=== PATIENT | male | born 1965 | race American Indian/Alaskan Native ===

== ENCOUNTER 2018-06-03 15:21 | Inpatient (IN) | payer BC ==
[2018-06-03] MEDS ORDERED: D50W (25GM) Syringe IV PRN (17:09)
[2018-06-03] MEDS ORDERED: SIMPLE SYRUP FEEDTUBE PRN ×2 (17:25)
[2018-06-03] MEDS ORDERED: PANCREAZE DR 10,500 UNIT FEEDTUBE PRN (17:25)
[2018-06-03] MEDS ORDERED: SODIUM BICARBONATE FEEDTUBE PRN (17:25)
[2018-06-03] MEDS ORDERED: MIRALAX 3350 FEEDTUBE PRN (17:30)
[2018-06-03] MEDS: HumaLOG SUB-Q SCH (18:45)
--- NOTE | 2018-06-03 19:01 | History and Physical Report ---
History of Present Illness Date: 06/03/18 Referring Facility: [facility] Date of admission: 06/03/18 17:09 Chief Complaint: CVA History of present illness: 53-year-old LHD male who experienced increased right-sided weakness three days p rior to presentation at an outside hospital. He also had decreased balance and gait. He was admitted and worked up for stroke. MRI of brain confirmed the presence of a stroke. A repeat MRI showed a second stroke in a different area. Patient was continued on secondary stroke prevention medications. He had a PEG tube placed and was started on a low volume of TF. He developed acute kidney injury and a nephrology consult was called. He required transfer to the [facility] for management of uncontrolled blood pressure. He was later weaned off of Cardene drip and restarted on oral blood pressure medications. 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 He agreed to have his group continue to see the patient in consultation. After he was medically stabilized he was transferred to participate in an acute rehabilitation program. All available records were reviewed. Past History Past Medical History: diabetes, hypertension, hyperlipidemia Past Surgical History: Other (R BKA) Social history: single, Lives alone, full code, other (Former Tobacco, Current EtOH, Denies illicit. Lives in 1 story home, Independent, driving and working.) Family history: diabetes, hypertension, stroke Medications and Allergies Allergies Allergy/AdvReac Type Severity Reaction Status Date / Time No Known Allergies Allergy Unverified 08/03/15 12:32 Home Medications Medication Instructions Recorded Confirmed Last Taken Type Aspirin [Aspirin BABY CHEW TAB] 81 mg PO QDAY 08/04/15 08/04/15 Unknown History Insulin Detemir [Levemir Flextouch] 35 unit SQ BID 08/04/15 08/04/15 Unknown History NIFEdipine XL [Procardia Xl] 60 mg PO QDAY 08/04/15 08/04/15 Unknown History Simvastatin [Zocor TAB] 40 mg PO QHS 08/04/15 08/04/15 Unknown History Sitagliptin/Metformin (Nf) 1 each PO BID 08/04/15 08/04/15 Unknown History [Janumet 50-1,000 mg (Nf)] Sulfamethoxazole/Trimethoprim 1 each PO BID #14 tablet 08/04/15 Unknown Rx [Bactrim DS TAB] Active Meds: Active Medications Amlodipine Besylate (Norvasc) 5 mg FEEDTUBE QDAY JONO Lipase/Protease/Amylase (Pancreaze Dr 10,500 Unit) 1 each FEEDTUBE PRN PRN PRN Reason: For Clogged Feeding Tube Aspirin (Aspirin) 325 mg FEEDTUBE QDAY JONO Atorvastatin Calcium (Lipitor) 40 mg FEEDTUBE QHS JONO Clopidogrel Bisulfate (Plavix) 75 mg FEEDTUBE QDAY JONO Dextrose (D50w (25gm) Syringe) 50 ml IV PRN PRN PRN Reason: Hypoglycemia Docusate Sodium (Colace) 100 mg FEEDTUBE BID JONO Famotidine (Pepcid) 20 mg FEEDTUBE BID JONO Heparin Sodium (Porcine) (Heparin) 5,000 unit SUB-Q Q8HR JONO Hydralazine HCl (Apresoline) 75 mg FEEDTUBE Q8HR JONO Insulin Glargine (Lantus) 40 units SUB-Q BID JONO Insulin Human Lispro (Humalog) 0 unit SUB-Q Q6HR JONO; Protocol Last Admin: 06/03/18 18:45 Dose: Not Given Documented by: Metoprolol Tartrate (Lopressor) 100 mg FEEDTUBE BID JONO Polyethylene Glycol (Miralax 3350) 17 gm FEEDTUBE QDAY PRN PRN Reason: Constipation Simple Syrup (Simple Syrup) 15 ml FEEDTUBE PRN PRN PRN Reason: Hypoglycemia Simple Syrup (Simple Syrup) 30 ml FEEDTUBE PRN PRN PRN Reason: Hypoglycemia Sodium Bicarbonate (Sodium Bicarbonate) 325 mg FEEDTUBE PRN PRN PRN Reason: For Clogged Feeding Tube Review of Systems All systems: negative (10 systems reviewed NEG except as noted) Constitutional: weakness Ears, nose, mouth and throat: dysphagia, voice changes Cardiovascular: high blood pressure Genitourinary Male: urinary retention Musculoskeletal: gait dysfunction Integumentary: sores Neurological: weakness, lack of coordination, aphasia, change in speech, balance difficulties, gait dysfunction, sensory deficit Exam - Exam Narrative exam: MUSCULOSKELETAL SPECIALTY EXAM Constitutional: Well developed, well nourished, appropriately groomed, LHD Lymphatic: No appreciable abnormalities palpable in neck EENT: Visual de la garza full to confrontation. EOMI. Oropharynx clear. Hearing intact to finger rustle. Poor dentition Respiratory: Clear to ascultation bilaterally, no increased work of breathing. Cardiovascular Regular Rate/ Rhythm, no swelling edema or tenderness in all 4 extremities. P ulses palpable in all 4 extremities. All 4 extremities warm. GI : + bowel sounds, soft, NTTP, nondistended, PEG : Mcmullen INTEGUMENTARY Normal in all 4 extremities except for what appears to be old/healed sores on LLE Musuloskeletal BUE and BLE normal without defect, crepitus, sublux, effusion, or TTP except for Right BKA. RUE and RLE 4-/5. Decreased aROM, good pROM, normal tone. LUE and LLE 4+/5, good ROM with normal tone. NEURO: Significant Left facial droop involving upper and lower face (LMN), Tongue protrudes left otherwise, sensation on face is assymetric, otherwise CN 2-12 g rossly intact. Sensation intact on LEFT extremities and impaired on RIGHT. Reflexes 3+ on right and 2+ on left at biceps, brachioradialis and patella. No Clonus. Coordination intact on left, decreased on right. No tremor noted. Aphasia and dysarthria present. Naming and repetition intact. POSTURE and GAIT: Deferred until seen with therapy for safety. Patient examined in bed. PSYCH: Alert, orientated x3, affect appears normal. Insight appears intact. - Constitutional Vitals: Vital Signs - 12hr 06/03/18 17:58 Temperature 36.6 C Pulse Rate 89 Respiratory 18 Rate Blood Pressure 135/81 [Left] O2 Sat by Pulse 94 Oximetry - Labs CBC & Chem 7: 06/03/18 19:51 06/03/18 19:51 Labs: Laboratory Results - last 72 hr 06/03/18 18:18 POC Glucose 147 H Assessment and Plan Assessment and plan: Patient was assessed and evaluated for Acute Inpatient Rehab Unit. Due to the patients above-mentioned medical complexity, along with decreased functional mobility and self care, this patient continues to require and be appropriate for a comprehensive, multidisciplinary [id number] rehabilitation program. These needs cannot be met in an outpatient or other less intensive setting. The patient would continue to benefit from skilled therapy intervention for at least 3 hours per day, five days a week, with techniques specific to the needs of the patient to improve function, activities of daily living, and reintegration into the community. The patient continues to require: -- OT to improve ROM, self-care, and learn use of adaptive equipment -- PT to improve strength and balance, functional transfers, and ambulation -- CORROSION CONTROL SPECIALIST to evaluate and treat cognitive decline and dysphagia -- 24 hour RN to ensure and prevent skin breakdown, promote progressive independence while ensuring safety, ensure education regarding medications, and incorporation of the rehabilitation at the bedside -- 24 hour Reverberatory Furnace Operator to coordinate this interdisciplinary program, and to manage/prevent complications as a result of the patients medical comorbidities. -Plan of care by day 4 -Weekly team conferences With such a program, there is a reasonable certainty that the goals individualized for this patient can be achieved within the specified length of stay. I69.353 Right non-dom hemiparesis: Monitor for neuro decline. Continue secondary stroke prevention. Discussed recovery and secondary stroke prevention. Monitor for post-stroke depression and s/s of shoulder-hand syndrome. Monitor for safety awareness I69.322 Dysarthria: CORROSION CONTROL SPECIALIST for improvement in communication and speech I69.391 Dysphagia: CORROSION CONTROL SPECIALIST to improve swallow function. Continue TF with NPO. Monitor and advance diet as safely as able. FEES, MBSS or EStim as needed. Z73.6 ADL dysfunction: OT will work on improving ability to perform ADLs (inclu ding assistive devices) to increase independence and decrease caregiver burden and improve functional transfers and mobility training. R26.2 Difficulty walking: PT will work on gait training and proper use of assistive devices and advance as appropriate to use of stairs and outside ambulation on uneven surfaces. R26.81 Unsteadiness on feet: PT will work on improving static and dynamic sitting and standing balance as well as proper use of assistive devices to decrease risk of falls. R26.89 Abnormality of gait: PT will work to improve safety and efficiency of gait through neuromotor training and gait training along with instruction on proper use of assistive devices. Has prosthesis with him M62.81 Muscle weakness: PT & OT will work on strengthening exercises to improve functional strength including mixture of closed and open kinetic chain exercises. R53.81 Debility: PT & OT will work on improving overall functional status to improve participation with ADLs, mobility and social involvement. R53.83 Fatigue: PT & OT will work on improving endurance through aerobic exercises and therapeutic activity while monitoring patients tolerance for activity and vital signs as needed. I10 Hypertension:Monitor BP and adjust medications as needed for normotension E78.5 Hyperlipidemia: continue statin E11.8 Diabetes: continue medication and adjust as needed N17.0 ELVIRA due to ATN: monitor for recovery, IVF if needed. Avoid nephrotoxic agents DVT ppx: Heparin TID due to renal function GI ppx: Pepcid Pain: Continue physical modalities in therapy and pain medications as needed to achieve functional pain control. Sleep: Monitor and address as needed. Bowel: Monitor and address as needed. Appetite: Monitor and address as needed when able to take PO. Discharge planning: Pending therapy progress and care plan meeting. Will continue discussion with therapy team, SW, patient and family. Restrictions/ Precautions: Falls, aspiration WB status: FWB Functional Hx: ADLs: Independent and working Cognition: Independent Mobility: independent Consult: Hospitalists for medical management Nephrology for renal function Barriers to Discharge: Decreased mobility and ability to perform self care, right sided weakness, balance deficits, dysphagia Estimated Length of Stay: 21 days Discharge Destination: Home with family if possible POST ADMISSION PHYSICIAN EVALUATION I have examined the patient and find that his functional status, medical condition and appropriateness for IRF admission are essentially unchanged from those described in the preadmission screening. Will monitor for worsening neurological condition, complications due to hypertension and electrolyte abnormalities, aspiration, problems with blood pressure or diabetes. Will attempt to avoid occurrence of these issues or treat them if they present themselves.
[2018-06-03 20:05] LABS: Hematocrit 30.8 % (35.5-45.6); Hemoglobin 10.2 gm/dl (11.8-15.2); Mean Corpuscular HGB Conc 33 % (32-34); Mean Corpuscular Volume 88 fl (84-94); Platelet Count 555 K/mm3 (140-440)
[2018-06-03 20:22] LABS: Calcium 9.4 mg/dL (8.4-10.2); Prealbumin 0.23 g/L (0.200-0.400)
[2018-06-03] MEDS: HEPARIN SUB-Q SCH (23:12)
[2018-06-03] MEDS: APRESOLINE FEEDTUBE SCH (23:14)
[2018-06-03] MEDS: PEPCID FEEDTUBE SCH (23:16)
[2018-06-03] MEDS: COLACE FEEDTUBE SCH (23:18)
[2018-06-03] MEDS: LANTUS SUB-Q SCH (23:18)
[2018-06-03] MEDS: LOPRESSOR FEEDTUBE SCH (23:19)
[2018-06-04] MEDS: HumaLOG SUB-Q SCH ×4 (00:09→18:15)
[2018-06-04] MEDS: HEPARIN SUB-Q SCH ×3 (07:02→23:40)
[2018-06-04] MEDS: APRESOLINE FEEDTUBE SCH ×3 (07:03→23:41)
[2018-06-04] MEDS: ASPIRIN FEEDTUBE SCH (09:27)
[2018-06-04] MEDS: COLACE FEEDTUBE SCH (09:27)
[2018-06-04] MEDS: PEPCID FEEDTUBE SCH ×2 (09:27→23:41)
[2018-06-04] MEDS: PLAVIX FEEDTUBE SCH (09:27)
[2018-06-04] MEDS: LOPRESSOR FEEDTUBE SCH ×2 (09:28→23:42)
[2018-06-04] MEDS: NORVASC FEEDTUBE SCH (09:28)
[2018-06-04] MEDS: LANTUS SUB-Q SCH (09:29)
--- NOTE | 2018-06-04 11:03 | Consultation ---
History of Present Illness - Reason for Consult Consult date: 06/04/18 acute renal failure, chronic renal failure - History of Present Illness This is a 53 year old male who transferred from [facility] yesterday to this rehab facility to undergo rehab for right-sided weakness secondary to having a stroke. Patient was followed by our group at [facility] for Acute Renal failure on CKD, his serum creatinine on admission at [facility] was 5.17. Serum creatinine yesterday was 3.28 and prior was 3.80. Patient's serum creatinine has been steadily improving. Patient has history of DM, HTN, possibly CKD and CVA. We are being consulted for continued management of this patient's Acute renal Failure on CKD. Past History Past Medical History: diabetes, hypertension, hyperlipidemia Past Surgical History: Other (R BKA) Social history: single, Lives alone, full code, other (Former Tobacco, Current EtOH, Denies illicit. Lives in 1 story home, Independent, driving and working.) Family history: diabetes, hypertension, stroke Medications and Allergies Allergies Allergy/AdvReac Type Severity Reaction Status Date / Time No Known Allergies Allergy Unverified 08/03/15 12:32 Home Medications Medication Instructions Recorded Confirmed Last Taken Type Aspirin [Aspirin BABY CHEW TAB] 81 mg PO QDAY 08/04/15 08/04/15 Unknown History Insulin Detemir [Levemir Flextouch] 35 unit SQ BID 08/04/15 08/04/15 Unknown History NIFEdipine XL [Procardia Xl] 60 mg PO QDAY 08/04/15 08/04/15 Unknown History Simvastatin [Zocor TAB] 40 mg PO QHS 08/04/15 08/04/15 Unknown History Sitagliptin/Metformin (Nf) 1 each PO BID 08/04/15 08/04/15 Unknown History [Janumet 50-1,000 mg (Nf)] Sulfamethoxazole/Trimethoprim 1 each PO BID #14 tablet 08/04/15 Unknown Rx [Bactrim DS TAB] Active Meds: Active Medications Amlodipine Besylate (Norvasc) 5 mg FEEDTUBE QDAY JONO Last Admin: 06/04/18 09:28 Dose: 5 mg Documented by: Lipase/Protease/Amylase (Amy Laguerre 10,500 Unit) 1 each FEEDTUBE PRN PRN PRN Reason: For Clogged Feeding Tube Aspirin (Aspirin) 325 mg FEEDTUBE QDAY [facility] Last Admin: 06/04/18 09:27 Dose: 325 mg Documented by: Atorvastatin Calcium (Lipitor) 40 mg FEEDTUBE QHS [facility] Last Admin: 06/03/18 23:17 Dose: 40 mg Documented by: Clopidogrel Bisulfate (Plavix) 75 mg FEEDTUBE QDAY [facility] Last Admin: 06/04/18 09:27 Dose: 75 mg Documented by: Dextrose (D50w (25gm) Syringe) 50 ml IV PRN PRN PRN Reason: Hypoglycemia Docusate Sodium (Colace) 100 mg FEEDTUBE BID [facility] Last Admin: 06/04/18 09:27 Dose: 100 mg Documented by: Famotidine (Pepcid) 20 mg FEEDTUBE BID [facility] Last Admin: 06/04/18 09:27 Dose: 20 mg Documented by: Heparin Sodium (Porcine) (Heparin) 5,000 unit SUB-Q Q8HR [facility] Last Admin: 06/04/18 07:02 Dose: 5,000 unit Documented by: Hydralazine HCl (Apresoline) 75 mg FEEDTUBE Q8HR [facility] Last Admin: 06/04/18 07:03 Dose: 75 mg Documented by: Insulin Glargine (Lantus) 40 units SUB-Q BID [facility] Last Admin: 06/04/18 09:29 Dose: 40 units Documented by: Insulin Human Lispro (Humalog) 0 unit SUB-Q Q6HR [facility]; Protocol Last Admin: 06/04/18 00:09 Dose: Not Given Documented by: Metoprolol Tartrate (Lopressor) 100 mg FEEDTUBE BID [facility] Last Admin: 06/04/18 09:28 Dose: 100 mg Documented by: Polyethylene Glycol (Miralax 3350) 17 gm FEEDTUBE QDAY PRN PRN Reason: Constipation Simple Syrup (Simple Syrup) 15 ml FEEDTUBE PRN PRN PRN Reason: Hypoglycemia Simple Syrup (Simple Syrup) 30 ml FEEDTUBE PRN PRN PRN Reason: Hypoglycemia Sodium Bicarbonate (Sodium Bicarbonate) 325 mg FEEDTUBE PRN PRN PRN Reason: For Clogged Feeding Tube Review of Systems Constitutional: fatigue, weakness, no weight loss, no weight gain, no fever, no chills Ears, nose, mouth and throat: no ear discharge, no tinnitis, no decreased hearing, no nose pain, no nasal congestion Cardiovascular: no chest pain, no palpitations, no rapid/irregular heart beat Respiratory: no cough, no cough with sputum, no excessive sputum, no hemoptysis, no shortness of breath Gastrointestinal: no abdominal pain, no nausea, no vomiting, no diarrhea, no constipation, no change in bowel habits Musculoskeletal: no neck stiffness, no neck pain, no shooting arm pain, no arm numbness/tingling, no low back pain Integumentary: no rash, no pruritis, no redness, no sores Neurological: weakness, lack of coordination, balance difficulties, gait dysfunction, no head injury, no transient paralysis, no paralysis Psychiatric: no anxiety, no memory loss, no change in sleep habits, no sleep disturbances, no insomnia, no hypersomnia Endocrine: no cold intolerance, no heat intolerance, no polyphagia, no excessive thirst, no polydipsia Hematologic/Lymphatic: no easy bruising, no easy bleeding, no lymphadenopathy Exam - Vital Signs Vital signs: Vital Signs Temp Pulse Resp BP Pulse Ox 97.8 F 89 18 135/81 94 06/03/18 17:58 06/03/18 17:58 06/03/18 17:58 06/03/18 17:58 06/03/18 17:58 - General Appearance General appearance: well-developed, fatigue, other (slurred speech) EENT: ATNC, PERRL Neck: Present: neck supple Respiratory: Decreased Breath Sounds Heart: S1S2 Gastrointestinal: Present: normoactive bowel sounds Integumentary: warm and dry Neurologic: alert and oriented x3 Musculoskeletal: Present: decreased ROM, other (Right BKA) Results - Lab Results 06/03/18 19:51 06/03/18 19:51 Most recent lab results Calcium 9.4 mg/dL (8.4-10.2) 06/03/18 19:51 Phosphorus 3.50 mg/dL (2.5-4.5) 06/03/18 19:51 Magnesium 1.90 mg/dL (1.7-2.3) 06/03/18 19:51 Assessment and Plan Acute Renal Failure secondary to Ischemic ATN on likely CKD from HTN: -Renal function reviewed. Serum creatinine today is 3.1. Yesterdays serum creatinine was 3.28, renal function slowly improvinmg -Was on 1/2NS, will monitor renal function off IV fluids -GN work-up ordered at previous hospital was negative -Renal ultrasound at previous hospital showed signs of CKD -Avoid nephrotoxic agents -Obtain daily weights -Monitor I/O's -Monitor renal function closely Acute CVA: -On ASA, plavix and Statin -Rehab therapy Hypertension: -Continue BP meds and adjust as needed Diabetes Mellitus: -On Insulin Oropharyngeal Dysphagia: Peg Tube feedings
[2018-06-04] MEDS ORDERED: SODIUM BICARBONATE FEEDTUBE PRN (12:07)
[2018-06-04] MEDS ORDERED: SIMPLE SYRUP FEEDTUBE PRN ×2 (12:07)
[2018-06-04] MEDS ORDERED: PANCREAZE DR 10,500 UNIT FEEDTUBE PRN (12:07)
--- NOTE | 2018-06-04 16:37 | Consultation ---
History of Present Illness - Reason for Consult Consult date: 06/04/18 Requesting physician: LUIS A ISLAS III - History of Present Illness 53 year old whose past medical history significant for CVA, hypertension, DM, CKD was admitted to acute rehabilitation from [facility]. Patient has a recent acute CVA with right-sided weakness on secondary prevention of stroke. Hospitalist group is consulted for the management of high blood pressure and diabetes. Patient was seen and evaluated did have any complaints. REVIEW OF SYSTEMS: GENERAL: no weight change, no fatigue, no fever HEAD: no head ache EYES: no blurry vision, no acute visual loss EARS: no hearing loss, no discharge, no earache NOSE: no stuffiness, no sneezing, no discharge MOUTH, THROAT AND NECK: no bleeding gums, no sore throat, no swollen neck CARDIAC: no palpitations, no dyspnea on exertion, no orthopnea, no PND, no edema, no chest pain RESPIRATORY: no shortness of breath, no wheeze, no cough, no sputum, no hemoptysis, no asthma GI: no decreased appetite, no nausea, no vomiting, no dysphagia, no diarrhea, no constipation, no abdominal pain URINARY: no change in frequency, no urgency, no polyuria, no hematuria, no incontinence MUSCULOSKELETAL: right BKA NEUROLOGIC: right arm weakness HEMATOLOGIC: no anemia, no easy bruising SKIN: no rashes ENDOCRINE: no heat/cold intolerance, no polyuria, no polydipsia, no thyroid problems, no diabetes PSYCHIATRIC: no anxiety, no depression, no suicidal ideations Past History Past Medical History: diabetes, hypertension, hyperlipidemia Past Surgical History: Other (R BKA) Social history: single, Lives alone, full code, other (Former Tobacco, Current EtOH, Denies illicit. Lives in 1 story home, Independent, driving and working.) Family history: diabetes, hypertension, stroke Medications and Allergies Allergies Allergy/AdvReac Type Severity Reaction Status Date / Time No Known Allergies Allergy Unverified 08/03/15 12:32 Home Medications Medication Instructions Recorded Confirmed Last Taken Type Aspirin [Aspirin BABY CHEW TAB] 81 mg PO QDAY 08/04/15 08/04/15 Unknown History Insulin Detemir [Levemir Flextouch] 35 unit SQ BID 08/04/15 08/04/15 Unknown History NIFEdipine XL [Procardia Xl] 60 mg PO QDAY 08/04/15 08/04/15 Unknown History Simvastatin [Zocor TAB] 40 mg PO QHS 08/04/15 08/04/15 Unknown History Sitagliptin/Metformin (Nf) 1 each PO BID 08/04/15 08/04/15 Unknown History [Janumet 50-1,000 mg (Nf)] Sulfamethoxazole/Trimethoprim 1 each PO BID #14 tablet 08/04/15 Unknown Rx [Bactrim DS TAB] Active Meds: Active Medications Amlodipine Besylate (Norvasc) 5 mg FEEDTUBE QDAY [facility] Last Admin: 06/04/18 09:28 Dose: 5 mg Documented by: Lipase/Protease/Amylase (Pancreaze Dr 10,500 Unit) 1 each FEEDTUBE PRN PRN PRN Reason: For Clogged Feeding Tube Lipase/Protease/Amylase (Pancreaze Dr 10,500 Unit) 1 each FEEDTUBE PRN PRN PRN Reason: For Clogged Feeding Tube Aspirin (Aspirin) 325 mg FEEDTUBE QDAY [facility] Last Admin: 06/04/18 09:27 Dose: 325 mg Documented by: Atorvastatin Calcium (Lipitor) 40 mg FEEDTUBE QHS [facility] Last Admin: 06/03/18 23:17 Dose: 40 mg Documented by: Clopidogrel Bisulfate (Plavix) 75 mg FEEDTUBE QDAY [facility] Last Admin: 06/04/18 09:27 Dose: 75 mg Documented by: Dextrose (D50w (25gm) Syringe) 50 ml IV PRN PRN PRN Reason: Hypoglycemia Docusate Sodium (Colace) 100 mg FEEDTUBE BID [facility] Last Admin: 06/04/18 09:27 Dose: 100 mg Documented by: Famotidine (Pepcid) 10 mg FEEDTUBE BID [facility] Heparin Sodium (Porcine) (Heparin) 5,000 unit SUB-Q Q8HR [facility] Last Admin: 06/04/18 13:18 Dose: 5,000 unit Documented by: Hydralazine HCl (Apresoline) 75 mg FEEDTUBE Q8HR [facility] Last Admin: 06/04/18 13:18 Dose: 75 mg Documented by: Insulin Glargine (Lantus) 40 units SUB-Q BID [facility] Last Admin: 06/04/18 09:29 Dose: 40 units Documented by: Insulin Human Lispro (Humalog) 0 unit SUB-Q Q6HR [facility]; Protocol Last Admin: 06/04/18 13:11 Dose: Not Given Documented by: Metoprolol Tartrate (Lopressor) 100 mg FEEDTUBE BID [facility] Last Admin: 06/04/18 09:28 Dose: 100 mg Documented by: Polyethylene Glycol (Miralax 3350) 17 gm FEEDTUBE QDAY PRN PRN Reason: Constipation Simple Syrup (Simple Syrup) 15 ml FEEDTUBE PRN PRN PRN Reason: Hypoglycemia Simple Syrup (Simple Syrup) 30 ml FEEDTUBE PRN PRN PRN Reason: Hypoglycemia Simple Syrup (Simple Syrup) 15 ml FEEDTUBE PRN PRN PRN Reason: Hypoglycemia Simple Syrup (Simple Syrup) 30 ml FEEDTUBE PRN PRN PRN Reason: Hypoglycemia Sodium Bicarbonate (Sodium Bicarbonate) 325 mg FEEDTUBE PRN PRN PRN Reason: For Clogged Feeding Tube Sodium Bicarbonate (Sodium Bicarbonate) 325 mg FEEDTUBE PRN PRN PRN Reason: For Clogged Feeding Tube Exam - Physical Exam Narrative exam: Not in cardiopulmonary distress. The patient appeared well nourished and normally developed. Vital signs as documented. Head exam is unremarkable. No scleral icterus . Neck is without jugular venous distension, thyromegaly, or carotid bruits. Lungs are clear to auscultation. Cardiac exam reveals regular rate and Rhythm. First and second heart sounds normal. No murmurs, rubs or gallops. Abdominal exam reveals normal bowel sounds, no masses, no organomegaly and no aortic enlargement. Extremities right BKA. 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 - Constitutional Vitals: Temp Pulse Resp BP Pulse Ox 97.3 F L 60 18 121/81 96 06/04/18 12:11 06/04/18 12:11 06/04/18 12:11 06/04/18 13:18 06/04/18 12:11 Results - Labs CBC & Chem 7: 06/03/18 19:51 06/03/18 19:51 Labs: Abnormal lab results 06/03/18 06/03/18 06/03/18 Range/Units 18:18 19:51 19:51 RBC 3.50 L (3.65-5.03) M/mm3 Hgb 10.2 L (11.8-15.2) gm/dl Hct 30.8 L (35.5-45.6) % Plt Count 555 H (140-440) K/mm3 Carbon Dioxide 34 H (22-30) mmol/L BUN 49 H (9-20) mg/dL Creatinine 3.1 H (0.8-1.5) mg/dL Glucose 133 H (75-100) mg/dL POC Glucose 147 H (70-105) 06/04/18 06/04/18 Range/Units 07:41 12:21 RBC (3.65-5.03) M/mm3 Hgb (11.8-15.2) gm/dl Hct (35.5-45.6) % Plt Count (140-440) K/mm3 Carbon Dioxide (22-30) mmol/L BUN (9-20) mg/dL Creatinine (0.8-1.5) mg/dL Glucose (75-100) mg/dL POC Glucose 139 H 148 H (70-105) Assessment and Plan CVA with residual right-sided hemiparesis, dysphagia -On aspirin and atorvastatin -PT/OT, speech therapy evaluation Right BKA - Supportive care Hypertension - Controlled continue amlodipine, hydralazine and metoprolol. Diabetes mellitus - The blood sugar is with in acceptable range - SSI CKD - Nephrology following DVT prophylaxis - On heparin Patient's primary is Dr Islas.
[2018-06-05] MEDS: LANTUS SUB-Q SCH ×2 (00:03→10:16)
[2018-06-05] MEDS: HumaLOG SUB-Q SCH ×4 (00:05→17:13)
[2018-06-05] MEDS: COLACE FEEDTUBE SCH ×3 (00:05→23:20)
[2018-06-05 04:59] LABS: Basophils # (Auto) 0.1 K/mm3 (0.0-0.1); Basophils % (Auto) 0.6 % (0.0-1.8); Eosinophils # (Auto) 0.3 K/mm3 (0.0-0.4); Hemoglobin 9.6 gm/dl (11.8-15.2); Lymphocytes # (Auto) 1.8 K/mm3 (1.2-5.4); Lymphocytes % (Auto) 13.7 % (13.4-35.0); Mean Corpuscular HGB Conc 33 % (32-34); Mean Corpuscular Volume 88 fl (84-94); Monocytes # (Auto) 0.8 K/mm3 (0.0-0.8); Monocytes % (Auto) 6.3 % (0.0-7.3); Platelet Count 553 K/mm3 (140-440); Red Cell Distribution Width 14.2 % (13.2-15.2)
[2018-06-05 05:26] LABS: Calcium 9.4 mg/dL (8.4-10.2)
[2018-06-05] MEDS: APRESOLINE FEEDTUBE SCH ×3 (05:31→23:13)
[2018-06-05] MEDS: HEPARIN SUB-Q SCH ×3 (05:33→23:07)
[2018-06-05] MEDS: LOPRESSOR FEEDTUBE SCH ×2 (09:54→23:14)
[2018-06-05] MEDS: PEPCID FEEDTUBE SCH ×2 (09:54→23:08)
[2018-06-05] MEDS: PLAVIX FEEDTUBE SCH (09:54)
[2018-06-05] MEDS: ASPIRIN FEEDTUBE SCH (09:54)
[2018-06-05] MEDS: NORVASC FEEDTUBE SCH (09:55)
--- NOTE | 2018-06-05 10:18 | Progress Note ---
Assessment and Plan Acute Renal Failure secondary to Ischemic ATN on likely CKD from HTN: -Cr cont to improve slowly -GN work-up ordered at previous hospital was negative -Renal ultrasound at previous hospital showed signs of CKD -Avoid nephrotoxic agents -Obtain daily weights -Monitor I/O's -Monitor renal function closely Acute CVA: -On ASA, plavix and Statin -Rehab therapy Hypertension: -Continue BP meds and adjust as needed Diabetes Mellitus: -On Insulin Oropharyngeal Dysphagia: Peg Tube feedings Subjective Date of service: 06/05/18 Principal diagnosis: acute kidney failure on chronic kidney disease Interval history: working wit PT, tolerating Objective - Vital Signs Vital signs: Vital Signs - 12hr 06/04/18 06/04/18 06/05/18 23:41 23:42 04:38 Temperature Pulse Rate 93 H 93 H Respiratory Rate Blood Pressure 130/65 130/65 Blood Pressure [Left] O2 Sat by Pulse 100 Oximetry 06/05/18 06/05/18 06/05/18 05:31 07:35 09:54 Temperature 98.7 F Pulse Rate 96 H 94 H 95 H Respiratory 16 Rate Blood Pressure 136/92 142/92 Blood Pressure 142/92 [Left] O2 Sat by Pulse 95 Oximetry - General Appearance General appearance: well-developed, well-nourished EENT: ATNC, PERRL Neck: no JVD, no carotid bruit Respiratory: Present: Clear to Ascultation. Absent: Rales, Ronchi Cardiology: regular, S1S2 Gastrointestinal: normoactive bowel sounds, no tenderness, no distended Integumentary: no rash, warm and dry Neurologic: no focal deficit, no asterixis Musculoskeletal: other (trace pitting edema in BLE) Psychiatric: cooperative - Lab 06/05/18 04:37 06/05/18 04:37 Most recent lab results Calcium 9.4 mg/dL (8.4-10.2) 06/05/18 04:37 Phosphorus 3.70 mg/dL (2.5-4.5) 06/05/18 04:37 Magnesium 1.90 mg/dL (1.7-2.3) 06/03/18 19:51 Medications & Allergies - Medications Allergies/Adverse Reactions: Allergies No Known Allergies Allergy (Unverified 08/03/15 12:32) Home Medications: Home Medications Medication Instructions Recorded Confirmed Last Taken Type Aspirin [Aspirin BABY CHEW TAB] 81 mg PO QDAY 08/04/15 08/04/15 Unknown History Insulin Detemir [Levemir Flextouch] 35 unit SQ BID 08/04/15 08/04/15 Unknown History NIFEdipine XL [Procardia Xl] 60 mg PO QDAY 08/04/15 08/04/15 Unknown History Simvastatin [Zocor TAB] 40 mg PO QHS 08/04/15 08/04/15 Unknown History Sitagliptin/Metformin (Nf) 1 each PO BID 08/04/15 08/04/15 Unknown History [Janumet 50-1,000 mg (Nf)] Sulfamethoxazole/Trimethoprim 1 each PO BID #14 tablet 08/04/15 Unknown Rx [Bactrim DS TAB] Active Medications: Generic Name Dose Route Start Last Admin Trade Name Freq PRN Reason Stop Dose Admin Amlodipine Besylate 5 mg 06/04/18 08:00 06/05/18 09:55 Norvasc FEEDTUBE 5 mg QDAY JONO Administration Lipase/Protease/Amylase 1 each 06/03/18 17:25 Amy Laguerre 10,500 Unit FEEDTUBE PRN PRN For Clogged Feeding Tube Lipase/Protease/Amylase 1 each 06/04/18 12:07 Amy Laguerre 10,500 Unit FEEDTUBE PRN PRN For Clogged Feeding Tube Aspirin 325 mg 06/04/18 08:00 06/05/18 09:54 Aspirin FEEDTUBE 325 mg QDAY JONO Administration Atorvastatin Calcium 40 mg 06/03/18 21:00 06/05/18 00:10 Lipitor FEEDTUBE 40 mg QHS JONO Administration Clopidogrel Bisulfate 75 mg 06/04/18 08:00 06/05/18 09:54 Plavix FEEDTUBE 75 mg QDAY JONO Administration Dextrose 50 ml 06/03/18 17:09 D50w (25gm) Syringe IV PRN PRN Hypoglycemia Docusate Sodium 100 mg 06/03/18 22:00 06/05/18 09:54 Colace FEEDTUBE 100 mg BID JONO Administration Famotidine 10 mg 06/04/18 22:00 06/05/18 09:54 Pepcid FEEDTUBE 10 mg BID JONO Administration Heparin Sodium (Porcine) 5,000 unit 06/03/18 22:00 06/05/18 05:33 Heparin SUB-Q 5,000 unit Q8HR JONO Administration Hydralazine HCl 75 mg 06/03/18 22:00 06/05/18 05:31 Apresoline FEEDTUBE 75 mg Q8HR JONO Administration Insulin Glargine 40 units 06/03/18 22:00 06/05/18 10:16 Lantus SUB-Q Not Given BID JONO Insulin Human Lispro 0 unit 06/03/18 18:00 06/05/18 05:34 Humalog SUB-Q Not Given Q6HR [facility] Protocol Metoprolol Tartrate 100 mg 06/03/18 22:00 06/05/18 09:54 Lopressor FEEDTUBE 100 mg BID JONO Administration Polyethylene Glycol 17 gm 06/03/18 17:30 Miralax 3350 FEEDTUBE QDAY PRN Constipation Simple Syrup 15 ml 06/03/18 17:25 Simple Syrup FEEDTUBE PRN PRN Hypoglycemia Simple Syrup 30 ml 06/03/18 17:25 Simple Syrup FEEDTUBE PRN PRN Hypoglycemia Simple Syrup 15 ml 06/04/18 12:07 Simple Syrup FEEDTUBE PRN PRN Hypoglycemia Simple Syrup 30 ml 06/04/18 12:07 Simple Syrup FEEDTUBE PRN PRN Hypoglycemia Sodium Bicarbonate 325 mg 06/03/18 17:25 Sodium Bicarbonate FEEDTUBE PRN PRN For Clogged Feeding Tube Sodium Bicarbonate 325 mg 06/04/18 12:07 Sodium Bicarbonate FEEDTUBE PRN PRN For Clogged Feeding Tube
--- NOTE | 2018-06-05 12:36 | Progress Note ---
Subjective Date of service: 06/05/18 Principal diagnosis: CVA, Acute on CKD Interval history: 53-year-old LHD male who experienced increased right-sided weakness three days prior to presentation at an outside hospital. He also had decreased balance and gait. He was admitted and worked up for stroke. MRI of brain confirmed the presence of a stroke. A repeat MRI showed a second stroke in a different area. Patient was continued on secondary stroke prevention medications. He had a PEG tube placed and was started on a low volume of TF. He developed acute kidney injury and a nephrology consult was called. He required transfer to the [facility] for management of uncontrolled blood pressure. He was later weaned off of Cardene drip and restarted on oral blood pressure medications. Patient is participating in therapy and making fair progress. +BM. No pain currently. PEG ok. TF increased by nutrition gradually to goal of 80mL/hr. D/C'd lantus - was dosed at 40u BID and only on 20mL/hr of TF with several lower values. Continue to cover with SSI and add back Lantus as needed per hospitalist. Vitals ok, afternoon dose of hydralazine held - monitor and may need to decrease dose. Pt stated that he lost his glasses. Nurse recalls seeing them earlier. They are not in room. Asked that they be located if possible. Seems to have visual deficit but not definitive. Denies diplopia, blurred vision, or blind spots. FMLA ppwk filled out. No other issues per patient, nursing or therapy. All available medical records, therapy notes, vitals and labs were reviewed. Objective - Exam Narrative Exam: MUSCULOSKELETAL SPECIALTY EXAM Constitutional: Well developed, well nourished, appropriately groomed, LHD EENT: Hearing intact to finger rustle. Poor dentition Respiratory: Clear to ascultation bilaterally, no increased work of breathing. Occ cough Cardiovascular Regular Rate/ Rhythm, no swelling edema or tenderness in all 4 extremities. All 4 extremities warm. GI : + bowel sounds, soft, NTTP, nondistended, PEG : Mcmullen INTEGUMENTARY Normal in all 4 extremities except for what appears to be old/healed sores on LLE Musuloskeletal BUE and BLE normal without defect, crepitus, sublux, effusion, or TTP except for Right BKA. RUE and RLE 4-/5. Decreased aROM, good pROM, normal tone. LUE and LLE 4+/5, good ROM with normal tone. NEURO: Significant Left facial droop involving upper and lower face (LMN), Tongue protrudes left , sensation on face is assymetric, otherwise CN 2-12 grossly intact. Sensation intact on LEFT extremities and impaired on RIGHT. Coordination intact on left, decreased on right. No tremor noted. Aphasia and dysarthria present. Naming and repetition intact. At times he seems to have trouble focusing visually, but the basic vision is ok. POSTURE and GAIT: Deferred until seen with therapy for safety. Patient examined in . PSYCH: Alert, orientated x3, affect appears normal. Insight appears intact. - Constitutional Vitals: Vital Signs - 12hr 06/05/18 06/05/18 06/05/18 04:38 05:31 07:35 Temperature 37.1 C Pulse Rate 96 H 94 H Respiratory 16 Rate Blood Pressure 136/92 Blood Pressure 142/92 [Left] O2 Sat by Pulse 100 95 Oximetry 06/05/18 06/05/18 09:54 11:26 Temperature 37.1 C Pulse Rate 95 H 84 Respiratory 19 Rate Blood Pressure 142/92 Blood Pressure 111/79 [Left] O2 Sat by Pulse 95 Oximetry - Allied health notes Allied health notes reviewed: nursing, PT, ST, OT FIMS assessment as documented by PT/OT/ST: Grooming Patient cleans teeth/dentures: Yes Patient matamoros/brushes hair: Yes Patient washes, rinses and Yes dries face: Patient washes, rinses and Yes dries hands: Patient shaves: No Patient performs (no make-up/ / (100%) shaving): Grooming FIM Score 4. Minimal Assistance (Patient = 75% or more. Needs touching.) Toileting Toileting Device Commode over Toilet Toileting FIM Score 2. Maximal Assistance (Patient = 25% or more) Social interaction/Memory/Problem solving Social Interaction FIM Score 3. Moderate Assistance (Interacts appropriately 50-74%.) Memory FIM Score 3. Moderate Assistance (Recognizes and remembers 50-74%.) Problem Solving FIM Score 3. Moderate Assistance (Solves routine problems 50-74%.) Transfers Mode of Locomotion: Wheelchair Bed/Chair/Wheelchair Transfers 2. Maximal Assistance (Patient = 25% or more) FIM Score Toilet Transfers FIM Score 2. Maximal Assistance (Patient = 25% or more) Patient transferred to: Shower Shower Transfers FIM Score 2. Maximal Assistance (Patient = 25% or more) Eating Eating FIM Score 0. Activity does not occur (Does not eat and no tube feeding.) Dressing-Upper body Patient retrieves clothing No items: Patient applies/removes UE n/a prosthesis or orthosis: Upper Body Dressing FIM Score 4. Minimal Assistance (Patient = 75% or more. Needs touching.) Dressing-lower body Patient retrieves clothing No items: Patient applies/removes LE No: RLE prosthesis prosthesis or orthosis: Lower Body Dressing FIM Score 3. Moderate Assistance (Patient = 50% or more) - Labs CBC & Chem 7: 06/05/18 04:37 06/05/18 04:37 Labs: Laboratory Results - last 72 hr 06/03/18 06/03/18 06/03/18 18:18 19:51 19:51 WBC 10.0 RBC 3.50 L Hgb 10.2 L Hct 30.8 L MCV 88 MCH 29 MCHC 33 RDW 14.0 Plt Count 555 H Lymph % (Auto) Dade % (Auto) Eos % (Auto) Baso % (Auto) Lymph # Dade # Eos # Baso # Seg Neutrophils % Seg Neutrophils # Sodium 144 Potassium 3.7 Chloride 98.3 Carbon Dioxide 34 H Anion Gap 15 BUN 49 H Creatinine 3.1 H Estimated GFR 25 BUN/Creatinine Ratio 16 Glucose 133 H POC Glucose 147 H Calcium 9.4 Phosphorus 3.50 Magnesium 1.90 Prealbumin 0.230 06/03/18 06/04/18 06/04/18 22:42 07:41 12:21 WBC RBC Hgb Hct MCV MCH MCHC RDW Plt Count Lymph % (Auto) Dade % (Auto) Eos % (Auto) Baso % (Auto) Lymph # Dade # Eos # Baso # Seg Neutrophils % Seg Neutrophils # Sodium Potassium Chloride Carbon Dioxide Anion Gap BUN Creatinine Estimated GFR BUN/Creatinine Ratio Glucose POC Glucose 92 139 H 148 H Calcium Phosphorus Magnesium Prealbumin 06/04/18 06/05/18 06/05/18 17:15 00:05 04:37 WBC 13.0 H RBC 3.30 L Hgb 9.6 L Hct 29.0 L MCV 88 MCH 29 MCHC 33 RDW 14.2 Plt Count 553 H Lymph % (Auto) 13.7 Dade % (Auto) 6.3 Eos % (Auto) 2.0 Baso % (Auto) 0.6 Lymph # 1.8 Dade # 0.8 Eos # 0.3 Baso # 0.1 Seg Neutrophils % 77.4 H Seg Neutrophils # 10.0 H Sodium Potassium Chloride Carbon Dioxide Anion Gap BUN Creatinine Estimated GFR BUN/Creatinine Ratio Glucose POC Glucose 65 L 67 L Calcium Phosphorus Magnesium Prealbumin 06/05/18 06/05/18 04:37 05:33 WBC RBC Hgb Hct MCV MCH MCHC RDW Plt Count Lymph % (Auto) Dade % (Auto) Eos % (Auto) Baso % (Auto) Lymph # Dade # Eos # Baso # Seg Neutrophils % Seg Neutrophils # Sodium 142 Potassium 3.5 L Chloride 97.3 L Carbon Dioxide 31 H Anion Gap 17 BUN 49 H Creatinine 2.8 H Estimated GFR 29 BUN/Creatinine Ratio 18 Glucose 91 POC Glucose 99 Calcium 9.4 Phosphorus 3.70 Magnesium Prealbumin Assessment and Plan I69.353 Right non-dom hemiparesis: Monitor for neuro decline. Continue secondary stroke prevention. Discussed recovery and secondary stroke prevention. Monitor for post-stroke depression and s/s of shoulder-hand syndrome. Monitor for safety awareness I69.322 Dysarthria: PROCESS MACHINE OPERATOR for improvement in communication and speech I69.391 Dysphagia: PROCESS MACHINE OPERATOR to improve swallow function. Continue TF with NPO. Monitor and advance diet as safely as able. FEES, MBSS or EStim as needed. Z73.6 ADL dysfunction: OT will work on improving ability to perform ADLs (including assistive devices) to increase independence and decrease caregiver b urden and improve functional transfers and mobility training. R26.2 Difficulty walking: PT will work on gait training and proper use of assistive devices and advance as appropriate to use of stairs and outside ambulation on uneven surfaces. R26.81 Unsteadiness on feet: PT will work on improving static and dynamic sitting and standing balance as well as proper use of assistive devices to decrease risk of falls. R26.89 Abnormality of gait: PT will work to improve safety and efficiency of gait through neuromotor training and gait training along with instruction on proper use of assistive devices. Has prosthesis with him M62.81 Muscle weakness: PT & OT will work on strengthening exercises to improve functional strength including mixture of closed and open kinetic chain exercises. R53.81 Debility: PT & OT will work on improving overall functional status to improve participation with ADLs, mobility and social involvement. R53.83 Fatigue: PT & OT will work on improving endurance through aerobic exercises and therapeutic activity while monitoring patients tolerance for activity and vital signs as needed. Hypertension, Hyperlipidemia, Diabetes, ELVIRA due to ATN at OSH but likely Acute on CKD per consult here DVT ppx: Heparin TID due to renal function GI ppx: Pepcid Pain: Continue physical modalities in therapy and pain medications as needed to achieve functional pain control. Sleep: Monitor and address as needed. Bowel: Monitor and address as needed. Appetite: Monitor and address as needed when able to take PO. Discharge planning: Pending therapy progress and care plan meeting. Will continue discussion with therapy team, SW, patient and family. Restrictions/ Precautions: Falls, aspiration WB status: FWB Functional Hx: ADLs: Independent and working Cognition: Independent Mobility: independent Consult: Hospitalists for medical management Nephrology for renal function Appreciate assistance. Barriers to Discharge: Decreased mobility and ability to perform self care, right sided weakness, balance deficits, dysphagia Estimated Length of Stay: 21 days Discharge Destination: Home with family if possible
--- NOTE | 2018-06-05 14:38 | Progress Note ---
Assessment and Plan Assessment and plan: CVA with residual right-sided hemiparesis, dysphagia -On aspirin and atorvastatin -PT/OT, speech therapy evaluation Right BKA - Supportive care Hypertension - Controlled continue amlodipine, hydralazine and metoprolol. Diabetes mellitus - The blood sugar is with in acceptable range - SSI CKD - Nephrology following DVT prophylaxis - On heparin Patient's primary is Dr Erickson. History Interval history: Patient was seen and evaluated this morning, patient didn't have any complaints. Hospitalist Physical - Physical exam Narrative exam: Not in cardiopulmonary distress. The patient appeared well nourished and normally developed. Vital signs as documented. Head exam is unremarkable. No scleral icterus . Neck is without jugular venous distension, thyromegaly, or carotid bruits. Lungs are clear to auscultation. Cardiac exam reveals regular rate and Rhythm. First and second heart sounds normal. No murmurs, rubs or gallops. Abdominal exam reveals normal bowel sounds, no masses, no organomegaly and no aortic enlargement. Extremities right BKA. 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 - Constitutional Vitals: Temp Pulse Resp BP Pulse Ox 98.8 F 93 H 19 102/67 97 06/05/18 11:26 06/05/18 14:34 06/05/18 11:26 06/05/18 14:34 06/05/18 14:34 Results - Labs CBC & Chem 7: 06/05/18 04:37 06/05/18 04:37 Labs: Laboratory Last Values WBC 13.0 K/mm3 (4.5-11.0) H 06/05/18 04:37 RBC 3.30 M/mm3 (3.65-5.03) L 06/05/18 04:37 Hgb 9.6 gm/dl (11.8-15.2) L 06/05/18 04:37 Hct 29.0 % (35.5-45.6) L 06/05/18 04:37 MCV 88 fl (84-94) 06/05/18 04:37 MCH 29 pg (28-32) 06/05/18 04:37 MCHC 33 % (32-34) 06/05/18 04:37 RDW 14.2 % (13.2-15.2) 06/05/18 04:37 Plt Count 553 K/mm3 (140-440) H 06/05/18 04:37 Lymph % (Auto) 13.7 % (13.4-35.0) 06/05/18 04:37 [place] % (Auto) 6.3 % (0.0-7.3) 06/05/18 04:37 Eos % (Auto) 2.0 % (0.0-4.3) 06/05/18 04:37 Baso % (Auto) 0.6 % (0.0-1.8) 06/05/18 04:37 Lymph # 1.8 K/mm3 (1.2-5.4) 06/05/18 04:37 [place] # 0.8 K/mm3 (0.0-0.8) 06/05/18 04:37 Eos # 0.3 K/mm3 (0.0-0.4) 06/05/18 04:37 Baso # 0.1 K/mm3 (0.0-0.1) 06/05/18 04:37 Seg Neutrophils % 77.4 % (40.0-70.0) H 06/05/18 04:37 Seg Neutrophils # 10.0 K/mm3 (1.8-7.7) H 06/05/18 04:37 Sodium 142 mmol/L (137-145) 06/05/18 04:37 Potassium 3.5 mmol/L (3.6-5.0) L 06/05/18 04:37 Chloride 97.3 mmol/L (98-107) L 06/05/18 04:37 Carbon Dioxide 31 mmol/L (22-30) H 06/05/18 04:37 Anion Gap 17 mmol/L 06/05/18 04:37 BUN 49 mg/dL (9-20) H 06/05/18 04:37 Creatinine 2.8 mg/dL (0.8-1.5) H 06/05/18 04:37 Estimated GFR 29 ml/min 06/05/18 04:37 BUN/Creatinine Ratio 18 % 06/05/18 04:37 Glucose 91 mg/dL (75-100) 06/05/18 04:37 POC Glucose 177 (70-105) H 06/05/18 13:14 Calcium 9.4 mg/dL (8.4-10.2) 01/17/19 04:37 Phosphorus 3.70 mg/dL (2.5-4.5) 06/05/18 04:37 Magnesium 1.90 mg/dL (1.7-2.3) 06/03/18 19:51 Prealbumin 0.230 g/L (0.200-0.400) 06/03/18 19:51 Nutrition/Malnutrition Assess - Dietary Evaluation Nutrition/Malnutrition Findings: Nutrition Notes Start: 06/04/18 11:20 Freq: Status: Active Protocol: Document 06/04/18 11:21 LM (Rec: 06/04/18 12:02 LM [id number]) Co-Sign 06/04/18 11:21 LP Nutrition Notes Need for Assessment generated from: MD Order Current Diagnosis Acute Kidney Injury Diabetes Hypertension Stroke Hyperlipidemia Current Diet NPO Labs/Tests Reviewed Pertinent Medications Reviewed Height 6 ft 2.4 in Weight 100.8 kg [place] Body Weight (lbs) 192.4 BMI 28.2 Subjective/Other Information Pt in rehab at time of visit. Noticed Jevity was hanging in room. #1 Nutrition Diagnosis Inadequate oral intake Etiology Dysphagia As Evidenced by Signs and Symptoms PEG, CVA Is patient on ventilator? No Is Patient Ambulatory and/or Out of Bed No REE-([facility]-confined to bed) 2307.024 Calculation Used for Recommendations [facility] Additional Notes Protein needs: 100- 130 g (1-1 .3 g/kg) Fluids: 1 mL/kg inderjit or per MD Nutrition Intervention Change Diet Order: TF Nutrition Support: Jevity 1.2 at 80 mL/hr Flush 100 mL q4hr Kcal 2,304 Protein (gm) 107 Fluid (mL) 1,549 Goal #1 Meet at least 75% of energy and protein needs Anticipated Discharge Needs: TF Follow-Up By: 06/06/18 Additional Comments F/U for TF tolerance and rate
[2018-06-06] MEDS: HumaLOG SUB-Q SCH ×4 (00:59→19:01)
[2018-06-06] MEDS: APRESOLINE FEEDTUBE SCH ×3 (06:07→21:56)
[2018-06-06] MEDS: HEPARIN SUB-Q SCH ×3 (06:08→21:56)
[2018-06-06] MEDS: LOPRESSOR FEEDTUBE SCH ×2 (09:23→21:58)
[2018-06-06] MEDS: NORVASC FEEDTUBE SCH (09:24)
[2018-06-06] MEDS: PLAVIX FEEDTUBE SCH (09:24)
[2018-06-06] MEDS: ASPIRIN FEEDTUBE SCH (09:24)
[2018-06-06] MEDS: PEPCID FEEDTUBE SCH ×2 (09:28→21:56)
[2018-06-06] MEDS: COLACE FEEDTUBE SCH ×2 (09:28→21:57)
--- NOTE | 2018-06-06 10:50 | Progress Note ---
Assessment and Plan Acute Renal Failure secondary to Ischemic ATN on likely CKD from HTN: -labs are pending this AM -GN work-up ordered at previous hospital was negative -Renal ultrasound at previous hospital showed signs of CKD -Avoid nephrotoxic agents -Obtain daily weights -Monitor I/O's -Monitor renal function closely Acute CVA: -On ASA, plavix and Statin -Rehab therapy Hypertension: -Continue BP meds and adjust as needed Diabetes Mellitus: -On Insulin Oropharyngeal Dysphagia: Peg Tube feedings Subjective Date of service: 06/06/18 Principal diagnosis: CVA, Acute on CKD Interval history: tolerating physical therapy, comfortable Objective - Vital Signs Vital signs: Vital Signs - 12hr 06/05/18 06/06/18 06/06/18 23:13 04:47 06:07 Temperature 98.3 F Pulse Rate 96 H Respiratory 20 Rate Blood Pressure 113/79 125/80 125/70 Blood Pressure [Left] O2 Sat by Pulse 92 Oximetry 06/06/18 08:00 Temperature 98.4 F Pulse Rate 84 Respiratory 18 Rate Blood Pressure Blood Pressure 124/72 [Left] O2 Sat by Pulse 96 Oximetry - General Appearance General appearance: well-developed, well-nourished EENT: ATNC, PERRL Neck: no JVD, no carotid bruit Respiratory: Present: Clear to Ascultation. Absent: Rales, Ronchi Cardiology: regular, S1S2 Gastrointestinal: normoactive bowel sounds, no tenderness, no distended Integumentary: no rash, warm and dry Neurologic: no focal deficit, no asterixis Musculoskeletal: other (no edema ) Psychiatric: cooperative - Lab 06/05/18 04:37 06/05/18 04:37 Most recent lab results Calcium 9.4 mg/dL (8.4-10.2) 06/05/18 04:37 Phosphorus 3.70 mg/dL (2.5-4.5) 06/05/18 04:37 Magnesium 1.90 mg/dL (1.7-2.3) 06/03/18 19:51 Medications & Allergies - Medications Allergies/Adverse Reactions: Allergies No Known Allergies Allergy (Unverified 08/03/15 12:32) Home Medications: Home Medications Medication Instructions Recorded Confirmed Last Taken Type Aspirin [Aspirin BABY CHEW TAB] 81 mg PO QDAY 08/04/15 06/05/18 Unknown History Insulin Detemir [Levemir Flextouch] 35 unit SQ BID 08/04/15 06/05/18 Unknown History NIFEdipine XL [Procardia Xl] 60 mg PO QDAY 08/04/15 06/05/18 Unknown History Simvastatin [Zocor TAB] 40 mg PO QHS 08/04/15 06/05/18 Unknown History Sitagliptin/Metformin (Nf) 1 each PO BID 08/04/15 06/05/18 Unknown History [Janumet 50-1,000 mg (Nf)] Sulfamethoxazole/Trimethoprim 1 each PO BID #14 tablet 08/04/15 06/05/18 Unknown Rx [Bactrim DS TAB] Active Medications: Generic Name Dose Route Start Last Admin Trade Name Freq PRN Reason Stop Dose Admin Amlodipine Besylate 5 mg 06/04/18 08:00 06/06/18 09:24 Norvasc FEEDTUBE Not Given QDAY JONO Lipase/Protease/Amylase 1 each 06/03/18 17:25 Amy Laguerre 10,500 Unit FEEDTUBE PRN PRN For Clogged Feeding Tube Lipase/Protease/Amylase 1 each 06/04/18 12:07 Amy Laguerre 10,500 Unit FEEDTUBE PRN PRN For Clogged Feeding Tube Aspirin 325 mg 06/04/18 08:00 06/06/18 09:24 Aspirin FEEDTUBE 325 mg QDAY JONO Administration Atorvastatin Calcium 40 mg 06/03/18 21:00 06/05/18 23:06 Lipitor FEEDTUBE 40 mg QHS JONO Administration Clopidogrel Bisulfate 75 mg 06/04/18 08:00 06/06/18 09:24 Plavix FEEDTUBE 75 mg QDAY JONO Administration Dextrose 50 ml 06/03/18 17:09 D50w (25gm) Syringe IV PRN PRN Hypoglycemia Docusate Sodium 100 mg 06/03/18 22:00 06/06/18 09:28 Colace FEEDTUBE 100 mg BID JONO Administration Famotidine 10 mg 06/04/18 22:00 06/06/18 09:28 Pepcid FEEDTUBE 10 mg BID JONO Administration Heparin Sodium (Porcine) 5,000 unit 06/03/18 22:00 06/06/18 06:08 Heparin SUB-Q 5,000 unit Q8HR JONO Administration Hydralazine HCl 75 mg 06/03/18 22:00 06/06/18 06:07 Apresoline FEEDTUBE 75 mg Q8HR JONO Administration Insulin Human Lispro 0 unit 06/03/18 18:00 06/06/18 06:56 Humalog SUB-Q 1 unit Q6HR JONO Administration Protocol Metoprolol Tartrate 100 mg 06/03/18 22:00 06/06/18 09:23 Lopressor FEEDTUBE Not Given BID JONO Polyethylene Glycol 17 gm 06/03/18 17:30 Miralax 3350 FEEDTUBE QDAY PRN Constipation Simple Syrup 15 ml 06/03/18 17:25 Simple Syrup FEEDTUBE PRN PRN Hypoglycemia Simple Syrup 30 ml 06/03/18 17:25 Simple Syrup FEEDTUBE PRN PRN Hypoglycemia Simple Syrup 15 ml 06/04/18 12:07 Simple Syrup FEEDTUBE PRN PRN Hypoglycemia Simple Syrup 30 ml 06/04/18 12:07 Simple Syrup FEEDTUBE PRN PRN Hypoglycemia Sodium Bicarbonate 325 mg 06/03/18 17:25 Sodium Bicarbonate FEEDTUBE PRN PRN For Clogged Feeding Tube Sodium Bicarbonate 325 mg 06/04/18 12:07 Sodium Bicarbonate FEEDTUBE PRN PRN For Clogged Feeding Tube
--- NOTE | 2018-06-06 15:58 | Progress Note ---
Assessment and Plan Assessment and plan: CVA with residual right-sided hemiparesis, dysphagia -On aspirin and atorvastatin -PT/OT, speech therapy evaluation Right BKA - Supportive care Hypertension - Controlled continue amlodipine, hydralazine and metoprolol. Diabetes mellitus - The blood sugar is with in acceptable range - SSI CKD - Nephrology following DVT prophylaxis - On heparin Patient's primary is Dr Erickson. History Interval history: Patient was seen and evaluated this morning, patient didn't have any complaints. Hospitalist Physical - Physical exam Narrative exam: Not in cardiopulmonary distress. The patient appeared well nourished and normally developed. Vital signs as documented. Head exam is unremarkable. No scleral icterus . Neck is without jugular venous distension, thyromegaly, or carotid bruits. Lungs are clear to auscultation. Cardiac exam reveals regular rate and Rhythm. First and second heart sounds normal. No murmurs, rubs or gallops. Abdominal exam reveals normal bowel sounds, no masses, no organomegaly and no aortic enlargement. Extremities right BKA. TEMPORARY RECEPTIONIST: right sided weakness, with right facial palsy. - Constitutional Vitals: Temp Pulse Resp BP Pulse Ox 98.0 F 99 H 18 85/60 91 06/06/18 15:00 06/06/18 15:00 06/06/18 15:00 06/06/18 15:00 06/06/18 15:00 Results - Labs CBC & Chem 7: 06/05/18 04:37 06/05/18 04:37 Labs: Laboratory Last Values WBC 13.0 K/mm3 (4.5-11.0) H 06/05/18 04:37 RBC 3.30 M/mm3 (3.65-5.03) L 06/05/18 04:37 Hgb 9.6 gm/dl (11.8-15.2) L 06/05/18 04:37 Hct 29.0 % (35.5-45.6) L 06/05/18 04:37 MCV 88 fl (84-94) 06/05/18 04:37 MCH 29 pg (28-32) 06/05/18 04:37 MCHC 33 % (32-34) 06/05/18 04:37 RDW 14.2 % (13.2-15.2) 06/05/18 04:37 Plt Count 553 K/mm3 (140-440) H 06/05/18 04:37 Lymph % (Auto) 13.7 % (13.4-35.0) 06/05/18 04:37 [place] % (Auto) 6.3 % (0.0-7.3) 06/05/18 04:37 Eos % (Auto) 2.0 % (0.0-4.3) 06/05/18 04:37 Baso % (Auto) 0.6 % (0.0-1.8) 06/05/18 04:37 Lymph # 1.8 K/mm3 (1.2-5.4) 06/05/18 04:37 [place] # 0.8 K/mm3 (0.0-0.8) 06/05/18 04:37 Eos # 0.3 K/mm3 (0.0-0.4) 06/05/18 04:37 Baso # 0.1 K/mm3 (0.0-0.1) 06/05/18 04:37 Seg Neutrophils % 77.4 % (40.0-70.0) H 06/05/18 04:37 Seg Neutrophils # 10.0 K/mm3 (1.8-7.7) H 06/05/18 04:37 Sodium 142 mmol/L (137-145) 06/05/18 04:37 Potassium 3.5 mmol/L (3.6-5.0) L 06/05/18 04:37 Chloride 97.3 mmol/L (98-107) L 06/05/18 04:37 Carbon Dioxide 31 mmol/L (22-30) H 06/05/18 04:37 Anion Gap 17 mmol/L 06/05/18 04:37 BUN 49 mg/dL (9-20) H 06/05/18 04:37 Creatinine 2.8 mg/dL (0.8-1.5) H 06/05/18 04:37 Estimated GFR 29 ml/min 06/05/18 04:37 BUN/Creatinine Ratio 18 % 06/05/18 04:37 Glucose 91 mg/dL (75-100) 06/05/18 04:37 POC Glucose 256 (70-105) H 06/06/18 11:39 Calcium 9.4 mg/dL (8.4-10.2) 06/05/18 04:37 Phosphorus 3.70 mg/dL (2.5-4.5) 06/05/18 04:37 Magnesium 1.90 mg/dL (1.7-2.3) 06/03/18 19:51 Prealbumin 0.230 g/L (0.200-0.400) 06/03/18 19:51 Nutrition/Malnutrition Assess - Dietary Evaluation Nutrition/Malnutrition Findings: Nutrition Notes Start: 06/04/18 11:20 Freq: Status: Active Protocol: Document 06/06/18 12:29 KH (Rec: 06/06/18 13:16 [id number]) Co-Sign 06/06/18 12:29 LP Nutrition Notes Initial or Follow up Reassessment Current Diagnosis Acute Kidney Injury Diabetes Hypertension Stroke Hyperlipidemia Current Diet Jevity 1.2 at 80ml/hr Labs/Tests Reviewed Pertinent Medications Reviewed Height 6 ft 2.4 in Weight 100.8 kg [place] Body Weight (lbs) 192.4 BMI 28.2 Subjective/Other Information Observed Jevity 1.2 infusing at 65 ml/hr. RN stated the TF remained at 20 ml/hr for the past two days, but that she was going to increase it to 80 ml/hr after we spoke. Burn Absent Trauma Absent #1 Nutrition Diagnosis Inadequate oral intake Diagnosis Progress(for reassessment Continues documentation) Is patient on ventilator? No Is Patient Ambulatory and/or Out of Bed Yes REE-([facility]-ambulatory/OOB) [ 2494.869 [id number]] Calculation Used for Recommendations [facility] Additional Notes Protein needs: 100- 130 g (1-1 .3 g/kg) Fluids: 1 mL/kg inderjit or per MD Nutrition Intervention Change Diet Order: Continue TF Nutrition Support: Jevity 1.2 at 80 mL/hr Flush 100 mL q4hr Kcal 2,304 Protein (gm) 107 Fluid (mL) 1,549 Goal #1 Meet at least 75% of energy and protein needs Anticipated Discharge Needs: TF Follow-Up By: 06/10/18 Additional Comments F/u for TF tolerance and rate
--- NOTE | 2018-06-06 19:26 | IRU Plan of Care ---
Interdisciplinary Plan of Care - IP IRU INTERDISCIPLINARY PLAN: [facility] Inpatient Rehab Unit Plan of Care IRU Interdisciplinary Care Plan Start: 06/03/18 17:58 Freq: Admission then PRN Status: Active Protocol: Document 06/06/18 12:10 TH (Rec: 06/06/18 12:16 TH [id number]) Interdisciplinary Problem List Interdisciplinary Problem List Interdisciplinary Problem List Impaired Eating/Swallowing Query Text:Answers will Trigger Problems Impaired Bathing/Grooming and Outcomes on Worklist. Impaired Dressing Impaired Mobility Impaired Transfers Impaired Bladder/Bowel Management Impaired Toileting Impaired Comprehension Impaired Problem Solving Discharge Concerns Impaired Home Management Impaired Safety Medications Education Diabetes Education Impaired Cardiovascular System IRU Interdisciplinary Care Plan Therapy Services Therapy Services Will Include: Physical Therapy Query Text:Patient will be seen for a Occupational Therapy minimum of 3 hours of daily therapy 5 Speech Therapy out of 7 days a week. Therapy intensity may be adjusted within a 7 consecutive day period to effectively serve the individual needs of the patient. Treatment Frequency/Intensity/Duration Treatment Frequency 5 dys/week Treatment Intensity 3 hours/day Treatment Duration 21 days Problem Area: Eating/Swallowing Eating/Swallowing Outcomes Consume Least Restrictive Diet Eating/Swallowing Interventions Dysphagia Training Compensatory Strategies Neuromuscular Re-Education Patient/Caregiver Education Problem Area: Bathing/Grooming Bathing/Grooming Outcomes Improve [place] w/ Grooming Improve [place] w/ Bathing Bathing/Grooming Interventions ADL Training Use of Assistive Devices Therapeutic Exercise Therapeutic Activity Neuromuscular Re-Education Balance Work Activity Tolerance Work Patient/Caregiver Education Problem Area: Dressing Dressing Outcomes Improve [place] w/ UB Dressing Improve [place] w/ LB Dressing Dressing Interventions ADL Training Use of Assistive Devices Neuromuscular Re-Education Therapeutic Exercise Balance Work Modalities Patient/Caregiver Education Problem Area: Mobility Mobility Outcomes Improve [place] w/ Bed Mobility Improve [place] w/ Ambulation Improve [place] w/ Wheelchair Mobility Interventions Therapeutic Exercise Neuromuscular Re-Ed. Use of Assistive Devices Patient/Caregiver Education Bed Mobility Work Gait Training W/C Mobility Work Problem Area: Transfers Transfers Outcomes Improve [place] w/ Bed Transfers Improve [place] w/ Toilet Transfers Improve [place] w/ Tub/ Shower Transfers Improve [place] w/ Car Transfers Transfers Interventions Transfer Training Therapeutic Exercise Neuromuscular Re-Education Activity Tolerance Work Modalities Use of Assistive Devices Patient/Caregiver Education Problem Area: Bowel/Bladder Managment Bowel/Bladder Outcomes Continent of Bladder Continent of Bowel Remain free of UTI Bowel/Bladder Interventions Patient/Caregiver Education Problem Area: Toileting Toileting Outcomes Improve [place] w/ Toileting Toileting Interventions ADL Training Balance Work Use of Assistive Devices Patient/Caregiver Education Problem Area: Nutrition Nutrition Outcomes Nutrition Interventions Problem Area: Comprehension Comprehension Outcomes Improve Comprehension Follow Commands Improve Communication Comprehension Interventions Patient/Caregiver Education Problem Area: Expression Expression Outcomes Expression Interventions Problem Area: Problem Solving Problem Solving Outcomes Improve Problem Solving Problem Solving Interventions Cognitive Training Safety Education Patient/Caregiver Education Problem Area: Memory Memory Outcomes Memory Interventions Problem Area: Pain Management Pain Management Outcomes Pain Management Interventions Problem Area: Knowledge Deficits Knowledge Deficits Outcomes Demonstrate Ability to Manage Blood Glucose Verbalize Precautions Knowledge Deficits Interventions Problem Area: Skin/Tissue Integrity Skin/Tissue Integrity Outcomes Demonstrate Understanding of Pressure Relief Skin/Tissue Integrity Interventions Positioning/Turning Problem Area: Social Interaction Social Interaction Outcomes Social Interaction Interventions Problem Area: Adjustment to Disability Adjustment to Disability Outcomes Adjustment to Disability Interventions Problem Area: Discharge Concerns Discharge Concerns Outcomes Discharge w/ Necessary Equipment Have Home Health/Outpatient Services Discharge Concerns Interventions Discharge Planning Family/Caregiver Conference Family/Caregiver Training Problem Area: Community Reintegration Community Reintegration Outcomes Community Reintegration Interventions Problem Area: Home Management Home Management Outcomes Improve [place] w/ Home Management Home Management Interventions Meal Preparation Clothing Care Activity Tolerance Work Problem Area: Safety Safety Outcomes Provide Safe Environment Perform Selfcare Safely Demonstrate Good Safety w/ Transfers/Mobility Safety Interventions Identify Fall Risk [place] Pt. to Environment Reduce Environmental Hazards Problem Area: Medication Education Medication Education Outcomes Patient/Caregiver will Verbalize Understanding of Medications Medication Education Interventions Explain Administration/Side Effects/Interactions Problem Area: Diabetes Education Diabetes Education Outcomes Demonstrate Knowledge of Resources Availlable in Diabetic Ed. Folder Diabetes Education Interventions Discuss Pathophysiology of Diabetes Problem Area: Oxygenation Oxygenation Outcomes Oxygenation Interventions Problem Area: Cardiovascular Cardiovascular Outcomes Maintain or Improve Cardiovascular Status Cardiovascular Interventions Assess Vital Signs at least Every 4 hours Physician Only Medical Prognosis and Rehabilitation Potential (Completed by Physician) Fair prognosis. Monitor CVA recovery for improvement in strength, ADL dysfunction,dysphagia and fine motor control.Monitor medical issue and treat as needed. This plan of care has been developed based on the findings from the pre- admission assessment, post admission physician evaluation, information gathered from the assessments from all therapy disciplines and other pertinent clinicians. The plan of care has been reviewed and discussed in collaboration with the interdisciplinary team. The plan of care will be reviewed and updated at least weekly.
[2018-06-07] MEDS: HumaLOG SUB-Q SCH ×4 (00:21→18:13)
[2018-06-07 05:33] LABS: Basophils # (Auto) 0.1 K/mm3 (0.0-0.1); Basophils % (Auto) 0.6 % (0.0-1.8); Eosinophils # (Auto) 0.3 K/mm3 (0.0-0.4); Eosinophils % (Auto) 3.1 % (0.0-4.3); Hematocrit 24.7 % (35.5-45.6); Hemoglobin 8.2 gm/dl (11.8-15.2); Lymphocytes % (Auto) 19.7 % (13.4-35.0); Mean Corpuscular HGB Conc 33 % (32-34); Mean Corpuscular Volume 89 fl (84-94); Monocytes # (Auto) 0.7 K/mm3 (0.0-0.8); Platelet Count 502 K/mm3 (140-440); Red Blood Count 2.78 M/mm3 (3.65-5.03); Red Cell Distribution Width 14.3 % (13.2-15.2)
[2018-06-07 05:57] LABS: Calcium 8.9 mg/dL (8.4-10.2)
[2018-06-07] MEDS: APRESOLINE FEEDTUBE SCH ×3 (06:26→22:06)
[2018-06-07] MEDS: HEPARIN SUB-Q SCH ×3 (06:27→22:06)
--- NOTE | 2018-06-07 08:08 | Progress Note ---
Subjective Date of service: 06/07/18 Principal diagnosis: CVA, Acute on CKD Interval history: 53-year-old LHD male who experienced increased right-sided weakness three days prior to presentation at an outside hospital. He also had decreased balance and gait. He was admitted and worked up for stroke. MRI of brain confirmed the presence of a stroke. A repeat MRI showed a second stroke in a different area. Patient was continued on secondary stroke prevention medications. He had a PEG tube placed and was started on a low volume of TF. He developed acute kidney injury and a nephrology consult was called. He required transfer to the [facility] for management of uncontrolled blood pressure. He was later weaned off of Cardene drip and restarted on oral blood pressure medications. Patient is participating in therapy and making fair progress. +BM. No pain currently. PEG ok. TF increased by nutrition gradually to goal of 80mL/hr - appreciate assistance. Poor oral control of secretions - reminded to use suction. Will order CXR for possible aspiration. I added back Low dose lantus with continued coverage SSI. K low past 2 days - and not replace, will replace. Mg ordered and is normal ra nge. BP ok, but hydralazine and lopressor being held consistently - will reduce. Tachycardia likely related to lopressor being held. Anemia worsening - occult stool ordered. States he is feeling weak, denies black or bloody stools, no other outward signs of bleeding, no dyspnea or chestpain, no significant swelling in LE. Glasses recovered. Prosthesis needs repair, Merchandise Flow Manager has been contacted. Seems to have visual deficit but not definitive. Denies diplopia, blurred vision, or blind spots. No other issues per patient, nursing or therapy. All available medical records, therapy notes, vitals and labs were reviewed. Objective - Exam Narrative Exam: MUSCULOSKELETAL SPECIALTY EXAM Constitutional: Well developed, well nourished, appropriately groomed, LHD EENT: Hearing intact to finger rustle. Poor dentition. Poor control of secretions. Respiratory: Coarse breath sounds bilaterally, no increased work of breathing. Cough Cardiovascular Regular Rate/ Rhythm, no swelling edema or tenderness in all 4 extremities. All 4 extremities warm. GI : + bowel sounds, soft, NTTP, nondistended, PEG : [place] Normal in all 4 extremities except for what appears to be old/healed sores on LLE Musuloskeletal BUE and BLE normal without defect, crepitus, sublux, effusion, or TTP except for Right BKA. RUE and RLE 4-/5. Decreased aROM, good pROM, normal tone. LUE and LLE 4+/5, good ROM with normal tone. NEURO: Significant Left facial droop involving upper and lower face (LMN), Tongue protrudes left , sensation on face is assymetric, otherwise CN 2-12 grossly intact. Sensation intact on LEFT extremities and impaired on RIGHT. Coordination intact on left, decreased on right. No tremor noted. Aphasia and dysarthria present. Naming and repetition intact. At times he seems to have trouble focusing visually, but the basic vision is ok. POSTURE and GAIT: Deferred until seen with therapy for safety. Patient examined in bed. PSYCH: Alert, orientated x3, affect appears normal. Insight appears intact. - Constitutional Vitals: Vital Signs - 12hr 06/06/18 06/06/18 06/06/18 20:44 21:56 21:58 Temperature 36.7 C Pulse Rate 104 H 100 H 100 H Respiratory 18 Rate Respiratory Rate [Denies] Blood Pressure 106/72 106/72 106/72 O2 Sat by Pulse 93 Oximetry 06/06/18 06/06/18 06/07/18 22:00 23:58 04:12 Temperature 36.9 C 37.1 C Pulse Rate 101 H 103 H Respiratory 17 18 18 Rate Respiratory 17 Rate [Denies] Blood Pressure 109/67 113/71 O2 Sat by Pulse 94 96 Oximetry 06/07/18 06/07/18 06:26 06:57 Temperature 36.7 C Pulse Rate 103 H 74 Respiratory 18 Rate Respiratory Rate [Denies] Blood Pressure 110/74 134/74 O2 Sat by Pulse 96 Oximetry - Allied health notes Allied health notes reviewed: nursing, PT, ST, OT FIMS assessment as documented by PT/OT/ST: Grooming Patient cleans teeth/dentures: Yes Patient matamoros/brushes hair: Yes Patient washes, rinses and Yes dries face: Patient washes, rinses and Yes dries hands: Patient shaves: No Patient performs (no make-up/ 08/21 (100%) shaving): Grooming FIM Score 4. Minimal Assistance (Patient = 75% or more. Needs touching.) Toileting Toileting Device Commode over Toilet Toileting FIM Score 2. Maximal Assistance (Patient = 25% or more) Social interaction/Memory/Problem solving Social Interaction FIM Score 6. Mod. [place] (Mostly appropriate. May need meds. No supv.) Memory FIM Score 5. Supervision (Needs cueing <10%, stressful/ unfamiliar situations.) Problem Solving FIM Score 4. Minimal Assistance (Solves routine problems 75-90%.) Transfers Mode of Locomotion: Wheelchair Bed/Chair/Wheelchair Transfers 3. Moderate Assistance (Patient = 50% or more. FIM Score Some lifting.) Toilet Transfers FIM Score 2. Maximal Assistance (Patient = 25% or more) Patient transferred to: Shower Shower Transfers FIM Score 2. Maximal Assistance (Patient = 25% or more) Locomotion- Stairs Stairs FIM Score 0. Activity does not occur Locomotion- walk/wheelchair Most Frequent Mode of Wheelchair Locomotion: Ambulation Distance 8 Walking FIM Score 1. Total Assistance (Pt. < 25%, 2 or more person assist, or <50 ft.) Wheelchair Propulsion Distance 150 Wheelchair FIM Score 4. Minimal Assistance (Patient = 75% or more. Minimum of 150 ft.) Eating Eating FIM Score 0. Activity does not occur (Does not eat and no tube feeding.) Dressing-Upper body Patient retrieves clothing No items: Patient applies/removes UE n/a prosthesis or orthosis: Upper Body Dressing FIM Score 4. Minimal Assistance (Patient = 75% or more. Needs touching.) Dressing-lower body Patient retrieves clothing No items: Patient applies/removes LE No: RLE prosthesis prosthesis or orthosis: Lower Body Dressing FIM Score 3. Moderate Assistance (Patient = 50% or more) - Labs CBC & Chem 7: 06/07/18 05:15 06/07/18 05:15 Labs: Laboratory Results - last 72 hr 06/04/18 06/04/18 06/05/18 12:21 17:15 00:05 WBC RBC Hgb Hct MCV MCH MCHC RDW Plt Count Lymph % (Auto) [place] % (Auto) Eos % (Auto) Baso % (Auto) Lymph # [place] # Eos # Baso # Seg Neutrophils % Seg Neutrophils # Sodium Potassium Chloride Carbon Dioxide Anion Gap BUN Creatinine Estimated GFR BUN/Creatinine Ratio Glucose POC Glucose 148 H 65 L 67 L Calcium Phosphorus 06/05/18 06/05/18 06/05/18 04:37 04:37 05:33 WBC 13.0 H RBC 3.30 L Hgb 9.6 L Hct 29.0 L MCV 88 MCH 29 MCHC 33 RDW 14.2 Plt Count 553 H Lymph % (Auto) 13.7 [place] % (Auto) 6.3 Eos % (Auto) 2.0 Baso % (Auto) 0.6 Lymph # 1.8 [place] # 0.8 Eos # 0.3 Baso # 0.1 Seg Neutrophils % 77.4 H Seg Neutrophils # 10.0 H Sodium 142 Potassium 3.5 L Chloride 97.3 L Carbon Dioxide 31 H Anion Gap 17 BUN 49 H Creatinine 2.8 H Estimated GFR 29 BUN/Creatinine Ratio 18 Glucose 91 POC Glucose 99 Calcium 9.4 Phosphorus 3.70 06/05/18 06/05/18 06/06/18 13:14 16:34 00:12 WBC RBC Hgb Hct MCV MCH MCHC RDW Plt Count Lymph % (Auto) [place] % (Auto) Eos % (Auto) Baso % (Auto) Lymph # [place] # Eos # Baso # Seg Neutrophils % Seg Neutrophils # Sodium Potassium Chloride Carbon Dioxide Anion Gap BUN Creatinine Estimated GFR BUN/Creatinine Ratio Glucose POC Glucose 177 H 224 H 171 H Calcium Phosphorus 06/06/18 06/06/18 06/06/18 06:45 11:39 17:25 WBC RBC Hgb Hct MCV MCH MCHC RDW Plt Count Lymph % (Auto) [place] % (Auto) Eos % (Auto) Baso % (Auto) Lymph # [place] # Eos # Baso # Seg Neutrophils % Seg Neutrophils # Sodium Potassium Chloride Carbon Dioxide Anion Gap BUN Creatinine Estimated GFR BUN/Creatinine Ratio Glucose POC Glucose 168 H 256 H 223 H Calcium Phosphorus 06/07/18 06/07/18 06/07/18 00:05 05:15 05:15 WBC 10.0 RBC 2.78 L Hgb 8.2 L Hct 24.7 L MCV 89 MCH 30 MCHC 33 RDW 14.3 Plt Count 502 H Lymph % (Auto) 19.7 [place] % (Auto) 7.0 Eos % (Auto) 3.1 Baso % (Auto) 0.6 Lymph # 2.0 [place] # 0.7 Eos # 0.3 Baso # 0.1 Seg Neutrophils % 69.6 Seg Neutrophils # 6.9 Sodium 143 Potassium 3.3 L Chloride 97.3 L Carbon Dioxide 31 H Anion Gap 18 BUN 65 H Creatinine 3.4 H Estimated GFR 23 BUN/Creatinine Ratio 19 Glucose 225 H POC Glucose 219 H Calcium 8.9 Phosphorus 4.10 06/07/18 06:01 WBC RBC Hgb Hct MCV MCH MCHC RDW Plt Count Lymph % (Auto) [place] % (Auto) Eos % (Auto) Baso % (Auto) Lymph # [place] # Eos # Baso # Seg Neutrophils % Seg Neutrophils # Sodium Potassium Chloride Carbon Dioxide Anion Gap BUN Creatinine Estimated GFR BUN/Creatinine Ratio Glucose POC Glucose 275 H Calcium Phosphorus Assessment and Plan I69.353 Right non-dom hemiparesis: Monitor for neuro decline. Continue secondary stroke prevention. Discussed recovery and secondary stroke prevention. Monitor for post-stroke depression and s/s of shoulder-hand syndrome. Monitor for safety awareness I69.322 Dysarthria: SHIELD INSTALLER for improvement in communication and speech I69.391 Dysphagia: SHIELD INSTALLER to improve swallow function. Continue TF (at goal) with NPO. Monitor and advance diet as safely as able. FEES, MBSS or EStim as needed. Z73.6 ADL dysfunction: OT will work on improving ability to perform ADLs (including assistive devices) to increase independence and decrease caregiver burden and improve functional transfers and mobility training. R26.2 Difficulty walking: PT will work on gait training and proper use of assistive devices and advance as appropriate to use of stairs and outside ambulation on uneven surfaces. R26.81 Unsteadiness on feet: PT will work on improving static and dynamic sitting and standing balance as well as proper use of assistive devices to decrease risk of falls. R26.89 Abnormality of gait: PT will work to improve safety and efficiency of gait through neuromotor training and gait training along with instruction on proper use of assistive devices. Has prosthesis with him M62.81 Muscle weakness: PT & OT will work on strengthening exercises to improve functional strength including mixture of closed and open kinetic chain exercises. R53.81 Debility: PT & OT will work on improving overall functional status to improve participation with ADLs, mobility and social involvement. R53.83 Fatigue: PT & OT will work on improving endurance through aerobic exercises and therapeutic activity while monitoring patients tolerance for activity and vital signs as needed. I10 Hypertension: Multiple medications being held and Tachycardic -Adjusted medications, hold orders place and discussed with nursing E78.5 Hyperlipidemia: Continue Statin E11.8 Diabetes: Adjusted lantus and SSI due to increased TF and elevated POC GLU D64.9 Anemia: Worsening, FOBT ordered E87.6 Hypokalemia: Replaced, monitor labs for improvement Cough: CXR ordered ELVIRA due to ATN at OSH but likely Acute on CKD per consult here DVT ppx: Heparin TID due to renal function GI ppx: Pepcid Pain: Continue physical modalities in therapy and pain medications as needed to achieve functional pain control. Sleep: Monitor and address as needed. Bowel: Monitor and address as needed. Appetite: Monitor and address as needed when able to take PO. Discharge planning: Pending therapy progress and care plan meeting. Will continue discussion with therapy team, SW, patient and family. Restrictions/ Precautions: Falls, aspiration WB status: FWB Functional Hx: ADLs: Independent and working Cognition: Independent Mobility: independent Consult: Hospitalists for medical management Nephrology for renal function Appreciate assistance. Barriers to Discharge: Decreased mobility and ability to perform self care, right sided weakness, balance deficits, dysphagia Estimated Length of Stay: 21 days Discharge Destination: Home with family if possible
[2018-06-07] MEDS: ASPIRIN FEEDTUBE SCH (08:40)
[2018-06-07] MEDS: PLAVIX FEEDTUBE SCH (08:40)
[2018-06-07] MEDS: COLACE FEEDTUBE SCH ×2 (08:40→22:06)
[2018-06-07] MEDS: PEPCID FEEDTUBE SCH ×2 (08:40→22:06)
[2018-06-07] MEDS: NORVASC FEEDTUBE SCH (08:47)
--- NOTE | 2018-06-07 09:48 | Progress Note ---
Assessment and Plan Acute Renal Failure secondary to Ischemic ATN on likely CKD from HTN: - rising Cr since 06/05 - will start NS 100 cc/h and check urine lytes and eos - will check bladder scan -Avoid nephrotoxic agents -Obtain daily weights -Monitor I/O's -Monitor renal function closely Anemia in CKD - Hgb is trending down - will check FOT - will check iron panel - may benefit from JORDAN Acute CVA: -On ASA, plavix and Statin -Rehab therapy Hypertension: -Continue BP meds and adjust as needed Diabetes Mellitus: -On Insulin Oropharyngeal Dysphagia: Peg Tube feedings Subjective Date of service: 06/07/18 Principal diagnosis: CVA, Acute on CKD Interval history: tolerating physical therapy, denies acute issues Objective - Vital Signs Vital signs: Vital Signs - 12hr 06/06/18 06/06/18 06/06/18 21:56 21:58 22:00 Temperature Pulse Rate 100 H 100 H Respiratory 17 Rate Respiratory 17 Rate [Denies] Blood Pressure 106/72 106/72 O2 Sat by Pulse Oximetry 06/06/18 06/07/18 06/07/18 23:58 04:12 06:26 Temperature 98.4 F 98.7 F Pulse Rate 101 H 103 H 103 H Respiratory 18 18 Rate Respiratory Rate [Denies] Blood Pressure 109/67 113/71 110/74 O2 Sat by Pulse 94 96 Oximetry 06/07/18 06:57 Temperature 98.0 F Pulse Rate 74 Respiratory 18 Rate Respiratory Rate [Denies] Blood Pressure 134/74 O2 Sat by Pulse 96 Oximetry - General Appearance General appearance: well-developed, well-nourished EENT: ATNC, PERRL, mucous membranes moist Neck: no JVD, no carotid bruit Respiratory: Present: Clear to Ascultation. Absent: Rales, Ronchi Cardiology: regular, S1S2 Gastrointestinal: normoactive bowel sounds, no tenderness, no distended Integumentary: no rash, warm and dry Neurologic: no focal deficit, no asterixis Musculoskeletal: other (no edema in LLE) Psychiatric: mood/affect appropriate, cooperative - Lab 06/07/18 05:15 06/07/18 05:15 Most recent lab results Calcium 8.9 mg/dL (8.4-10.2) 06/07/18 05:15 Phosphorus 4.10 mg/dL (2.5-4.5) 06/07/18 05:15 Magnesium 2.10 mg/dL (1.7-2.3) 06/07/18 05:15 Medications & Allergies - Medications Allergies/Adverse Reactions: Allergies No Known Allergies Allergy (Unverified 08/03/15 12:32) Home Medications: Home Medications Medication Instructions Recorded Confirmed Last Taken Type Aspirin [Aspirin BABY CHEW TAB] 81 mg PO QDAY 08/04/15 06/05/18 Unknown History Insulin Detemir [Levemir Flextouch] 35 unit SQ BID 08/04/15 06/05/18 Unknown History NIFEdipine XL [Procardia Xl] 60 mg PO QDAY 08/04/15 06/05/18 Unknown History Simvastatin [Zocor TAB] 40 mg PO QHS 08/04/15 06/05/18 Unknown History Sitagliptin/Metformin (Nf) 1 each PO BID 08/04/15 06/05/18 Unknown History [Janumet 50-1,000 mg (Nf)] Sulfamethoxazole/Trimethoprim 1 each PO BID #14 tablet 08/04/15 06/05/18 Unknown Rx [Bactrim DS TAB] Active Medications: Generic Name Dose Route Start Last Admin Trade Name Freq PRN Reason Stop Dose Admin Amlodipine Besylate 5 mg 06/04/18 08:00 06/07/18 08:47 Norvasc FEEDTUBE 5 mg QDAY JONO Administration Lipase/Protease/Amylase 1 each 06/04/18 12:07 Pancrealthea Laguerre 10,500 Unit FEEDTUBE PRN PRN For Clogged Feeding Tube Aspirin 325 mg 06/04/18 08:00 06/07/18 08:40 Aspirin FEEDTUBE 325 mg QDAY JONO Administration Atorvastatin Calcium 40 mg 06/03/18 21:00 06/06/18 21:56 Lipitor FEEDTUBE 40 mg QHS JONO Administration Clopidogrel Bisulfate 75 mg 06/04/18 08:00 06/07/18 08:40 Plavix FEEDTUBE 75 mg QDAY JONO Administration Dextrose 50 ml 06/03/18 17:09 D50w (25gm) Syringe IV PRN PRN Hypoglycemia Docusate Sodium 100 mg 06/03/18 22:00 06/07/18 08:40 Colace FEEDTUBE 100 mg BID JONO Administration Famotidine 10 mg 06/04/18 22:00 06/07/18 08:40 Pepcid FEEDTUBE 10 mg BID JONO Administration Heparin Sodium (Porcine) 5,000 unit 06/03/18 22:00 06/07/18 06:27 Heparin SUB-Q 5,000 unit Q8HR JONO Administration Hydralazine HCl 10 mg 06/07/18 09:29 Apresoline FEEDTUBE Q8HR JONO Sodium Chloride 1,000 mls @ 100 mls/hr 06/07/18 10:00 Nacl 0.9% 1000 Ml IV DIRECT JONO Insulin Glargine 10 units 06/07/18 21:00 Lantus SUB-Q QHS JONO Insulin Human Lispro 0 unit 06/03/18 18:00 06/07/18 06:24 Humalog SUB-Q 3 unit Q6HR JONO Administration Protocol Metoprolol Tartrate 50 mg 06/07/18 09:34 Lopressor FEEDTUBE BID JONO Polyethylene Glycol 17 gm 06/03/18 17:30 Miralax 3350 FEEDTUBE QDAY PRN Constipation Potassium Chloride 20 meq 06/07/18 10:00 Potassium Chloride FEEDTUBE 06/10/18 09:59 QDAY JONO Simple Syrup 15 ml 06/04/18 12:07 Simple Syrup FEEDTUBE PRN PRN Hypoglycemia Simple Syrup 30 ml 06/04/18 12:07 Simple Syrup FEEDTUBE PRN PRN Hypoglycemia Sodium Bicarbonate 325 mg 06/04/18 12:07 Sodium Bicarbonate FEEDTUBE PRN PRN For Clogged Feeding Tube
--- NOTE | 2018-06-07 11:37 | XRay Report ---
FINAL REPORT EXAM: XR CHEST ROUTINE 2V HISTORY: Cough, Possible Aspiration COMPARISON: None. TECHNIQUE: Frontal and lateral views of the chest. FINDINGS: The cardiomediastinal silhouette is normal in appearance. The lungs are clear without focal consolidation. There is no pleural effusion or pneumothorax. There is no acute soft tissue or osseous abnormality. IMPRESSION: No acute cardiopulmonary disease.
[2018-06-07] MEDS: LOPRESSOR FEEDTUBE SCH ×2 (12:07→17:00)
[2018-06-07] MEDS: POTASSIUM CHLORIDE FEEDTUBE SCH (13:10)
--- NOTE | 2018-06-07 13:51 | Progress Note ---
Assessment and Plan Assessment and plan: CVA with residual right-sided hemiparesis, dysphagia -On aspirin and atorvastatin -PT/OT, speech therapy evaluation Right BKA - Supportive care Hypertension - Controlled continue amlodipine, hydralazine and metoprolol. Diabetes mellitus - SSI - Uncontrolled and Lantus 10 units added at bedtime CKD - Nephrology following Hypokalemia - Patient is on potassium Anemia - Patient doesn't need transfusion at this time, no overt GI bleeding - Continue to monitor DVT prophylaxis - On heparin Patient's primary is Dr Erickson. History Interval history: Patient was seen and evaluated this morning, patient didn't have any complaints. Hospitalist Physical - Physical exam Narrative exam: Not in cardiopulmonary distress. The patient appeared well nourished and normally developed. Vital signs as documented. Head exam is unremarkable. No scleral icterus . Neck is without jugular venous distension, thyromegaly, or carotid bruits. Lungs are clear to auscultation. Cardiac exam reveals regular rate and Rhythm. First and second heart sounds normal. No murmurs, rubs or gallops. Abdominal exam reveals normal bowel sounds, no masses, no organomegaly and no aortic enlargement. Extremities right BKA. 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 - Constitutional Vitals: Temp Pulse Resp BP Pulse Ox 98.1 F 92 H 20 105/64 96 06/07/18 11:25 06/07/18 11:25 06/07/18 11:25 06/07/18 11:25 06/07/18 11:25 Results - Labs CBC & Chem 7: 06/07/18 05:15 06/07/18 05:15 Labs: Laboratory Last Values WBC 10.0 K/mm3 (4.5-11.0) 06/07/18 05:15 RBC 2.78 M/mm3 (3.65-5.03) L 06/07/18 05:15 Hgb 8.2 gm/dl (11.8-15.2) L 06/07/18 05:15 Hct 24.7 % (35.5-45.6) L 06/07/18 05:15 MCV 89 fl (84-94) 06/07/18 05:15 MCH 30 pg (28-32) 06/07/18 05:15 MCHC 33 % (32-34) 06/07/18 05:15 RDW 14.3 % (13.2-15.2) 06/07/18 05:15 Plt Count 502 K/mm3 (140-440) H 06/07/18 05:15 Lymph % (Auto) 19.7 % (13.4-35.0) 06/07/18 05:15 [place] % (Auto) 7.0 % (0.0-7.3) 06/07/18 05:15 Eos % (Auto) 3.1 % (0.0-4.3) 06/07/18 05:15 Baso % (Auto) 0.6 % (0.0-1.8) 06/07/18 05:15 Lymph # 2.0 K/mm3 (1.2-5.4) 06/07/18 05:15 [place] # 0.7 K/mm3 (0.0-0.8) 06/07/18 05:15 Eos # 0.3 K/mm3 (0.0-0.4) 06/07/18 05:15 Baso # 0.1 K/mm3 (0.0-0.1) 06/07/18 05:15 Seg Neutrophils % 69.6 % (40.0-70.0) 06/07/18 05:15 Seg Neutrophils # 6.9 K/mm3 (1.8-7.7) 06/07/18 05:15 Sodium 143 mmol/L (137-145) 06/07/18 05:15 Potassium 3.3 mmol/L (3.6-5.0) L 06/07/18 05:15 Chloride 97.3 mmol/L (98-107) L 06/07/18 05:15 Carbon Dioxide 31 mmol/L (22-30) H 06/07/18 05:15 Anion Gap 18 mmol/L 06/07/18 05:15 BUN 65 mg/dL (9-20) H 06/07/18 05:15 Creatinine 3.4 mg/dL (0.8-1.5) H 06/07/18 05:15 Estimated GFR 23 ml/min 06/07/18 05:15 BUN/Creatinine Ratio 19 % 06/07/18 05:15 Glucose 225 mg/dL (75-100) H 06/07/18 05:15 POC Glucose 354 (70-105) H 06/07/18 11:29 Calcium 8.9 mg/dL (8.4-10.2) 06/07/18 05:15 Phosphorus 4.10 mg/dL (2.5-4.5) 06/07/18 05:15 Magnesium 2.10 mg/dL (1.7-2.3) 06/07/18 05:15 Prealbumin 0.230 g/L (0.200-0.400) 06/03/18 19:51 Nutrition/Malnutrition Assess - Dietary Evaluation Nutrition/Malnutrition Findings: Nutrition Notes Start: 06/04/18 11:20 Freq: Status: Active Protocol: Document 06/06/18 12:29 KH (Rec: 06/06/18 13:16 [email or web address]) Co-Sign 06/06/18 12:29 LP Nutrition Notes Initial or Follow up Reassessment Current Diagnosis Acute Kidney Injury Diabetes Hypertension Stroke Hyperlipidemia Current Diet Jevity 1.2 at 80ml/hr Labs/Tests Reviewed Pertinent Medications Reviewed Height 6 ft 2.4 in Weight 100.8 kg [place] Body Weight (lbs) 192.4 BMI 28.2 Subjective/Other Information Observed Jevity 1.2 infusing at 65 ml/hr. RN stated the TF remained at 20 ml/hr for the past two days, but that she was going to increase it to 80 ml/hr after we spoke. Burn Absent Trauma Absent #1 Nutrition Diagnosis Inadequate oral intake Diagnosis Progress(for reassessment Continues documentation) Is patient on ventilator? No Is Patient Ambulatory and/or Out of Bed Yes REE-([facility]-ambulatory/OOB) [ 2494.869 [id number]] Calculation Used for Recommendations [facility] Additional Notes Protein needs: 100- 130 g (1-1 .3 g/kg) Fluids: 1 mL/kg inderjit or per MD Nutrition Intervention Change Diet Order: Continue TF Nutrition Support: Jevity 1.2 at 80 mL/hr Flush 100 mL q4hr Kcal 2,304 Protein (gm) 107 Fluid (mL) 1,549 Goal #1 Meet at least 75% of energy and protein needs Anticipated Discharge Needs: TF Follow-Up By: 06/10/18 Additional Comments F/u for TF tolerance and rate
[2018-06-07] MEDS: LANTUS SUB-Q SCH (22:26)
[2018-06-08] MEDS: HumaLOG SUB-Q SCH ×4 (01:42→18:16)
[2018-06-08] MEDS: LOPRESSOR FEEDTUBE SCH ×4 (01:50→17:22)
[2018-06-08] MEDS: HEPARIN SUB-Q SCH ×3 (06:03→21:32)
[2018-06-08] MEDS: APRESOLINE FEEDTUBE SCH ×3 (06:07→21:33)
[2018-06-08 06:34] LABS: Basophils # (Auto) 0.1 K/mm3 (0.0-0.1); Basophils % (Auto) 0.5 % (0.0-1.8); Eosinophils # (Auto) 0.3 K/mm3 (0.0-0.4); Eosinophils % (Auto) 2.6 % (0.0-4.3); Hematocrit 24.2 % (35.5-45.6); Hemoglobin 8.2 gm/dl (11.8-15.2); Lymphocytes # (Auto) 1.3 K/mm3 (1.2-5.4); Lymphocytes % (Auto) 12.3 % (13.4-35.0); Mean Corpuscular HGB Conc 34 % (32-34); Mean Corpuscular Volume 89 fl (84-94); Monocytes # (Auto) 0.6 K/mm3 (0.0-0.8); Monocytes % (Auto) 5.9 % (0.0-7.3); Platelet Count 547 K/mm3 (140-440); Red Blood Count 2.74 M/mm3 (3.65-5.03); Red Cell Distribution Width 14.3 % (13.2-15.2)
[2018-06-08 07:00] LABS: Calcium 9.2 mg/dL (8.4-10.2)
[2018-06-08] MEDS: NORVASC FEEDTUBE SCH (08:23)
[2018-06-08] MEDS: ASPIRIN FEEDTUBE SCH (09:06)
[2018-06-08] MEDS: PLAVIX FEEDTUBE SCH (09:06)
[2018-06-08] MEDS: PEPCID FEEDTUBE SCH ×2 (09:06→21:31)
[2018-06-08] MEDS: POTASSIUM CHLORIDE FEEDTUBE SCH (09:06)
[2018-06-08] MEDS: COLACE FEEDTUBE SCH ×2 (09:06→21:31)
--- NOTE | 2018-06-08 09:06 | Progress Note ---
Assessment and Plan Acute Renal Failure secondary to Ischemic ATN on likely CKD from HTN: - discussed with RN, was not started on NS and urine studoes were not sent -Avoid nephrotoxic agents -Obtain daily weights -Monitor I/O's -Monitor renal function closely Anemia in CKD - Hgb is trending down - will check FOT - Epogen w10,000 unit SW qweek Acute CVA: -On ASA, plavix and Statin -Rehab therapy Hypertension: -Continue BP meds and adjust as needed Diabetes Mellitus: -On Insulin Oropharyngeal Dysphagia: Peg Tube feedings Subjective Date of service: 06/08/18 Principal diagnosis: CVA, Acute on CKD Interval history: comfortable Objective - Vital Signs Vital signs: Vital Signs - 12hr 06/07/18 06/07/18 06/07/18 21:11 22:00 22:06 Temperature 98.4 F Pulse Rate 101 H 101 H Respiratory 17 18 Rate Respiratory Rate [Denies] Blood Pressure 134/89 134/89 Blood Pressure [Left] O2 Sat by Pulse 92 Oximetry 06/08/18 06/08/18 06/08/18 00:00 00:41 01:45 Temperature 97.6 F Pulse Rate 78 69 Respiratory 18 18 Rate Respiratory 18 Rate [Denies] Blood Pressure Blood Pressure 107/47 97/48 [Left] O2 Sat by Pulse 96 Oximetry 06/08/18 06/08/18 01:50 06:07 Temperature Pulse Rate 69 95 H Respiratory Rate Respiratory Rate [Denies] Blood Pressure 97/48 138/66 Blood Pressure [Left] O2 Sat by Pulse Oximetry - General Appearance General appearance: well-developed, well-nourished EENT: ATNC, PERRL, mucous membranes moist Neck: no JVD, no carotid bruit Respiratory: Present: Clear to Ascultation. Absent: Rales, Ronchi Cardiology: regular, S1S2 Gastrointestinal: normoactive bowel sounds, no tenderness, no distended Integumentary: no rash, warm and dry Neurologic: no focal deficit, no asterixis, alert and oriented x3 Musculoskeletal: other (no edema in BLE) Psychiatric: mood/affect appropriate, cooperative - Lab 06/08/18 06:00 06/08/18 06:00 Most recent lab results Calcium 9.2 mg/dL (8.4-10.2) 06/08/18 06:00 Phosphorus 3.30 mg/dL (2.5-4.5) 06/08/18 06:00 Magnesium 2.10 mg/dL (1.7-2.3) 06/07/18 05:15 Medications & Allergies - Medications Allergies/Adverse Reactions: Allergies No Known Allergies Allergy (Unverified 08/03/15 12:32) Home Medications: Home Medications Medication Instructions Recorded Confirmed Last Taken Type Aspirin [Aspirin BABY CHEW TAB] 81 mg PO QDAY 08/04/15 06/05/18 Unknown History Insulin Detemir [Levemir Flextouch] 35 unit SQ BID 08/04/15 06/05/18 Unknown History NIFEdipine XL [Procardia Xl] 60 mg PO QDAY 08/04/15 06/05/18 Unknown History Simvastatin [Zocor TAB] 40 mg PO QHS 08/04/15 06/05/18 Unknown History Sitagliptin/Metformin (Nf) 1 each PO BID 08/04/15 06/05/18 Unknown History [Janumet 50-1,000 mg (Nf)] Sulfamethoxazole/Trimethoprim 1 each PO BID #14 tablet 08/04/15 06/05/18 Unknown Rx [Bactrim DS TAB] Active Medications: Generic Name Dose Route Start Last Admin Trade Name Freq PRN Reason Stop Dose Admin Amlodipine Besylate 5 mg 06/04/18 08:00 06/07/18 08:47 Norvasc FEEDTUBE 5 mg QDAY JONO Administration Lipase/Protease/Amylase 1 each 06/04/18 12:07 Pancrealthea Laguerre 10,500 Unit FEEDTUBE PRN PRN For Clogged Feeding Tube Aspirin 325 mg 06/04/18 08:00 06/07/18 08:40 Aspirin FEEDTUBE 325 mg QDAY JONO Administration Atorvastatin Calcium 40 mg 06/03/18 21:00 06/07/18 22:06 Lipitor FEEDTUBE 40 mg QHS JONO Administration Clopidogrel Bisulfate 75 mg 06/04/18 08:00 06/07/18 08:40 Plavix FEEDTUBE 75 mg QDAY JONO Administration Dextrose 50 ml 06/03/18 17:09 D50w (25gm) Syringe IV PRN PRN Hypoglycemia Docusate Sodium 100 mg 06/03/18 22:00 06/07/18 22:06 Colace FEEDTUBE 100 mg BID JONO Administration Famotidine 10 mg 06/04/18 22:00 06/07/18 22:06 Pepcid FEEDTUBE 10 mg BID JONO Administration Heparin Sodium (Porcine) 5,000 unit 06/03/18 22:00 06/08/18 06:03 Heparin SUB-Q 5,000 unit Q8HR JONO Administration Hydralazine HCl 10 mg 06/07/18 14:00 06/08/18 06:07 Apresoline FEEDTUBE 10 mg Q8HR JONO Administration Sodium Chloride 1,000 mls @ 100 mls/hr 06/07/18 10:00 Nacl 0.9% 1000 Ml IV DIRECT JONO Insulin Glargine 10 units 06/07/18 21:00 06/07/18 22:26 Lantus SUB-Q 10 units QHS JONO Administration Insulin Human Lispro 0 unit 06/03/18 18:00 06/08/18 06:16 Humalog SUB-Q 6 unit Q6HR JONO Administration Protocol Metoprolol Tartrate 50 mg 06/07/18 10:00 06/08/18 01:50 Lopressor FEEDTUBE Not Given Q8H JONO Polyethylene Glycol 17 gm 06/03/18 17:30 Miralax 3350 FEEDTUBE QDAY PRN Constipation Potassium Chloride 20 meq 06/07/18 10:00 06/07/18 13:10 Potassium Chloride FEEDTUBE 06/10/18 09:59 20 meq QDAY JONO Administration Simple Syrup 15 ml 06/04/18 12:07 Simple Syrup FEEDTUBE PRN PRN Hypoglycemia Simple Syrup 30 ml 06/04/18 12:07 Simple Syrup FEEDTUBE PRN PRN Hypoglycemia Sodium Bicarbonate 325 mg 06/04/18 12:07 Sodium Bicarbonate FEEDTUBE PRN PRN For Clogged Feeding Tube
[2018-06-08 10:48] LABS: Creatinine,Urine 141.6 mg/dL (0.1-20.0)
[2018-06-08 12:03] LABS: Creatinine,Urine 140.4 mg/dL (0.1-20.0)
[2018-06-08 12:07] LABS: Protein/Creatinine Ratio,Urine 0.26
[2018-06-08] MEDS: NACL 0.9% 1000 ML 1,000 ML IV SCH ×2 (12:13→21:31)
[2018-06-08] MEDS: PROCRIT SUB-Q SCH (12:21)
--- NOTE | 2018-06-08 12:38 | Progress Note ---
Assessment and Plan Assessment and plan: CVA with residual right-sided hemiparesis, dysphagia -On aspirin and atorvastatin -PT/OT, speech therapy evaluation Right BKA - Supportive care Hypertension - Controlled continue amlodipine, hydralazine and metoprolol. Diabetes mellitus - SSI - Uncontrolled and Lantus 10 units added at bedtime CKD - Nephrology following Hypokalemia - Patient is on potassium Anemia of chronic illness - Patient doesn't need transfusion at this time, no overt GI bleeding - Continue to monitor DVT prophylaxis - On heparin Patient's primary is Dr Erickson. History Interval history: Patient was seen and evaluated this morning, patient was complaining constipation but nurse said he had big bowel movement.. Hospitalist Physical - Physical exam Narrative exam: Not in cardiopulmonary distress. The patient appeared well nourished and normally developed. Vital signs as documented. Head exam is unremarkable. No scleral icterus . Neck is without jugular venous distension, thyromegaly, or carotid bruits. Lungs are clear to auscultation. Cardiac exam reveals regular rate and Rhythm. First and second heart sounds normal. No murmurs, rubs or gallops. Abdominal exam reveals normal bowel sounds, no masses, no organomegaly and no aortic enlargement. Extremities right BKA. 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 - Constitutional Vitals: Temp Pulse Resp BP Pulse Ox 98.1 F 104 H 20 125/86 94 06/08/18 07:32 06/08/18 07:32 06/08/18 07:32 06/08/18 07:32 06/08/18 07:32 Results - Labs CBC & Chem 7: 06/08/18 06:00 06/08/18 06:00 Labs: Laboratory Last Values WBC 10.9 K/mm3 (4.5-11.0) 06/08/18 06:00 RBC 2.74 M/mm3 (3.65-5.03) L 06/08/18 06:00 Hgb 8.2 gm/dl (11.8-15.2) L 06/08/18 06:00 Hct 24.2 % (35.5-45.6) L 06/08/18 06:00 MCV 89 fl (84-94) 06/08/18 06:00 MCH 30 pg (28-32) 06/08/18 06:00 MCHC 34 % (32-34) 06/08/18 06:00 RDW 14.3 % (13.2-15.2) 06/08/18 06:00 Plt Count 547 K/mm3 (140-440) H 06/08/18 06:00 Lymph % (Auto) 12.3 % (13.4-35.0) L 06/08/18 06:00 [place] % (Auto) 5.9 % (0.0-7.3) 06/08/18 06:00 Eos % (Auto) 2.6 % (0.0-4.3) 06/08/18 06:00 Baso % (Auto) 0.5 % (0.0-1.8) 06/08/18 06:00 Lymph # 1.3 K/mm3 (1.2-5.4) 06/08/18 06:00 [place] # 0.6 K/mm3 (0.0-0.8) 06/08/18 06:00 Eos # 0.3 K/mm3 (0.0-0.4) 06/08/18 06:00 Baso # 0.1 K/mm3 (0.0-0.1) 06/08/18 06:00 Seg Neutrophils % 78.7 % (40.0-70.0) H 06/08/18 06:00 Seg Neutrophils # 8.6 K/mm3 (1.8-7.7) H 06/08/18 06:00 Sodium 144 mmol/L (137-145) 06/08/18 06:00 Potassium 3.6 mmol/L (3.6-5.0) 06/08/18 06:00 Chloride 97.5 mmol/L (98-107) L 06/08/18 06:00 Carbon Dioxide 30 mmol/L (22-30) 06/08/18 06:00 Anion Gap 20 mmol/L 06/08/18 06:00 BUN 62 mg/dL (9-20) H 06/08/18 06:00 Creatinine 3.1 mg/dL (0.8-1.5) H 06/08/18 06:00 Estimated GFR 25 ml/min 06/08/18 06:00 BUN/Creatinine Ratio 20 % 06/08/18 06:00 Glucose 351 mg/dL (75-100) H 06/08/18 06:00 POC Glucose 327 (70-105) H 06/08/18 06:06 Calcium 9.2 mg/dL (8.4-10.2) 06/08/18 06:00 Phosphorus 3.30 mg/dL (2.5-4.5) 06/08/18 06:00 Magnesium 2.10 mg/dL (1.7-2.3) 06/07/18 05:15 Iron 33 ug/dL (49-181) L 06/08/18 06:00 TIBC 189 mcg/dL (250-450) L 06/08/18 06:00 Ferritin 1111.0 ng/mL (13.0-400.0) H 06/08/18 06:00 Prealbumin 0.230 g/L (0.200-0.400) 06/03/18 19:51 Urine Creatinine 140.4 mg/dL (0.1-20.0) H 06/08/18 09:55 Protein/Creatinin Ratio 0.26 06/08/18 09:55 Urine Sodium 45 mmol/L 06/08/18 09:55 Urine Total Protein 36 mg/dL (5-11.8) H 06/08/18 09:55 Nutrition/Malnutrition Assess - Dietary Evaluation Nutrition/Malnutrition Findings: Nutrition Notes Start: 06/04/18 11:20 Freq: Status: Active Protocol: Document 06/06/18 12:29 (Rec: 06/06/18 13:16 [email or web address]) Co-Sign 06/06/18 12:29 LP Nutrition Notes Initial or Follow up Reassessment Current Diagnosis Acute Kidney Injury Diabetes Hypertension Stroke Hyperlipidemia Current Diet Jevity 1.2 at 80ml/hr Labs/Tests Reviewed Pertinent Medications Reviewed Height 6 ft 2.4 in Weight 100.8 kg [place] Body Weight (lbs) 192.4 BMI 28.2 Subjective/Other Information Observed Jevity 1.2 infusing at 65 ml/hr. RN stated the TF remained at 20 ml/hr for the past two days, but that she was going to increase it to 80 ml/hr after we spoke. Burn Absent Trauma Absent #1 Nutrition Diagnosis Inadequate oral intake Diagnosis Progress(for reassessment Continues documentation) Is patient on ventilator? No Is Patient Ambulatory and/or Out of Bed Yes REE-([facility]-ambulatory/OOB) [ 0064.869 [id number]] Calculation Used for Recommendations Tricia Blue Additional Notes Protein needs: 100- 130 g (1-1 .3 g/kg) Fluids: 1 mL/kg inderjit or per MD Nutrition Intervention Change Diet Order: Continue TF Nutrition Support: Jevity 1.2 at 80 mL/hr Flush 100 mL q4hr Kcal 2,304 Protein (gm) 107 Fluid (mL) 1,549 Goal #1 Meet at least 75% of energy and protein needs Anticipated Discharge Needs: TF Follow-Up By: 06/10/18 Additional Comments F/u for TF tolerance and rate
[2018-06-08] MEDS: LANTUS SUB-Q SCH (22:07)
[2018-06-09] MEDS: HumaLOG SUB-Q SCH ×4 (00:38→18:23)
[2018-06-09] MEDS: LOPRESSOR FEEDTUBE SCH ×3 (02:41→18:23)
[2018-06-09] MEDS: HEPARIN SUB-Q SCH ×3 (05:14→22:33)
[2018-06-09 05:22] LABS: Basophils # (Auto) 0.1 K/mm3 (0.0-0.1); Basophils % (Auto) 1.1 % (0.0-1.8); Eosinophils # (Auto) 0.4 K/mm3 (0.0-0.4); Eosinophils % (Auto) 4.8 % (0.0-4.3); Hematocrit 24.6 % (35.5-45.6); Hemoglobin 8.4 gm/dl (11.8-15.2); Lymphocytes % (Auto) 23.5 % (13.4-35.0); Mean Corpuscular HGB Conc 34 % (32-34); Mean Corpuscular Volume 89 fl (84-94); Monocytes # (Auto) 0.7 K/mm3 (0.0-0.8); Monocytes % (Auto) 8.6 % (0.0-7.3); Platelet Count 507 K/mm3 (140-440); Red Blood Count 2.78 M/mm3 (3.65-5.03); Red Cell Distribution Width 14.1 % (13.2-15.2)
[2018-06-09] MEDS: APRESOLINE FEEDTUBE SCH ×3 (05:24→22:31)
[2018-06-09 05:30] LABS: Calcium 9.2 mg/dL (8.4-10.2)
[2018-06-09] MEDS: NACL 0.9% 1000 ML 1,000 ML IV SCH ×2 (05:55→18:33)
[2018-06-09] MEDS: NORVASC FEEDTUBE SCH (09:10)
[2018-06-09] MEDS: PLAVIX FEEDTUBE SCH (09:10)
[2018-06-09] MEDS: PEPCID FEEDTUBE SCH ×2 (09:10→22:31)
[2018-06-09] MEDS: ASPIRIN FEEDTUBE SCH (09:10)
[2018-06-09] MEDS: POTASSIUM CHLORIDE FEEDTUBE SCH (09:11)
--- NOTE | 2018-06-09 09:13 | Progress Note ---
Assessment and Plan Acute Renal Failure secondary to Ischemic ATN on likely CKD from HTN: - improved kidney function with IVF -Avoid nephrotoxic agents -Obtain daily weights -Monitor I/O's -Monitor renal function closely Anemia in CKD - Epogen 10,000 unit SW qweek Acute CVA: -On ASA, plavix and Statin -Rehab therapy Hypertension: -Continue BP meds and adjust as needed Diabetes Mellitus: -On Insulin Oropharyngeal Dysphagia: Peg Tube feedings Subjective Date of service: 06/09/18 Principal diagnosis: CVA, Acute on CKD Interval history: tolerating physical therapy Objective - Vital Signs Vital signs: Vital Signs - 12hr 06/08/18 06/08/18 06/08/18 21:22 21:23 21:33 Temperature 97.8 F Pulse Rate 91 H 88 91 H Respiratory 17 Rate Blood Pressure 144/99 144/99 Blood Pressure [Left] O2 Sat by Pulse 94 95 Oximetry 06/09/18 06/09/18 06/09/18 02:41 05:24 07:45 Temperature 97.9 F Pulse Rate 104 H 82 79 Respiratory 19 Rate Blood Pressure 153/101 133/89 Blood Pressure 123/81 [Left] O2 Sat by Pulse 98 Oximetry 06/09/18 09:10 Temperature Pulse Rate 79 Respiratory Rate Blood Pressure 123/81 Blood Pressure [Left] O2 Sat by Pulse Oximetry - General Appearance General appearance: well-developed, well-nourished EENT: ATNC, PERRL, mucous membranes moist Neck: no JVD, no carotid bruit Respiratory: Present: Clear to Ascultation. Absent: Rales, Ronchi Cardiology: regular, S1S2 Gastrointestinal: normoactive bowel sounds Integumentary: no rash, warm and dry Neurologic: no focal deficit, no asterixis, alert and oriented x3 Musculoskeletal: other (no edema ) Psychiatric: mood/affect appropriate, cooperative - Lab 06/09/18 05:00 06/09/18 05:00 Most recent lab results Calcium 9.2 mg/dL (8.4-10.2) 06/09/18 05:00 Phosphorus 3.00 mg/dL (2.5-4.5) 06/09/18 05:00 Magnesium 2.10 mg/dL (1.7-2.3) 06/07/18 05:15 Urine Creatinine 140.4 mg/dL (0.1-20.0) H 06/08/18 09:55 Urine Sodium 45 mmol/L 06/08/18 09:55 Urine Total Protein 36 mg/dL (5-11.8) H 06/08/18 09:55 Medications & Allergies - Medications Allergies/Adverse Reactions: Allergies No Known Allergies Allergy (Unverified 08/03/15 12:32) Home Medications: Home Medications Medication Instructions Recorded Confirmed Last Taken Type Aspirin [Aspirin BABY CHEW TAB] 81 mg PO QDAY 08/04/15 06/05/18 Unknown History Insulin Detemir [Levemir Flextouch] 35 unit SQ BID 08/04/15 06/05/18 Unknown History NIFEdipine XL [Procardia Xl] 60 mg PO QDAY 08/04/15 06/05/18 Unknown History Simvastatin [Zocor TAB] 40 mg PO QHS 08/04/15 06/05/18 Unknown History Sitagliptin/Metformin (Nf) 1 each PO BID 08/04/15 06/05/18 Unknown History [Janumet 50-1,000 mg (Nf)] Sulfamethoxazole/Trimethoprim 1 each PO BID #14 tablet 08/04/15 06/05/18 Unknown Rx [Bactrim DS TAB] Active Medications: Generic Name Dose Route Start Last Admin Trade Name Freq PRN Reason Stop Dose Admin Amlodipine Besylate 5 mg 06/04/18 08:00 06/09/18 09:10 Norvasc FEEDTUBE 5 mg QDAY JONO Administration Lipase/Protease/Amylase 1 each 06/04/18 12:07 Amy Laguerre 10,500 Unit FEEDTUBE PRN PRN For Clogged Feeding Tube Aspirin 325 mg 06/04/18 08:00 06/09/18 09:10 Aspirin FEEDTUBE 325 mg QDAY JONO Administration Atorvastatin Calcium 40 mg 06/03/18 21:00 06/08/18 21:32 Lipitor FEEDTUBE 40 mg QHS JONO Administration Clopidogrel Bisulfate 75 mg 06/04/18 08:00 06/09/18 09:10 Plavix FEEDTUBE 75 mg QDAY JONO Administration Dextrose 50 ml 06/03/18 17:09 D50w (25gm) Syringe IV PRN PRN Hypoglycemia Docusate Sodium 100 mg 06/03/18 22:00 06/08/18 21:31 Colace FEEDTUBE 100 mg BID JONO Administration Epoetin Abhijeet 10,000 unit 06/08/18 10:00 06/08/18 12:21 Procrit SUB-Q 10,000 unit Webb JONO Administration Famotidine 10 mg 06/04/18 22:00 06/09/18 09:10 Pepcid FEEDTUBE 10 mg BID JONO Administration Heparin Sodium (Porcine) 5,000 unit 06/03/18 22:00 06/09/18 05:14 Heparin SUB-Q 5,000 unit Q8HR JONO Administration Hydralazine HCl 10 mg 06/07/18 14:00 06/09/18 05:24 Apresoline FEEDTUBE 10 mg Q8HR JONO Administration Sodium Chloride 1,000 mls @ 100 mls/hr 06/07/18 10:00 06/09/18 05:55 Nacl 0.9% 1000 Ml IV 100 mls/hr DIRECT JONO Administration Insulin Glargine 10 units 06/07/18 21:00 06/08/18 22:07 Lantus SUB-Q 10 units QHS JONO Administration Insulin Human Lispro 0 unit 06/03/18 18:00 06/09/18 05:15 Humalog SUB-Q 2 unit Q6HR JONO Administration Protocol Metoprolol Tartrate 50 mg 06/07/18 10:00 06/09/18 09:10 Lopressor FEEDTUBE 50 mg Q8H JONO Administration Polyethylene Glycol 17 gm 06/03/18 17:30 Miralax 3350 FEEDTUBE QDAY PRN Constipation Potassium Chloride 20 meq 06/07/18 10:00 06/09/18 09:11 Potassium Chloride FEEDTUBE 06/10/18 09:59 20 meq QDAY JONO Administration Simple Syrup 15 ml 06/04/18 12:07 Simple Syrup FEEDTUBE PRN PRN Hypoglycemia Simple Syrup 30 ml 06/04/18 12:07 Simple Syrup FEEDTUBE PRN PRN Hypoglycemia Sodium Bicarbonate 325 mg 06/04/18 12:07 Sodium Bicarbonate FEEDTUBE PRN PRN For Clogged Feeding Tube
[2018-06-09] MEDS: COLACE FEEDTUBE SCH ×2 (12:25→22:32)
--- NOTE | 2018-06-09 15:26 | Progress Note ---
Assessment and Plan Assessment and plan: CVA with residual right-sided hemiparesis, dysphagia -On aspirin and atorvastatin -PT/OT, speech therapy evaluation Right BKA - Supportive care Hypertension - Controlled continue amlodipine, hydralazine and metoprolol. Diabetes mellitus - SSI - Uncontrolled and Lantus 10 units added at bedtime CKD - Nephrology following Hypokalemia - Patient is on potassium Anemia of chronic illness - Patient doesn't need transfusion at this time, no overt GI bleeding - Continue to monitor DVT prophylaxis - On heparin Patient's primary is Dr Erickson. History Interval history: Patient was seen and evaluated this morning, patient said he is feeling better. Hospitalist Physical - Physical exam Narrative exam: Not in cardiopulmonary distress. The patient appeared well nourished and normally developed. Vital signs as documented. Head exam is unremarkable. No scleral icterus . Neck is without jugular venous distension, thyromegaly, or carotid bruits. Lungs are clear to auscultation. Cardiac exam reveals regular rate and Rhythm. First and second heart sounds normal. No murmurs, rubs or gallops. Abdominal exam reveals normal bowel sounds, no masses, no organomegaly and no aortic enlargement. Extremities right BKA. 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 - Constitutional Vitals: Temp Pulse Resp BP Pulse Ox 97.4 F L 57 L 19 117/81 98 06/09/18 12:19 06/09/18 12:19 06/09/18 12:19 06/09/18 12:19 06/09/18 12:19 Results - Labs CBC & Chem 7: 06/09/18 05:00 06/09/18 05:00 Labs: Laboratory Last Values WBC 8.5 K/mm3 (4.5-11.0) 06/09/18 05:00 RBC 2.78 M/mm3 (3.65-5.03) L 06/09/18 05:00 Hgb 8.4 gm/dl (11.8-15.2) L 06/09/18 05:00 Hct 24.6 % (35.5-45.6) L 06/09/18 05:00 MCV 89 fl (84-94) 06/09/18 05:00 MCH 30 pg (28-32) 06/09/18 05:00 MCHC 34 % (32-34) 06/09/18 05:00 RDW 14.1 % (13.2-15.2) 06/09/18 05:00 Plt Count 507 K/mm3 (140-440) H 06/09/18 05:00 Lymph % (Auto) 23.5 % (13.4-35.0) 06/09/18 05:00 [place] % (Auto) 8.6 % (0.0-7.3) H 06/09/18 05:00 Eos % (Auto) 4.8 % (0.0-4.3) H 06/09/18 05:00 Baso % (Auto) 1.1 % (0.0-1.8) 06/09/18 05:00 Lymph # 2.0 K/mm3 (1.2-5.4) 06/09/18 05:00 [place] # 0.7 K/mm3 (0.0-0.8) 06/09/18 05:00 Eos # 0.4 K/mm3 (0.0-0.4) 06/09/18 05:00 Baso # 0.1 K/mm3 (0.0-0.1) 06/09/18 05:00 Seg Neutrophils % 62.0 % (40.0-70.0) 06/09/18 05:00 Seg Neutrophils # 5.3 K/mm3 (1.8-7.7) 06/09/18 05:00 Sodium 147 mmol/L (137-145) H 06/09/18 05:00 Potassium 3.8 mmol/L (3.6-5.0) 06/09/18 05:00 Chloride 102.3 mmol/L (98-107) 06/09/18 05:00 Carbon Dioxide 32 mmol/L (22-30) H 06/09/18 05:00 Anion Gap 17 mmol/L 06/09/18 05:00 BUN 44 mg/dL (9-20) H 06/09/18 05:00 Creatinine 2.3 mg/dL (0.8-1.5) H 06/09/18 05:00 Estimated GFR 36 ml/min 06/09/18 05:00 BUN/Creatinine Ratio 19 % 06/09/18 05:00 Glucose 185 mg/dL (75-100) H 06/09/18 05:00 POC Glucose 261 (70-105) H 06/09/18 11:25 Calcium 9.2 mg/dL (8.4-10.2) 06/09/18 05:00 Phosphorus 3.00 mg/dL (2.5-4.5) 06/09/18 05:00 Magnesium 2.10 mg/dL (1.7-2.3) 06/07/18 05:15 Iron 33 ug/dL (49-181) L 06/08/18 06:00 TIBC 189 mcg/dL (250-450) L 06/08/18 06:00 Ferritin 1111.0 ng/mL (13.0-400.0) H 06/08/18 06:00 Prealbumin 0.230 g/L (0.200-0.400) 06/03/18 19:51 Urine Eosinophils None seen (None Seen) 06/08/18 09:55 Urine Creatinine 140.4 mg/dL (0.1-20.0) H 06/08/18 09:55 Protein/Creatinin Ratio 0.26 06/08/18 09:55 Urine Sodium 45 mmol/L 06/08/18 09:55 Urine Total Protein 36 mg/dL (5-11.8) H 06/08/18 09:55 Nutrition/Malnutrition Assess - Dietary Evaluation Nutrition/Malnutrition Findings: Nutrition Notes Start: 06/04/18 11:20 Freq: Status: Active Protocol: Document 06/06/18 12:29 (Rec: 06/06/18 13:16 [email or web address]) Co-Sign 06/06/18 12:29 LP Nutrition Notes Initial or Follow up Reassessment Current Diagnosis Acute Kidney Injury Diabetes Hypertension Stroke Hyperlipidemia Current Diet Jevity 1.2 at 80ml/hr Labs/Tests Reviewed Pertinent Medications Reviewed Height 6 ft 2.4 in Weight 100.8 kg [place] Body Weight (lbs) 192.4 BMI 28.2 Subjective/Other Information Observed Jevity 1.2 infusing at 65 ml/hr. RN stated the TF remained at 20 ml/hr for the past two days, but that she was going to increase it to 80 ml/hr after we spoke. Burn Absent Trauma Absent #1 Nutrition Diagnosis Inadequate oral intake Diagnosis Progress(for reassessment Continues documentation) Is patient on ventilator? No Is Patient Ambulatory and/or Out of Bed Yes REE-([place]-ambulatory/OOB) [ 2494.869 [id number]] Calculation Used for Recommendations Tricia Blue Additional Notes Protein needs: 100- 130 g (1-1 .3 g/kg) Fluids: 1 mL/kg inderjit or per MD Nutrition Intervention Change Diet Order: Continue TF Nutrition Support: Jevity 1.2 at 80 mL/hr Flush 100 mL q4hr Kcal 2,304 Protein (gm) 107 Fluid (mL) 1,549 Goal #1 Meet at least 75% of energy and protein needs Anticipated Discharge Needs: TF Follow-Up By: 06/10/18 Additional Comments F/u for TF tolerance and rate
[2018-06-09] MEDS: NORCO 5/325 PO PRN (22:31)
[2018-06-09] MEDS: LANTUS SUB-Q SCH (22:32)
[2018-06-10] MEDS: HumaLOG SUB-Q SCH ×4 (01:48→18:43)
[2018-06-10] MEDS: LOPRESSOR FEEDTUBE SCH ×4 (05:52→18:42)
[2018-06-10] MEDS: NORCO 5/325 PO PRN ×2 (06:42→21:51)
[2018-06-10] MEDS: APRESOLINE FEEDTUBE SCH ×3 (06:53→21:52)
[2018-06-10] MEDS: HEPARIN SUB-Q SCH ×3 (06:53→21:52)
[2018-06-10] MEDS: NACL 0.9% 1000 ML 1,000 ML IV SCH (06:55)
[2018-06-10 07:35] LABS: Basophils # (Auto) 0.1 K/mm3 (0.0-0.1); Basophils % (Auto) 1.2 % (0.0-1.8); Eosinophils # (Auto) 0.4 K/mm3 (0.0-0.4); Eosinophils % (Auto) 5.2 % (0.0-4.3); Hemoglobin 8.3 gm/dl (11.8-15.2); Lymphocytes # (Auto) 2.3 K/mm3 (1.2-5.4); Lymphocytes % (Auto) 28.8 % (13.4-35.0); Mean Corpuscular HGB Conc 33 % (32-34); Mean Corpuscular Volume 90 fl (84-94); Monocytes # (Auto) 0.6 K/mm3 (0.0-0.8); Monocytes % (Auto) 7.8 % (0.0-7.3); Platelet Count 517 K/mm3 (140-440); Red Blood Count 2.78 M/mm3 (3.65-5.03); Red Cell Distribution Width 14.5 % (13.2-15.2)
--- NOTE | 2018-06-10 07:54 | Progress Note ---
Subjective Date of service: 06/10/18 Principal diagnosis: CVA, Acute on CKD Interval history: 53-year-old LHD male who experienced increased right-sided weakness three days prior to presentation at an outside hospital. He also had decreased balance and gait. He was admitted and worked up for stroke. MRI of brain confirmed the presence of a stroke. A repeat MRI showed a second stroke in a different area. Patient was continued on secondary stroke prevention medications. He had a PEG tube placed and was started on a low volume of TF. He developed acute kidney injury and a nephrology consult was called. He required transfer to the [facility] for management of uncontrolled blood pressure. He was later weaned off of Cardene drip and restarted on oral blood pressure medications. Patient is participating in therapy and making fair progress. +BM. No pain currently. PEG ok. TF at goal - appreciate assistance. Oral control of secretions improving - reminded to use suction. CXR NEG for acute process. BP - Hydralazine restarted. Lisinopril ordered but d/c'd before given - please avoid nephrotoxic meds. Anemia stable - occult stool positive. Hx of hemorrhoids. Prosthesis needs repair, [employer] has been contacted. Seems to have visual deficit but not definitive. Denies diplopia, blurred vision, or blind spots. Discussed in Team Conference. No other issues per patient, nursing or therapy. All available medical records, therapy notes, vitals and labs were reviewed. Objective - Exam Narrative Exam: MUSCULOSKELETAL SPECIALTY EXAM Constitutional: Well developed, well nourished, appropriately groomed, LHD EENT: Hearing intact to finger rustle. Poor dentition. Better control of secretions. Respiratory: Coarse breath sounds bilaterally, no increased work of breathing. Cough Cardiovascular Regular Rate/ Rhythm, no swelling edema or tenderness in all 4 extremities. All 4 extremities warm. GI : + bowel sounds, soft, NTTP, nondistended, PEG : [place] [employer] Normal in all 4 extremities except for what appears to be old/healed sores on LLE Musuloskeletal BUE and BLE normal without defect, crepitus, sublux, effusion, or TTP except for Right BKA. RUE and RLE 4-/5. Decreased aROM, good pROM, normal tone. LUE and LLE 4+/5, good ROM with normal tone. NEURO: Significant Left facial droop involving upper and lower face (LMN), Tongue protrudes left , sensation on face is assymetric, otherwise CN 2-12 grossly intact. Sensation intact on LEFT extremities and impaired on RIGHT. Coordinatio n intact on left, decreased on right. No tremor noted. Aphasia and dysarthria present. Naming and repetition intact. At times he seems to have trouble focusing visually, but the basic vision is ok. POSTURE and GAIT: Deferred until seen with therapy for safety. Patient examined in bed. PSYCH: Alert, orientated x3, affect appears normal. Insight appears intact. - Constitutional Vitals: Vital Signs - 12hr 06/10/18 06/10/18 00:42 03:34 Temperature 36.8 C 36.8 C Pulse Rate 93 H 98 H Respiratory 18 18 Rate Blood Pressure 155/89 147/92 O2 Sat by Pulse 96 98 Oximetry - Allied health notes FIMS assessment as documented by PT/OT/ST: Grooming Patient cleans teeth/dentures: Yes Patient matamoros/brushes hair: Yes Patient washes, rinses and Yes dries face: Patient washes, rinses and Yes dries hands: Patient shaves: No Patient performs (no make-up/ /4 (100%) shaving): Grooming FIM Score 4. Minimal Assistance (Patient = 75% or more. Needs touching.) Toileting Toileting Device Commode over Toilet Toileting FIM Score 2. Maximal Assistance (Patient = 25% or more) Social interaction/Memory/Problem solving Social Interaction FIM Score 6. Mod. [place] (Mostly appropriate. May need meds. No supv.) Memory FIM Score 5. Supervision (Needs cueing <10%, stressful/ unfamiliar situations.) Problem Solving FIM Score 4. Minimal Assistance (Solves routine problems 75-90%.) Transfers Mode of Locomotion: Wheelchair Bed/Chair/Wheelchair Transfers 3. Moderate Assistance (Patient = 50% or more. FIM Score Some lifting.) Toilet Transfers FIM Score 2. Maximal Assistance (Patient = 25% or more) Patient transferred to: Shower Shower Transfers FIM Score 2. Maximal Assistance (Patient = 25% or more) Locomotion- Stairs Stairs FIM Score 0. Activity does not occur Locomotion- walk/wheelchair Most Frequent Mode of Wheelchair Locomotion: Ambulation Distance 89 Walking FIM Score 2. Maximal Assistance (Patient = 25% or more. Minimum of 50 ft.) Wheelchair Propulsion Distance 180 Wheelchair FIM Score 5. Supervision (Minimum 150 ft. supv./cues or 50 ft. independently.) Eating Eating FIM Score 1. Total Assistance (Patient <25% or tube feeding) Dressing-Upper body Patient retrieves clothing No items: Patient applies/removes UE n/a prosthesis or orthosis: Upper Body Dressing FIM Score 4. Minimal Assistance (Patient = 75% or more. Needs touching.) Dressing-lower body Patient retrieves clothing No items: Patient applies/removes LE No: RLE prosthesis prosthesis or orthosis: Lower Body Dressing FIM Score 3. Moderate Assistance (Patient = 50% or more) - Labs CBC & Chem 7: 06/10/18 07:12 06/10/18 07:12 Labs: Laboratory Results - last 72 hr 06/07/18 06/07/18 06/07/18 05:15 11:29 17:45 WBC RBC Hgb Hct MCV MCH MCHC RDW Plt Count Lymph % (Auto) Gregg % (Auto) Eos % (Auto) Baso % (Auto) Lymph # Gregg # Eos # Baso # Seg Neutrophils % Seg Neutrophils # Sodium Potassium Chloride Carbon Dioxide Anion Gap BUN Creatinine Estimated GFR BUN/Creatinine Ratio Glucose POC Glucose 354 H 233 H Calcium Phosphorus Magnesium 2.10 Iron TIBC Ferritin Urine Eosinophils Urine Creatinine Protein/Creatinin Ratio Urine Sodium Urine Total Protein 06/07/18 06/08/18 06/08/18 22:04 06:00 06:00 WBC 10.9 RBC 2.74 L Hgb 8.2 L Hct 24.2 L MCV 89 MCH 30 MCHC 34 RDW 14.3 Plt Count 547 H Lymph % (Auto) 12.3 L Gregg % (Auto) 5.9 Eos % (Auto) 2.6 Baso % (Auto) 0.5 Lymph # 1.3 Gregg # 0.6 Eos # 0.3 Baso # 0.1 Seg Neutrophils % 78.7 H Seg Neutrophils # 8.6 H Sodium 144 Potassium 3.6 Chloride 97.5 L Carbon Dioxide 30 Anion Gap 20 BUN 62 H Creatinine 3.1 H Estimated GFR 25 BUN/Creatinine Ratio 20 Glucose 351 H POC Glucose 215 H Calcium 9.2 Phosphorus 3.30 Magnesium Iron 33 L TIBC 189 L Ferritin Urine Eosinophils Urine Creatinine Protein/Creatinin Ratio Urine Sodium Urine Total Protein 06/08/18 06/08/18 06/08/18 06:00 06:06 09:55 WBC RBC Hgb Hct MCV MCH MCHC RDW Plt Count Lymph % (Auto) Gregg % (Auto) Eos % (Auto) Baso % (Auto) Lymph # Gregg # Eos # Baso # Seg Neutrophils % Seg Neutrophils # Sodium Potassium Chloride Carbon Dioxide Anion Gap BUN Creatinine Estimated GFR BUN/Creatinine Ratio Glucose POC Glucose 327 H Calcium Phosphorus Magnesium Iron TIBC Ferritin 1111.0 H Urine Eosinophils Urine Creatinine 141.6 H Protein/Creatinin Ratio Urine Sodium 45 Urine Total Protein 06/08/18 06/08/18 06/08/18 09:55 09:55 11:49 WBC RBC Hgb Hct MCV MCH MCHC RDW Plt Count Lymph % (Auto) Gregg % (Auto) Eos % (Auto) Baso % (Auto) Lymph # Gregg # Eos # Baso # Seg Neutrophils % Seg Neutrophils # Sodium Potassium Chloride Carbon Dioxide Anion Gap BUN Creatinine Estimated GFR BUN/Creatinine Ratio Glucose POC Glucose 289 H Calcium Phosphorus Magnesium Iron TIBC Ferritin Urine Eosinophils None seen Urine Creatinine 140.4 H Protein/Creatinin Ratio 0.26 Urine Sodium Urine Total Protein 36 H 06/08/18 06/08/18 06/09/18 17:39 22:10 00:38 WBC RBC Hgb Hct MCV MCH MCHC RDW Plt Count Lymph % (Auto) Gregg % (Auto) Eos % (Auto) Baso % (Auto) Lymph # Gregg # Eos # Baso # Seg Neutrophils % Seg Neutrophils # Sodium Potassium Chloride Carbon Dioxide Anion Gap BUN Creatinine Estimated GFR BUN/Creatinine Ratio Glucose POC Glucose 234 H 259 H 236 H Calcium Phosphorus Magnesium Iron TIBC Ferritin Urine Eosinophils Urine Creatinine Protein/Creatinin Ratio Urine Sodium Urine Total Protein 06/09/18 06/09/18 06/09/18 05:00 05:00 05:01 WBC 8.5 RBC 2.78 L Hgb 8.4 L Hct 24.6 L MCV 89 MCH 30 MCHC 34 RDW 14.1 Plt Count 507 H Lymph % (Auto) 23.5 Gregg % (Auto) 8.6 H Eos % (Auto) 4.8 H Baso % (Auto) 1.1 Lymph # 2.0 Gregg # 0.7 Eos # 0.4 Baso # 0.1 Seg Neutrophils % 62.0 Seg Neutrophils # 5.3 Sodium 147 H Potassium 3.8 Chloride 102.3 Carbon Dioxide 32 H Anion Gap 17 BUN 44 H Creatinine 2.3 H Estimated GFR 36 BUN/Creatinine Ratio 19 Glucose 185 H POC Glucose 187 H Calcium 9.2 Phosphorus 3.00 Magnesium Iron TIBC Ferritin Urine Eosinophils Urine Creatinine Protein/Creatinin Ratio Urine Sodium Urine Total Protein 06/09/18 06/09/18 06/10/18 11:25 17:25 01:02 WBC RBC Hgb Hct MCV MCH MCHC RDW Plt Count Lymph % (Auto) Gregg % (Auto) Eos % (Auto) Baso % (Auto) Lymph # Gregg # Eos # Baso # Seg Neutrophils % Seg Neutrophils # Sodium Potassium Chloride Carbon Dioxide Anion Gap BUN Creatinine Estimated GFR BUN/Creatinine Ratio Glucose POC Glucose 261 H 264 H 285 H Calcium Phosphorus Magnesium Iron TIBC Ferritin Urine Eosinophils Urine Creatinine Protein/Creatinin Ratio Urine Sodium Urine Total Protein 06/10/18 06/10/18 06:59 07:12 WBC 8.0 RBC 2.78 L Hgb 8.3 L Hct 25.0 L MCV 90 MCH 30 MCHC 33 RDW 14.5 Plt Count 517 H Lymph % (Auto) 28.8 Gregg % (Auto) 7.8 H Eos % (Auto) 5.2 H Baso % (Auto) 1.2 Lymph # 2.3 Gregg # 0.6 Eos # 0.4 Baso # 0.1 Seg Neutrophils % 57.0 Seg Neutrophils # 4.5 Sodium Potassium Chloride Carbon Dioxide Anion Gap BUN Creatinine Estimated GFR BUN/Creatinine Ratio Glucose POC Glucose 281 H Calcium Phosphorus Magnesium Iron TIBC Ferritin Urine Eosinophils Urine Creatinine Protein/Creatinin Ratio Urine Sodium Urine Total Protein Assessment and Plan I69.353 Right non-dom hemiparesis: Monitor for neuro decline. Continue secondary stroke prevention. Discussed recovery and secondary stroke prevention. Monitor for post-stroke depression and s/s of shoulder-hand syndrome. Monitor for safety awareness I69.322 Dysarthria: EXTENSION ASSOCIATE for improvement in communication and speech I69.391 Dysphagia: EXTENSION ASSOCIATE to improve swallow function. Continue TF (at goal) with NPO. Monitor and advance diet as safely as able. FEES, MBSS or EStim as needed. Z73.6 ADL dysfunction: OT will work on improving ability to perform ADLs (including assistive devices) to increase independence and decrease caregiver burden and improve functional transfers and mobility training. R26.2 Difficulty walking: PT will work on gait training and proper use of assistive devices and advance as appropriate to use of stairs and outside ambulation on uneven surfaces. R26.81 Unsteadiness on feet: PT will work on improving static and dynamic sitting and standing balance as well as proper use of assistive devices to decrease risk of falls. R26.89 Abnormality of gait: PT will work to improve safety and efficiency of gait through neuromotor training and gait training along with instruction on proper use of assistive devices. Has prosthesis with him M62.81 Muscle weakness: PT & OT will work on strengthening exercises to improve functional strength including mixture of closed and open kinetic chain exer cises. R53.81 Debility: PT & OT will work on improving overall functional status to improve participation with ADLs, mobility and social involvement. R53.83 Fatigue: PT & OT will work on improving endurance through aerobic exercises and therapeutic activity while monitoring patients tolerance for a ctivity and vital signs as needed. I10 Hypertension: Adjust as needed. Avoid nephrotoxic meds E78.5 Hyperlipidemia: Continue Statin E11.8 Diabetes: Monitor D64.9 Anemia of chronic disease: Stable E87.6 Hypokalemia: Resolved, monitor labs Cough: CXR no acute cardiopulmonary process ELVIRA due to ATN at OSH but likely Acute on CKD per consult here DVT ppx: Heparin TID due to renal function GI ppx: Pepcid Pain: Continue physical modalities in therapy and pain medications as needed to achieve functional pain control. Sleep: Monitor and address as needed. Bowel: Monitor and address as needed. Appetite: Monitor and address as needed when able to take PO. Discharge planning: Pending therapy progress and care plan meeting. Will continue discussion with therapy team, SW, patient and family. Restrictions/ Precautions: Falls, aspiration WB status: FWB Functional Hx: ADLs: Independent and working Cognition: Independent Mobility: independent Consult: Hospitalists for medical management Nephrology for renal function Appreciate assistance. Barriers to Discharge: Decreased mobility and ability to perform self care, right sided weakness, balance deficits, dysphagia Estimated Length of Stay: 21 days Discharge Destination: Home with family if possible
[2018-06-10] MEDS: POTASSIUM CHLORIDE FEEDTUBE SCH (08:36)
[2018-06-10] MEDS: COLACE FEEDTUBE SCH (08:36)
[2018-06-10] MEDS: NORVASC FEEDTUBE SCH (08:37)
[2018-06-10] MEDS: ASPIRIN FEEDTUBE SCH (08:37)
[2018-06-10] MEDS: PEPCID FEEDTUBE SCH ×2 (08:37→21:51)
[2018-06-10] MEDS: PLAVIX FEEDTUBE SCH (08:37)
--- NOTE | 2018-06-10 10:04 | Progress Note ---
Assessment and Plan Acute Renal Failure secondary to Ischemic ATN on likely CKD from HTN: - Cr is stable - will d.c IVF -Avoid nephrotoxic agents -Obtain daily weights -Monitor I/O's -Monitor renal function closely Anemia in CKD - Epogen 10,000 unit SW qweek Acute CVA: -On ASA, plavix and Statin -Rehab therapy Hypertension: -Continue BP meds and adjust as needed Diabetes Mellitus: -On Insulin Oropharyngeal Dysphagia: Peg Tube feedings Subjective Date of service: 06/10/18 Principal diagnosis: CVA, Acute on CKD Interval history: was in therapy this AM Objective - Vital Signs Vital signs: Vital Signs - 12hr 06/10/18 06/10/18 06/10/18 00:42 03:34 08:00 Temperature 98.3 F 98.3 F 97.6 F Pulse Rate 93 H 98 H 114 H Respiratory 18 18 14 Rate Blood Pressure 155/89 147/92 Blood Pressure 145/96 [Left] O2 Sat by Pulse 96 98 96 Oximetry - Lab 06/10/18 07:12 06/10/18 07:12 Most recent lab results Calcium 9.0 mg/dL (8.4-10.2) 06/10/18 07:12 Phosphorus 2.80 mg/dL (2.5-4.5) 06/10/18 07:12 Magnesium 2.10 mg/dL (1.7-2.3) 06/07/18 05:15 Urine Creatinine 140.4 mg/dL (0.1-20.0) H 06/08/18 09:55 Urine Sodium 45 mmol/L 06/08/18 09:55 Urine Total Protein 36 mg/dL (5-11.8) H 06/08/18 09:55 Medications & Allergies - Medications Allergies/Adverse Reactions: Allergies No Known Allergies Allergy (Unverified 08/03/15 12:32) Home Medications: Home Medications Medication Instructions Recorded Confirmed Last Taken Type Aspirin [Aspirin BABY CHEW TAB] 81 mg PO QDAY 08/04/15 06/05/18 Unknown History Insulin Detemir [Levemir Flextouch] 35 unit SQ BID 08/04/15 06/05/18 Unknown History NIFEdipine XL [Procardia Xl] 60 mg PO QDAY 08/04/15 06/05/18 Unknown History Simvastatin [Zocor TAB] 40 mg PO QHS 08/04/15 06/05/18 Unknown History Sitagliptin/Metformin (Nf) 1 each PO BID 08/04/15 06/05/18 Unknown History [Janumet 50-1,000 mg (Nf)] Sulfamethoxazole/Trimethoprim 1 each PO BID #14 tablet 08/04/15 06/05/18 Unknown Rx [Bactrim DS TAB] Active Medications: Generic Name Dose Route Start Last Admin Trade Name Freq PRN Reason Stop Dose Admin Acetaminophen/Hydrocodone Bitart 1 each 06/09/18 20:50 06/10/18 06:42 [place] 5/325 PO 1 each Q6H PRN Administration Pain, Moderate (4-6) Amlodipine Besylate 5 mg 06/04/18 08:00 06/09/18 09:10 Norvasc FEEDTUBE 5 mg QDAY JONO Administration Lipase/Protease/Amylase 1 each 06/04/18 12:07 Pancrealthea Laguerre 10,500 Unit FEEDTUBE PRN PRN For Clogged Feeding Tube Aspirin 325 mg 06/04/18 08:00 06/09/18 09:10 Aspirin FEEDTUBE 325 mg QDAY JONO Administration Atorvastatin Calcium 40 mg 06/03/18 21:00 06/09/18 22:31 Lipitor FEEDTUBE 40 mg QHS JONO Administration Clopidogrel Bisulfate 75 mg 06/04/18 08:00 06/09/18 09:10 Plavix FEEDTUBE 75 mg QDAY JONO Administration Dextrose 50 ml 06/03/18 17:09 D50w (25gm) Syringe IV PRN PRN Hypoglycemia Docusate Sodium 100 mg 06/03/18 22:00 06/09/18 22:32 Colace FEEDTUBE 100 mg BID JONO Administration Epoetin Abhijeet 10,000 unit 06/08/18 10:00 06/08/18 12:21 Procrit SUB-Q 10,000 unit Webb JONO Administration Famotidine 10 mg 06/04/18 22:00 06/09/18 22:31 Pepcid FEEDTUBE 10 mg BID JONO Administration Heparin Sodium (Porcine) 5,000 unit 06/03/18 22:00 06/10/18 06:53 Heparin SUB-Q 5,000 unit Q8HR JONO Administration Hydralazine HCl 10 mg 06/07/18 14:00 06/10/18 06:53 Apresoline FEEDTUBE 10 mg Q8HR JONO Administration Sodium Chloride 1,000 mls @ 100 mls/hr 06/07/18 10:00 06/10/18 06:55 Nacl 0.9% 1000 Ml IV 100 mls/hr DIRECT JONO Administration Insulin Glargine 10 units 06/07/18 21:00 06/09/18 22:32 Lantus SUB-Q 10 units QHS JONO Administration Insulin Human Lispro 0 unit 06/03/18 18:00 06/10/18 07:17 Humalog SUB-Q 4 unit Q6HR JONO Administration Protocol Metoprolol Tartrate 50 mg 06/07/18 10:00 06/10/18 05:52 Lopressor FEEDTUBE 50 mg Q8H JONO Administration Polyethylene Glycol 17 gm 06/03/18 17:30 06/09/18 18:33 Miralax 3350 FEEDTUBE 17 gm QDAY PRN Administration Constipation Simple Syrup 15 ml 06/04/18 12:07 Simple Syrup FEEDTUBE PRN PRN Hypoglycemia Simple Syrup 30 ml 06/04/18 12:07 Simple Syrup FEEDTUBE PRN PRN Hypoglycemia Sodium Bicarbonate 325 mg 06/04/18 12:07 Sodium Bicarbonate FEEDTUBE PRN PRN For Clogged Feeding Tube
--- NOTE | 2018-06-10 11:22 | Progress Note ---
Assessment and Plan Assessment and plan: CVA with residual right-sided hemiparesis, dysphagia on meds for secondary prevention Right BKA - Supportive care Hypertension -cont bp meds Diabetes mellitus - SSI - Uncontrolled, increase lantus dose ELVIRA/hypernatremia - improving on hypotonic IVF Hypokalemia -repleted, on K supplement Anemia of chronic illness stable, cont to monitor DVT prophylaxis - On heparin Patient's primary is Dr Erickson. History Interval history: Review of systems Constitutional: No fevers, no malaise, no joint pains CVS: No chest pain, no orthopnea, no dyspnea on exertion, no pedal edema GI: No abdominal pain, no diarrhea, no vomiting, no constipation Respiratory: No shortness of breath, no wheezing, no coughing Hospitalist Physical - Physical exam Narrative exam: General.: Appears well, no distress, nontoxic HEENT: Moist mucous membranes, extraocular muscles intact, no lymphadenopathy Neck: supple Cardiac: S1-S2 heard Lungs: clear to auscultation bilaterally Abdomen: soft , nontender, nondistended, bowel sounds positive Extremities: no edema clubbing or cyanosis Skin: no rash or lesions Neurologic: r hemiparesis Psych: calm, and cooperative - Constitutional Vitals: Temp Pulse Resp BP Pulse Ox 97.6 F 83 14 105/73 96 06/10/18 08:00 06/10/18 10:38 06/10/18 08:00 06/10/18 10:38 06/10/18 08:00 Results - Labs CBC & Chem 7: 06/11/18 04:27 06/11/18 04:27 Labs: Laboratory Last Values WBC 8.0 K/mm3 (4.5-11.0) 06/10/18 07:12 RBC 2.78 M/mm3 (3.65-5.03) L 06/10/18 07:12 Hgb 8.3 gm/dl (11.8-15.2) L 06/10/18 07:12 Hct 25.0 % (35.5-45.6) L 06/10/18 07:12 MCV 90 fl (84-94) 06/10/18 07:12 MCH 30 pg (28-32) 06/10/18 07:12 MCHC 33 % (32-34) 06/10/18 07:12 RDW 14.5 % (13.2-15.2) 06/10/18 07:12 Plt Count 517 K/mm3 (140-440) H 06/10/18 07:12 Lymph % (Auto) 28.8 % (13.4-35.0) 06/10/18 07:12 [place]yman % (Auto) 7.8 % (0.0-7.3) H 06/10/18 07:12 Eos % (Auto) 5.2 % (0.0-4.3) H 06/10/18 07:12 Baso % (Auto) 1.2 % (0.0-1.8) 06/10/18 07:12 Lymph # 2.3 K/mm3 (1.2-5.4) 06/10/18 07:12 Lyman # 0.6 K/mm3 (0.0-0.8) 06/10/18 07:12 Eos # 0.4 K/mm3 (0.0-0.4) 06/10/18 07:12 Baso # 0.1 K/mm3 (0.0-0.1) 06/10/18 07:12 Seg Neutrophils % 57.0 % (40.0-70.0) 06/10/18 07:12 Seg Neutrophils # 4.5 K/mm3 (1.8-7.7) 06/10/18 07:12 Sodium 146 mmol/L (137-145) H 06/10/18 07:12 Potassium 4.5 mmol/L (3.6-5.0) 06/10/18 07:12 Chloride 102.8 mmol/L (98-107) 06/10/18 07:12 Carbon Dioxide 30 mmol/L (22-30) 06/10/18 07:12 Anion Gap 18 mmol/L 06/10/18 07:12 BUN 30 mg/dL (9-20) H 06/10/18 07:12 Creatinine 2.0 mg/dL (0.8-1.5) H 06/10/18 07:12 Estimated GFR 42 ml/min 06/10/18 07:12 BUN/Creatinine Ratio 15 % 06/10/18 07:12 Glucose 253 mg/dL (75-100) H 06/10/18 07:12 POC Glucose 281 (70-105) H 06/10/18 06:59 Calcium 9.0 mg/dL (8.4-10.2) 06/10/18 07:12 Phosphorus 2.80 mg/dL (2.5-4.5) 06/10/18 07:12 Magnesium 2.10 mg/dL (1.7-2.3) 06/07/18 05:15 Iron 33 ug/dL (49-181) L 06/08/18 06:00 TIBC 189 mcg/dL (250-450) L 06/08/18 06:00 Ferritin 1111.0 ng/mL (13.0-400.0) H 06/08/18 06:00 Prealbumin 0.230 g/L (0.200-0.400) 06/03/18 19:51 Urine Eosinophils None seen (None Seen) 06/08/18 09:55 Urine Creatinine 140.4 mg/dL (0.1-20.0) H 06/08/18 09:55 Protein/Creatinin Ratio 0.26 06/08/18 09:55 Urine Sodium 45 mmol/L 06/08/18 09:55 Urine Total Protein 36 mg/dL (5-11.8) H 06/08/18 09:55 Nutrition/Malnutrition Assess - Dietary Evaluation Nutrition/Malnutrition Findings: Nutrition Notes Start: 06/04/18 11:20 Freq: Status: Active Protocol: Document 06/10/18 10:15 EB (Rec: 06/10/18 10:36 EB [id number]) Co-Sign 06/10/18 10:15 LP Nutrition Notes Initial or Follow up Reassessment Current Diagnosis Acute Kidney Injury Diabetes Hypertension Stroke Hyperlipidemia Current Diet Jevity 1.2 at 80ml/hr Labs/Tests Na 146 BG 253 Pertinent Medications Reviewed Height 6 ft 2.4 in Weight 100.8 kg Dawson Body Weight (lbs) 192.4 BMI 28.2 Subjective/Other Information Observed Jevity 1.2 infusing at 80 mL/hr. RN states pt has been tolerating well, with no residuals or interruptions in TF in last 2 days. Pt resting comfortably at time of visit. Percent of energy/protein needs met: 100%/100% Burn Absent Trauma Absent #1 Nutrition Diagnosis Inadequate oral intake Diagnosis Progress(for reassessment Continues documentation) Is patient on ventilator? No Is Patient Ambulatory and/or Out of Bed Yes REE-([place]. or-ambulatory/OOB) [ 2494.869 [id number]] Kcal/Kg value to use for calculation 23 Approximate Energy Requirements Using 2318 kcal/Kg Calculation Used for Recommendations Kcal/kg Additional Notes Protein needs: 100- 130 g (1-1 .3 g/kg) Fluids: 1 mL/kg inderjit or per MD Nutrition Intervention Change Diet Order: Continue TF Nutrition Support: Jevity 1.2 at 80 mL/hr Flush 100 mL q4hr Kcal 2,304 Protein (gm) 107 Fluid (mL) 1,549 Goal #1 Continue to meet at least 75% inderjit and pro needs Anticipated Discharge Needs: TF Follow-Up By: 06/12/18 Additional Comments F/u TF tolerance
[2018-06-10] MEDS ORDERED: NORVASC FEEDTUBE SCH (11:24)
[2018-06-10] MEDS ORDERED: NACL 0.45% 1000 ML 1,000 ML IV SCH (12:00)
[2018-06-10] MEDS ORDERED: SODIUM BICARBONATE FEEDTUBE PRN (14:01)
[2018-06-10] MEDS ORDERED: SIMPLE SYRUP FEEDTUBE PRN ×2 (14:01)
[2018-06-10] MEDS ORDERED: PANCREAZE DR 10,500 UNIT FEEDTUBE PRN (14:01)
[2018-06-10] MEDS ORDERED: PREPARATION H PR PRN (14:19)
[2018-06-10] MEDS: LANTUS SUB-Q SCH (23:06)
[2018-06-11] MEDS: COLACE FEEDTUBE SCH ×3 (00:06→22:17)
[2018-06-11] MEDS: HumaLOG SUB-Q SCH ×5 (00:07→22:16)
[2018-06-11] MEDS: LOPRESSOR FEEDTUBE SCH ×4 (02:28→18:04)
[2018-06-11 04:41] LABS: Basophils # (Auto) 0.1 K/mm3 (0.0-0.1); Basophils % (Auto) 0.9 % (0.0-1.8); Eosinophils # (Auto) 0.5 K/mm3 (0.0-0.4); Eosinophils % (Auto) 5.2 % (0.0-4.3); Hematocrit 25.3 % (35.5-45.6); Hemoglobin 8.5 gm/dl (11.8-15.2); Lymphocytes # (Auto) 2.7 K/mm3 (1.2-5.4); Lymphocytes % (Auto) 28.3 % (13.4-35.0); Mean Corpuscular HGB Conc 34 % (32-34); Mean Corpuscular Volume 89 fl (84-94); Monocytes # (Auto) 0.6 K/mm3 (0.0-0.8); Monocytes % (Auto) 6.6 % (0.0-7.3); Platelet Count 545 K/mm3 (140-440); Red Blood Count 2.85 M/mm3 (3.65-5.03); Red Cell Distribution Width 14.5 % (13.2-15.2)
[2018-06-11] MEDS: APRESOLINE FEEDTUBE SCH ×3 (06:14→22:17)
[2018-06-11] MEDS: HEPARIN SUB-Q SCH ×3 (06:15→22:16)
[2018-06-11] MEDS ORDERED: ZESTRIL PO SCH (08:00)
[2018-06-11] MEDS: PEPCID FEEDTUBE SCH ×2 (08:53→22:17)
[2018-06-11] MEDS: PLAVIX FEEDTUBE SCH (08:53)
[2018-06-11] MEDS: ASPIRIN FEEDTUBE SCH (08:53)
--- NOTE | 2018-06-11 09:36 | Progress Note ---
Assessment and Plan Assessment and plan: CVA with residual right-sided hemiparesis, dysphagia on meds for secondary prevention Right BKA - Supportive care Hypertension -cont bp meds Diabetes mellitus - SSI - Uncontrolled, increase lantus dose ELVIRA/hypernatremia - improving on hypotonic IVF Hypokalemia -repleted, on K supplement Anemia of chronic illness stable, cont to monitor DVT prophylaxis - On heparin Patient's primary is Dr Erickson. History Interval history: Review of systems Constitutional: No fevers, no malaise, no joint pains CVS: No chest pain, no orthopnea, no dyspnea on exertion, no pedal edema GI: No abdominal pain, no diarrhea, no vomiting, no constipation Respiratory: No shortness of breath, no wheezing, no coughing Hospitalist Physical - Physical exam Narrative exam: General.: Appears well, no distress, nontoxic HEENT: Moist mucous membranes, extraocular muscles intact, no lymphadenopathy Neck: supple Cardiac: S1-S2 heard Lungs: clear to auscultation bilaterally Abdomen: soft , nontender, nondistended, bowel sounds positive Extremities: no edema clubbing or cyanosis Skin: no rash or lesions Neurologic: r hemiparesis Psych: calm, and cooperative - Constitutional Vitals: Temp Pulse Resp BP Pulse Ox 98.2 F 88 16 136/91 94 06/11/18 08:00 06/11/18 08:00 06/11/18 08:00 06/11/18 08:00 06/11/18 08:00 Results - Labs CBC & Chem 7: 06/11/18 04:27 06/11/18 04:27 Labs: Laboratory Last Values WBC 9.6 K/mm3 (4.5-11.0) 06/11/18 04:27 RBC 2.85 M/mm3 (3.65-5.03) L 06/11/18 04:27 Hgb 8.5 gm/dl (11.8-15.2) L 06/11/18 04:27 Hct 25.3 % (35.5-45.6) L 06/11/18 04:27 MCV 89 fl (84-94) 06/11/18 04:27 MCH 30 pg (28-32) 06/11/18 04:27 MCHC 34 % (32-34) 06/11/18 04:27 RDW 14.5 % (13.2-15.2) 06/11/18 04:27 Plt Count 545 K/mm3 (140-440) H 06/11/18 04:27 Lymph % (Auto) 28.3 % (13.4-35.0) 06/11/18 04:27 [place] % (Auto) 6.6 % (0.0-7.3) 06/11/18 04:27 Eos % (Auto) 5.2 % (0.0-4.3) H 06/11/18 04:27 Baso % (Auto) 0.9 % (0.0-1.8) 06/11/18 04:27 Lymph # 2.7 K/mm3 (1.2-5.4) 06/11/18 04:27 [place] # 0.6 K/mm3 (0.0-0.8) 06/11/18 04:27 Eos # 0.5 K/mm3 (0.0-0.4) H 06/11/18 04:27 Baso # 0.1 K/mm3 (0.0-0.1) 06/11/18 04:27 Seg Neutrophils % 59.0 % (40.0-70.0) 06/11/18 04:27 Seg Neutrophils # 5.6 K/mm3 (1.8-7.7) 06/11/18 04:27 Sodium 141 mmol/L (137-145) 06/11/18 04:27 Potassium 4.1 mmol/L (3.6-5.0) 06/11/18 04:27 Chloride 99.3 mmol/L (98-107) 06/11/18 04:27 Carbon Dioxide 31 mmol/L (22-30) H 06/11/18 04:27 Anion Gap 15 mmol/L 06/11/18 04:27 BUN 28 mg/dL (9-20) H 06/11/18 04:27 Creatinine 1.6 mg/dL (0.8-1.5) H 06/11/18 04:27 Estimated GFR 55 ml/min 06/11/18 04:27 BUN/Creatinine Ratio 18 % 06/11/18 04:27 Glucose 184 mg/dL (75-100) H 06/11/18 04:27 POC Glucose 180 (70-105) H 06/11/18 06:15 Calcium 9.0 mg/dL (8.4-10.2) 06/11/18 04:27 Phosphorus 3.20 mg/dL (2.5-4.5) 06/11/18 04:27 Magnesium 2.10 mg/dL (1.7-2.3) 06/07/18 05:15 Iron 33 ug/dL (49-181) L 06/08/18 06:00 TIBC 189 mcg/dL (250-450) L 06/08/18 06:00 Ferritin 1111.0 ng/mL (13.0-400.0) H 06/08/18 06:00 Prealbumin 0.230 g/L (0.200-0.400) 06/03/18 19:51 Urine Eosinophils None seen (None Seen) 06/08/18 09:55 Urine Creatinine 140.4 mg/dL (0.1-20.0) H 06/08/18 09:55 Protein/Creatinin Ratio 0.26 06/08/18 09:55 Urine Sodium 45 mmol/L 06/08/18 09:55 Urine Total Protein 36 mg/dL (5-11.8) H 06/08/18 09:55 Nutrition/Malnutrition Assess - Dietary Evaluation Nutrition/Malnutrition Findings: Nutrition Notes Start: 06/04/18 11:20 Freq: Status: Active Protocol: Document 06/10/18 10:15 EB (Rec: 06/10/18 10:36 EB [id number]) Co-Sign 06/10/18 10:15 LP Nutrition Notes Initial or Follow up Reassessment Current Diagnosis Acute Kidney Injury Diabetes Hypertension Stroke Hyperlipidemia Current Diet Jevity 1.2 at 80ml/hr Labs/Tests Na 146 BG 253 Pertinent Medications Reviewed Height 6 ft 2.4 in Weight 100.8 kg [place] Body Weight (lbs) 192.4 BMI 28.2 Subjective/Other Information Observed Jevity 1.2 infusing at 80 mL/hr. RN states pt has been tolerating well, with no residuals or interruptions in TF in last 2 days. Pt resting comfortably at time of visit. Due to elevated BG, TF was changed to Glucerna 1.2. Percent of energy/protein needs met: 100%/100% Burn Absent Trauma Absent #1 Nutrition Diagnosis Inadequate oral intake Diagnosis Progress(for reassessment Continues documentation) Is patient on ventilator? No Is Patient Ambulatory and/or Out of Bed Yes REE-([place]-St. Jeor-ambulatory/OOB) [ 2494.869 NUTR.[id number]] Kcal/Kg value to use for calculation 23 Approximate Energy Requirements Using 2318 kcal/Kg Calculation Used for Recommendations Kcal/kg Additional Notes Protein needs: 80-90 g (0.8-0. 9 g/kg) Fluids: 1 mL/kg inderjit or per MD Nutrition Intervention Change Diet Order: Continue TF Nutrition Support: Glucerna 1.2 at 70 mL/hr Flush 100 mL q4hr Kcal 2,016 Protein (gm) 100 Fluid (mL) 1,352 Goal #1 Continue to meet at least 75% inderjit and pro needs Goal #2 TF tolerance Anticipated Discharge Needs: TF Follow-Up By: 06/11/18 Additional Comments F/u TF formula change and sodium lab
--- NOTE | 2018-06-11 14:17 | Progress Note ---
Assessment and Plan Acute Renal Failure secondary to Ischemic ATN on likely CKD from Hypertension: -Renal function reviewed, SCr level was 1.6 today, yesterday's SCr level was 2.0 -IV fluids stopped -Avoid nephrotoxic agents -Renal plan d/w Dr Park Anemia in CKD - Epogen dosing for anemia management Acute CVA: -On ASA, plavix and statin -Rehab therapy Essential Hypertension: -Adjust meds as needed Diabetes Mellitus Type 2 on insulin: -On Insulin Oropharyngeal Dysphagia: -PEG Tube feedings Subjective Date of service: 06/11/18 Principal diagnosis: CVA, Acute on CKD Interval history: Pt seen in bed, denies shortness of breath, no acute distress. Objective - Vital Signs Vital signs: Vital Signs - 12hr 06/11/18 06/11/18 06/11/18 04:48 08:00 11:39 Temperature 98.5 F 98.2 F 98.3 F Pulse Rate 89 88 89 Respiratory 20 16 17 Rate Blood Pressure 127/89 139/94 Blood Pressure 136/91 [Left] O2 Sat by Pulse 96 94 97 Oximetry - General Appearance General appearance: well-developed EENT: ATNC Neck: no JVD Respiratory: Present: Decreased Breath Sounds Cardiology: regular, S1S2 Gastrointestinal: normoactive bowel sounds (PEG tube in place) Integumentary: warm and dry Neurologic: alert and oriented x3 Musculoskeletal: other (Right BKA; no edema to left lower extremity) Psychiatric: cooperative - Lab 06/11/18 04:27 06/11/18 04:27 Most recent lab results Calcium 9.0 mg/dL (8.4-10.2) 06/11/18 04:27 Phosphorus 3.20 mg/dL (2.5-4.5) 06/11/18 04:27 Magnesium 2.10 mg/dL (1.7-2.3) 06/07/18 05:15 Urine Creatinine 140.4 mg/dL (0.1-20.0) H 06/08/18 09:55 Urine Sodium 45 mmol/L 06/08/18 09:55 Urine Total Protein 36 mg/dL (5-11.8) H 06/08/18 09:55 Medications & Allergies - Medications Allergies/Adverse Reactions: Allergies No Known Allergies Allergy (Unverified 08/03/15 12:32) Home Medications: Home Medications Medication Instructions Recorded Confirmed Last Taken Type Aspirin [Aspirin BABY CHEW TAB] 81 mg PO QDAY 08/04/15 06/05/18 Unknown History Insulin Detemir [Levemir Flextouch] 35 unit SQ BID 08/04/15 06/05/18 Unknown His tory NIFEdipine XL [Procardia Xl] 60 mg PO QDAY 08/04/15 06/05/18 Unknown History Simvastatin [Zocor TAB] 40 mg PO QHS 08/04/15 06/05/18 Unknown History Sitagliptin/Metformin (Nf) 1 each PO BID 08/04/15 06/05/18 Unknown History [Janumet 50-1,000 mg (Nf)] Sulfamethoxazole/Trimethoprim 1 each PO BID #14 tablet 08/04/15 06/05/18 Unknown Rx [Bactrim DS TAB] Active Medications: Generic Name Dose Route Start Last Admin Trade Name Freq PRN Reason Stop Dose Admin Acetaminophen/Hydrocodone Bitart 1 each 06/09/18 20:50 06/10/18 21:51 [place] 5/325 PO 1 each Q6H PRN Administration Pain, Moderate (4-6) Lipase/Protease/Amylase 1 each 06/10/18 14:01 Pancrealthea Laguerre 10,500 Unit FEEDTUBE PRN PRN For Clogged Feeding Tube Aspirin 325 mg 06/04/18 08:00 06/11/18 08:53 Aspirin FEEDTUBE 325 mg QDAY JONO Administration Atorvastatin Calcium 40 mg 06/03/18 21:00 06/10/18 21:51 Lipitor FEEDTUBE 40 mg QHS JONO Administration Clopidogrel Bisulfate 75 mg 06/04/18 08:00 06/11/18 08:53 Plavix FEEDTUBE 75 mg QDAY JONO Administration Dextrose 50 ml 06/03/18 17:09 D50w (25gm) Syringe IV PRN PRN Hypoglycemia Docusate Sodium 100 mg 06/03/18 22:00 06/11/18 08:53 Colace FEEDTUBE 100 mg BID JONO Administration Epoetin Abhijeet 10,000 unit 06/08/18 10:00 06/08/18 12:21 Procrit SUB-Q 10,000 unit Webb JONO Administration Famotidine 10 mg 06/04/18 22:00 06/11/18 08:53 Pepcid FEEDTUBE 10 mg BID JONO Administration Heparin Sodium (Porcine) 5,000 unit 06/03/18 22:00 06/11/18 14:05 Heparin SUB-Q 5,000 unit Q8HR JONO Administration Hydralazine HCl 25 mg 06/10/18 14:00 06/11/18 14:04 Apresoline FEEDTUBE 25 mg Q8HR JONO Administration Sodium Chloride 1,000 mls @ 125 mls/hr 06/11/18 10:00 Nacl 0.45% 1000 Ml IV 06/12/18 17:59 DIRECT JONO Insulin Glargine 20 units 06/10/18 21:00 06/10/18 23:06 Lantus SUB-Q 20 units QHS JONO Administration Insulin Human Lispro 0 unit 06/10/18 13:30 06/11/18 12:46 Humalog SUB-Q 2 unit ACHS JONO Administration Protocol Metoprolol Tartrate 50 mg 06/07/18 10:00 06/11/18 10:57 Lopressor FEEDTUBE Not Given Q8H [facility] Phenyleph/Shark Oil/Min Oil/Petrol 1 applic 06/10/18 14:19 Preparation H [place] Q6HR PRN Hemorrhoids Polyethylene Glycol 17 gm 06/03/18 17:30 06/09/18 18:33 Miralax 3350 FEEDTUBE 17 gm QDAY PRN Administration Constipation Simple Syrup 15 ml 06/10/18 14:01 Simple Syrup FEEDTUBE PRN PRN Hypoglycemia Simple Syrup 30 ml 06/10/18 14:01 Simple Syrup FEEDTUBE PRN PRN Hypoglycemia Sodium Bicarbonate 325 mg 06/10/18 14:01 Sodium Bicarbonate FEEDTUBE PRN PRN For Clogged Feeding Tube
[2018-06-11] MEDS: LANTUS SUB-Q SCH (22:17)
[2018-06-12] MEDS: LOPRESSOR FEEDTUBE SCH ×3 (02:18→17:59)
[2018-06-12] MEDS: NACL 0.45% 1000 ML 1,000 ML IV SCH ×2 (04:19→22:28)
[2018-06-12 05:55] LABS: Basophils # (Auto) 0.1 K/mm3 (0.0-0.1); Eosinophils # (Auto) 0.4 K/mm3 (0.0-0.4); Eosinophils % (Auto) 3.7 % (0.0-4.3); Hematocrit 27.3 % (35.5-45.6); Hemoglobin 9.2 gm/dl (11.8-15.2); Lymphocytes # (Auto) 2.8 K/mm3 (1.2-5.4); Lymphocytes % (Auto) 26.6 % (13.4-35.0); Mean Corpuscular HGB Conc 34 % (32-34); Mean Corpuscular Volume 90 fl (84-94); Monocytes # (Auto) 0.7 K/mm3 (0.0-0.8); Monocytes % (Auto) 6.6 % (0.0-7.3); Platelet Count 557 K/mm3 (140-440); Red Blood Count 3.04 M/mm3 (3.65-5.03); Red Cell Distribution Width 14.6 % (13.2-15.2)
[2018-06-12 06:09] LABS: Calcium 8.9 mg/dL (8.4-10.2)
[2018-06-12] MEDS: HEPARIN SUB-Q SCH ×3 (06:43→23:02)
[2018-06-12] MEDS: HumaLOG SUB-Q SCH ×4 (06:43→23:07)
[2018-06-12] MEDS: APRESOLINE FEEDTUBE SCH ×3 (06:43→23:05)
--- NOTE | 2018-06-12 08:52 | Progress Note ---
Subjective Date of service: 06/12/18 Principal diagnosis: CVA, Acute on CKD Interval history: 53-year-old LHD male who experienced increased right-sided weakness three days prior to presentation at an outside hospital. He also had decreased balance and gait. He was admitted and worked up for stroke. MRI of brain confirmed the presence of a stroke. A repeat MRI showed a second stroke in a different area. Patient was continued on secondary stroke prevention medications. He had a PEG tube placed and was started on a low volume of TF. He developed acute kidney injury and a nephrology consult was called. He required transfer to the [facility] for management of uncontrolled blood pressure. He was later weaned off of Cardene drip and restarted on oral blood pressure medications. Patient is participating in therapy and making fair progress. +BM. No pain currently. PEG ok. TF at goal - appreciate assistance. Oral control of secretions improved MBSS today BP - Continue medications and adjust as needed. please avoid nephrotoxic meds. Anemia stable - occult stool positive. Hx of hemorrhoids. Will consider GI consult if condition worsens Prosthesis needs repair, Vicki has been contacted - awaiting insurance approval No other issues per patient, nursing or therapy. All available medical records, therapy notes, vitals and labs were reviewed. Objective - Exam Narrative Exam: MUSCULOSKELETAL SPECIALTY EXAM Constitutional: Well developed, well nourished, appropriately groomed, LHD EENT: Hearing intact to finger rustle. Poor dentition. Better control of secretions. Respiratory: Clear to auscultation bilaterally, no increased work of breathing. Cardiovascular Regular Rate/ Rhythm, no swelling edema or tenderness in all 4 extremities. All 4 extremities warm. GI : + bowel sounds, soft, NTTP, nondistended, PEG : [place] INTEGUMENT[employer] Normal in all 4 extremities except for what appears to be old/healed sores on LLE Musuloskeletal BUE and BLE normal without defect, crepitus, sublux, effusion, or TTP except for Right BKA. RUE and RLE 4-/5. Decreased aROM, good pROM, normal tone. LUE and LLE 4+/5, good ROM with normal tone. NEURO: Significant Left facial droop involving upper and lower face (LMN), Tongue protrudes left , sensation on face is assymetric, otherwise CN 2-12 grossly intact. Sensation intact on LEFT extremities and impaired on RIGHT. Coordination intact on left, decreased on right. No tremor noted. Aphasia and dysarthria present. Naming and repetition intact. At times he seems to have trouble focusing visually, but the basic vision is ok. POSTURE and GAIT: Deferred until seen with therapy for safety. Patient examined in w/c. PSYCH: Alert, orientated x3, affect appears normal. Insight appears intact. - Constitutional Vitals: Vital Signs - 12hr 06/12/18 06/12/18 06/12/18 00:01 05:32 06:43 Temperature 37.0 C 36.7 C Pulse Rate 107 H 93 H Respiratory 20 Rate Blood Pressure 126/87 127/74 127/74 O2 Sat by Pulse 98 92 Oximetry 06/12/18 06/12/18 07:40 07:41 Temperature 36.6 C Pulse Rate 92 H 91 H Respiratory 18 Rate Blood Pressure 133/93 O2 Sat by Pulse 98 97 Oximetry - Allied health notes FIMS assessment as documented by PT/OT/ST: Grooming Patient cleans teeth/dentures: Yes Patient matamoros/brushes hair: Yes Patient washes, rinses and Yes dries face: Patient washes, rinses and Yes dries hands: Patient shaves: No Patient performs (no make-up/ /4 (100%) shaving): Grooming FIM Score 4. Minimal Assistance (Patient = 75% or more. Needs touching.) Toileting Toileting Device Commode over Toilet Toileting FIM Score 2. Maximal Assistance (Patient = 25% or more) Social interaction/Memory/Problem solving Social Interaction FIM Score 6. Mod. [place] (Mostly appropriate. May need meds. No supv.) Memory FIM Score 6. Modified [place](Mild difficulty remembering people/routines.) Problem Solving FIM Score 6. Mod. [place] (Mild difficulty or needs more time w/ complex.) Transfers Mode of Locomotion: Wheelchair Bed/Chair/Wheelchair Transfers 3. Moderate Assistance (Patient = 50% or more. FIM Score Some lifting.) Toilet Transfers FIM Score 2. Maximal Assistance (Patient = 25% or more) Patient transferred to: Shower Shower Transfers FIM Score 2. Maximal Assistance (Patient = 25% or more) Locomotion- Stairs Stairs FIM Score 0. Activity does not occur Locomotion- walk/wheelchair Most Frequent Mode of Wheelchair Locomotion: Ambulation Distance 16 Walking FIM Score 1. Total Assistance (Pt. < 25%, 2 or more person assist, or <50 ft.) Wheelchair Propulsion Distance 180 Wheelchair FIM Score 5. Supervision (Minimum 150 ft. supv./cues or 50 ft. independently.) Eating Eating FIM Score 1. Total Assistance (Patient <25% or tube feeding) Dressing-Upper body Patient retrieves clothing No items: Patient applies/removes UE n/a prosthesis or orthosis: Upper Body Dressing FIM Score 4. Minimal Assistance (Patient = 75% or more. Needs touching.) Dressing-lower body Patient retrieves clothing No items: Patient applies/removes LE No: RLE prosthesis prosthesis or orthosis: Lower Body Dressing FIM Score 3. Moderate Assistance (Patient = 50% or more) - Labs CBC & Chem 7: 06/12/18 05:21 06/12/18 05:21 Labs: Laboratory Results - last 72 hr 06/09/18 06/09/18 06/10/18 11:25 17:25 01:02 WBC RBC Hgb Hct MCV MCH MCHC RDW Plt Count Lymph % (Auto) [place] % (Auto) Eos % (Auto) Baso % (Auto) Lymph # [place] # Eos # Baso # Seg Neutrophils % Seg Neutrophils # Sodium Potassium Chloride Carbon Dioxide Anion Gap BUN Creatinine Estimated GFR BUN/Creatinine Ratio Glucose POC Glucose 261 H 264 H 285 H Calcium Phosphorus 06/10/18 06/10/18 06/10/18 06:59 07:12 07:12 WBC 8.0 RBC 2.78 L Hgb 8.3 L Hct 25.0 L MCV 90 MCH 30 MCHC 33 RDW 14.5 Plt Count 517 H Lymph % (Auto) 28.8 [place] % (Auto) 7.8 H Eos % (Auto) 5.2 H Baso % (Auto) 1.2 Lymph # 2.3 [place] # 0.6 Eos # 0.4 Baso # 0.1 Seg Neutrophils % 57.0 Seg Neutrophils # 4.5 Sodium 146 H Potassium 4.5 Chloride 102.8 Carbon Dioxide 30 Anion Gap 18 BUN 30 H Creatinine 2.0 H Estimated GFR 42 BUN/Creatinine Ratio 15 Glucose 253 H POC Glucose 281 H Calcium 9.0 Phosphorus 2.80 06/10/18 06/10/18 06/11/18 12:40 22:31 04:27 WBC 9.6 RBC 2.85 L Hgb 8.5 L Hct 25.3 L MCV 89 MCH 30 MCHC 34 RDW 14.5 Plt Count 545 H Lymph % (Auto) 28.3 [place] % (Auto) 6.6 Eos % (Auto) 5.2 H Baso % (Auto) 0.9 Lymph # 2.7 [place] # 0.6 Eos # 0.5 H Baso # 0.1 Seg Neutrophils % 59.0 Seg Neutrophils # 5.6 Sodium Potassium Chloride Carbon Dioxide Anion Gap BUN Creatinine Estimated GFR BUN/Creatinine Ratio Glucose POC Glucose 278 H 202 H Calcium Phosphorus 06/11/18 06/11/18 06/11/18 04:27 06:15 12:35 WBC RBC Hgb Hct MCV MCH MCHC RDW Plt Count Lymph % (Auto) [place] % (Auto) Eos % (Auto) Baso % (Auto) Lymph # [place] # Eos # Baso # Seg Neutrophils % Seg Neutrophils # Sodium 141 Potassium 4.1 Chloride 99.3 Carbon Dioxide 31 H Anion Gap 15 BUN 28 H Creatinine 1.6 H Estimated GFR 55 BUN/Creatinine Ratio 18 Glucose 184 H POC Glucose 180 H 174 H Calcium 9.0 Phosphorus 3.20 06/11/18 06/11/18 06/12/18 16:53 22:11 05:21 WBC 10.7 RBC 3.04 L Hgb 9.2 L Hct 27.3 L MCV 90 MCH 30 MCHC 34 RDW 14.6 Plt Count 557 H Lymph % (Auto) 26.6 [place] % (Auto) 6.6 Eos % (Auto) 3.7 Baso % (Auto) 1.0 Lymph # 2.8 [place] # 0.7 Eos # 0.4 Baso # 0.1 Seg Neutrophils % 62.1 Seg Neutrophils # 6.6 Sodium Potassium Chloride Carbon Dioxide Anion Gap BUN Creatinine Estimated GFR BUN/Creatinine Ratio Glucose POC Glucose 198 H 204 H Calcium Phosphorus 06/12/18 06/12/18 05:21 06:40 WBC RBC Hgb Hct MCV MCH MCHC RDW Plt Count Lymph % (Auto) [place] % (Auto) Eos % (Auto) Baso % (Auto) Lymph # [place] # Eos # Baso # Seg Neutrophils % Seg Neutrophils # Sodium 142 Potassium 4.5 Chloride 99.0 Carbon Dioxide 28 Anion Gap 20 BUN 30 H Creatinine 1.8 H Estimated GFR 48 BUN/Creatinine Ratio 17 Glucose 167 H POC Glucose 166 H Calcium 8.9 Phosphorus 3.30 Assessment and Plan I69.353 Right non-dom hemiparesis: Monitor for neuro decline. Continue secondary stroke prevention. Discussed recovery and secondary stroke prevention. Monitor for post-stroke depression and s/s of shoulder-hand syndrome. Monitor for safety awareness I69.322 Dysarthria: LEASING ASSISTANT for improvement in communication and speech I69.391 Dysphagia: LEASING ASSISTANT to improve swallow function. Continue TF (at goal) with NPO. Monitor and advance diet as safely as able. FEES, MBSS or EStim as needed. Z73.6 ADL dysfunction: OT will work on improving ability to perform ADLs (including assistive devices) to increase independence and decrease caregiver burden and improve functional transfers and mobility training. R26.2 Difficulty walking: PT will work on gait training and proper use of assistive devices and advance as appropriate to use of stairs and outside ambulation on uneven surfaces. R26.81 Unsteadiness on feet: PT will work on improving static and dynamic sitting and standing balance as well as proper use of assistive devices to decrease risk of falls. R26.89 Abnormality of gait: PT will work to improve safety and efficiency of gait through neuromotor training and gait training along with instruction on proper use of assistive devices. Has prosthesis with him M62.81 Muscle weakness: PT & OT will work on strengthening exercises to improve functional strength including mixture of closed and open kinetic chain exe rcises. R53.81 Debility: PT & OT will work on improving overall functional status to improve participation with ADLs, mobility and social involvement. R53.83 Fatigue: PT & OT will work on improving endurance through aerobic exercises and therapeutic activity while monitoring patients tolerance for activity and vital signs as needed. I10 Hypertension: Adjust as needed. Avoid nephrotoxic meds E78.5 Hyperlipidemia: Continue [place] E11.8 Diabetes: Monitor D64.9 Anemia of chronic disease: Stable E87.6 Hypokalemia: Resolved, monitor labs ELVIRA due to ATN at OSH but likely Acute on CKD per consult here DVT ppx: Heparin TID due to renal function GI ppx: Pepcid Pain: Continue physical modalities in therapy and pain medications as needed to achieve functional pain control. Sleep: Monitor and address as needed. Bowel: Monitor and address as needed. Appetite: Monitor and address as needed when able to take PO. Discharge planning: Pending therapy progress and care plan meeting. Will continu e discussion with therapy team, SW, patient and family. Restrictions/ Precautions: Falls, aspiration WB status: FWB Functional Hx: ADLs: Independent and working Cognition: Independent Mobility: independent Consult: Hospitalists for medical management Nephrology for renal function Appreciate assistance. Barriers to Discharge: Decreased mobility and ability to perform self care, right sided weakness, balance deficits, dysphagia Estimated Length of Stay: 21 days Discharge Destination: Home with family if possible
--- NOTE | 2018-06-12 09:13 | Progress Note ---
Assessment and Plan Acute Renal Failure secondary to Ischemic ATN on likely CKD from Hypertension: -stable kidney function with slow improvement daily -Avoid nephrotoxic agents Anemia in CKD - Epogen dosing for anemia management Acute CVA: -On ASA, plavix and statin -Rehab therapy Essential Hypertension: -Adjust meds as needed Diabetes Mellitus Type 2 on insulin: -On Insulin Oropharyngeal Dysphagia: -PEG Tube feedings Subjective Date of service: 06/12/18 Principal diagnosis: CVA, Acute on CKD Interval history: denies overnight events, tolerating PT Objective - Vital Signs Vital signs: Vital Signs - 12hr 06/12/18 06/12/18 06/12/18 00:01 05:32 06:43 Temperature 98.6 F 98.0 F Pulse Rate 107 H 93 H Respiratory 20 Rate Blood Pressure 126/87 127/74 127/74 O2 Sat by Pulse 98 92 Oximetry 06/12/18 06/12/18 07:40 07:41 Temperature 97.9 F Pulse Rate 92 H 91 H Respiratory 18 Rate Blood Pressure 133/93 O2 Sat by Pulse 98 97 Oximetry - General Appearance General appearance: well-developed, well-nourished EENT: ATNC, PERRL, mucous membranes moist Neck: no JVD, no carotid bruit Respiratory: Present: Clear to Ascultation. Absent: Rales, Ronchi Cardiology: regular, S1S2 Gastrointestinal: normoactive bowel sounds, no distended, no masses Integumentary: no rash, warm and dry Neurologic: no asterixis, alert and oriented x3 Musculoskeletal: other (no edema) Psychiatric: mood/affect appropriate, cooperative - Lab 06/12/18 05:21 06/12/18 05:21 Most recent lab results Calcium 8.9 mg/dL (8.4-10.2) 06/12/18 05:21 Phosphorus 3.30 mg/dL (2.5-4.5) 06/12/18 05:21 Magnesium 2.10 mg/dL (1.7-2.3) 06/07/18 05:15 Urine Creatinine 140.4 mg/dL (0.1-20.0) H 06/08/18 09:55 Urine Sodium 45 mmol/L 06/08/18 09:55 Urine Total Protein 36 mg/dL (5-11.8) H 06/08/18 09:55 Medications & Allergies - Medications Allergies/Adverse Reactions: Allergies No Known Allergies Allergy (Unverified 08/03/15 12:32) Home Medications: Home Medications Medication Instructions Recorded Confirmed Last Taken Type Aspirin [Aspirin BABY CHEW TAB] 81 mg PO QDAY 08/04/15 06/05/18 Unknown History Insulin Detemir [Levemir Flextouch] 35 unit SQ BID 08/04/15 06/05/18 Unknown History NIFEdipine XL [Procardia Xl] 60 mg PO QDAY 08/04/15 06/05/18 Unknown History Simvastatin [Zocor TAB] 40 mg PO QHS 08/04/15 06/05/18 Unknown History Sitagliptin/Metformin (Nf) 1 each PO BID 08/04/15 06/05/18 Unknown History [Janumet 50-1,000 mg (Nf)] Sulfamethoxazole/Trimethoprim 1 each PO BID #14 tablet 08/04/15 06/05/18 Unknown Rx [Bactrim DS TAB] Active Medications: Generic Name Dose Route Start Last Admin Trade Name Freq PRN Reason Stop Dose Admin Acetaminophen/Hydrocodone Bitart 1 each 06/09/18 20:50 06/10/18 21:51 [place] 5/325 PO 1 each Q6H PRN Administration Pain, Moderate (4-6) Lipase/Protease/Amylase 1 each 06/10/18 14:01 Pancrealthea Laguerre 10,500 Unit FEEDTUBE PRN PRN For Clogged Feeding Tube Aspirin 325 mg 06/04/18 08:00 06/11/18 08:53 Aspirin FEEDTUBE 325 mg QDAY JONO Administration Atorvastatin Calcium 40 mg 06/03/18 21:00 06/11/18 22:17 Lipitor FEEDTUBE 40 mg QHS JONO Administration Clopidogrel Bisulfate 75 mg 06/04/18 08:00 06/11/18 08:53 Plavix FEEDTUBE 75 mg QDAY JONO Administration Dextrose 50 ml 06/03/18 17:09 D50w (25gm) Syringe IV PRN PRN Hypoglycemia Docusate Sodium 100 mg 06/03/18 22:00 06/11/18 22:17 Colace FEEDTUBE 100 mg BID JONO Administration Epoetin Abhijeet 10,000 unit 06/08/18 10:00 06/08/18 12:21 Procrit SUB-Q 10,000 unit Webb JONO Administration Famotidine 10 mg 06/04/18 22:00 06/11/18 22:17 Pepcid FEEDTUBE 10 mg BID JONO Administration Heparin Sodium (Porcine) 5,000 unit 06/03/18 22:00 06/12/18 06:43 Heparin SUB-Q 5,000 unit Q8HR JONO Administration Hydralazine HCl 25 mg 06/10/18 14:00 06/12/18 06:43 Apresoline FEEDTUBE 25 mg Q8HR JONO Administration Sodium Chloride 1,000 mls @ 125 mls/hr 06/11/18 15:00 06/12/18 04:19 Nacl 0.45% 1000 Ml IV 06/12/18 22:59 125 mls/hr DIRECT JONO Administration Insulin Glargine 20 units 06/10/18 21:00 06/11/18 22:17 Lantus SUB-Q 20 units QHS JONO Administration Insulin Human Lispro 0 unit 06/10/18 13:30 06/12/18 06:43 Humalog SUB-Q 2 unit ACHS JONO Administration Protocol Metoprolol Tartrate 50 mg 06/07/18 10:00 06/12/18 02:18 Lopressor FEEDTUBE 50 mg Q8H JONO Administration Phenyleph/Shark Oil/Min Oil/Petrol 1 applic 06/10/18 14:19 Preparation H ND Q6HR PRN Hemorrhoids Polyethylene Glycol 17 gm 06/03/18 17:30 06/09/18 18:33 Miralax 3350 FEEDTUBE 17 gm QDAY PRN Administration Constipation Simple Syrup 15 ml 06/10/18 14:01 Simple Syrup FEEDTUBE PRN PRN Hypoglycemia Simple Syrup 30 ml 06/10/18 14:01 Simple Syrup FEEDTUBE PRN PRN Hypoglycemia Sodium Bicarbonate 325 mg 06/10/18 14:01 Sodium Bicarbonate FEEDTUBE PRN PRN For Clogged Feeding Tube
[2018-06-12] MEDS: PEPCID FEEDTUBE SCH ×2 (09:59→23:02)
[2018-06-12] MEDS: PLAVIX FEEDTUBE SCH (09:59)
[2018-06-12] MEDS: COLACE FEEDTUBE SCH ×2 (09:59→23:08)
[2018-06-12] MEDS: ASPIRIN FEEDTUBE SCH (09:59)
--- NOTE | 2018-06-12 11:27 | Progress Note ---
Assessment and Plan Assessment and plan: CVA with residual right-sided hemiparesis, dysphagia on meds for secondary prevention Right BKA - Supportive care Hypertension -cont bp meds Diabetes mellitus - SSI - Uncontrolled, increase lantus dose ELVIRA/hypernatremia - improving on hypotonic IVF Hypokalemia -repleted, on K supplement Anemia of chronic illness stable, cont to monitor DVT prophylaxis - On heparin Patient's primary is Dr Erickson. History Interval history: Review of systems Constitutional: No fevers, no malaise, no joint pains CVS: No chest pain, no orthopnea, no dyspnea on exertion, no pedal edema GI: No abdominal pain, no diarrhea, no vomiting, no constipation Respiratory: No shortness of breath, no wheezing, no coughing Hospitalist Physical - Physical exam Narrative exam: General.: Appears well, no distress, nontoxic HEENT: Moist mucous membranes, extraocular muscles intact, no lymphadenopathy Neck: supple Cardiac: S1-S2 heard Lungs: clear to auscultation bilaterally Abdomen: soft , nontender, nondistended, bowel sounds positive Extremities: no edema clubbing or cyanosis Skin: no rash or lesions Neurologic: r hemiparesis Psych: calm, and cooperative - Constitutional Vitals: Temp Pulse Resp BP Pulse Ox 97.9 F 91 H 18 133/93 97 06/12/18 07:40 06/12/18 07:41 06/12/18 07:40 06/12/18 07:40 06/12/18 07:41 Results - Labs CBC & Chem 7: 06/12/18 05:21 06/12/18 05:21 Labs: Laboratory Last Values WBC 10.7 K/mm3 (4.5-11.0) 06/12/18 05:21 RBC 3.04 M/mm3 (3.65-5.03) L 06/12/18 05:21 Hgb 9.2 gm/dl (11.8-15.2) L 06/12/18 05:21 Hct 27.3 % (35.5-45.6) L 06/12/18 05:21 MCV 90 fl (84-94) 06/12/18 05:21 MCH 30 pg (28-32) 06/12/18 05:21 MCHC 34 % (32-34) 06/12/18 05:21 RDW 14.6 % (13.2-15.2) 06/12/18 05:21 Plt Count 557 K/mm3 (140-440) H 06/12/18 05:21 Lymph % (Auto) 26.6 % (13.4-35.0) 06/12/18 05:21 [place] % (Auto) 6.6 % (0.0-7.3) 06/12/18 05:21 Eos % (Auto) 3.7 % (0.0-4.3) 06/12/18 05:21 Baso % (Auto) 1.0 % (0.0-1.8) 06/12/18 05:21 Lymph # 2.8 K/mm3 (1.2-5.4) 06/12/18 05:21 [place] # 0.7 K/mm3 (0.0-0.8) 06/12/18 05:21 Eos # 0.4 K/mm3 (0.0-0.4) 06/12/18 05:21 Baso # 0.1 K/mm3 (0.0-0.1) 06/12/18 05:21 Seg Neutrophils % 62.1 % (40.0-70.0) 06/12/18 05:21 Seg Neutrophils # 6.6 K/mm3 (1.8-7.7) 06/12/18 05:21 Sodium 142 mmol/L (137-145) 06/12/18 05:21 Potassium 4.5 mmol/L (3.6-5.0) 06/12/18 05:21 Chloride 99.0 mmol/L (98-107) 06/12/18 05:21 Carbon Dioxide 28 mmol/L (22-30) 06/12/18 05:21 Anion Gap 20 mmol/L 06/12/18 05:21 BUN 30 mg/dL (9-20) H 06/12/18 05:21 Creatinine 1.8 mg/dL (0.8-1.5) H 06/12/18 05:21 Estimated GFR 48 ml/min 06/12/18 05:21 BUN/Creatinine Ratio 17 % 06/12/18 05:21 Glucose 167 mg/dL (75-100) H 06/12/18 05:21 POC Glucose 166 (70-105) H 06/12/18 06:40 Calcium 8.9 mg/dL (8.4-10.2) 06/12/18 05:21 Phosphorus 3.30 mg/dL (2.5-4.5) 06/12/18 05:21 Magnesium 2.10 mg/dL (1.7-2.3) 06/07/18 05:15 Iron 33 ug/dL (49-181) L 06/08/18 06:00 TIBC 189 mcg/dL (250-450) L 06/08/18 06:00 Ferritin 1111.0 ng/mL (13.0-400.0) H 06/08/18 06:00 Prealbumin 0.230 g/L (0.200-0.400) 06/03/18 19:51 Urine Eosinophils None seen (None Seen) 06/08/18 09:55 Urine Creatinine 140.4 mg/dL (0.1-20.0) H 06/08/18 09:55 Protein/Creatinin Ratio 0.26 06/08/18 09:55 Urine Sodium 45 mmol/L 06/08/18 09:55 Urine Total Protein 36 mg/dL (5-11.8) H 06/08/18 09:55 Nutrition/Malnutrition Assess - Dietary Evaluation Nutrition/Malnutrition Findings: Nutrition Notes Start: 06/04/18 11:20 Freq: Status: Active Protocol: Document 06/11/18 14:34 RM (Rec: 06/11/18 14:47 RM [id number]) Nutrition Notes Initial or Follow up Reassessment Current Diagnosis Acute Kidney Injury CKD(stage I-IV) Diabetes Hypertension Stroke Hyperlipidemia Other Pertinent Diagnosis Dysphagia, R BKA Current Diet Glucerna 1.2 at 50 ml/hr Labs/Tests Na 141 BG 184 Pertinent Medications Reviewed Height 6 ft 2.4 in Weight 100.8 kg [place] Body Weight (lbs) 192.4 BMI 28.2 Subjective/Other Information Observed Glucerna 1.2 infusing at 70 ml/hr. Per nurse pt is tolerating TF. Percent of energy/protein needs met: 87%/100% Burn Absent Trauma Absent #1 Nutrition Diagnosis Inadequate oral intake Diagnosis Progress(for reassessment Continues documentation) Is patient on ventilator? No Is Patient Ambulatory and/or Out of Bed Yes REE-(Burton-St. Jeor-ambulatory/OOB) [ 8344.869 [id number]] Kcal/Kg value to use for calculation 23 Approximate Energy Requirements Using 2318 kcal/Kg Calculation Used for Recommendations Kcal/kg Additional Notes Protein needs: 60-100 g (0.6-0 .8 g/kg) Fluids: 1 mL/kg inderjit or per MD Nutrition Intervention Change Diet Order: Continue TF Nutrition Support: Glucerna 1.2 at 70 mL/hr Flush 100 mL q4hr Kcal 2,016 Protein (gm) 100 Fluid (mL) 1,352 Goal #1 Continue to meet at least 75% inderjit and pro needs Goal #2 TF tolerance Anticipated Discharge Needs: TF Follow-Up By: 06/18/18 Additional Comments Follow for TF tolerance
--- NOTE | 2018-06-12 14:32 | Fluoroscopy Report ---
MODIFIED BARIUM SWALLOW History: dysphagia. Findings: Video radiography was provided by the radiologist for speech therapy to assess the swallowing mechanism. 1 fluoroscopic image was captured. Impression: Successful modified barium swallow.
[2018-06-12] MEDS: LANTUS SUB-Q SCH (23:06)
[2018-06-13] MEDS: LOPRESSOR FEEDTUBE SCH ×3 (01:30→18:54)
[2018-06-13 05:12] LABS: Basophils # (Auto) 0.1 K/mm3 (0.0-0.1); Basophils % (Auto) 0.9 % (0.0-1.8); Eosinophils # (Auto) 0.4 K/mm3 (0.0-0.4); Eosinophils % (Auto) 3.6 % (0.0-4.3); Hematocrit 25.8 % (35.5-45.6); Hemoglobin 8.8 gm/dl (11.8-15.2); Lymphocytes # (Auto) 2.6 K/mm3 (1.2-5.4); Lymphocytes % (Auto) 24.5 % (13.4-35.0); Mean Corpuscular HGB Conc 34 % (32-34); Mean Corpuscular Volume 90 fl (84-94); Monocytes # (Auto) 0.7 K/mm3 (0.0-0.8); Monocytes % (Auto) 6.2 % (0.0-7.3); Platelet Count 515 K/mm3 (140-440); Red Blood Count 2.88 M/mm3 (3.65-5.03); Red Cell Distribution Width 14.8 % (13.2-15.2)
[2018-06-13 05:33] LABS: Calcium 8.9 mg/dL (8.4-10.2)
[2018-06-13] MEDS: APRESOLINE FEEDTUBE SCH ×3 (05:57→21:46)
[2018-06-13] MEDS: HEPARIN SUB-Q SCH ×3 (06:00→21:46)
[2018-06-13] MEDS: HumaLOG SUB-Q SCH ×3 (07:50→17:00)
--- NOTE | 2018-06-13 09:31 | Progress Note ---
Assessment and Plan Acute Renal Failure secondary to Ischemic ATN on likely CKD from Hypertension: -stable Cr off IVF -Avoid nephrotoxic agents Anemia in CKD - Epogen dosing for anemia management Acute CVA: -On ASA, plavix and statin -Rehab therapy Essential Hypertension: -Adjust meds as needed Diabetes Mellitus Type 2 on insulin: -On Insulin Oropharyngeal Dysphagia: -PEG Tube feedings Subjective Date of service: 06/13/18 Principal diagnosis: CVA, Acute on CKD Interval history: comfortable, no acute complaints Objective - Vital Signs Vital signs: Vital Signs - 12hr 06/12/18 06/13/18 06/13/18 23:05 01:30 05:55 Temperature 98.3 F Pulse Rate 90 95 H Respiratory 20 Rate Blood Pressure 134/91 121/81 121/81 O2 Sat by Pulse 100 Oximetry 06/13/18 06/13/18 05:57 07:15 Temperature 98.0 F Pulse Rate 96 H 99 H Respiratory 18 Rate Blood Pressure 126/81 125/88 O2 Sat by Pulse 97 Oximetry - General Appearance General appearance: well-developed, well-nourished, appears stated age EENT: ATNC, PERRL, mucous membranes moist Neck: no JVD Respiratory: Present: Clear to Ascultation Cardiology: regular, S1S2 Gastrointestinal: normoactive bowel sounds Integumentary: no rash, warm and dry Neurologic: no focal deficit, no asterixis, alert and oriented x3 Musculoskeletal: other (no edema in BLE) Psychiatric: mood/affect appropriate, cooperative - Lab 06/13/18 04:53 06/13/18 04:53 Most recent lab results Calcium 8.9 mg/dL (8.4-10.2) 06/13/18 04:53 Phosphorus 3.20 mg/dL (2.5-4.5) 06/13/18 04:53 Magnesium 2.10 mg/dL (1.7-2.3) 06/07/18 05:15 Urine Creatinine 140.4 mg/dL (0.1-20.0) H 06/08/18 09:55 Urine Sodium 45 mmol/L 06/08/18 09:55 Urine Total Protein 36 mg/dL (5-11.8) H 06/08/18 09:55 Medications & Allergies - Medications Allergies/Adverse Reactions: Allergies No Known Allergies Allergy (Unverified 08/03/15 12:32) Home Medications: Home Medications Medication Instructions Recorded Confirmed Last Taken Type Aspirin [Aspirin BABY CHEW TAB] 81 mg PO QDAY 08/04/15 06/05/18 Unknown History Insulin Detemir [Levemir Flextouch] 35 unit SQ BID 08/04/15 06/05/18 Unknown History NIFEdipine XL [Procardia Xl] 60 mg PO QDAY 08/04/15 06/05/18 Unknown History Simvastatin [Zocor TAB] 40 mg PO QHS 08/04/15 06/05/18 Unknown History Sitagliptin/Metformin (Nf) 1 each PO BID 08/04/15 06/05/18 Unknown History [Janumet 50-1,000 mg (Nf)] Sulfamethoxazole/Trimethoprim 1 each PO BID #14 tablet 08/04/15 06/05/18 Unknown Rx [Bactrim DS TAB] Active Medications: Generic Name Dose Route Start Last Admin Trade Name Freq PRN Reason Stop Dose Admin Acetaminophen/Hydrocodone Bitart 1 each 06/09/18 20:50 06/10/18 21:51 [place] 5/325 PO 1 each Q6H PRN Administration Pain, Moderate (4-6) Lipase/Protease/Amylase 1 each 06/10/18 14:01 Pancrealthea Laguerre 10,500 Unit FEEDTUBE PRN PRN For Clogged Feeding Tube Aspirin 325 mg 06/04/18 08:00 06/12/18 09:59 Aspirin FEEDTUBE 325 mg QDAY JONO Administration Atorvastatin Calcium 40 mg 06/03/18 21:00 06/12/18 23:03 Lipitor FEEDTUBE 40 mg QHS JONO Administration Clopidogrel Bisulfate 75 mg 06/04/18 08:00 06/12/18 09:59 Plavix FEEDTUBE 75 mg QDAY JONO Administration Dextrose 50 ml 06/03/18 17:09 D50w (25gm) Syringe IV PRN PRN Hypoglycemia Docusate Sodium 100 mg 06/03/18 22:00 06/12/18 23:08 Colace FEEDTUBE Not Given BID JONO Epoetin Abhijeet 10,000 unit 06/08/18 10:00 06/08/18 12:21 Procrit SUB-Q 10,000 unit Webb JONO Administration Famotidine 10 mg 06/04/18 22:00 06/12/18 23:02 Pepcid FEEDTUBE 10 mg BID JONO Administration Heparin Sodium (Porcine) 5,000 unit 06/03/18 22:00 06/13/18 06:00 Heparin SUB-Q 5,000 unit Q8HR JONO Administration Hydralazine HCl 25 mg 06/10/18 14:00 06/13/18 05:57 Apresoline FEEDTUBE 25 mg Q8HR JONO Administration Insulin Glargine 20 units 06/10/18 21:00 06/12/18 23:06 Lantus SUB-Q 20 units QHS JONO Administration Insulin Human Lispro 0 unit 06/10/18 13:30 06/12/18 23:07 Humalog SUB-Q Not Given ACHS [facility] Protocol Metoprolol Tartrate 50 mg 06/07/18 10:00 06/13/18 01:30 Lopressor FEEDTUBE 50 mg Q8H JONO Administration Phenyleph/Shark Oil/Min Oil/Petrol 1 applic 06/10/18 14:19 Preparation H [place] Q6HR PRN Hemorrhoids Polyethylene Glycol 17 gm 06/03/18 17:30 06/09/18 18:33 Miralax 3350 FEEDTUBE 17 gm QDAY PRN Administration Constipation Simple Syrup 15 ml 06/10/18 14:01 Simple Syrup FEEDTUBE PRN PRN Hypoglycemia Simple Syrup 30 ml 06/10/18 14:01 Simple Syrup FEEDTUBE PRN PRN Hypoglycemia Sodium Bicarbonate 325 mg 06/10/18 14:01 Sodium Bicarbonate FEEDTUBE PRN PRN For Clogged Feeding Tube
[2018-06-13] MEDS: ASPIRIN FEEDTUBE SCH (11:45)
[2018-06-13] MEDS: PEPCID FEEDTUBE SCH ×2 (11:45→21:50)
[2018-06-13] MEDS: PLAVIX FEEDTUBE SCH (11:45)
[2018-06-13] MEDS: COLACE FEEDTUBE SCH ×2 (13:11→21:50)
[2018-06-13] MEDS: LANTUS SUB-Q SCH (21:58)
[2018-06-14] MEDS: LOPRESSOR FEEDTUBE SCH ×3 (03:55→17:44)
[2018-06-14] MEDS: HumaLOG SUB-Q SCH ×5 (03:57→22:00)
[2018-06-14 04:54] LABS: Basophils # (Auto) 0.1 K/mm3 (0.0-0.1); Basophils % (Auto) 0.4 % (0.0-1.8); Eosinophils # (Auto) 0.2 K/mm3 (0.0-0.4); Eosinophils % (Auto) 0.9 % (0.0-4.3); Hematocrit 26.6 % (35.5-45.6); Hemoglobin 8.7 gm/dl (11.8-15.2); Lymphocytes # (Auto) 1.4 K/mm3 (1.2-5.4); Lymphocytes % (Auto) 7.1 % (13.4-35.0); Mean Corpuscular HGB Conc 33 % (32-34); Mean Corpuscular Volume 89 fl (84-94); Monocytes # (Auto) 1.4 K/mm3 (0.0-0.8); Platelet Count 475 K/mm3 (140-440); Red Blood Count 2.98 M/mm3 (3.65-5.03); Red Cell Distribution Width 14.7 % (13.2-15.2)
[2018-06-14] MEDS: APRESOLINE FEEDTUBE SCH ×3 (07:39→22:00)
[2018-06-14] MEDS: HEPARIN SUB-Q SCH ×3 (07:40→22:30)
[2018-06-14] MEDS: COLACE FEEDTUBE SCH ×2 (09:46→22:00)
[2018-06-14] MEDS: ASPIRIN FEEDTUBE SCH (09:46)
[2018-06-14] MEDS: PEPCID FEEDTUBE SCH ×2 (09:46→22:26)
[2018-06-14] MEDS: PLAVIX FEEDTUBE SCH (09:46)
--- NOTE | 2018-06-14 10:23 | Progress Note ---
Assessment and Plan Acute Renal Failure secondary to Ischemic ATN on likely CKD from Hypertension: -Renal function reviewed, SCr level was 1.8 today, yesterday's SCr level was 1.7 -IV fluids stopped -Avoid nephrotoxic agents -Renal plan d/w Dr Park Anemia in CKD - Epogen dosing for anemia management Acute CVA: -On ASA, plavix and statin -Rehab therapy Essential Hypertension: -Adjust meds as needed Diabetes Mellitus Type 2 on insulin: -On Insulin Oropharyngeal Dysphagia: -PEG Tube feedings Subjective Date of service: 06/14/18 Principal diagnosis: CVA, Acute on CKD Interval history: Pt seen in bed, denies shortness of breath, no acute distress. No family at bedside Objective - Vital Signs Vital signs: Vital Signs - 12hr 06/14/18 06/14/18 06/14/18 03:55 06:47 07:39 Temperature Pulse Rate 90 129 H 82 Respiratory Rate Blood Pressure 134/85 106/74 106/74 O2 Sat by Pulse 98 Oximetry 06/14/18 06/14/18 07:51 09:45 Temperature 99.8 F H Pulse Rate 124 H 124 H Respiratory 18 Rate Blood Pressure 117/73 117/73 O2 Sat by Pulse 92 Oximetry - General Appearance General appearance: well-developed EENT: ATNC Neck: no JVD Respiratory: Present: Decreased Breath Sounds Cardiology: regular, S1S2 Gastrointestinal: normoactive bowel sounds (PEG tube intact) Integumentary: warm and dry Neurologic: alert and oriented x3 Musculoskeletal: other (Right BKA; no edema to left lower extremity) Psychiatric: cooperative - Lab 06/14/18 04:33 06/14/18 04:33 Most recent lab results Calcium 9.0 mg/dL (8.4-10.2) 06/14/18 04:33 Phosphorus 3.20 mg/dL (2.5-4.5) 06/13/18 04:53 Magnesium 2.10 mg/dL (1.7-2.3) 06/07/18 05:15 Urine Creatinine 140.4 mg/dL (0.1-20.0) H 06/08/18 09:55 Urine Sodium 45 mmol/L 06/08/18 09:55 Urine Total Protein 36 mg/dL (5-11.8) H 06/08/18 09:55 Medications & Allergies - Medications Allergies/Adverse Reactions: Allergies No Known Allergies Allergy (Unverified 08/03/15 12:32) Home Medications: Home Medications Medication Instructions Recorded Confirmed Last Taken Type Aspirin [Aspirin BABY CHEW TAB] 81 mg PO QDAY 08/04/15 06/05/18 Unknown History Insulin Detemir [Levemir Flextouch] 35 unit SQ BID 08/04/15 06/05/18 Unknown History NIFEdipine XL [Procardia Xl] 60 mg PO QDAY 08/04/15 06/05/18 Unknown History Simvastatin [Zocor TAB] 40 mg PO QHS 08/04/15 06/05/18 Unknown History Sitagliptin/Metformin (Nf) 1 each PO BID 08/04/15 06/05/18 Unknown History [Janumet 50-1,000 mg (Nf)] Sulfamethoxazole/Trimethoprim 1 each PO BID #14 tablet 08/04/15 06/05/18 Unknown Rx [Bactrim DS TAB] Active Medications: Generic Name Dose Route Start Last Admin Trade Name Freq PRN Reason Stop Dose Admin Acetaminophen/Hydrocodone Bitart 1 each 06/09/18 20:50 06/10/18 21:51 [place] 5/325 PO 1 each Q6H PRN Administration Pain, Moderate (4-6) Lipase/Protease/Amylase 1 each 06/10/18 14:01 Pancrealthea Laguerre 10,500 Unit FEEDTUBE PRN PRN For Clogged Feeding Tube Aspirin 325 mg 06/04/18 08:00 06/14/18 09:46 Aspirin FEEDTUBE 325 mg QDAY JONO Administration Atorvastatin Calcium 40 mg 06/03/18 21:00 06/13/18 21:46 Lipitor FEEDTUBE 40 mg QHS JONO Administration Clopidogrel Bisulfate 75 mg 06/04/18 08:00 06/14/18 09:46 Plavix FEEDTUBE 75 mg QDAY JONO Administration Dextrose 50 ml 06/03/18 17:09 D50w (25gm) Syringe IV PRN PRN Hypoglycemia Docusate Sodium 100 mg 06/03/18 22:00 06/14/18 09:46 Colace FEEDTUBE Not Given BID JONO Epoetin Abhijeet 10,000 unit 06/08/18 10:00 06/08/18 12:21 Procrit SUB-Q 10,000 unit Webb JONO Administration Famotidine 10 mg 06/13/18 22:00 06/14/18 09:46 Pepcid FEEDTUBE Not Given BID JONO Heparin Sodium (Porcine) 5,000 unit 06/03/18 22:00 06/14/18 07:40 Heparin SUB-Q 5,000 unit Q8HR JONO Administration Hydralazine HCl 25 mg 06/10/18 14:00 06/14/18 07:39 Apresoline FEEDTUBE Not Given Q8HR JONO Insulin Glargine 20 units 06/10/18 21:00 06/13/18 21:58 Lantus SUB-Q 20 units QHS JONO Administration Insulin Human Lispro 0 unit 06/10/18 13:30 06/14/18 08:09 Humalog SUB-Q Not Given ACHS [facility] Protocol Metoprolol Tartrate 50 mg 06/07/18 10:00 06/14/18 09:45 Lopressor FEEDTUBE 50 mg Q8H JONO Administration Phenyleph/Shark Oil/Min Oil/Petrol 1 applic 06/10/18 14:19 Preparation H [place] Q6HR PRN Hemorrhoids Polyethylene Glycol 17 gm 06/03/18 17:30 06/09/18 18:33 Miralax 3350 FEEDTUBE 17 gm QDAY PRN Administration Constipation Simple Syrup 15 ml 06/10/18 14:01 Simple Syrup FEEDTUBE PRN PRN Hypoglycemia Simple Syrup 30 ml 06/10/18 14:01 Simple Syrup FEEDTUBE PRN PRN Hypoglycemia Sodium Bicarbonate 325 mg 06/10/18 14:01 Sodium Bicarbonate FEEDTUBE PRN PRN For Clogged Feeding Tube
[2018-06-14 10:36] LABS: Bilirubin,Urine NEG (Negative); Blood,Urine NEG (Negative); Color,Urine Amber (Yellow); Mucus,Urine 1+ /HPF; Triple Phosphate Crystal,Urine 1+
[2018-06-14 10:40] LABS: Protein,Urine >500 mg/dL (Negative)
[2018-06-14] MEDS ORDERED: LEVAQUIN 250MG/50ML 250 MG/50 ML BAG IV SCH (12:00)
[2018-06-14] MEDS: NORCO 5/325 PO PRN ×2 (13:51→22:27)
--- NOTE | 2018-06-14 13:57 | XRay Report ---
FINAL REPORT PROCEDURE: XR CHEST ROUTINE 2V TECHNIQUE: PA and lateral chest radiographs were obtained. CPT 03267 HISTORY: Fever/Leukocytosis/N/V COMPARISON: 06/07/2017 FINDINGS: Heart: Normal. Mediastinum/Vessels: Normal. Lungs/Pleural space: There is new airspace opacity in the inferior aspect of the right upper lobe, co mpatible with pneumonia. No effusion or pneumothorax is seen. Bony thorax: No acute osseous abnormality. Other: IMPRESSION: Right upper lobe pneumonia.
--- NOTE | 2018-06-14 13:58 | XRay Report ---
FINAL REPORT PROCEDURE: XR ABDOMEN 1V AP TECHNIQUE: AP views of the abdomen HISTORY: N/V COMPARISON: No prior studies are available for comparison. FINDINGS: Gastrostomy tube tip projects over the left upper abdomen. Bowel gas pattern is nonobstructive. No ab normal calcifications are seen. Clips overlie the right lower quadrant. No acute osseous abnormality is seen. IMPRESSION: Unremarkable bowel gas pattern
[2018-06-14] MEDS ORDERED: ROCEPHIN/NS 1 GM/50 ML 1 GM/50 ML BAG IV SCH (14:00)
--- NOTE | 2018-06-14 14:38 | Progress Note ---
Subjective Date of service: 06/14/18 Principal diagnosis: CVA, Acute on CKD Interval history: 53-year-old LHD male who experienced increased right-sided weakness three days prior to presentation at an outside hospital. He also had decreased balance and gait. He was admitted and worked up for stroke. MRI of brain confirmed the presence of a stroke. A repeat MRI showed a second stroke in a different area. Patient was continued on secondary stroke prevention medications. He had a PEG tube placed and was started on a low volume of TF. He developed acute kidney injury and a nephrology consult was called. He required transfer to the [facility] for management of uncontrolled blood pressure. He was later weaned off of Cardene drip and restarted on oral blood pressure medications. Called on the way in this morning and advised the patient had vomiting overnight and this morning. Tube feeds were stopped. On arrival I examined the patient who stated he felt okay and was no longer vomiting. Review of vital signs showed a temperature of 37.7 prior to my arrival with an elevated heart rate of 124. WBC also increased from 10.6-19.6 overnight. Urine looked cloudy and the patient did express burning with urination. He denied any recent coughing or signs of aspiration but notably did have a poor result on his modified barium swallow. Ordered stat labs, chest x-ray, KUB, EKG. As soon as the urine results came back which looks positive for UTI, I ordered Levaquin which came about an hour and a half later. Chest x-ray also showed a right upper lobe pneumonia. Choice of antibiotic was changed to Rocephin prior to receipt of Levaquin. IV fluids were ordered. We will notify hospitalist for further assistance. Lactic acid resulted at 1.10. We'll restart tube feeds after IVs get started and have asked nursing to ensure patient is sitting up when receiving tube feeds. Daily labs ordered for the next 5 days to monitor progress on antibiotics Patient is participating in therapy and making fair progress. +BM. No pain currently. PEG ok. TF at goal - appreciate assistance. Oral control of secretions improved. MBSS still aspirating BP - Continue medications and adjust as needed. please avoid nephrotoxic meds. Anemia stable - occult stool positive. Hx of hemorrhoids. Will consider GI consult if condition worsens Prosthesis needs repair, Vicki has been contacted - awaiting insurance approval No other issues per patient, nursing or therapy. All available medical records, therapy notes, vitals and labs were reviewed. Objective - Exam Narrative Exam: MUSCULOSKELETAL SPECIALTY EXAM Constitutional: Well developed, well nourished, appropriately groomed, LHD EENT: Hearing intact to finger rustle. Poor dentition. Better control of secretions. Respiratory: Clear to auscultation bilaterally, no increased work of breathing. Cardiovascular Regular Rate/ Rhythm, no swelling edema or tenderness in all 4 extremities. All 4 extremities warm. GI : + bowel sounds, soft, NTTP, nondistended, PEG INTEGUMENTARY Normal in all 4 extremities except for what appears to be old/healed sores on LLE Musuloskeletal BUE and BLE normal without defect, crepitus, sublux, effusion, or TTP except for Right BKA. RUE and RLE 4-/5. Decreased aROM, good pROM, normal tone. LUE and LLE 4+/5, good ROM with normal tone. NEURO: Significant Left facial droop involving upper and lower face (LMN), Tongue pr otrudes left , sensation on face is assymetric, otherwise CN 2-12 grossly intact. Sensation intact on LEFT extremities and impaired on RIGHT. Coordination intact on left, decreased on right. No tremor noted. Aphasia and dysarthria present. Naming and repetition intact. At times he seems to have trouble focusing visually, but the basic vision is ok. POSTURE and GAIT: Deferred until seen with therapy for safety. Patient examined in w/c. PSYCH: Alert, orientated x3, affect appears normal. Insight appears intact. - Constitutional Vitals: Vital Signs - 12hr 06/14/18 06/14/18 06/14/18 03:55 06:47 07:39 Temperature Pulse Rate 90 129 H 82 Respiratory Rate Blood Pressure 134/85 106/74 106/74 Blood Pressure [Left] O2 Sat by Pulse 98 Oximetry 06/14/18 06/14/18 06/14/18 07:51 09:45 13:30 Temperature 37.7 C H 39.3 C H Pulse Rate 124 H 124 H 116 H Respiratory 18 20 Rate Blood Pressure 117/73 117/73 Blood Pressure 135/72 [Left] O2 Sat by Pulse 92 90 Oximetry 06/14/18 06/14/18 13:51 13:52 Temperature Pulse Rate 116 H Respiratory 20 Rate Blood Pressure 135/72 Blood Pressure [Left] O2 Sat by Pulse Oximetry - Allied health notes Allied health notes reviewed: nursing, PT, ST, OT FIMS assessment as documented by PT/OT/ST: Grooming Patient cleans teeth/dentures: Yes Patient matamoros/brushes hair: Yes Patient washes, rinses and Yes dries face: Patient washes, rinses and Yes dries hands: Patient shaves: No Patient performs (no make-up/ 08/21 (100%) shaving): Grooming FIM Score 4. Minimal Assistance (Patient = 75% or more. Needs touching.) Toileting Toileting Device Commode over Toilet Toileting FIM Score 3. Moderate Assistance (Patient = 50% or more. Some lifting.) Social interaction/Memory/Problem solving Social Interaction FIM Score 7. Complete [place] (Interacts appropriately. Controls temper.) Memory FIM Score 7. Complete [place] (Remembers people and routines.) Problem Solving FIM Score 6. Mod. [place] (Mild difficulty or needs more time w/ complex.) Transfers Mode of Locomotion: Wheelchair Bed/Chair/Wheelchair Transfers 4. Minimal Assistance (Patient = 75% or more. FIM Score Needs touching.) Toilet Transfers FIM Score 3. Moderate Assistance (Patient = 50% or more. Some lifting.) Patient transferred to: Shower Shower Transfers FIM Score 2. Maximal Assistance (Patient = 25% or more) Locomotion- Stairs Stairs FIM Score 0. Activity does not occur Locomotion- walk/wheelchair Most Frequent Mode of Wheelchair Locomotion: Ambulation Distance 175 Walking FIM Score 4. Minimal Assistance (Patient = 75% or more. Minimum of 150 ft.) Wheelchair Propulsion Distance 180 Wheelchair FIM Score 5. Supervision (Minimum 150 ft. supv./cues or 50 ft. independently.) Eating Eating FIM Score 1. Total Assistance (Patient <25% or tube feeding) Dressing-Upper body Patient retrieves clothing No items: Patient applies/removes UE n/a prosthesis or orthosis: Upper Body Dressing FIM Score 4. Minimal Assistance (Patient = 75% or more. Needs touching.) Dressing-lower body Patient retrieves clothing No items: Patient applies/removes LE No: RLE prosthesis prosthesis or orthosis: Lower Body Dressing FIM Score 3. Moderate Assistance (Patient = 50% or more) - Labs CBC & Chem 7: 06/14/18 04:33 06/14/18 04:33 Labs: Laboratory Results - last 72 hr 06/11/18 06/11/18 06/12/18 16:53 22:11 05:21 WBC 10.7 RBC 3.04 L Hgb 9.2 L Hct 27.3 L MCV 90 MCH 30 MCHC 34 RDW 14.6 Plt Count 557 H Lymph % (Auto) 26.6 [place] % (Auto) 6.6 Eos % (Auto) 3.7 Baso % (Auto) 1.0 Lymph # 2.8 [place] # 0.7 Eos # 0.4 Baso # 0.1 Seg Neutrophils % 62.1 Seg Neutrophils # 6.6 Sodium Potassium Chloride Carbon Dioxide Anion Gap BUN Creatinine Estimated GFR BUN/Creatinine Ratio Glucose POC Glucose 198 H 204 H Lactic Acid Calcium Phosphorus Urine Color Urine Turbidity Urine pH Ur Specific [place] Urine Protein Urine Glucose (UA) Urine Ketones Urine Blood Urine Nitrite Urine Bilirubin Urine Urobilinogen Ur Leukocyte Esterase Urine WBC (Auto) Urine RBC (Auto) U Epithel Cells (Auto) Triple Phos Crystals Urine Mucus 06/12/18 06/12/18 06/12/18 05:21 06:40 12:04 WBC RBC Hgb Hct MCV MCH MCHC RDW Plt Count Lymph % (Auto) [place] % (Auto) Eos % (Auto) Baso % (Auto) Lymph # [place] # Eos # Baso # Seg Neutrophils % Seg Neutrophils # Sodium 142 Potassium 4.5 Chloride 99.0 Carbon Dioxide 28 Anion Gap 20 BUN 30 H Creatinine 1.8 H Estimated GFR 48 BUN/Creatinine Ratio 17 Glucose 167 H POC Glucose 166 H 153 H Lactic Acid Calcium 8.9 Phosphorus 3.30 Urine Color Urine Turbidity Urine pH Ur Specific [place] Urine Protein Urine Glucose (UA) Urine Ketones Urine Blood Urine Nitrite Urine Bilirubin Urine Urobilinogen Ur Leukocyte Esterase Urine WBC (Auto) Urine RBC (Auto) U Epithel Cells (Auto) Triple Phos Crystals Urine Mucus 06/12/18 06/12/18 06/13/18 17:25 22:15 04:53 WBC 10.6 RBC 2.88 L Hgb 8.8 L Hct 25.8 L MCV 90 MCH 30 MCHC 34 RDW 14.8 Plt Count 515 H Lymph % (Auto) 24.5 [place] % (Auto) 6.2 Eos % (Auto) 3.6 Baso % (Auto) 0.9 Lymph # 2.6 [place] # 0.7 Eos # 0.4 Baso # 0.1 Seg Neutrophils % 64.8 Seg Neutrophils # 6.9 Sodium Potassium Chloride Carbon Dioxide Anion Gap BUN Creatinine Estimated GFR BUN/Creatinine Ratio Glucose POC Glucose 157 H 127 H Lactic Acid Calcium Phosphorus Urine Color Urine Turbidity Urine pH Ur Specific [place] Urine Protein Urine Glucose (UA) Urine Ketones Urine Blood Urine Nitrite Urine Bilirubin Urine Urobilinogen Ur Leukocyte Esterase Urine WBC (Auto) Urine RBC (Auto) U Epithel Cells (Auto) Triple Phos Crystals Urine Mucus 06/13/18 06/13/18 06/13/18 04:53 05:55 11:34 WBC RBC Hgb Hct MCV MCH MCHC RDW Plt Count Lymph % (Auto) [place] % (Auto) Eos % (Auto) Baso % (Auto) Lymph # [place] # Eos # Baso # Seg Neutrophils % Seg Neutrophils # Sodium 139 Potassium 4.3 Chloride 98.6 Carbon Dioxide 27 Anion Gap 18 BUN 30 H Creatinine 1.7 H Estimated GFR 51 BUN/Creatinine Ratio 18 Glucose 128 H POC Glucose 115 H 157 H Lactic Acid Calcium 8.9 Phosphorus 3.20 Urine Color Urine Turbidity Urine pH Ur Specific [place] Urine Protein Urine Glucose (UA) Urine Ketones Urine Blood Urine Nitrite Urine Bilirubin Urine Urobilinogen Ur Leukocyte Esterase Urine WBC (Auto) Urine RBC (Auto) U Epithel Cells (Auto) Triple Phos Crystals Urine Mucus 06/13/18 06/13/18 06/14/18 17:19 22:03 04:33 WBC 19.6 H RBC 2.98 L Hgb 8.7 L Hct 26.6 L MCV 89 MCH 29 MCHC 33 RDW 14.7 Plt Count 475 H Lymph % (Auto) 7.1 L [place] % (Auto) 7.0 Eos % (Auto) 0.9 Baso % (Auto) 0.4 Lymph # 1.4 [place] # 1.4 H Eos # 0.2 Baso # 0.1 Seg Neutrophils % 84.6 H Seg Neutrophils # 16.6 H Sodium Potassium Chloride Carbon Dioxide Anion Gap BUN Creatinine Estimated GFR BUN/Creatinine Ratio Glucose POC Glucose 157 H 181 H Lactic Acid Calcium Phosphorus Urine Color Urine Turbidity Urine pH Ur Specific [place] Urine Protein Urine Glucose (UA) Urine Ketones Urine Blood Urine Nitrite Urine Bilirubin Urine Urobilinogen Ur Leukocyte Esterase Urine WBC (Auto) Urine RBC (Auto) U Epithel Cells (Auto) Triple Phos Crystals Urine Mucus 06/14/18 06/14/18 06/14/18 04:33 07:03 12:26 WBC RBC Hgb Hct MCV MCH MCHC RDW Plt Count Lymph % (Auto) [place] % (Auto) Eos % (Auto) Baso % (Auto) Lymph # [place] # Eos # Baso # Seg Neutrophils % Seg Neutrophils # Sodium 138 Potassium 4.9 Chloride 102.5 Carbon Dioxide 27 Anion Gap 13 BUN 32 H Creatinine 1.8 H Estimated GFR 48 BUN/Creatinine Ratio 18 Glucose 203 H POC Glucose 214 H 219 H Lactic Acid Calcium 9.0 Phosphorus Urine Color Urine Turbidity Urine pH Ur Specific [place] Urine Protein Urine Glucose (UA) Urine Ketones Urine Blood Urine Nitrite Urine Bilirubin Urine Urobilinogen Ur Leukocyte Esterase Urine WBC (Auto) Urine RBC (Auto) U Epithel Cells (Auto) Triple Phos Crystals Urine Mucus 06/14/18 06/14/18 12:50 Unknown WBC RBC Hgb Hct MCV MCH MCHC RDW Plt Count Lymph % (Auto) [place] % (Auto) Eos % (Auto) Baso % (Auto) Lymph # [place] # Eos # Baso # Seg Neutrophils % Seg Neutrophils # Sodium Potassium Chloride Carbon Dioxide Anion Gap BUN Creatinine Estimated GFR BUN/Creatinine Ratio Glucose POC Glucose Lactic Acid 1.10 Calcium Phosphorus Urine Color [place] Urine Turbidity Turbid Urine pH 8.0 H Ur Specific [place] 1.012 Urine Protein >500 Urine Glucose (UA) Neg Urine Ketones Neg Urine Blood Neg Urine Nitrite Neg Urine Bilirubin Neg Urine Urobilinogen 2.0 Ur Leukocyte Esterase Mod Urine WBC (Auto) 17.0 H Urine RBC (Auto) 12.0 U Epithel Cells (Auto) 12.0 Triple Phos Crystals 1+ Urine Mucus 1+ - Imaging and cardiology EKG: report reviewed, image reviewed (Sinus tach) Chest x-ray: report reviewed, image reviewed (RUL PNA) Abdominal x-ray: report reviewed, image reviewed (NEG for acute issue) Assessment and Plan A41.89 Sepsis/SIRS: Lactate 1.1. IV Abx and IVF started with monitoring of renal function. Blood cx pending. UTI and RUL PNA. Monitor for improvement and response to Abx. J18.9 PNA RUL: Rocephin started. Duonebs TID. IVF started at 75mL/hr. N39.0 UTI: Rocephin started. Condom cath d/c'd. Culture pending I69.353 Right non-dom hemiparesis: Monitor for neuro decline. Continue secondary stroke prevention. Discussed recovery and secondary stroke prevention. Monitor for post-stroke depression and s/s of shoulder-hand syndrome. Monitor for safety awareness I69.322 Dysarthria: KNIFE MACHINE OPERATOR for improvement in communication and speech I69.391 Dysphagia: KNIFE MACHINE OPERATOR to improve swallow function. Continue TF (at goal) with NPO. Monitor and advance diet as safely as able. FEES, MBSS or EStim as needed. Z73.6 ADL dysfunction: OT will work on improving ability to perform ADLs (including assistive devices) to increase independence and decrease caregiver burden and improve functional transfers and mobility training. R26.2 Difficulty walking: PT will work on gait training and proper use of assistive devices and advance as appropriate to use of stairs and outside ambulation on uneven surfaces. R26.81 Unsteadiness on feet: PT will work on improving static and dynamic sitting and standing balance as well as proper use of assistive devices to decrease risk of falls. R26.89 Abnormality of gait: PT will work to improve safety and efficiency of gait through neuromotor training and gait training along with instruction on proper use of assistive devices. Has prosthesis with him M62.81 Muscle weakness: PT & OT will work on strengthening exercises to improve functional strength including mixture of closed and open kinetic chain exercises. R53.81 Debility: PT & OT will work on improving overall functional status to improve participation with ADLs, mobility and social involvement. R53.83 Fatigue: PT & OT will work on improving endurance through aerobic exercises and therapeutic activity while monitoring patients tolerance for activity and vital signs as needed. I10 Hypertension: Adjust as needed. Avoid nephrotoxic meds E78.5 Hyperlipidemia: Continue Statin E11.8 Diabetes: Monitor D64.9 Anemia of chronic disease: Stable E87.6 Hypokalemia: Resolved, monitor labs Z89.511 R BKA: awaiting repair of prosthesis ELVIRA due to ATN at OSH but likely Acute on CKD per consult here DVT ppx: Heparin TID due to renal function GI ppx: Pepcid Pain: Continue physical modalities in therapy and pain medications as needed to achieve functional pain control. Sleep: Monitor and address as needed. Bowel: Monitor and address as needed. Appetite: Monitor and address as needed when able to take PO. Discharge planning: Pending therapy progress and care plan meeting. Will continue discussion with therapy team, SW, patient and family. Restrictions/ Precautions: Falls, aspiration WB status: FWB Functional Hx: ADLs: Independent and working Cognition: Independent Mobility: independent Consult: Hospitalists for medical management Nephrology for renal function Appreciate assistance. Barriers to Discharge: Decreased mobility and ability to perform self care, right sided weakness, balance deficits, dysphagia Estimated Length of Stay: 21 days Discharge Destination: Home with family if possible
[2018-06-14] MEDS ORDERED: NACL 0.9% 1000 ML 1,000 ML IV SCH (15:00)
[2018-06-14] MEDS ORDERED: ZOFRAN IV PRN (16:19)
--- NOTE | 2018-06-14 17:55 | Progress Note ---
Assessment and Plan Assessment and plan: CVA with residual right-sided hemiparesis, dysphagia on meds for secondary prevention Right BKA - Supportive care Hypertension -cont bp meds Diabetes mellitus - SSI - Uncontrolled, increase lantus dose ELVIRA/hypernatremia - improving on hypotonic IVF Hypokalemia -repleted, on K supplement Anemia of chronic illness stable, cont to monitor DVT prophylaxis - On heparin Patient's primary is Dr Erickson. History Interval history: Review of systems Constitutional: No fevers, no malaise, no joint pains CVS: No chest pain, no orthopnea, no dyspnea on exertion, no pedal edema GI: No abdominal pain, no diarrhea, no vomiting, no constipation Respiratory: No shortness of breath, no wheezing, no coughing Hospitalist Physical - Physical exam Narrative exam: General.: Appears well, no distress, nontoxic HEENT: Moist mucous membranes, extraocular muscles intact, no lymphadenopathy Neck: supple Cardiac: S1-S2 heard Lungs: clear to auscultation bilaterally Abdomen: soft , nontender, nondistended, bowel sounds positive Extremities: no edema clubbing or cyanosis Skin: no rash or lesions Neurologic: r hemiparesis Psych: calm, and cooperative - Constitutional Vitals: Temp Pulse Resp BP Pulse Ox 98.6 F 94 H 24 106/64 93 06/14/18 16:20 06/14/18 17:44 06/14/18 16:20 06/14/18 17:44 06/14/18 16:20 Results - Labs CBC & Chem 7: 06/16/18 05:13 06/16/18 05:13 Labs: Laboratory Last Values WBC 19.6 K/mm3 (4.5-11.0) H 06/14/18 04:33 RBC 2.98 M/mm3 (3.65-5.03) L 06/14/18 04:33 Hgb 8.7 gm/dl (11.8-15.2) L 06/14/18 04:33 Hct 26.6 % (35.5-45.6) L 06/14/18 04:33 MCV 89 fl (84-94) 06/14/18 04:33 MCH 29 pg (28-32) 06/14/18 04:33 MCHC 33 % (32-34) 06/14/18 04:33 RDW 14.7 % (13.2-15.2) 06/14/18 04:33 Plt Count 475 K/mm3 (140-440) H 06/14/18 04:33 Lymph % (Auto) 7.1 % (13.4-35.0) L 06/14/18 04:33 [place] % (Auto) 7.0 % (0.0-7.3) 06/14/18 04:33 Eos % (Auto) 0.9 % (0.0-4.3) 06/14/18 04:33 Baso % (Auto) 0.4 % (0.0-1.8) 06/14/18 04:33 Lymph # 1.4 K/mm3 (1.2-5.4) 06/14/18 04:33 [place] # 1.4 K/mm3 (0.0-0.8) H 06/14/18 04:33 Eos # 0.2 K/mm3 (0.0-0.4) 06/14/18 04:33 Baso # 0.1 K/mm3 (0.0-0.1) 06/14/18 04:33 Seg Neutrophils % 84.6 % (40.0-70.0) H 06/14/18 04:33 Seg Neutrophils # 16.6 K/mm3 (1.8-7.7) H 06/14/18 04:33 Sodium 138 mmol/L (137-145) 06/14/18 04:33 Potassium 4.9 mmol/L (3.6-5.0) 06/14/18 04:33 Chloride 102.5 mmol/L (98-107) 06/14/18 04:33 Carbon Dioxide 27 mmol/L (22-30) 06/14/18 04:33 Anion Gap 13 mmol/L 06/14/18 04:33 BUN 32 mg/dL (9-20) H 06/14/18 04:33 Creatinine 1.8 mg/dL (0.8-1.5) H 06/14/18 04:33 Estimated GFR 48 ml/min 06/14/18 04:33 BUN/Creatinine Ratio 18 % 06/14/18 04:33 Glucose 203 mg/dL (75-100) H 06/14/18 04:33 POC Glucose 183 (70-105) H 06/14/18 16:51 Lactic Acid 1.10 mmol/L (0.7-2.0) 06/14/18 12:50 Calcium 9.0 mg/dL (8.4-10.2) 06/14/18 04:33 Phosphorus 3.20 mg/dL (2.5-4.5) 06/13/18 04:53 Magnesium 2.10 mg/dL (1.7-2.3) 06/07/18 05:15 Iron 33 ug/dL (49-181) L 06/08/18 06:00 TIBC 189 mcg/dL (250-450) L 06/08/18 06:00 Ferritin 1111.0 ng/mL (13.0-400.0) H 06/08/18 06:00 Prealbumin 0.230 g/L (0.200-0.400) 06/03/18 19:51 Urine Color [place] (Yellow) 06/14/18 Unknown Urine Turbidity Turbid (Clear) 06/14/18 Unknown Urine pH 8.0 (5.0-7.0) H 06/14/18 Unknown Ur Specific [place] 1.012 (1.003-1.030) 06/14/18 Unknown Urine Protein >500 mg/dL (Negative) 06/14/18 Unknown Urine Glucose (UA) Neg mg/dL (Negative) 06/14/18 Unknown Urine Ketones Neg mg/dL (Negative) 06/14/18 Unknown Urine Blood Neg (Negative) 06/14/18 Unknown Urine Nitrite Neg (Negative) 06/14/18 Unknown Urine Bilirubin Neg (Negative) 06/14/18 Unknown Urine Urobilinogen 2.0 mg/dL (<2.0) 06/14/18 Unknown Ur Leukocyte Esterase Mod (Negative) 06/14/18 Unknown Urine WBC (Auto) 17.0 /HPF (0.0-6.0) H 06/14/18 Unknown Urine RBC (Auto) 12.0 /HPF (0.0-6.0) 06/14/18 Unknown U Epithel Cells (Auto) 12.0 /HPF (0-13.0) 06/14/18 Unknown Triple Phos Crystals 1+ 06/14/18 Unknown Urine Mucus 1+ /HPF 06/14/18 Unknown Urine Eosinophils None seen (None Seen) 06/08/18 09:55 Urine Creatinine 140.4 mg/dL (0.1-20.0) H 06/08/18 09:55 Protein/Creatinin Ratio 0.26 06/08/18 09:55 Urine Sodium 45 mmol/L 06/08/18 09:55 Urine Total Protein 36 mg/dL (5-11.8) H 06/08/18 09:55 Nutrition/Malnutrition Assess - Dietary Evaluation Nutrition/Malnutrition Findings: Nutrition Notes Start: 06/04/18 11:20 Freq: Status: Active Protocol: Document 06/13/18 14:54 RM (Rec: 06/13/18 14:56 RM [id number]) Nutrition Notes Initial or Follow up Brief Note Current Diagnosis Acute Kidney Injury CKD(stage I-IV) Diabetes Hypertension Stroke Hyperlipidemia Current Diet Glucerna 1.2 at 50 ml/hr Subjective/Other Information Pt using bathroom at time of visit. Observed Glucerna 1.2 hanging next to bed. Per nurse TF was clamped for PT but pt was tolerating TF at goal. Nutrition Intervention Follow-Up By: 06/18/18 Additional Comments Follow for TF tolerance
--- NOTE | 2018-06-14 17:55 | Progress Note ---
Assessment and Plan Assessment and plan: Pneumonia; nosocomial acquired I have changed antibiotics from Rocephin and azithromycin to cefepime. CVA with residual right-sided hemiparesis, dysphagia on meds for secondary prevention Right BKA - Supportive care Hypertension -cont bp meds Diabetes mellitus - SSI - Uncontrolled, increase lantus dose ELVIRA/hypernatremia - improving on hypotonic IVF Hypokalemia -repleted, on K supplement Anemia of chronic illness stable, cont to monitor DVT prophylaxis - On heparin Patient's primary is Dr Erickson. History Interval history: Review of systems Constitutional: has had fevers, no malaise, no joint pains CVS: No chest pain, no orthopnea, no dyspnea on exertion, no pedal edema GI: No abdominal pain, no diarrhea, no vomiting, no constipation Respiratory: No shortness of breath, no wheezing, no coughing Hospitalist Physical - Physical exam Narrative exam: General.: Appears well, no distress, nontoxic HEENT: Moist mucous membranes, extraocular muscles intact, no lymphadenopathy Neck: supple Cardiac: S1-S2 heard Lungs: Diminished air entry at the bases Abdomen: soft , nontender, nondistended, bowel sounds positive Extremities: no edema clubbing or cyanosis Skin: no rash or lesions Neurologic: r hemiparesis Psych: calm, and cooperative - Constitutional Vitals: Temp Pulse Resp BP Pulse Ox 98.6 F 94 H 24 106/64 93 06/14/18 16:20 06/14/18 17:44 06/14/18 16:20 06/14/18 17:44 06/14/18 16:20 Results - Labs CBC & Chem 7: 06/16/18 05:13 06/16/18 05:13 Labs: Laboratory Last Values WBC 19.6 K/mm3 (4.5-11.0) H 06/14/18 04:33 RBC 2.98 M/mm3 (3.65-5.03) L 06/14/18 04:33 Hgb 8.7 gm/dl (11.8-15.2) L 06/14/18 04:33 Hct 26.6 % (35.5-45.6) L 06/14/18 04:33 MCV 89 fl (84-94) 06/14/18 04:33 MCH 29 pg (28-32) 06/14/18 04:33 MCHC 33 % (32-34) 06/14/18 04:33 RDW 14.7 % (13.2-15.2) 06/14/18 04:33 Plt Count 475 K/mm3 (140-440) H 06/14/18 04:33 Lymph % (Auto) 7.1 % (13.4-35.0) L 06/14/18 04:33 [place] % (Auto) 7.0 % (0.0-7.3) 06/14/18 04:33 Eos % (Auto) 0.9 % (0.0-4.3) 06/14/18 04:33 Baso % (Auto) 0.4 % (0.0-1.8) 06/14/18 04:33 Lymph # 1.4 K/mm3 (1.2-5.4) 06/14/18 04:33 [place] # 1.4 K/mm3 (0.0-0.8) H 06/14/18 04:33 Eos # 0.2 K/mm3 (0.0-0.4) 06/14/18 04:33 Baso # 0.1 K/mm3 (0.0-0.1) 06/14/18 04:33 Seg Neutrophils % 84.6 % (40.0-70.0) H 06/14/18 04:33 Seg Neutrophils # 16.6 K/mm3 (1.8-7.7) H 06/14/18 04:33 Sodium 138 mmol/L (137-145) 06/14/18 04:33 Potassium 4.9 mmol/L (3.6-5.0) 06/14/18 04:33 Chloride 102.5 mmol/L (98-107) 06/14/18 04:33 Carbon Dioxide 27 mmol/L (22-30) 06/14/18 04:33 Anion Gap 13 mmol/L 06/14/18 04:33 BUN 32 mg/dL (9-20) H 06/14/18 04:33 Creatinine 1.8 mg/dL (0.8-1.5) H 06/14/18 04:33 Estimated GFR 48 ml/min 06/14/18 04:33 BUN/Creatinine Ratio 18 % 06/14/18 04:33 Glucose 203 mg/dL (75-100) H 06/14/18 04:33 POC Glucose 183 (70-105) H 06/14/18 16:51 Lactic Acid 1.10 mmol/L (0.7-2.0) 06/14/18 12:50 Calcium 9.0 mg/dL (8.4-10.2) 06/14/18 04:33 Phosphorus 3.20 mg/dL (2.5-4.5) 06/13/18 04:53 Magnesium 2.10 mg/dL (1.7-2.3) 06/07/18 05:15 Iron 33 ug/dL (49-181) L 06/08/18 06:00 TIBC 189 mcg/dL (250-450) L 06/08/18 06:00 Ferritin 1111.0 ng/mL (13.0-400.0) H 06/08/18 06:00 Prealbumin 0.230 g/L (0.200-0.400) 06/03/18 19:51 Urine Color [place] (Yellow) 06/14/18 Unknown Urine Turbidity Turbid (Clear) 06/14/18 Unknown Urine pH 8.0 (5.0-7.0) H 06/14/18 Unknown Ur Specific [place] 1.012 (1.003-1.030) 06/14/18 Unknown Urine Protein >500 mg/dL (Negative) 06/14/18 Unknown Urine Glucose (UA) Neg mg/dL (Negative) 06/14/18 Unknown Urine Ketones Neg mg/dL (Negative) 06/14/18 Unknown Urine Blood Neg (Negative) 06/14/18 Unknown Urine Nitrite Neg (Negative) 06/14/18 Unknown Urine Bilirubin Neg (Negative) 06/14/18 Unknown Urine Urobilinogen 2.0 mg/dL (<2.0) 06/14/18 Unknown Ur Leukocyte Esterase Mod (Negative) 06/14/18 Unknown Urine WBC (Auto) 17.0 /HPF (0.0-6.0) H 06/14/18 Unknown Urine RBC (Auto) 12.0 /HPF (0.0-6.0) 06/14/18 Unknown U Epithel Cells (Auto) 12.0 /HPF (0-13.0) 06/14/18 Unknown Triple Phos Crystals 1+ 06/14/18 Unknown Urine Mucus 1+ /HPF 06/14/18 Unknown Urine Eosinophils None seen (None Seen) 06/08/18 09:55 Urine Creatinine 140.4 mg/dL (0.1-20.0) H 06/08/18 09:55 Protein/Creatinin Ratio 0.26 06/08/18 09:55 Urine Sodium 45 mmol/L 06/08/18 09:55 Urine Total Protein 36 mg/dL (5-11.8) H 06/08/18 09:55 Nutrition/Malnutrition Assess - Dietary Evaluation Nutrition/Malnutrition Findings: Nutrition Notes Start: 06/04/18 11:20 Freq: Status: Active Protocol: Document 06/13/18 14:54 RM (Rec: 06/13/18 14:56 RM [id number]) Nutrition Notes Initial or Follow up Brief Note Current Diagnosis Acute Kidney Injury CKD(stage I-IV) Diabetes Hypertension Stroke Hyperlipidemia Current Diet Glucerna 1.2 at 50 ml/hr Subjective/Other Information Pt using bathroom at time of visit. Observed Glucerna 1.2 hanging next to bed. Per nurse TF was clamped for PT but pt was tolerating TF at goal. Nutrition Intervention Follow-Up By: 06/18/18 Additional Comments Follow for TF tolerance
[2018-06-14] MEDS: LANTUS SUB-Q SCH (21:00)
[2018-06-14] MEDS: DUONEB *Not for PRN Use IH SCH (21:24)
[2018-06-14] MEDS: MAXIPIME/NS 1 GM/100 ML 1 GM/100 ML BAG IV SCH (22:22)
[2018-06-15] MEDS: HEPARIN SUB-Q SCH ×3 (05:37→21:18)
[2018-06-15] MEDS: MAXIPIME/NS 1 GM/100 ML 1 GM/100 ML BAG IV SCH (05:38)
[2018-06-15] MEDS: LOPRESSOR FEEDTUBE SCH ×3 (05:47→18:32)
[2018-06-15] MEDS: APRESOLINE FEEDTUBE SCH ×3 (06:00→21:35)
[2018-06-15] MEDS: HumaLOG SUB-Q SCH ×4 (07:00→23:18)
[2018-06-15 07:32] LABS: Calcium 8.7 mg/dL (8.4-10.2)
[2018-06-15 07:33] LABS: Basophils # (Auto) 0.1 K/mm3 (0.0-0.1); Basophils % (Auto) 0.4 % (0.0-1.8); Eosinophils # (Auto) 0.2 K/mm3 (0.0-0.4); Eosinophils % (Auto) 1.1 % (0.0-4.3); Hematocrit 23.9 % (35.5-45.6); Hemoglobin 7.8 gm/dl (11.8-15.2); Lymphocytes % (Auto) 6.4 % (13.4-35.0); Mean Corpuscular HGB Conc 33 % (32-34); Mean Corpuscular Volume 91 fl (84-94); Monocytes % (Auto) 6.3 % (0.0-7.3); Platelet Count 350 K/mm3 (140-440); Red Blood Count 2.63 M/mm3 (3.65-5.03); Red Cell Distribution Width 15.4 % (13.2-15.2)
--- NOTE | 2018-06-15 07:43 | Progress Note ---
Assessment and Plan Assessment and plan: Pneumonia; nosocomial acquired I have changed antibiotics from Rocephin and azithromycin to cefepime. However Dr. Erickson continued to change it, Rocephin and azithromycin combination is not appropriate for nosocomial acquired pneumonia. Fecal impaction/intractable nausea vomiting Have put patient nothing by mouth, enema has been ordered, discussed with the nurse CVA with residual right-sided hemiparesis, dysphagia on meds for secondary prevention Right BKA - Supportive care Hypertension -cont bp meds Diabetes mellitus - SSI - Uncontrolled, increase lantus dose ELVIRA/hypernatremia - improving on hypotonic IVF, Nephrology on board Hypokalemia -repleted, on K supplement Anemia of chronic illness stable, cont to monitor DVT prophylaxis - On heparin Patient's primary is Dr Erickson. History Interval history: Review of systems Constitutional: has had fevers, no malaise, no joint pains CVS: No chest pain, no orthopnea, no dyspnea on exertion, no pedal edema GI: Patient was vomiting. The substance he was vomiting was consistent with his tube feeding last night. This morning he started vomiting dark substance Respiratory: No shortness of breath, no wheezing, no coughing Hospitalist Physical - Physical exam Narrative exam: General.: Appears well, no distress, nontoxic HEENT: Moist mucous membranes, extraocular muscles intact, no lymphadenopathy Neck: supple Cardiac: S1-S2 heard Lungs: Diminished air entry at the bases Abdomen: belly is soft, but slightly distended Extremities: no edema clubbing or cyanosis Skin: no rash or lesions Neurologic: r hemiparesis Psych: calm, and cooperative - Constitutional Vitals: Temp Pulse Resp BP Pulse Ox 98.3 F 106 H 19 115/72 95 06/15/18 04:41 06/15/18 05:47 06/15/18 04:41 06/15/18 05:47 06/15/18 04:41 Results - Labs CBC & Chem 7: 06/16/18 05:13 06/16/18 05:13 Labs: Laboratory Last Values WBC 16.0 K/mm3 (4.5-11.0) H 06/15/18 06:56 RBC 2.63 M/mm3 (3.65-5.03) L 06/15/18 06:56 Hgb 7.8 gm/dl (11.8-15.2) L 06/15/18 06:56 Hct 23.9 % (35.5-45.6) L 06/15/18 06:56 MCV 91 fl (84-94) 06/15/18 06:56 MCH 30 pg (28-32) 06/15/18 06:56 MCHC 33 % (32-34) 06/15/18 06:56 RDW 15.4 % (13.2-15.2) H 06/15/18 06:56 Plt Count 350 K/mm3 (140-440) 06/15/18 06:56 Lymph % (Auto) 6.4 % (13.4-35.0) L 06/15/18 06:56 [place] % (Auto) 6.3 % (0.0-7.3) 06/15/18 06:56 Eos % (Auto) 1.1 % (0.0-4.3) 06/15/18 06:56 Baso % (Auto) 0.4 % (0.0-1.8) 06/15/18 06:56 Lymph # 1.0 K/mm3 (1.2-5.4) L 06/15/18 06:56 [place] # 1.0 K/mm3 (0.0-0.8) H 06/15/18 06:56 Eos # 0.2 K/mm3 (0.0-0.4) 06/15/18 06:56 Baso # 0.1 K/mm3 (0.0-0.1) 06/15/18 06:56 Seg Neutrophils % 85.8 % (40.0-70.0) H 06/15/18 06:56 Seg Neutrophils # 13.8 K/mm3 (1.8-7.7) H 06/15/18 06:56 Sodium 138 mmol/L (137-145) 06/15/18 06:56 Potassium 4.8 mmol/L (3.6-5.0) 06/15/18 06:56 Chloride 100.8 mmol/L (98-107) 06/15/18 06:56 Carbon Dioxide 25 mmol/L (22-30) 06/15/18 06:56 Anion Gap 17 mmol/L 06/15/18 06:56 BUN 41 mg/dL (9-20) H 06/15/18 06:56 Creatinine 2.6 mg/dL (0.8-1.5) H 06/15/18 06:56 Estimated GFR 31 ml/min 06/15/18 06:56 BUN/Creatinine Ratio 16 % 06/15/18 06:56 Glucose 172 mg/dL (75-100) H 06/15/18 06:56 POC Glucose 177 (70-105) H 06/15/18 06:24 Lactic Acid 1.10 mmol/L (0.7-2.0) 06/14/18 12:50 Calcium 8.7 mg/dL (8.4-10.2) 06/15/18 06:56 Phosphorus 3.20 mg/dL (2.5-4.5) 06/13/18 04:53 Magnesium 2.10 mg/dL (1.7-2.3) 06/07/18 05:15 Iron 33 ug/dL (49-181) L 06/08/18 06:00 TIBC 189 mcg/dL (250-450) L 06/08/18 06:00 Ferritin 1111.0 ng/mL (13.0-400.0) H 06/08/18 06:00 Prealbumin 0.230 g/L (0.200-0.400) 06/03/18 19:51 Urine Color [place] (Yellow) 06/14/18 Unknown Urine Turbidity Turbid (Clear) 06/14/18 Unknown Urine pH 8.0 (5.0-7.0) H 06/14/18 Unknown Ur Specific [place] 1.012 (1.003-1.030) 06/14/18 Unknown Urine Protein >500 mg/dL (Negative) 06/14/18 Unknown Urine Glucose (UA) Neg mg/dL (Negative) 06/14/18 Unknown Urine Ketones Neg mg/dL (Negative) 06/14/18 Unknown Urine Blood Neg (Negative) 06/14/18 Unknown Urine Nitrite Neg (Negative) 06/14/18 Unknown Urine Bilirubin Neg (Negative) 06/14/18 Unknown Urine Urobilinogen 2.0 mg/dL (<2.0) 06/14/18 Unknown Ur Leukocyte Esterase Mod (Negative) 06/14/18 Unknown Urine WBC (Auto) 17.0 /HPF (0.0-6.0) H 06/14/18 Unknown Urine RBC (Auto) 12.0 /HPF (0.0-6.0) 06/14/18 Unknown U Epithel Cells (Auto) 12.0 /HPF (0-13.0) 06/14/18 Unknown Triple Phos Crystals 1+ 06/14/18 Unknown Urine Mucus 1+ /HPF 06/14/18 Unknown Urine Eosinophils None seen (None Seen) 06/08/18 09:55 Urine Creatinine 140.4 mg/dL (0.1-20.0) H 06/08/18 09:55 Protein/Creatinin Ratio 0.26 06/08/18 09:55 Urine Sodium 45 mmol/L 06/08/18 09:55 Urine Total Protein 36 mg/dL (5-11.8) H 06/08/18 09:55 Nutrition/Malnutrition Assess - Dietary Evaluation Nutrition/Malnutrition Findings: Nutrition Notes Start: 06/04/18 11:20 Freq: Status: Active Protocol: Document 06/13/18 14:54 RM (Rec: 06/13/18 14:56 RM [id number]) Nutrition Notes Initial or Follow up Brief Note Current Diagnosis Acute Kidney Injury CKD(stage I-IV) Diabetes Hypertension Stroke Hyperlipidemia Current Diet Glucerna 1.2 at 50 ml/hr Subjective/Other Information Pt using bathroom at time of visit. Observed Glucerna 1.2 hanging next to bed. Per nurse TF was clamped for PT but pt was tolerating TF at goal. Nutrition Intervention Follow-Up By: 06/18/18 Additional Comments Follow for TF tolerance
[2018-06-15] MEDS ORDERED: PHENERGAN PR PRN (08:32)
[2018-06-15] MEDS: DUONEB *Not for PRN Use IH SCH ×3 (08:33→19:17)
[2018-06-15 08:46] LABS: Basophils # (Auto) 0.1 K/mm3 (0.0-0.1); Basophils % (Auto) 0.4 % (0.0-1.8); Eosinophils # (Auto) 0.2 K/mm3 (0.0-0.4); Eosinophils % (Auto) 1.1 % (0.0-4.3); Hematocrit 25.3 % (35.5-45.6); Hemoglobin 8.1 gm/dl (11.8-15.2); Lymphocytes # (Auto) 1.1 K/mm3 (1.2-5.4); Lymphocytes % (Auto) 6.8 % (13.4-35.0); Mean Corpuscular HGB Conc 32 % (32-34); Mean Corpuscular Volume 91 fl (84-94); Monocytes % (Auto) 6.4 % (0.0-7.3); Platelet Count 387 K/mm3 (140-440); Red Blood Count 2.78 M/mm3 (3.65-5.03); Red Cell Distribution Width 15.5 % (13.2-15.2)
[2018-06-15] MEDS: PLAVIX FEEDTUBE SCH (08:51)
[2018-06-15] MEDS: PEPCID FEEDTUBE SCH ×2 (08:51→21:35)
[2018-06-15] MEDS: ASPIRIN FEEDTUBE SCH (08:51)
[2018-06-15] MEDS: COLACE FEEDTUBE SCH ×2 (08:51→21:35)
--- NOTE | 2018-06-15 10:48 | XRay Report ---
FINAL REPORT EXAM: XR ABDOMEN 1V AP HISTORY: fecaloid vomiting TECHNIQUE: KUB was performed Comparison: 06/14/2018 FINDINGS: A PEG tube is present with the balloon inflated in the left upper quadrant. It unknown whether it is within the gastric lumen or elsewhere. There is diffuse fecal retention. There is bilateral basal con solidation in the lungs. IMPRESSION: Diffuse fecal retention.No upright was performed to assess for free air. Peg tube is present. To confirm its tip location, consider injection of contrast and performing KUB o r cross-sectional imaging. Bibilateral basal disease in the lungs. Clips right mid abdomen.
[2018-06-15] MEDS: REGLAN IV SCH ×2 (11:17→21:37)
[2018-06-15] MEDS: PROCRIT SUB-Q SCH (11:18)
--- NOTE | 2018-06-15 12:04 | Consultation ---
History of Present Illness - Reason for Consult Consult date: 06/15/18 Sepsis Requesting physician: LUIS A ISLAS III - History of Present Illness This felicitastruth is a 53 year old male with a past medical history of CVA, hypertension, DM and CKD that was admitted to acute rehabilitation from [facility] for acute right-sided weakness on secondary prevention of stroke. He was admitted to [facility] on 06/04/2018 for management of high blood pressure and diabet es. On admission, labs and vital signs were stable. On 06/14/18 , WBC 19.6, Creatinine 2.6, lactic acid 8.7, Highest temperature 102.8, HR 116, BP 134/85, U/A was consistent with a UTI, Chest xray on 06/07/18 sowed no consolidation, however repeat chest xray on 06/14/18 showed right upper lobe pneumonia. Blood cultures were drawn and show no growth in 24 hours, Stool cultures are positive and Urine culture shows 10-100,00 CFU/ml of a mixed culture greater than 2 organisms. Hence, infectious disease was consulted. Review of Systems: General: + fevers, no chills no rigors HEENT: no new visual disturbance Respiratory: + cough, no sputum, hemoptysis or shortness of breath Cardiovascular: No chest pain, syncope Gastrointestinal: No nausea, vomiting. Chronic diarrhea , + PEG tube Genitourinary: No dysuria or hematuria Musculoskeletal: No new or worsening neck pain or back pain Neurologic: No headaches, seizures Hematologic: No easy bruising or bleeding Endocrine: No night sweats. no acute weight loss Musculoskeletal: +right BKA Skin: negative for rash, jaundice, + dry skin Psychiatric: No suicidal or homicidal ideation Past History Past Medical History: diabetes, hypertension, hyperlipidemia Past Surgical History: Other (R BKA) Social history: single, Lives alone, full code, other (Former Tobacco, Current EtOH, Denies illicit. Lives in 1 story home, Independent, driving and working.) Family history: diabetes, hypertension, stroke Medications and Allergies Allergies Allergy/AdvReac Type Severity Reaction Status Date / Time No Known Allergies Allergy Unverified 08/03/15 12:32 Home Medications Medication Instructions Recorded Confirmed Last Taken Type Aspirin [Aspirin BABY CHEW TAB] 81 mg PO QDAY 08/04/15 06/05/18 Unknown History Insulin Detemir [Levemir Flextouch] 35 unit SQ BID 08/04/15 06/05/18 Unknown History NIFEdipine XL [Procardia Xl] 60 mg PO QDAY 08/04/15 06/05/18 Unknown History Simvastatin [Zocor TAB] 40 mg PO QHS 08/04/15 06/05/18 Unknown History Sitagliptin/Metformin (Nf) 1 each PO BID 08/04/15 06/05/18 Unknown History [Janumet 50-1,000 mg (Nf)] Sulfamethoxazole/Trimethoprim 1 each PO BID #14 tablet 08/04/15 06/05/18 Unknown Rx [Bactrim DS TAB] Active Meds: Active Medications Acetaminophen/Hydrocodone Bitart ([place] 5/325) 1 each PO Q6H PRN PRN Reason: Pain, Moderate (4-6) Last Admin: 06/14/18 22:27 Dose: 1 each Documented by: Albuterol/Ipratropium (Duoneb *Not For Prn Use*) 1 ampul IH TIDRT [facility] Stop: 06/18/18 19:59 Last Admin: 06/15/18 08:33 Dose: Not Given Documented by: Lipase/Protease/Amylase (Pancre[place] Dr 10,500 Unit) 1 each FEEDTUBE PRN PRN PRN Reason: For Clogged Feeding Tube Aspirin (Aspirin) 325 mg FEEDTUBE QDAY [facility] Last Admin: 06/15/18 08:51 Dose: Not Given Documented by: Atorvastatin Calcium (Lipitor) 40 mg FEEDTUBE QHS [facility] Last Admin: 06/14/18 21:00 Dose: 40 mg Documented by: Clopidogrel Bisulfate (Plavix) 75 mg FEEDTUBE QDAY [facility] Last Admin: 06/15/18 08:51 Dose: Not Given Documented by: Dextrose (D50w (25gm) Syringe) 50 ml IV PRN PRN PRN Reason: Hypoglycemia Docusate Sodium (Colace) 100 mg FEEDTUBE BID [facility] Last Admin: 06/15/18 08:51 Dose: Not Given Documented by: Epoetin Abhijeet (Procrit) 10,000 unit SUB-Q Webb [facility] Last Admin: 06/15/18 11:18 Dose: 10,000 unit Documented by: Famotidine (Pepcid) 10 mg FEEDTUBE BID [facility] Last Admin: 06/15/18 08:51 Dose: Not Given Documented by: Heparin Sodium (Porcine) (Heparin) 5,000 unit SUB-Q Q8HR [facility] Last Admin: 06/15/18 05:37 Dose: 5,000 unit Documented by: Hydralazine HCl (Apresoline) 25 mg FEEDTUBE Q8HR [facility] Last Admin: 06/15/18 06:00 Dose: Not Given Documented by: Sodium Chloride (Nacl 0.45% 1000 Ml) 1,000 mls @ 100 mls/hr IV DIRECT JONO Cefepime HCl (Maxipime/Ns 1 Gm/100 Ml) 1 gm in 100 mls @ 200 mls/hr IV Q12H [facility]; Protocol Insulin Glargine (Lantus) 20 units SUB-Q QHS [facility] Last Admin: 06/14/18 21:00 Dose: 20 units Documented by: Insulin Human Lispro (Humalog) 0 unit SUB-Q ACHS JONO; Protocol Last Admin: 06/15/18 11:31 Dose: Not Given Documented by: Metoclopramide HCl (Reglan) 10 mg IV Q8H [facility] Stop: 06/18/18 10:59 Last Admin: 06/15/18 11:17 Dose: 10 mg Documented by: Metoprolol Tartrate (Lopressor) 50 mg FEEDTUBE Q8H [facility] Last Admin: 06/15/18 10:52 Dose: Not Given Documented by: Ondansetron HCl (Zofran) 4 mg IV Q6H PRN PRN Reason: Nausea And Vomiting Last Admin: 06/14/18 16:47 Dose: 4 mg Documented by: Phenyleph/Shark Oil/Min Oil/Petrol (Preparation H) 1 applic DC Q6HR PRN PRN Reason: Hemorrhoids Polyethylene Glycol (Miralax 3350) 17 gm FEEDTUBE QDAY PRN PRN Reason: Constipation Last Admin: 06/09/18 18:33 Dose: 17 gm Documented by: Promethazine HCl (Phenergan) 25 mg DC Q6H PRN PRN Reason: Nausea And Vomiting Simple Syrup (Simple Syrup) 15 ml FEEDTUBE PRN PRN PRN Reason: Hypoglycemia Simple Syrup (Simple Syrup) 30 ml FEEDTUBE PRN PRN PRN Reason: Hypoglycemia Sodium Bicarbonate (Sodium Bicarbonate) 325 mg FEEDTUBE PRN PRN PRN Reason: For Clogged Feeding Tube Physical Examination - Physical Exam Narrative exam: Constitutional: Asleep, easily arousble cooperative. No acute distress Head, Ears, Nose: Normocephalic, atraumatic. External ears, nose normal Eyes: Conjunctivae/corneas clear. No icterus. No ptosis. Neck: Supple, no meningeal signs Oral: dentition poor. no thrush. Cardiovascular: S1, S2 normal. Respiratory: Good air entry, clear to auscultation bilaterally GI: Soft, non-tender; bowel sounds normal. No peritoneal signs, + peg Musculoskeletal: No pedal edema, no cyanosis, + BKA. Skin: No rash or abscess. Dry skin Hem/Lymphatic: No palpable cervical or supraclavicular nodes. No lymphangitis Psych: Mood ok. Affect normal Neurological: Awake, alert, oriented. - Constitutional Vitals: Vital Signs Temp Pulse Resp BP Pulse Ox 101.9 F H 121 H 21 121/72 93 06/15/18 08:39 06/15/18 08:39 06/15/18 08:39 06/15/18 08:39 06/15/18 08:39 Temperature -Last 24 Hours Temperature 101.9 F Temperature 99.7 F Temperature 98.3 F Temperature 98.2 F Temperature 100.3 F Temperature 100.8 F Temperature 98.6 F Temperature 100.2 F Temperature 102.8 F Results - Labs CBC & Chem 7: 06/15/18 08:39 06/15/18 06:56 Labs: Abnormal lab results 06/14/18 06/14/18 06/14/18 Range/Units 12:26 16:51 23:26 WBC (4.5-11.0) K/mm3 RBC (3.65-5.03) M/mm3 Hgb (11.8-15.2) gm/dl Hct (35.5-45.6) % RDW (13.2-15.2) % Lymph % (Auto) (13.4-35.0) % Lymph # (1.2-5.4) K/mm3 [place] # (0.0-0.8) K/mm3 Seg Neutrophils % (40.0-70.0) % Seg Neutrophils # (1.8-7.7) K/mm3 BUN (9-20) mg/dL Creatinine (0.8-1.5) mg/dL Glucose (75-100) mg/dL POC Glucose 219 H 183 H 234 H (70-105) 06/15/18 06/15/18 06/15/18 Range/Units 06:24 06:56 06:56 WBC 16.0 H (4.5-11.0) K/mm3 RBC 2.63 L (3.65-5.03) M/mm3 Hgb 7.8 L (11.8-15.2) gm/dl Hct 23.9 L (35.5-45.6) % RDW 15.4 H (13.2-15.2) % Lymph % (Auto) 6.4 L (13.4-35.0) % Lymph # 1.0 L (1.2-5.4) K/mm3 [place] # 1.0 H (0.0-0.8) K/mm3 Seg Neutrophils % 85.8 H (40.0-70.0) % Seg Neutrophils # 13.8 H (1.8-7.7) K/mm3 BUN 41 H (9-20) mg/dL Creatinine 2.6 H (0.8-1.5) mg/dL Glucose 172 H (75-100) mg/dL POC Glucose 177 H (70-105) 06/15/18 06/15/18 Range/Units 08:39 11:24 WBC 16.2 H (4.5-11.0) K/mm3 RBC 2.78 L (3.65-5.03) M/mm3 Hgb 8.1 L (11.8-15.2) gm/dl Hct 25.3 L (35.5-45.6) % RDW 15.5 H (13.2-15.2) % Lymph % (Auto) 6.8 L (13.4-35.0) % Lymph # 1.1 L (1.2-5.4) K/mm3 [place] # 1.0 H (0.0-0.8) K/mm3 Seg Neutrophils % 85.3 H (40.0-70.0) % Seg Neutrophils # 13.8 H (1.8-7.7) K/mm3 BUN (9-20) mg/dL Creatinine (0.8-1.5) mg/dL Glucose (75-100) mg/dL POC Glucose 187 H (70-105) Assessment and Plan Cultures 06/07/2018 Stool:OccultBlood: positive 06/14/2018: Blood: no growth to date 06/14/2018: Urine: 10-10,00 CFU/ml of a mixed culture greater than 2 organisms A/P: 53--year-old male medical history of CVA, hypertension, DM and CKD that was admitted to acute rehabilitation from [facility] for acute right-sided weakness on secondary prevention of stroke. He was admitted to [facility] on 06/04/2018 for management of high blood pressure and diabetes. On admission, labs and vital stable, now with: 1. Sepsis: evidenced by leukocytosis, temperature, tachycardia and lactic acid, etiology most likely RUL pneumonia, borderline pyuria in U/A ?UTI seems less likely. Urine cultures show mixed cuture greater than 2 organisms. Blood cultures show no growth thus far. Currently being treated with Cefepime. 2. Acute respiratory failure secondary to RUL Pneumonia: HCAP v/s aspiration, likely latter. Chest xray reveals a right upper lobe Pneumonia on 06/14/18, +/- aspiration pneumonia. On admission 06/07/18 chest xray showed no infiltrates.. Admitted from rehabilitation facility for BP control. 3. UTI: borderline pyuria in U/A ?UTI seems less likely. Urine cultures show mixed culture greater than 2 organisms. Continue abx anyways as above. 4. ELVIRA on CKD: antimicrobials renally dosed. Nephrology following 5. Type 2 Diabetes: uncontrolled 6. Right BKA 7. CVA with residual right-sided hemiparesis Plan: -f/u blood cultures -discontinue Cefepime -Start Ceftriaxone and Flagyl - [facility] M: [phone] O:[phone]
--- NOTE | 2018-06-15 15:32 | Progress Note ---
Assessment and Plan Acute Renal Failure secondary to Ischemic ATN on likely CKD from Hypertension: -Renal function reviewed, SCr level was 2.6 today, yesterday's SCr level was 1.8 -Started on 0.45% NS infusion at 100 ml/hr -Renally dose meds -Avoid nephrotoxic agents -Renal plan d/w Dr Park Anemia in CKD - Epogen dosing for anemia management Acute CVA: -On ASA, plavix and statin -Rehab therapy Right Upper Lobe Pneumonia: - Started on rocephin - As per primary Essential Hypertension: -Adjust meds as needed Diabetes Mellitus Type 2 on insulin: -On Insulin Oropharyngeal Dysphagia: -PEG Tube feedings stopped on 06/14/18 due to vomiting Subjective Date of service: 06/15/18 Principal diagnosis: CVA, Acute on CKD Interval history: Pt seen in bed, denies shortness of breath, PEG tube feedings off since yesterday due to vomiting, no acute distress. No family at bedside Objective - Vital Signs Vital signs: Vital Signs - 12hr 06/15/18 06/15/18 06/15/18 04:26 04:34 04:41 Temperature 100.3 F H 98.2 F 98.3 F Pulse Rate 115 H 106 H 75 Pulse Rate [ Anterior Bilateral Throughout] Respiratory 20 19 19 Rate Respiratory Rate [Anterior Bilateral Throughout] Blood Pressure 115/72 98/58 116/69 O2 Sat by Pulse 92 95 95 Oximetry 06/15/18 06/15/18 06/15/18 05:47 06:00 07:39 Temperature 99.7 F H Pulse Rate 106 H 86 117 H Pulse Rate [ Anterior Bilateral Throughout] Respiratory 20 Rate Respiratory Rate [Anterior Bilateral Throughout] Blood Pressure 115/72 115/72 123/82 O2 Sat by Pulse 100 Oximetry 06/15/18 06/15/18 06/15/18 08:35 08:39 11:22 Temperature 101.9 F H 99.2 F Pulse Rate 121 H 118 H Pulse Rate [ Anterior Bilateral Throughout] Respiratory 21 20 Rate Respiratory Rate [Anterior Bilateral Throughout] Blood Pressure 121/72 116/68 O2 Sat by Pulse 92 93 93 Oximetry 06/15/18 06/15/18 14:37 14:47 Temperature Pulse Rate Pulse Rate [ 115 H 118 H Anterior Bilateral Throughout] Respiratory Rate Respiratory 16 16 Rate [Anterior Bilateral Throughout] Blood Pressure O2 Sat by Pulse Oximetry - General Appearance General appearance: well-developed EENT: ATNC Neck: no JVD Respiratory: Present: Decreased Breath Sounds Cardiology: regular, S1S2 Gastrointestinal: normoactive bowel sounds (PEG tube intact) Integumentary: warm and dry Neurologic: alert and oriented x3 Musculoskeletal: other (Right BKA; no edema to left lower extremity) Psychiatric: cooperative - Lab 06/15/18 08:39 06/15/18 06:56 Most recent lab results Calcium 8.7 mg/dL (8.4-10.2) 06/15/18 06:56 Phosphorus 3.20 mg/dL (2.5-4.5) 06/13/18 04:53 Magnesium 2.10 mg/dL (1.7-2.3) 06/07/18 05:15 Urine Creatinine 140.4 mg/dL (0.1-20.0) H 06/08/18 09:55 Urine Sodium 45 mmol/L 06/08/18 09:55 Urine Total Protein 36 mg/dL (5-11.8) H 06/08/18 09:55 Medications & Allergies - Medications Allergies/Adverse Reactions: Allergies No Known Allergies Allergy (Unverified 08/03/15 12:32) Home Medications: Home Medications Medication Instructions Recorded Confirmed Last Taken Type Aspirin [Aspirin BABY CHEW TAB] 81 mg PO QDAY 08/04/15 06/05/18 Unknown History Insulin Detemir [Levemir Flextouch] 35 unit SQ BID 08/04/15 06/05/18 Unknown History NIFEdipine XL [Procardia Xl] 60 mg PO QDAY 08/04/15 06/05/18 Unknown History Simvastatin [Zocor TAB] 40 mg PO QHS 08/04/15 06/05/18 Unknown History Sitagliptin/Metformin (Nf) 1 each PO BID 08/04/15 06/05/18 Unknown History [Janumet 50-1,000 mg (Nf)] Sulfamethoxazole/Trimethoprim 1 each PO BID #14 tablet 08/04/15 06/05/18 Unknown Rx [Bactrim DS TAB] Active Medications: Generic Name Dose Route Start Last Admin Trade Name Freq PRN Reason Stop Dose Admin Acetaminophen/Hydrocodone Bitart 1 each 06/09/18 20:50 06/14/18 22:27 [place] 5/325 PO 1 each Q6H PRN Administration Pain, Moderate (4-6) Albuterol/Ipratropium 1 ampul 06/14/18 20:00 06/15/18 14:41 Duoneb *Not For Prn Use* IH 06/18/18 19:59 1 ampul TIDRT JONO Administration Lipase/Protease/Amylase 1 each 06/10/18 14:01 Amy Laguerre 10,500 Unit FEEDTUBE PRN PRN For Clogged Feeding Tube Aspirin 325 mg 06/04/18 08:00 06/15/18 08:51 Aspirin FEEDTUBE Not Given QDAY JONO Atorvastatin Calcium 40 mg 06/03/18 21:00 06/14/18 21:00 Lipitor FEEDTUBE 40 mg QHS JONO Administration Clopidogrel Bisulfate 75 mg 06/04/18 08:00 06/15/18 08:51 Plavix FEEDTUBE Not Given QDAY [facility] Dextrose 50 ml 06/03/18 17:09 D50w (25gm) Syringe IV PRN PRN Hypoglycemia Docusate Sodium 100 mg 06/03/18 22:00 06/15/18 08:51 Colace FEEDTUBE Not Given BID JONO Epoetin Abhijeet 10,000 unit 06/08/18 10:00 06/15/18 11:18 Procrit SUB-Q 10,000 unit Webb JONO Administration Famotidine 10 mg 06/13/18 22:00 06/15/18 08:51 Pepcid FEEDTUBE Not Given BID [facility] Heparin Sodium (Porcine) 5,000 unit 06/03/18 22:00 06/15/18 13:14 Heparin SUB-Q Not Given Q8HR [facility] Hydralazine HCl 25 mg 06/10/18 14:00 06/15/18 13:13 Apresoline FEEDTUBE Not Given Q8HR [facility] Sodium Chloride 1,000 mls @ 100 mls/hr 06/15/18 11:00 Nacl 0.45% 1000 Ml IV DIRECT [facility] Ceftriaxone Sodium 2 gm in 100 mls @ 200 mls/hr 06/15/18 15:00 Rocephin/Ns 2 Gm/100 Ml IV Q24HR [facility] Protocol Metronidazole 500 mg in 100 mls @ 100 mls/hr 06/15/18 15:00 Flagyl 500 Mg/100 Ml IV Q8HR [facility] Protocol Insulin Glargine 20 units 06/10/18 21:00 06/14/18 21:00 Lantus SUB-Q 20 units QHS [facility] Administration Insulin Human Lispro 0 unit 06/10/18 13:30 06/15/18 11:31 Humalog SUB-Q Not Given [facility] Protocol Metoclopramide HCl 10 mg 06/15/18 11:00 06/15/18 11:17 Reglan IV 06/18/18 10:59 10 mg Q8H JONO Administration Metoprolol Tartrate 50 mg 06/07/18 10:00 06/15/18 10:52 Lopressor FEEDTUBE Not Given Q8H [facility] Ondansetron HCl 4 mg 06/14/18 16:19 06/14/18 16:47 Zofran IV 4 mg Q6H PRN Administration Nausea And Vomiting Phenyleph/Shark Oil/Min Oil/Petrol 1 applic 06/10/18 14:19 Preparation H [place] Q6HR PRN Hemorrhoids Polyethylene Glycol 17 gm 06/03/18 17:30 06/09/18 18:33 Miralax 3350 FEEDTUBE 17 gm QDAY PRN Administration Constipation Promethazine HCl 25 mg 06/15/18 08:32 Phenergan [place] Q6H PRN Nausea And Vomiting Simple Syrup 15 ml 06/10/18 14:01 Simple Syrup FEEDTUBE PRN PRN Hypoglycemia Simple Syrup 30 ml 06/10/18 14:01 Simple Syrup FEEDTUBE PRN PRN Hypoglycemia Sodium Bicarbonate 325 mg 06/10/18 14:01 Sodium Bicarbonate FEEDTUBE PRN PRN For Clogged Feeding Tube
[2018-06-15] MEDS: NACL 0.45% 1000 ML 1,000 ML IV SCH (16:21)
[2018-06-15] MEDS: ROCEPHIN/NS 2 GM/100 ML 2 GM/100 ML BAG IV SCH (16:54)
[2018-06-15] MEDS: FLAGYL 500 MG/100 ML 500 MG/100 ML BAG IV SCH ×2 (16:54→21:16)
[2018-06-15] MEDS ORDERED: MAXIPIME/NS 1 GM/100 ML 1 GM/100 ML BAG IV SCH (18:00)
[2018-06-15] MEDS ORDERED: TYLENOL PR PRN (20:58)
[2018-06-15] MEDS: LANTUS SUB-Q SCH (23:16)
[2018-06-16] MEDS: LOPRESSOR FEEDTUBE SCH ×3 (04:04→18:09)
[2018-06-16] MEDS: NACL 0.45% 1000 ML 1,000 ML IV SCH ×2 (05:14→23:30)
[2018-06-16] MEDS: FLAGYL 500 MG/100 ML 500 MG/100 ML BAG IV SCH ×3 (05:14→23:03)
[2018-06-16] MEDS: HEPARIN SUB-Q SCH ×3 (05:15→23:13)
[2018-06-16] MEDS: REGLAN IV SCH ×3 (05:23→18:10)
[2018-06-16] MEDS: APRESOLINE FEEDTUBE SCH ×3 (05:27→23:12)
[2018-06-16 05:45] LABS: Basophils # (Auto) 0.1 K/mm3 (0.0-0.1); Basophils % (Auto) 0.6 % (0.0-1.8); Eosinophils # (Auto) 0.2 K/mm3 (0.0-0.4); Eosinophils % (Auto) 1.6 % (0.0-4.3); Hematocrit 21.9 % (35.5-45.6); Hemoglobin 7.1 gm/dl (11.8-15.2); Lymphocytes # (Auto) 1.1 K/mm3 (1.2-5.4); Lymphocytes % (Auto) 9.1 % (13.4-35.0); Mean Corpuscular HGB Conc 33 % (32-34); Mean Corpuscular Volume 91 fl (84-94); Monocytes # (Auto) 0.9 K/mm3 (0.0-0.8); Monocytes % (Auto) 7.6 % (0.0-7.3); Platelet Count 322 K/mm3 (140-440); Red Blood Count 2.41 M/mm3 (3.65-5.03); Red Cell Distribution Width 14.9 % (13.2-15.2)
[2018-06-16 06:21] LABS: Calcium 8.8 mg/dL (8.4-10.2)
[2018-06-16] MEDS: HumaLOG SUB-Q SCH ×4 (07:52→23:17)
[2018-06-16] MEDS: DUONEB *Not for PRN Use IH SCH ×2 (08:35→14:33)
--- NOTE | 2018-06-16 09:01 | Progress Note ---
Assessment and Plan Cultures 06/07/2018 Stool:OccultBlood: positive 06/14/2018: Blood: no growth to date 06/14/2018: Urine: 10-10,00 CFU/ml of a mixed culture greater than 2 organisms 06/15/2018: Blood: in progress A/P: 53--year-old male medical history of CVA, hypertension, DM and CKD that was admitted to acute rehabilitation from [facility] for acute right-sided weakness on secondary prevention of stroke. He was admitted to [facility] on 06/04/2018 for management of high blood pressure and diabetes. On admission, labs and vital stable, now with: 1. Sepsis: Improved, still spiking fevers etiology most likely RUL pneumonia, borderline pyuria in U/A ?UTI seems less likely. Urine cultures show mixed cult ure greater than 2 organisms. Blood cultures show no growth thus far. Currently being treated with Cefepime. 2. Acute respiratory failure secondary to RUL Pneumonia: HCAP v/s aspiration, likely latter. Chest xray reveals a right upper lobe Pneumonia on 06/14/18, +/- aspiration pneumonia. On admission 06/07/18 chest xray showed no infiltrates.. Discontinue Cefepime, start Ceftriaxone and Flagyl . 3. UTI: borderline pyuria in U/A ?UTI seems less likely. Urine cultures show mixed culture greater than 2 organisms. Continue abx as above. 4. ELVIRA on CKD: antimicrobials renally dosed. Nephrology following 5. Type 2 Diabetes: uncontrolled 6. Right BKA 7. CVA with residual right-sided hemiparesis 8. GI Bleed: GI following Plan: -f/u blood cultures -Continue Ceftriaxone and Flagyl, D2 -monitor fevers Melani Rowland NP [facility] M: [phone] O:[phone] Subjective Date of service: 06/16/18 Principal diagnosis: CVA, Acute on CKD Interval history: Patient seen and examined. No acute distress observed. Sleepy, but easily arousable. Objective - Exam Narrative Exam: Constitutional: Asleep, easily arousble cooperative. No acute distress Head, Ears, Nose: Normocephalic, atraumatic. External ears, nose normal Eyes: Conjunctivae/corneas clear. No icterus. No ptosis. Neck: Supple, no meningeal signs Oral: dentition poor. no thrush. Cardiovascular: S1, S2 normal. Respiratory: Good air entry, clear to auscultation bilaterally GI: Soft, non-tender; bowel sounds normal. No peritoneal signs, + peg Musculoskeletal: No pedal edema, no cyanosis, + BKA. Skin: No rash or abscess. Dry skin Hem/Lymphatic: No palpable cervical or supraclavicular nodes. No lymphangitis Psych: Mood ok. Affect normal Neurological: Awake, alert, oriented. - Constitutional Vitals: Vital Signs Temp Pulse Resp BP Pulse Ox 98.4 F 94 H 18 116/70 100 06/16/18 07:38 06/16/18 08:51 06/16/18 08:51 06/16/18 07:38 06/16/18 08:31 Temperature -Last 24 Hours Temperature 98.4 F Temperature 98.3 F Temperature 99.5 F Temperature 102.9 F Temperature 99.3 F Temperature 99.2 F - Labs CBC & Chem 7: 06/16/18 05:13 06/16/18 05:13 Labs: Abnormal lab results 06/15/18 06/15/18 06/15/18 Range/Units 11:24 16:26 21:52 WBC (4.5-11.0) K/mm3 RBC (3.65-5.03) M/mm3 Hgb (11.8-15.2) gm/dl Hct (35.5-45.6) % Lymph % (Auto) (13.4-35.0) % [place] % (Auto) (0.0-7.3) % Lymph # (1.2-5.4) K/mm3 [place] # (0.0-0.8) K/mm3 Seg Neutrophils % (40.0-70.0) % Seg Neutrophils # (1.8-7.7) K/mm3 BUN (9-20) mg/dL Creatinine (0.8-1.5) mg/dL Glucose (75-100) mg/dL POC Glucose 187 H 178 H 156 H (70-105) 06/16/18 06/16/18 06/16/18 Range/Units 05:13 05:13 06:50 WBC 12.2 H (4.5-11.0) K/mm3 RBC 2.41 L (3.65-5.03) M/mm3 Hgb 7.1 L (11.8-15.2) gm/dl Hct 21.9 L (35.5-45.6) % Lymph % (Auto) 9.1 L (13.4-35.0) % [place] % (Auto) 7.6 H (0.0-7.3) % Lymph # 1.1 L (1.2-5.4) K/mm3 [place] # 0.9 H (0.0-0.8) K/mm3 Seg Neutrophils % 81.1 H (40.0-70.0) % Seg Neutrophils # 9.9 H (1.8-7.7) K/mm3 BUN 39 H (9-20) mg/dL Creatinine 2.4 H (0.8-1.5) mg/dL Glucose 114 H (75-100) mg/dL POC Glucose 145 H (70-105)
--- NOTE | 2018-06-16 09:43 | Progress Note ---
Assessment and Plan Acute Renal Failure secondary to Ischemic ATN on likely CKD from Hypertension: -CR is slowly improving with IVF -cont 1/2 NS -Renally dose meds -Avoid nephrotoxic agents Anemia in CKD - Epogen dosing for anemia management Acute CVA: -On ASA, plavix and statin -Rehab therapy Right Upper Lobe Pneumonia: - Started on rocephin - As per primary Essential Hypertension: -Adjust meds as needed Diabetes Mellitus Type 2 on insulin: -On Insulin Oropharyngeal Dysphagia: -PEG Tube feedings stopped on 06/14/18 due to vomiting Subjective Date of service: 06/16/18 Principal diagnosis: CVA, Acute on CKD Interval history: denies acute issues, tolerating rehab Objective - Vital Signs Vital signs: Vital Signs - 12hr 06/15/18 06/15/18 06/15/18 22:00 22:17 23:06 Temperature 99.5 F Pulse Rate 107 H Pulse Rate [ Anterior Bilateral Throughout] Respiratory 18 18 Rate Respiratory Rate [Anterior Bilateral Throughout] Respiratory 18 Rate [Denies] Blood Pressure 106/65 Blood Pressure [Left] O2 Sat by Pulse 97 Oximetry 06/16/18 06/16/18 06/16/18 03:41 05:27 07:38 Temperature 98.3 F 98.4 F Pulse Rate 94 H 96 H 91 H Pulse Rate [ Anterior Bilateral Throughout] Respiratory 18 18 Rate Respiratory Rate [Anterior Bilateral Throughout] Respiratory Rate [Denies] Blood Pressure 114/75 114/75 Blood Pressure 116/70 [Left] O2 Sat by Pulse 100 97 Oximetry 06/16/18 06/16/18 06/16/18 08:31 08:36 08:51 Temperature Pulse Rate Pulse Rate [ 93 H 94 H Anterior Bilateral Throughout] Respiratory Rate Respiratory 18 18 Rate [Anterior Bilateral Throughout] Respiratory Rate [Denies] Blood Pressure Blood Pressure [Left] O2 Sat by Pulse 100 Oximetry - General Appearance General appearance: well-developed, well-nourished, appears stated age EENT: ATNC, PERRL, mucous membranes moist Neck: no JVD Respiratory: Present: Clear to Ascultation. Absent: Rales, Ronchi Cardiology: regular, S1S2 Gastrointestinal: normoactive bowel sounds, no tenderness, no distended Integumentary: no rash, warm and dry Neurologic: no focal deficit, no asterixis Musculoskeletal: other (no edema) Psychiatric: cooperative - Lab 06/16/18 05:13 06/16/18 05:13 Most recent lab results Calcium 8.8 mg/dL (8.4-10.2) 06/16/18 05:13 Phosphorus 3.20 mg/dL (2.5-4.5) 06/13/18 04:53 Magnesium 2.10 mg/dL (1.7-2.3) 06/07/18 05:15 Urine Creatinine 140.4 mg/dL (0.1-20.0) H 06/08/18 09:55 Urine Sodium 45 mmol/L 06/08/18 09:55 Urine Total Protein 36 mg/dL (5-11.8) H 06/08/18 09:55 Medications & Allergies - Medications Allergies/Adverse Reactions: Allergies No Known Allergies Allergy (Unverified 08/03/15 12:32) Home Medications: Home Medications Medication Instructions Recorded Confirmed Last Taken Type Aspirin [Aspirin BABY CHEW TAB] 81 mg PO QDAY 08/04/15 06/05/18 Unknown History Insulin Detemir [Levemir Flextouch] 35 unit SQ BID 08/04/15 06/05/18 Unknown History NIFEdipine XL [Procardia Xl] 60 mg PO QDAY 08/04/15 06/05/18 Unknown History Simvastatin [Zocor TAB] 40 mg PO QHS 08/04/15 06/05/18 Unknown History Sitagliptin/Metformin (Nf) 1 each PO BID 08/04/15 06/05/18 Unknown History [Janumet 50-1,000 mg (Nf)] Sulfamethoxazole/Trimethoprim 1 each PO BID #14 tablet 08/04/15 06/05/18 Unknown Rx [Bactrim DS TAB] Active Medications: Generic Name Dose Route Start Last Admin Trade Name Freq PRN Reason Stop Dose Admin Acetaminophen 650 mg 06/15/18 20:58 06/15/18 21:17 Tylenol [place] 650 mg Q4H PRN Administration Pain, Mild (1-3) Acetaminophen/Hydrocodone Bitart 1 each 06/09/18 20:50 06/14/18 22:27 [place] 5/325 PO 1 each Q6H PRN Administration Pain, Moderate (4-6) Albuterol/Ipratropium 1 ampul 06/14/18 20:00 06/16/18 08:35 Duoneb *Not For Prn Use* IH 06/18/18 19:59 1 ampul TIDRT JONO Administration Lipase/Protease/Amylase 1 each 06/10/18 14:01 Pancrealthea Laguerre 10,500 Unit FEEDTUBE PRN PRN For Clogged Feeding Tube Aspirin 325 mg 06/04/18 08:00 06/15/18 08:51 Aspirin FEEDTUBE Not Given QDAY JONO Atorvastatin Calcium 40 mg 06/03/18 21:00 06/15/18 21:35 Lipitor FEEDTUBE Not Given QHS JONO Clopidogrel Bisulfate 75 mg 06/04/18 08:00 06/15/18 08:51 Plavix FEEDTUBE Not Given QDAY JONO Dextrose 50 ml 06/03/18 17:09 D50w (25gm) Syringe IV PRN PRN Hypoglycemia Docusate Sodium 100 mg 06/03/18 22:00 06/15/18 21:35 Colace FEEDTUBE Not Given BID JONO Epoetin Abhijeet 10,000 unit 06/08/18 10:00 06/15/18 11:18 Procrit SUB-Q 10,000 unit Webb JONO Administration Famotidine 10 mg 06/13/18 22:00 06/15/18 21:35 Pepcid FEEDTUBE Not Given BID JONO Heparin Sodium (Porcine) 5,000 unit 06/03/18 22:00 06/16/18 05:15 Heparin SUB-Q 5,000 unit Q8HR JONO Administration Hydralazine HCl 25 mg 06/10/18 14:00 06/16/18 05:27 Apresoline FEEDTUBE Not Given Q8HR JONO Sodium Chloride 1,000 mls @ 100 mls/hr 06/15/18 11:00 06/16/18 05:14 Nacl 0.45% 1000 Ml IV 100 mls/hr DIRECT JONO Administration Ceftriaxone Sodium 2 gm in 100 mls @ 200 mls/hr 06/15/18 15:00 06/15/18 16:54 Rocephin/Ns 2 Gm/100 Ml IV 200 mls/hr Q24HR JONO Administration Protocol Metronidazole 500 mg in 100 mls @ 100 mls/hr 06/15/18 15:00 06/16/18 05:14 Flagyl 500 Mg/100 Ml IV 100 mls/hr Q8HR JONO Administration Protocol Insulin Glargine 20 units 06/10/18 21:00 06/15/18 23:16 Lantus SUB-Q Not Given QHS [facility] Insulin Human Lispro 0 unit 06/10/18 13:30 06/16/18 07:52 Humalog SUB-Q Not Given ACHS [facility] Protocol Metoclopramide HCl 10 mg 06/15/18 11:00 06/16/18 05:23 Reglan IV 06/18/18 10:59 10 mg Q8H JONO Administration Metoprolol Tartrate 50 mg 06/07/18 10:00 06/16/18 04:04 Lopressor FEEDTUBE Not Given Q8H [facility] Ondansetron HCl 4 mg 06/14/18 16:19 06/14/18 16:47 Zofran IV 4 mg Q6H PRN Administration Nausea And Vomiting Phenyleph/Shark Oil/Min Oil/Petrol 1 applic 06/10/18 14:19 Preparation H [place] Q6HR PRN Hemorrhoids Polyethylene Glycol 17 gm 06/03/18 17:30 06/09/18 18:33 Miralax 3350 FEEDTUBE 17 gm QDAY PRN Administration Constipation Promethazine HCl 25 mg 06/15/18 08:32 Phenergan [place] Q6H PRN Nausea And Vomiting Simple Syrup 15 ml 06/10/18 14:01 Simple Syrup FEEDTUBE PRN PRN Hypoglycemia Simple Syrup 30 ml 06/10/18 14:01 Simple Syrup FEEDTUBE PRN PRN Hypoglycemia Sodium Bicarbonate 325 mg 06/10/18 14:01 Sodium Bicarbonate FEEDTUBE PRN PRN For Clogged Feeding Tube
--- NOTE | 2018-06-16 09:49 | Gastroenterology Consultation ---
Addendum entered and electronically signed by CHLOÉ GARCIA MD 06/16/18 15:07: pt seen and examined, chart reviewed, consult below reviewed - pt now with nausea and coffee emesis with noted anemia - denies melena vss p.e.: nad abd: soft, nt, nd - management below - EGD today - other rec as outlined below Original Note: History of Present Illness - Reason for Consult Consult date: 06/16/18 GI bleed Requesting physician: LUIS A ISLAS III - History of Present Illness Patient is a 53 y/o male with PMH of CVA (residual right-sided hemiparesis; s/p PEG),s/p right BKA, chronic anemia, HTN, DM, and CKD who was admitted from [facility] for management of blood pressure, DM and to participate in an acute rehabilitation program. Currently being treated with antibiotics for sepsis 2/2 most likely pneumonia. ID and nephrology following. GI has been consulted for GI bleeding. Per nursing, patient had multiple episodes of coffee- ground emesis yesterday. No melena or hematochezia. This morning patient was resting in bed w/o acute distress. Reports some continued nausea but no vomiting so far today. TFs on hold. Denies CP, SOB, abd pain, diarrhea, or constipation. On daily ASA and Plavix (last dose 06/14) which are also on hold. No hx of PUD or liver disease. No prior EGD or colonoscopy per patient report. Past History Past Medical History: diabetes, hypertension, hyperlipidemia, stroke Past Surgical History: Other (R BKA, PEG) Social history: single, Lives alone, full code, other (Former Tobacco, Current EtOH, Denies illicit. Lives in 1 story home, Independent, driving and working.) Family history: diabetes, hypertension, stroke Medications and Allergies Allergies Allergy/AdvReac Type Severity Reaction Status Date / Time No Known Allergies Allergy Unverified 08/03/15 12:32 Home Medications Medication Instructions Recorded Confirmed Last Taken Type Aspirin [Aspirin BABY CHEW TAB] 81 mg PO QDAY 08/04/15 06/05/18 Unknown History Insulin Detemir [Levemir Flextouch] 35 unit SQ BID 08/04/15 06/05/18 Unknown History NIFEdipine XL [Procardia Xl] 60 mg PO QDAY 08/04/15 06/05/18 Unknown History Simvastatin [Zocor TAB] 40 mg PO QHS 08/04/15 06/05/18 Unknown History Sitagliptin/Metformin (Nf) 1 each PO BID 08/04/15 06/05/18 Unknown History [Janumet 50-1,000 mg (Nf)] Sulfamethoxazole/Trimethoprim 1 each PO BID #14 tablet 08/04/15 06/05/18 Unknown Rx [Bactrim DS TAB] Active Meds: Active Medications Acetaminophen (Tylenol) 650 mg MD Q4H PRN PRN Reason: Pain, Mild (1-3) Last Admin: 06/15/18 21:17 Dose: 650 mg Documented by: Acetaminophen/Hydrocodone Bitart (Debord 5/325) 1 each PO Q6H PRN PRN Reason: Pain, Moderate (4-6) Last Admin: 06/14/18 22:27 Dose: 1 each Documented by: Albuterol/Ipratropium (Duoneb *Not For Prn Use*) 1 ampul IH TIDRT [facility] Stop: 06/18/18 19:59 Last Admin: 06/16/18 08:35 Dose: 1 ampul Documented by: Lipase/Protease/Amylase (Pancrealthea Laguerre 10,500 Unit) 1 each FEEDTUBE PRN PRN PRN Reason: For Clogged Feeding Tube Aspirin (Aspirin) 325 mg FEEDTUBE QDAY [facility] Last Admin: 06/15/18 08:51 Dose: Not Given Documented by: Atorvastatin Calcium (Lipitor) 40 mg FEEDTUBE QHS [facility] Last Admin: 06/15/18 21:35 Dose: Not Given Documented by: Clopidogrel Bisulfate (Plavix) 75 mg FEEDTUBE QDAY [facility] Last Admin: 06/15/18 08:51 Dose: Not Given Documented by: Dextrose (D50w (25gm) Syringe) 50 ml IV PRN PRN PRN Reason: Hypoglycemia Docusate Sodium (Colace) 100 mg FEEDTUBE BID [facility] Last Admin: 06/15/18 21:35 Dose: Not Given Documented by: Epoetin Abhijeet (Procrit) 10,000 unit SUB-Q Webb [facility] Last Admin: 06/15/18 11:18 Dose: 10,000 unit Documented by: Famotidine (Pepcid) 10 mg FEEDTUBE BID [facility] Last Admin: 06/15/18 21:35 Dose: Not Given Documented by: Heparin Sodium (Porcine) (Heparin) 5,000 unit SUB-Q Q8HR JONO Last Admin: 06/16/18 05:15 Dose: 5,000 unit Documented by: Hydralazine HCl (Apresoline) 25 mg FEEDTUBE Q8HR JONO Last Admin: 06/16/18 05:27 Dose: Not Given Documented by: Sodium Chloride (Nacl 0.45% 1000 Ml) 1,000 mls @ 100 mls/hr IV DIRECT JONO Last Admin: 06/16/18 05:14 Dose: 100 mls/hr Documented by: Ceftriaxone Sodium (Rocephin/Ns 2 Gm/100 Ml) 2 gm in 100 mls @ 200 mls/hr IV Q24HR [facility]; Protocol Last Admin: 06/15/18 16:54 Dose: 200 mls/hr Documented by: Metronidazole (Flagyl 500 Mg/100 Ml) 500 mg in 100 mls @ 100 mls/hr IV Q8HR [facility]; Protocol Last Admin: 06/16/18 05:14 Dose: 100 mls/hr Documented by: Insulin Glargine (Lantus) 20 units SUB-Q QHS [facility] Last Admin: 06/15/18 23:16 Dose: Not Given Documented by: Insulin Human Lispro (Humalog) 0 unit SUB-Q ACHS [facility]; Protocol Last Admin: 06/16/18 07:52 Dose: Not Given Documented by: Metoclopramide HCl (Reglan) 10 mg IV Q8H [facility] Stop: 06/18/18 10:59 Last Admin: 06/16/18 05:23 Dose: 10 mg Documented by: Metoprolol Tartrate (Lopressor) 50 mg FEEDTUBE Q8H [facility] Last Admin: 06/16/18 04:04 Dose: Not Given Documented by: Ondansetron HCl (Zofran) 4 mg IV Q6H PRN PRN Reason: Nausea And Vomiting Last Admin: 06/14/18 16:47 Dose: 4 mg Documented by: Phenyleph/Shark Oil/Min Oil/Petrol (Preparation H) 1 applic MD Q6HR PRN PRN Reason: Hemorrhoids Polyethylene Glycol (Miralax 3350) 17 gm FEEDTUBE QDAY PRN PRN Reason: Constipation Last Admin: 06/09/18 18:33 Dose: 17 gm Documented by: Promethazine HCl (Phenergan) 25 mg MD Q6H PRN PRN Reason: Nausea And Vomiting Simple Syrup (Simple Syrup) 15 ml FEEDTUBE PRN PRN PRN Reason: Hypoglycemia Simple Syrup (Simple Syrup) 30 ml FEEDTUBE PRN PRN PRN Reason: Hypoglycemia Sodium Bicarbonate (Sodium Bicarbonate) 325 mg FEEDTUBE PRN PRN PRN Reason: For Clogged Feeding Tube medications reviewed/updated as required Review of Systems - Review of Systems All systems: negative Gastrointestinal: nausea, coffee ground emesis, no abdominal pain, no hematemesis, no melena, no hematochezia Exam - Constitutional Vital Signs: Temp Pulse Resp BP Pulse Ox 98.4 F 94 H 18 116/70 100 06/16/18 07:38 06/16/18 08:51 06/16/18 08:51 06/16/18 07:38 06/16/18 08:31 General appearance: no acute distress - EENT Eyes: PERRL, EOM intact ENT: hearing intact - Respiratory Respiratory: bilateral: diminished - Cardiovascular Rhythm: regular Heart Sounds: Present: S1 & S2 - Gastrointestinal General gastrointestinal: Present: soft, non-tender, non-distended, normal bowel sounds, other (+PEG) Rectal Exam: stool brown, other (linemarker present during exam-Devika RN) - Musculoskeletal Musculoskeletal: other (right BKA) - Neurologic Neurological: alert and oriented x3, right side weakness - Labs CBC & Chem 7: 06/16/18 05:13 06/16/18 05:13 Lab Results: Laboratory Results - last 24 hr 06/15/18 06/15/18 06/15/18 11:24 16:26 21:52 WBC RBC Hgb Hct MCV MCH MCHC RDW Plt Count Lymph % (Auto) [place] % (Auto) Eos % (Auto) Baso % (Auto) Lymph # [place] # Eos # Baso # Seg Neutrophils % Seg Neutrophils # Sodium Potassium Chloride Carbon Dioxide Anion Gap BUN Creatinine Estimated GFR BUN/Creatinine Ratio Glucose POC Glucose 187 H 178 H 156 H Calcium 06/16/18 06/16/18 06/16/18 05:13 05:13 06:50 WBC 12.2 H RBC 2.41 L Hgb 7.1 L Hct 21.9 L MCV 91 MCH 30 MCHC 33 RDW 14.9 Plt Count 322 Lymph % (Auto) 9.1 L [place] % (Auto) 7.6 H Eos % (Auto) 1.6 Baso % (Auto) 0.6 Lymph # 1.1 L [place] # 0.9 H Eos # 0.2 Baso # 0.1 Seg Neutrophils % 81.1 H Seg Neutrophils # 9.9 H Sodium 143 Potassium 4.3 Chloride 104.2 Carbon Dioxide 22 Anion Gap 21 BUN 39 H Creatinine 2.4 H Estimated GFR 34 BUN/Creatinine Ratio 16 Glucose 114 H POC Glucose 145 H Calcium 8.8 Assessment and Plan 1.GI bleed 2.coffee-ground emesis -H/H 7.1/21.9-trending down -continue to monitor H/H and transfuse as needed -hold blood thinning medications (plavix and ASA on hold) -nursing reports CGE yesterday- no active signs of bleeding today (upon exam, rectal with brown stool and PEG residual light black) -etiology unclear- possible ulcer vs other -will schedule for EGD today -Neep NPO (TFs on hold) -INR now -start on PPI -continue supportive care -will follow 3.fecal retention seen on KUB -BM x 1 this am; abdomen benign- no abd pain -change Miralax to daily
--- NOTE | 2018-06-16 10:17 | Progress Note ---
Subjective Date of service: 06/16/18 Principal diagnosis: CVA, Acute on CKD Interval history: 53-year-old LHD male who experienced increased right-sided weakness three days prior to presentation at an outside hospital. He also had decreased balance and gait. He was admitted and worked up for stroke. MRI of brain confirmed the presence of a stroke. A repeat MRI showed a second stroke in a different area. Patient was continued on secondary stroke prevention medications. He had a PEG tube placed and was started on a low volume of TF. He developed acute kidney injury and a nephrology consult was called. He required transfer to the [facility] for management of uncontrolled blood pressure. He was later weaned off of Cardene drip and restarted on oral blood pressure medications. ID consulted yesterday, Abx changed. WBC improving. Febrile overnight. Pressure has been stable. No rigors, chills I was notified of small amount of coffee ground emesis yesterday and consulted GI for GIB but oral order Dx incorrect. Plan to scope today. Hgb dropped this AM. May need transfusion soon. Patient is participating in therapy and making fair progress - slowed over past few days due to illness. +BM. No pain currently. PEG ok. TF being held. Oral control of secretions improved. MBSS still aspira ting BP - Continue medications and adjust as needed. please avoid nephrotoxic meds. Prosthesis needs repair, Vicki has been contacted - awaiting insurance approval If he is able to participate in therapy we will continue to work with him, if his condition declines or he is unable we will need to transfer to medicine service and off of rehab. No other issues per patient, nursing or therapy. Discussed in team conference All available medical records, therapy notes, vitals and labs were reviewed. Objective - Exam Narrative Exam: MUSCULOSKELETAL SPECIALTY EXAM Constitutional: Well developed, well nourished, appropriately groomed, LHD EENT: Hearing intact to finger rustle. Poor dentition. Better control of secretions. Respiratory: Clear to auscultation bilaterally, no increased work of breathing. Cardiovascular Regular Rate/ Rhythm, no swelling edema or tenderness in all 4 extremities. All 4 extremities warm. GI : + bowel sounds, soft, NTTP, nondistended, PEG INTEGUMENTARY Normal in all 4 extremities except for what appears to be old/healed sores on LLE Musuloskeletal BUE and BLE normal without defect, crepitus, sublux, effusion, or TTP except for Right BKA. RUE and RLE 4-/5. Decreased aROM, good pROM, normal tone. LUE and LLE 4+/5, good ROM with normal tone. NEURO: Significant Left facial droop involving upper and lower face (LMN), Tongue protrudes left , sensation on face is assymetric, otherwise CN 2-12 grossly intact. Sensation intact on LEFT extremities and impaired on RIGHT. Coordin ation intact on left, decreased on right. No tremor noted. Aphasia and dysarthria present. Naming and repetition intact. At times he seems to have trouble focusing visually, but the basic vision is ok. POSTURE and GAIT: Deferred until seen with therapy for safety. Patient examined in bed. PSYCH: Alert, orientated x3, affect appears normal. Insight appears intact. - Constitutional Vitals: Vital Signs - 12hr 06/15/18 06/16/18 06/16/18 23:06 03:41 05:27 Temperature 37.5 C 36.8 C Pulse Rate 107 H 94 H 96 H Pulse Rate [ Anterior Bilateral Throughout] Respiratory 18 18 Rate Respiratory Rate [Anterior Bilateral Throughout] Respiratory Rate [Denies] Blood Pressure 106/65 114/75 114/75 Blood Pressure [Left] O2 Sat by Pulse 97 100 Oximetry 06/16/18 06/16/18 06/16/18 07:38 08:31 08:36 Temperature 36.9 C Pulse Rate 91 H Pulse Rate [ 93 H Anterior Bilateral Throughout] Respiratory 18 Rate Respiratory 18 Rate [Anterior Bilateral Throughout] Respiratory Rate [Denies] Blood Pressure Blood Pressure 116/70 [Left] O2 Sat by Pulse 97 100 Oximetry 06/16/18 06/16/18 08:51 10:00 Temperature Pulse Rate Pulse Rate [ 94 H Anterior Bilateral Throughout] Respiratory Rate Respiratory 18 Rate [Anterior Bilateral Throughout] Respiratory 18 Rate [Denies] Blood Pressure Blood Pressure [Left] O2 Sat by Pulse Oximetry - Allied health notes Allied health notes reviewed: nursing, PT, ST, OT FIMS assessment as documented by PT/OT/ST: Grooming Patient cleans teeth/dentures: Yes Patient matamoros/brushes hair: Yes Patient washes, rinses and Yes dries face: Patient washes, rinses and Yes dries hands: Patient shaves: No Patient performs (no make-up/ 08/21 (100%) shaving): Grooming FIM Score 4. Minimal Assistance (Patient = 75% or more. Needs touching.) Toileting Toileting Device Commode over Toilet Toileting FIM Score 3. Moderate Assistance (Patient = 50% or more. Some lifting.) Social interaction/Memory/Problem solving Social Interaction FIM Score 7. Complete [place] (Interacts appropriately. Controls temper.) Memory FIM Score 7. Complete [place] (Remembers people and routines.) Problem Solving FIM Score 6. Mod. [place] (Mild difficulty or needs more time w/ complex.) Transfers Mode of Locomotion: Wheelchair Bed/Chair/Wheelchair Transfers 4. Minimal Assistance (Patient = 75% or more. FIM Score Needs touching.) Toilet Transfers FIM Score 3. Moderate Assistance (Patient = 50% or more. Some lifting.) Patient transferred to: Shower Shower Transfers FIM Score 2. Maximal Assistance (Patient = 25% or more) Locomotion- Stairs Stairs FIM Score 0. Activity does not occur Locomotion- walk/wheelchair Most Frequent Mode of Wheelchair Locomotion: Ambulation Distance 175 Walking FIM Score 4. Minimal Assistance (Patient = 75% or more. Minimum of 150 ft.) Wheelchair Propulsion Distance 180 Wheelchair FIM Score 5. Supervision (Minimum 150 ft. supv./cues or 50 ft. independently.) Eating Eating FIM Score 1. Total Assistance (Patient <25% or tube feeding) Dressing-Upper body Patient retrieves clothing No items: Patient applies/removes UE n/a prosthesis or orthosis: Upper Body Dressing FIM Score 4. Minimal Assistance (Patient = 75% or more. Needs touching.) Dressing-lower body Patient retrieves clothing No items: Patient applies/removes LE No: RLE prosthesis prosthesis or orthosis: Lower Body Dressing FIM Score 3. Moderate Assistance (Patient = 50% or more) - Labs CBC & Chem 7: 06/16/18 05:13 06/16/18 05:13 Labs: Laboratory Results - last 72 hr 06/13/18 06/13/18 06/13/18 11:34 17:19 22:03 WBC RBC Hgb Hct MCV MCH MCHC RDW Plt Count Lymph % (Auto) [place] % (Auto) Eos % (Auto) Baso % (Auto) Lymph # [place] # Eos # Baso # Seg Neutrophils % Seg Neutrophils # Sodium Potassium Chloride Carbon Dioxide Anion Gap BUN Creatinine Estimated GFR BUN/Creatinine Ratio Glucose POC Glucose 157 H 157 H 181 H Lactic Acid Calcium Urine Color Urine Turbidity Urine pH Ur Specific [place] Urine Protein Urine Glucose (UA) Urine Ketones Urine Blood Urine Nitrite Urine Bilirubin Urine Urobilinogen Ur Leukocyte Esterase Urine WBC (Auto) Urine RBC (Auto) U Epithel Cells (Auto) Triple Phos Crystals Urine Mucus 06/14/18 06/14/18 06/14/18 04:33 04:33 07:03 WBC 19.6 H RBC 2.98 L Hgb 8.7 L Hct 26.6 L MCV 89 MCH 29 MCHC 33 RDW 14.7 Plt Count 475 H Lymph % (Auto) 7.1 L [place] % (Auto) 7.0 Eos % (Auto) 0.9 Baso % (Auto) 0.4 Lymph # 1.4 [place] # 1.4 H Eos # 0.2 Baso # 0.1 Seg Neutrophils % 84.6 H Seg Neutrophils # 16.6 H Sodium 138 Potassium 4.9 Chloride 102.5 Carbon Dioxide 27 Anion Gap 13 BUN 32 H Creatinine 1.8 H Estimated GFR 48 BUN/Creatinine Ratio 18 Glucose 203 H POC Glucose 214 H Lactic Acid Calcium 9.0 Urine Color Urine Turbidity Urine pH Ur Specific [place] Urine Protein Urine Glucose (UA) Urine Ketones Urine Blood Urine Nitrite Urine Bilirubin Urine Urobilinogen Ur Leukocyte Esterase Urine WBC (Auto) Urine RBC (Auto) U Epithel Cells (Auto) Triple Phos Crystals Urine Mucus 06/14/18 06/14/18 06/14/18 12:26 12:50 16:51 WBC RBC Hgb Hct MCV MCH MCHC RDW Plt Count Lymph % (Auto) [place] % (Auto) Eos % (Auto) Baso % (Auto) Lymph # [place] # Eos # Baso # Seg Neutrophils % Seg Neutrophils # Sodium Potassium Chloride Carbon Dioxide Anion Gap BUN Creatinine Estimated GFR BUN/Creatinine Ratio Glucose POC Glucose 219 H 183 H Lactic Acid 1.10 Calcium Urine Color Urine Turbidity Urine pH Ur Specific [place] Urine Protein Urine Glucose (UA) Urine Ketones Urine Blood Urine Nitrite Urine Bilirubin Urine Urobilinogen Ur Leukocyte Esterase Urine WBC (Auto) Urine RBC (Auto) U Epithel Cells (Auto) Triple Phos Crystals Urine Mucus 06/14/18 06/14/18 06/15/18 23:26 Unknown 06:24 WBC RBC Hgb Hct MCV MCH MCHC RDW Plt Count Lymph % (Auto) [place] % (Auto) Eos % (Auto) Baso % (Auto) Lymph # [place] # Eos # Baso # Seg Neutrophils % Seg Neutrophils # Sodium Potassium Chloride Carbon Dioxide Anion Gap BUN Creatinine Estimated GFR BUN/Creatinine Ratio Glucose POC Glucose 234 H 177 H Lactic Acid Calcium Urine Color [place] Urine Turbidity Turbid Urine pH 8.0 H Ur Specific [place] 1.012 Urine Protein >500 Urine Glucose (UA) Neg Urine Ketones Neg Urine Blood Neg Urine Nitrite Neg Urine Bilirubin Neg Urine Urobilinogen 2.0 Ur Leukocyte Esterase Mod Urine WBC (Auto) 17.0 H Urine RBC (Auto) 12.0 U Epithel Cells (Auto) 12.0 Triple Phos Crystals 1+ Urine Mucus 1+ 06/15/18 06/15/18 06/15/18 06:56 06:56 08:39 WBC 16.0 H 16.2 H RBC 2.63 L 2.78 L Hgb 7.8 L 8.1 L Hct 23.9 L 25.3 L MCV 91 91 MCH 30 29 MCHC 33 32 RDW 15.4 H 15.5 H Plt Count 350 387 Lymph % (Auto) 6.4 L 6.8 L [place] % (Auto) 6.3 6.4 Eos % (Auto) 1.1 1.1 Baso % (Auto) 0.4 0.4 Lymph # 1.0 L 1.1 L [place] # 1.0 H 1.0 H Eos # 0.2 0.2 Baso # 0.1 0.1 Seg Neutrophils % 85.8 H 85.3 H Seg Neutrophils # 13.8 H 13.8 H Sodium 138 Potassium 4.8 Chloride 100.8 Carbon Dioxide 25 Anion Gap 17 BUN 41 H Creatinine 2.6 H Estimated GFR 31 BUN/Creatinine Ratio 16 Glucose 172 H POC Glucose Lactic Acid Calcium 8.7 Urine Color Urine Turbidity Urine pH Ur Specific [place] Urine Protein Urine Glucose (UA) Urine Ketones Urine Blood Urine Nitrite Urine Bilirubin Urine Urobilinogen Ur Leukocyte Esterase Urine WBC (Auto) Urine RBC (Auto) U Epithel Cells (Auto) Triple Phos Crystals Urine Mucus 06/15/18 06/15/18 06/15/18 11:24 16:26 21:52 WBC RBC Hgb Hct MCV MCH MCHC RDW Plt Count Lymph % (Auto) [place] % (Auto) Eos % (Auto) Baso % (Auto) Lymph # [place] # Eos # Baso # Seg Neutrophils % Seg Neutrophils # Sodium Potassium Chloride Carbon Dioxide Anion Gap BUN Creatinine Estimated GFR BUN/Creatinine Ratio Glucose POC Glucose 187 H 178 H 156 H Lactic Acid Calcium Urine Color Urine Turbidity Urine pH Ur Specific [place] Urine Protein Urine Glucose (UA) Urine Ketones Urine Blood Urine Nitrite Urine Bilirubin Urine Urobilinogen Ur Leukocyte Esterase Urine WBC (Auto) Urine RBC (Auto) U Epithel Cells (Auto) Triple Phos Crystals Urine Mucus 06/16/18 06/16/18 06/16/18 05:13 05:13 06:50 WBC 12.2 H RBC 2.41 L Hgb 7.1 L Hct 21.9 L MCV 91 MCH 30 MCHC 33 RDW 14.9 Plt Count 322 Lymph % (Auto) 9.1 L [place] % (Auto) 7.6 H Eos % (Auto) 1.6 Baso % (Auto) 0.6 Lymph # 1.1 L [place] # 0.9 H Eos # 0.2 Baso # 0.1 Seg Neutrophils % 81.1 H Seg Neutrophils # 9.9 H Sodium 143 Potassium 4.3 Chloride 104.2 Carbon Dioxide 22 Anion Gap 21 BUN 39 H Creatinine 2.4 H Estimated GFR 34 BUN/Creatinine Ratio 16 Glucose 114 H POC Glucose 145 H Lactic Acid Calcium 8.8 Urine Color Urine Turbidity Urine pH Ur Specific [place] Urine Protein Urine Glucose (UA) Urine Ketones Urine Blood Urine Nitrite Urine Bilirubin Urine Urobilinogen Ur Leukocyte Esterase Urine WBC (Auto) Urine RBC (Auto) U Epithel Cells (Auto) Triple Phos Crystals Urine Mucus Assessment and Plan Monitor closely for ability to continue rehab vs need to transfer back to floor for medical condition. Re-eval after scope today I69.353 Right non-dom hemiparesis: Monitor for neuro decline. Continue secondary stroke prevention. Discussed recovery and secondary stroke prevention. Monitor for post-stroke depression and s/s of shoulder-hand syndrome. Monitor for safety awareness I69.322 Dysarthria: [employer] for improvement in communication and speech I69.391 Dysphagia: [employer] to improve swallow function. Continue TF (at goal) with NPO. Monitor and advance diet as safely as able. FEES, MBSS or EStim as needed. Z73.6 ADL dysfunction: OT will work on improving ability to perform ADLs (including assistive devices) to increase independence and decrease caregiver burden and improve functional transfers and mobility training. R26.2 Difficulty walking: PT will work on gait training and proper use of assistive devices and advance as appropriate to use of stairs and outside ambulation on uneven surfaces. R26.81 Unsteadiness on feet: PT will work on improving static and dynamic sitting and standing balance as well as proper use of assistive devices to decrease risk of falls. R26.89 Abnormality of gait: PT will work to improve safety and efficiency of gait through neuromotor training and gait training along with instruction on proper use of assistive devices. Has prosthesis with him M62.81 Muscle weakness: PT & OT will work on strengthening exercises to improve functional strength including mixture of closed and open kinetic chain exercise s. R53.81 Debility: PT & OT will work on improving overall functional status to improve participation with ADLs, mobility and social involvement. R53.83 Fatigue: PT & OT will work on improving endurance through aerobic exercises and therapeutic activity while monitoring patients tolerance for activity and vital signs as needed. I10 Hypertension: Adjust as needed. Avoid nephrotoxic meds E78.5 Hyperlipidemia: Continue Statin E11.8 Diabetes: Monitor D64.9 Anemia of chronic disease: Stable E87.6 Hypokalemia: Resolved, monitor labs Z89.511 R BKA: awaiting repair of prosthesis Sepsis/SIRS PNA RUL GIB ELVIRA due to ATN at OSH but likely Acute on CKD per consult here DVT ppx: Heparin TID due to renal function GI ppx: Pepcid Pain: Continue physical modalities in therapy and pain medications as needed to achieve functional pain control. Sleep: Monitor and address as needed. Bowel: Monitor and address as needed. Appetite: Monitor and address as needed when able to take PO. Discharge planning: Pending therapy progress and care plan meeting. Will continue discussion with therapy team, SW, patient and family. Restrictions/ Precautions: Falls, aspiration WB status: FWB Functional Hx: ADLs: Independent and working Cognition: Independent Mobility: independent Consult: Hospitalists for medical management Nephrology for renal function ID for sepsis/SIRS GI for GIB Appreciate assistance. Barriers to Discharge: Decreased mobility and ability to perform self care, right sided weakness, balance deficits, dysphagia Estimated Length of Stay: 21 days Discharge Destination: Home with family if possible
[2018-06-16 11:03] LABS: INR 1.2 (0.87-1.13)
[2018-06-16] MEDS: ASPIRIN FEEDTUBE SCH (11:31)
[2018-06-16] MEDS: PLAVIX FEEDTUBE SCH (11:31)
[2018-06-16] MEDS: PEPCID FEEDTUBE SCH ×2 (11:31→23:27)
[2018-06-16] MEDS: COLACE FEEDTUBE SCH ×2 (11:31→23:28)
[2018-06-16] MEDS: ROCEPHIN/NS 2 GM/100 ML 2 GM/100 ML BAG IV SCH (11:33)
--- NOTE | 2018-06-16 13:30 | Progress Note ---
Assessment and Plan Assessment and plan: Pneumonia; nosocomial acquired abx per ID Fecal impaction/intractable nausea vomiting has had BM, now improved ACute blood loss anemia Upper GIB -coffee ground emesis -GI consulted, planned for EGD -transfuse to keep hg above 7 CVA with residual right-sided hemiparesis, dysphagia on meds for secondary prevention Right BKA - Supportive care Hypertension -cont bp meds Diabetes mellitus - SSI - Uncontrolled, increase lantus dose ELVIRA/hypernatremia/ vasomotor nephropathy, has CKD stage 2-3, bl creat about 1.9 - improving on hypotonic IVF, Nephrology on board Hypokalemia -repleted, on K supplement Anemia of chronic illness stable, cont to monitor DVT prophylaxis - scd in light of gi bleed Patient's primary is Dr Erickson. History Interval history: Review of systems Constitutional: fever resolved, no malaise, no joint pains CVS: No chest pain, no orthopnea, no dyspnea on exertion, no pedal edema GI: was vomiting dark liquid, now resolved Respiratory: No shortness of breath, no wheezing, no coughing Hospitalist Physical - Physical exam Narrative exam: General.: Appears well, no distress, nontoxic HEENT: Moist mucous membranes, extraocular muscles intact, no lymphadenopathy Neck: supple Cardiac: S1-S2 heard Lungs: Diminished air entry at the bases Abdomen: belly is soft, NT, ND Extremities: no edema clubbing or cyanosis Skin: no rash or lesions Neurologic: r hemiparesis Psych: calm, and cooperative - Constitutional Vitals: Temp Pulse Resp BP Pulse Ox 98.4 F 93 H 19 105/69 96 06/16/18 11:25 06/16/18 11:25 06/16/18 11:25 06/16/18 11:25 06/16/18 11:25 Results - Labs CBC & Chem 7: 06/16/18 05:13 06/16/18 05:13 Labs: Laboratory Last Values WBC 12.2 K/mm3 (4.5-11.0) H 06/16/18 05:13 RBC 2.41 M/mm3 (3.65-5.03) L 06/16/18 05:13 Hgb 7.1 gm/dl (11.8-15.2) L 06/16/18 05:13 Hct 21.9 % (35.5-45.6) L 06/16/18 05:13 MCV 91 fl (84-94) 06/16/18 05:13 MCH 30 pg (28-32) 06/16/18 05:13 MCHC 33 % (32-34) 06/16/18 05:13 RDW 14.9 % (13.2-15.2) 06/16/18 05:13 Plt Count 322 K/mm3 (140-440) 06/16/18 05:13 Lymph % (Auto) 9.1 % (13.4-35.0) L 06/16/18 05:13 [place] % (Auto) 7.6 % (0.0-7.3) H 06/16/18 05:13 Eos % (Auto) 1.6 % (0.0-4.3) 06/16/18 05:13 Baso % (Auto) 0.6 % (0.0-1.8) 06/16/18 05:13 Lymph # 1.1 K/mm3 (1.2-5.4) L 06/16/18 05:13 [place] # 0.9 K/mm3 (0.0-0.8) H 06/16/18 05:13 Eos # 0.2 K/mm3 (0.0-0.4) 06/16/18 05:13 Baso # 0.1 K/mm3 (0.0-0.1) 06/16/18 05:13 Seg Neutrophils % 81.1 % (40.0-70.0) H 06/16/18 05:13 Seg Neutrophils # 9.9 K/mm3 (1.8-7.7) H 06/16/18 05:13 PT 15.6 Sec. (12.2-14.9) H 06/16/18 10:37 INR 1.20 (0.87-1.13) H 06/16/18 10:37 Sodium 143 mmol/L (137-145) 06/16/18 05:13 Potassium 4.3 mmol/L (3.6-5.0) 06/16/18 05:13 Chloride 104.2 mmol/L (98-107) 06/16/18 05:13 Carbon Dioxide 22 mmol/L (22-30) 06/16/18 05:13 Anion Gap 21 mmol/L 06/16/18 05:13 BUN 39 mg/dL (9-20) H 06/16/18 05:13 Creatinine 2.4 mg/dL (0.8-1.5) H 06/16/18 05:13 Estimated GFR 34 ml/min 06/16/18 05:13 BUN/Creatinine Ratio 16 % 06/16/18 05:13 Glucose 114 mg/dL (75-100) H 06/16/18 05:13 POC Glucose 154 (70-105) H 06/16/18 11:10 Lactic Acid 1.10 mmol/L (0.7-2.0) 06/14/18 12:50 Calcium 8.8 mg/dL (8.4-10.2) 06/16/18 05:13 Phosphorus 3.20 mg/dL (2.5-4.5) 06/13/18 04:53 Magnesium 2.10 mg/dL (1.7-2.3) 06/07/18 05:15 Iron 33 ug/dL (49-181) L 06/08/18 06:00 TIBC 189 mcg/dL (250-450) L 06/08/18 06:00 Ferritin 1111.0 ng/mL (13.0-400.0) H 06/08/18 06:00 Prealbumin 0.230 g/L (0.200-0.400) 06/03/18 19:51 Urine Color [place] (Yellow) 06/14/18 Unknown Urine Turbidity Turbid (Clear) 06/14/18 Unknown Urine pH 8.0 (5.0-7.0) H 06/14/18 Unknown Ur Specific [place] 1.012 (1.003-1.030) 06/14/18 Unknown Urine Protein >500 mg/dL (Negative) 06/14/18 Unknown Urine Glucose (UA) Neg mg/dL (Negative) 06/14/18 Unknown Urine Ketones Neg mg/dL (Negative) 06/14/18 Unknown Urine Blood Neg (Negative) 06/14/18 Unknown Urine Nitrite Neg (Negative) 06/14/18 Unknown Urine Bilirubin Neg (Negative) 06/14/18 Unknown Urine Urobilinogen 2.0 mg/dL (<2.0) 06/14/18 Unknown Ur Leukocyte Esterase Mod (Negative) 06/14/18 Unknown Urine WBC (Auto) 17.0 /HPF (0.0-6.0) H 06/14/18 Unknown Urine RBC (Auto) 12.0 /HPF (0.0-6.0) 06/14/18 Unknown U Epithel Cells (Auto) 12.0 /HPF (0-13.0) 06/14/18 Unknown Triple Phos Crystals 1+ 06/14/18 Unknown Urine Mucus 1+ /HPF 06/14/18 Unknown Urine Eosinophils None seen (None Seen) 06/08/18 09:55 Urine Creatinine 140.4 mg/dL (0.1-20.0) H 06/08/18 09:55 Protein/Creatinin Ratio 0.26 06/08/18 09:55 Urine Sodium 45 mmol/L 06/08/18 09:55 Urine Total Protein 36 mg/dL (5-11.8) H 06/08/18 09:55 Nutrition/Malnutrition Assess - Dietary Evaluation Nutrition/Malnutrition Findings: Nutrition Notes Start: 06/04/18 11:20 Freq: Status: Active Protocol: Document 06/13/18 14:54 RM (Rec: 06/13/18 14:56 RM [id number]) Nutrition Notes Initial or Follow up Brief Note Current Diagnosis Acute Kidney Injury CKD(stage I-IV) Diabetes Hypertension Stroke Hyperlipidemia Current Diet Glucerna 1.2 at 50 ml/hr Subjective/Other Information Pt using bathroom at time of visit. Observed Glucerna 1.2 hanging next to bed. Per nurse TF was clamped for PT but pt was tolerating TF at goal. Nutrition Intervention Follow-Up By: 06/18/18 Additional Comments Follow for TF tolerance
[2018-06-16] MEDS ORDERED: NACL 0.9% 1000 ML 1,000 ML IV SCH (14:00)
--- NOTE | 2018-06-16 14:28 | Anesthesia Consultation ---
Anesthesia Consult and Med Hx Date of service: 06/16/18 - Airway Anesthetic Teeth Evaluation: Poor ROM Head & Neck: Adequate Mental/Hyoid Distance: Adequate Mallampati Class: Class III Intubation Access Assessment: Possibly Difficult - Pre-Operative Health Status ASA Pre-Surgery Classification: ASA3 - Cardiovascular System Hx Hypertension: Yes (on htn medicine) - Central Nervous System CVA: Yes (right side hemiparesis; PEG' Right BKA; CKD)
--- NOTE | 2018-06-16 14:28 | Anesthesia Day of Surgery ---
Anesthesia Day of Surgery - Day of Surgery Patient Examined: Yes Patient H&P Reviewed: Yes Patient is NPO: Yes
[2018-06-16] MEDS ORDERED: DIPRIVAN 10 MG/ML IV ONE ×2 (14:32)
--- NOTE | 2018-06-16 15:05 | Post Operative Note ---
Pre-op diagnosis: gi bleed Post-op diagnosis: same Findings: EGD: small m-w tear x 2 - grade II esophagitis (bx's) - otherwise benign Procedure: EGD Anesthesia: MAC Surgeon: CHLOÉ GARCIA Estimated blood loss: none Pathology: list Specimen disposition: to lab Condition: stable Disposition: floor
--- NOTE | 2018-06-16 15:19 | Post Anesthesia Evaluation ---
- Post Anesthesia Evaluation Patient Participated: Yes Airway Patent: Yes Stable Respiratory Function: Yes Nausea/Vomiting: No Temp > 96.8F: Yes Pain Manageable: Yes Adequeate Hydration: Yes Anesthesia Complications: No Block Receding Appropriately: Not Applicable Patient on Ventilator: No
[2018-06-16] MEDS: PROTONIX IV SCH ×2 (15:36→23:05)
--- NOTE | 2018-06-16 16:01 | Operative Report ---
PROCEDURE: EGD with cold biopsy. INDICATION: 1. Anemia. 2. GI bleed. MEDICATION: Propofol per [employer]. COMPLICATIONS: None. DESCRIPTION OF PROCEDURE: The patient was brought to procedure suite. The patient had the procedure discussed with him at length. All risks, complications, and benefits discussed after which the patient signed for the procedure performed. The patient was placed in left lateral decubitus position. Mouth block was placed in the patient's oral cavity. After adequate sedation medication as above, endoscope was introduced into the mouth and brought to the second portion of duodenum. Retroflexion view performed. The patient's vital signs remained stable throughout the procedure. FINDINGS: There were noted to be 2 longitudinal tears, which are white base, noted at GE junction 40 cm from the gums consistent with healed [place]-Sun tear. There was grade 1-2 esophagitis in the distal esophagus. Biopsies were taken of distal esophagus and sent to pathology. The remaining esophagus otherwise appeared to be normal. PEG tube site appeared intact. The stomach showed mild gastritis, but otherwise was benign. The duodenum appeared to be normal. Retroflexion view performed in the stomach showed no other pathology other than noted above. The patient tolerated the procedure well. No complications during the procedure. IMPRESSION: 1. Small hiatal hernia. 2. Healing Dyana-Sun tear x 2, which were small without bleeding stigmata. 3. Distal esophagitis, which also was along the GE junction with biopsies performed. 4. PEG tube site intact. 5. Otherwise, benign EGD. RECOMMENDATIONS: 1. Follow up biopsy results. 2. Stool for H. pylori, if positive, we will treat him. 3. PPI daily. 4. Okay to restart diet and anticoagulation. 5. If H and H are stable in a.m., okay to discharge from GI standpoint. 6. We will follow. JOB# [id number] CAB/NTS
[2018-06-16] MEDS: LANTUS SUB-Q SCH (23:14)
[2018-06-17] MEDS: LOPRESSOR FEEDTUBE SCH ×4 (02:03→17:53)
[2018-06-17] MEDS: HEPARIN SUB-Q SCH ×3 (06:24→21:01)
[2018-06-17] MEDS: FLAGYL 500 MG/100 ML 500 MG/100 ML BAG IV SCH ×3 (06:24→21:01)
[2018-06-17] MEDS: REGLAN IV SCH ×3 (06:53→21:06)
[2018-06-17] MEDS: APRESOLINE FEEDTUBE SCH ×3 (06:55→21:01)
[2018-06-17 07:16] LABS: Basophils # (Auto) 0.1 K/mm3 (0.0-0.1); Basophils % (Auto) 0.7 % (0.0-1.8); Eosinophils # (Auto) 0.5 K/mm3 (0.0-0.4); Eosinophils % (Auto) 6.7 % (0.0-4.3); Hematocrit 20.9 % (35.5-45.6); Lymphocytes % (Auto) 13.9 % (13.4-35.0); Mean Corpuscular HGB Conc 33 % (32-34); Mean Corpuscular Volume 89 fl (84-94); Monocytes # (Auto) 0.6 K/mm3 (0.0-0.8); Monocytes % (Auto) 8.9 % (0.0-7.3); Platelet Count 334 K/mm3 (140-440); Red Blood Count 2.35 M/mm3 (3.65-5.03); Red Cell Distribution Width 15.3 % (13.2-15.2)
[2018-06-17 07:31] LABS: Calcium 8.7 mg/dL (8.4-10.2)
[2018-06-17] MEDS: MIRALAX 3350 FEEDTUBE SCH (08:08)
[2018-06-17] MEDS: PROTONIX IV SCH ×2 (08:08→21:01)
[2018-06-17] MEDS: PLAVIX FEEDTUBE SCH (08:08)
[2018-06-17] MEDS: PEPCID FEEDTUBE SCH ×2 (08:08→21:02)
[2018-06-17] MEDS: COLACE FEEDTUBE SCH ×2 (08:09→21:31)
[2018-06-17] MEDS: ASPIRIN FEEDTUBE SCH (08:10)
[2018-06-17] MEDS: HumaLOG SUB-Q SCH ×4 (08:22→21:44)
--- NOTE | 2018-06-17 09:35 | Progress Note ---
Assessment and Plan Cultures 06/07/2018 Stool:OccultBlood: positive 06/14/2018: Blood: no growth to date 06/14/2018: Urine: 10-10,00 CFU/ml of a mixed culture greater than 2 organisms 06/15/2018: Blood: in progress A/P: 53--year-old male medical history of CVA, hypertension, DM and CKD that was admitted to acute rehabilitation from [facility] for acute right-sided weakness on secondary prevention of stroke. He was admitted to [facility] on 06/04/2018 for management of high blood pressure and diabetes. On admission, labs and vital stable, now with: 1. Sepsis: Improved, etiology most likely RUL pneumonia, borderline pyuria in U/A ?UTI seems less likely. Urine cultures show mixed culture greater than 2 o rganisms. Blood cultures show no growth thus far. Currently being treated with Cefepime. 2. Acute respiratory failure secondary to RUL Pneumonia: HCAP v/s aspiration, likely latter. Chest xray reveals a right upper lobe Pneumonia on 06/14/18, +/- aspiration pneumonia. On admission 06/07/18 chest xray showed no infiltrates.. Discontinue Cefepime, start Ceftriaxone and Flagyl . 3. UTI: borderline pyuria in U/A ?UTI seems less likely. Urine cultures show mixed culture greater than 2 organisms. Continue abx as above. 4. ELVIRA on CKD: antimicrobials renally dosed. Nephrology following 5. Type 2 Diabetes: uncontrolled 6. Right BKA 7. CVA with residual right-sided hemiparesis 8. GI Bleed: GI following Plan: -f/u blood cultures -Clinically improving, Continue Ceftriaxone and Flagyl, D3 - D/w Dr. Loya -monitor fevers Melani Rowland NP [facility] M: [id number] O:[phone] Subjective Date of service: 06/17/18 Principal diagnosis: CVA, Acute on CKD Interval history: Patient seen and examined. No acute distress observed. Sitting up in bed. Objective - Exam Narrative Exam: Constitutional: Awake, alert. No acute distress Head, Ears, Nose: Normocephalic, atraumatic. External ears, nose normal Eyes: Conjunctivae/corneas clear. No icterus. No ptosis. Neck: Supple, no meningeal signs Oral: dentition poor. no thrush. Cardiovascular: S1, S2 normal. Respiratory: Good air entry, clear to auscultation bilaterally GI: Soft, non-tender; bowel sounds normal. No peritoneal signs, + peg Musculoskeletal: No pedal edema, no cyanosis, + BKA. Skin: No rash or abscess. Dry skin Hem/Lymphatic: No palpable cervical or supraclavicular nodes. No lymphangitis Psych: Mood ok. Affect normal Neurological: Awake, alert, oriented. - Constitutional Vitals: Vital Signs Temp Pulse Resp BP Pulse Ox 99.2 F 104 H 20 118/80 91 06/17/18 07:28 06/17/18 07:28 06/17/18 07:28 06/17/18 07:28 06/17/18 07:28 Temperature -Last 24 Hours Temperature 99.2 F Temperature 98.9 F Temperature 98.3 F Temperature 98.0 F Temperature 98.3 F Temperature 98.3 F Temperature 98.4 F - Labs CBC & Chem 7: 06/17/18 07:00 06/17/18 07:00 Labs: Abnormal lab results 06/16/18 06/16/18 06/16/18 Range/Units 10:37 11:10 16:21 RBC (3.65-5.03) M/mm3 Hgb (11.8-15.2) gm/dl Hct (35.5-45.6) % RDW (13.2-15.2) % [place] % (Auto) (0.0-7.3) % Eos % (Auto) (0.0-4.3) % Lymph # (1.2-5.4) K/mm3 Eos # (0.0-0.4) K/mm3 PT 15.6 H (12.2-14.9) Sec. INR 1.20 H (0.87-1.13) BUN (9-20) mg/dL Creatinine (0.8-1.5) mg/dL Glucose (75-100) mg/dL POC Glucose 154 H 109 H (70-105) 06/16/18 06/17/18 06/17/18 Range/Units 23:09 07:00 07:00 RBC 2.35 L (3.65-5.03) M/mm3 Hgb 7.0 L (11.8-15.2) gm/dl Hct 20.9 L (35.5-45.6) % RDW 15.3 H (13.2-15.2) % [place] % (Auto) 8.9 H (0.0-7.3) % Eos % (Auto) 6.7 H (0.0-4.3) % Lymph # 1.0 L (1.2-5.4) K/mm3 Eos # 0.5 H (0.0-0.4) K/mm3 PT (12.2-14.9) Sec. INR (0.87-1.13) BUN 31 H (9-20) mg/dL Creatinine 1.7 H (0.8-1.5) mg/dL Glucose 204 H (75-100) mg/dL POC Glucose 142 H (70-105) 06/17/18 Range/Units 07:32 RBC (3.65-5.03) M/mm3 Hgb (11.8-15.2) gm/dl Hct (35.5-45.6) % RDW (13.2-15.2) % [place] % (Auto) (0.0-7.3) % Eos % (Auto) (0.0-4.3) % Lymph # (1.2-5.4) K/mm3 Eos # (0.0-0.4) K/mm3 PT (12.2-14.9) Sec. INR (0.87-1.13) BUN (9-20) mg/dL Creatinine (0.8-1.5) mg/dL Glucose (75-100) mg/dL POC Glucose 207 H (70-105)
--- NOTE | 2018-06-17 10:19 | Gastroenterology Progress Note ---
Addendum entered and electronically signed by CHLOÉ GARCIA MD 06/17/18 14:22: - management as outlined below - call if needed Original Note: Assessment and Plan 1.GI bleed 2.coffee-ground emesis -H/H 7.0/20.9-stable -continue to monitor H/H and transfuse as needed -s/p EGD that revealed a small Hiatal hernia, healing M-W tear x 2 w/o bleeding stigmata, distal esophagitis, and PEG intact -bx results pending-f/u in clinic -clinically, patient is stable from GI standpoint with no active signs of bleeding. Denies abd pain or N/V. Tolerating TFs. -okay to resume anticoagulation as needed -continue PPI and supportive care -patient okay to be d/c per GI standpoint on PPI with f/u in clinic -will sign off, please call if needed 3.fecal retention seen on KUB -improved; s/p BM -continue daily bowel regimen with Miralax Subjective Date of service: 06/17/18 Principal diagnosis: coffee-ground emesis Interval history: No active signs of bleeding overnight or this am per pt/nursing. Objective - Constitutional Vitals: Temp Pulse Resp BP Pulse Ox 99.2 F 104 H 20 118/80 91 06/17/18 07:28 06/17/18 07:28 06/17/18 07:28 06/17/18 07:28 06/17/18 07:28 General appearance: no acute distress - Respiratory Respiratory: bilateral: diminished - Cardiovascular Rhythm: other (tachycardia) - Gastrointestinal General gastrointestinal: Present: soft, non-tender, non-distended, normal bowel sounds, other (+PEG) - Neurologic Neurological: alert and oriented x3 - Labs CBC & Chem 7: 06/17/18 07:00 06/17/18 07:00 Labs: Laboratory Results - last 24 hr 06/16/18 06/16/18 06/16/18 10:37 11:10 16:21 WBC RBC Hgb Hct MCV MCH MCHC RDW Plt Count Lymph % (Auto) [place] % (Auto) Eos % (Auto) Baso % (Auto) Lymph # [place] # Eos # Baso # Seg Neutrophils % Seg Neutrophils # PT 15.6 H INR 1.20 H Sodium Potassium Chloride Carbon Dioxide Anion Gap BUN Creatinine Estimated GFR BUN/Creatinine Ratio Glucose POC Glucose 154 H 109 H Calcium 06/16/18 06/17/18 06/17/18 23:09 07:00 07:00 WBC 7.1 RBC 2.35 L Hgb 7.0 L Hct 20.9 L MCV 89 MCH 30 MCHC 33 RDW 15.3 H Plt Count 334 Lymph % (Auto) 13.9 [place] % (Auto) 8.9 H Eos % (Auto) 6.7 H Baso % (Auto) 0.7 Lymph # 1.0 L [place] # 0.6 Eos # 0.5 H Baso # 0.1 Seg Neutrophils % 69.8 Seg Neutrophils # 4.9 PT INR Sodium 142 Potassium 4.1 Chloride 105.5 Carbon Dioxide 27 Anion Gap 14 BUN 31 H Creatinine 1.7 H Estimated GFR 51 BUN/Creatinine Ratio 18 Glucose 204 H POC Glucose 142 H Calcium 8.7 06/17/18 07:32 WBC RBC Hgb Hct MCV MCH MCHC RDW Plt Count Lymph % (Auto) [place] % (Auto) Eos % (Auto) Baso % (Auto) Lymph # [place] # Eos # Baso # Seg Neutrophils % Seg Neutrophils # PT INR Sodium Potassium Chloride Carbon Dioxide Anion Gap BUN Creatinine Estimated GFR BUN/Creatinine Ratio Glucose POC Glucose 207 H Calcium
[2018-06-17] MEDS: ROCEPHIN/NS 2 GM/100 ML 2 GM/100 ML BAG IV SCH (10:21)
--- NOTE | 2018-06-17 10:58 | Progress Note ---
Assessment and Plan Acute Renal Failure secondary to Ischemic ATN on likely CKD from Hypertension: -Cr is back to baseline - will cont gentle IVF with 1/2 NS 50 cc/h -Renally dose meds -Avoid nephrotoxic agents Anemia in CKD - Epogen dosing for anemia management Acute CVA: -On ASA, plavix and statin -Rehab therapy Right Upper Lobe Pneumonia: - Started on rocephin - As per primary Essential Hypertension: -Adjust meds as needed Diabetes Mellitus Type 2 on insulin: -On Insulin Subjective Date of service: 06/17/18 Principal diagnosis: coffee-ground emesis Interval history: denies overnight events Objective - Vital Signs Vital signs: Vital Signs - 12hr 06/16/18 06/17/18 06/17/18 23:12 06:55 07:28 Temperature 99.2 F Pulse Rate 99 H 105 H 104 H Respiratory 20 Rate Blood Pressure 136/85 118/72 118/80 O2 Sat by Pulse 91 Oximetry - General Appearance General appearance: well-developed, well-nourished EENT: ATNC, PERRL Neck: no JVD, no carotid bruit Respiratory: Present: Clear to Ascultation. Absent: Rales, Ronchi Cardiology: regular, S1S2 Gastrointestinal: normoactive bowel sounds Integumentary: no rash, warm and dry Neurologic: no focal deficit, no asterixis, alert and oriented x3 Musculoskeletal: other Psychiatric: mood/affect appropriate, cooperative - Lab 06/17/18 07:00 06/17/18 07:00 Most recent lab results Calcium 8.7 mg/dL (8.4-10.2) 06/17/18 07:00 Phosphorus 3.20 mg/dL (2.5-4.5) 06/13/18 04:53 Magnesium 2.10 mg/dL (1.7-2.3) 06/07/18 05:15 Urine Creatinine 140.4 mg/dL (0.1-20.0) H 06/08/18 09:55 Urine Sodium 45 mmol/L 06/08/18 09:55 Urine Total Protein 36 mg/dL (5-11.8) H 06/08/18 09:55 Medications & Allergies - Medications Allergies/Adverse Reactions: Allergies No Known Allergies Allergy (Unverified 08/03/15 12:32) Home Medications: Home Medications Medication Instructions Recorded Confirmed Last Taken Type Aspirin [Aspirin BABY CHEW TAB] 81 mg PO QDAY 08/04/15 06/05/18 Unknown History Insulin Detemir [Levemir Flextouch] 35 unit SQ BID 08/04/15 06/05/18 Unknown History NIFEdipine XL [Procardia Xl] 60 mg PO QDAY 08/04/15 06/05/18 Unknown History Simvastatin [Zocor TAB] 40 mg PO QHS 08/04/15 06/05/18 Unknown History Sitagliptin/Metformin (Nf) 1 each PO BID 08/04/15 06/05/18 Unknown History [Janumet 50-1,000 mg (Nf)] Sulfamethoxazole/Trimethoprim 1 each PO BID #14 tablet 08/04/15 06/05/18 Unknown Rx [Bactrim DS TAB] Active Medications: Generic Name Dose Route Start Last Admin Trade Name Freq PRN Reason Stop Dose Admin Acetaminophen 650 mg 06/15/18 20:58 06/15/18 21:17 Tylenol [place] 650 mg Q4H PRN Administration Pain, Mild (1-3) Acetaminophen/Hydrocodone Bitart 1 each 06/09/18 20:50 06/14/18 22:27 [place] 5/325 PO 1 each Q6H PRN Administration Pain, Moderate (4-6) Albuterol/Ipratropium 1 ampul 06/14/18 20:00 06/16/18 14:33 Duoneb *Not For Prn Use* IH 06/18/18 19:59 Not Given TIDRT JONO Lipase/Protease/Amylase 1 each 06/10/18 14:01 Pancrealthea Laguerre 10,500 Unit FEEDTUBE PRN PRN For Clogged Feeding Tube Aspirin 325 mg 06/04/18 08:00 06/17/18 08:10 Aspirin FEEDTUBE 325 mg QDAY JONO Administration Atorvastatin Calcium 40 mg 06/03/18 21:00 06/16/18 23:14 Lipitor FEEDTUBE 40 mg QHS JONO Administration Clopidogrel Bisulfate 75 mg 06/04/18 08:00 06/17/18 08:08 Plavix FEEDTUBE 75 mg QDAY JONO Administration Dextrose 50 ml 06/03/18 17:09 D50w (25gm) Syringe IV PRN PRN Hypoglycemia Docusate Sodium 100 mg 06/03/18 22:00 06/17/18 08:09 Colace FEEDTUBE 100 mg BID JONO Administration Epoetin Abhijeet 10,000 unit 06/08/18 10:00 06/15/18 11:18 Procrit SUB-Q 10,000 unit Webb JONO Administration Famotidine 10 mg 06/13/18 22:00 06/17/18 08:08 Pepcid FEEDTUBE 10 mg BID JONO Administration Heparin Sodium (Porcine) 5,000 unit 06/03/18 22:00 06/17/18 06:24 Heparin SUB-Q 5,000 unit Q8HR JONO Administration Hydralazine HCl 25 mg 06/10/18 14:00 06/17/18 06:55 Apresoline FEEDTUBE 25 mg Q8HR JONO Administration Ceftriaxone Sodium 2 gm in 100 mls @ 200 mls/hr 06/15/18 15:00 06/17/18 10:21 Rocephin/Ns 2 Gm/100 Ml IV 200 mls/hr Q24HR JONO Administration Protocol Metronidazole 500 mg in 100 mls @ 100 mls/hr 06/15/18 15:00 06/17/18 06:24 Flagyl 500 Mg/100 Ml IV 100 mls/hr Q8HR JONO Administration Protocol Insulin Glargine 20 units 06/10/18 21:00 06/16/18 23:14 Lantus SUB-Q 20 units QHS JONO Administration Insulin Human Lispro 0 unit 06/10/18 13:30 06/17/18 08:22 Humalog SUB-Q 3 unit ACHS JONO Administration Protocol Metoclopramide HCl 10 mg 06/15/18 11:00 06/17/18 10:21 Reglan IV 06/18/18 10:59 10 mg Q8H JONO Administration Metoprolol Tartrate 50 mg 06/07/18 10:00 06/17/18 08:08 Lopressor FEEDTUBE 50 mg Q8H JONO Administration Ondansetron HCl 4 mg 06/14/18 16:19 06/14/18 16:47 Zofran IV 4 mg Q6H PRN Administration Nausea And Vomiting Pantoprazole Sodium 40 mg 06/16/18 13:00 06/17/18 08:08 Protonix IV 40 mg BID JONO Administration Phenyleph/Shark Oil/Min Oil/Petrol 1 applic 06/10/18 14:19 Preparation H FL Q6HR PRN Hemorrhoids Polyethylene Glycol 17 gm 06/17/18 08:00 06/17/18 08:08 Miralax 3350 FEEDTUBE 17 gm QDAY JONO Administration Promethazine HCl 25 mg 06/15/18 08:32 Phenergan FL Q6H PRN Nausea And Vomiting Simple Syrup 15 ml 06/10/18 14:01 Simple Syrup FEEDTUBE PRN PRN Hypoglycemia Simple Syrup 30 ml 06/10/18 14:01 Simple Syrup FEEDTUBE PRN PRN Hypoglycemia Sodium Bicarbonate 325 mg 06/10/18 14:01 Sodium Bicarbonate FEEDTUBE PRN PRN For Clogged Feeding Tube
[2018-06-17] MEDS: NACL 0.45% 1000 ML IV SCH (13:57)
[2018-06-17] MEDS: DUONEB *Not for PRN Use IH SCH ×4 (15:13→20:19)
--- NOTE | 2018-06-17 15:58 | Progress Note ---
Assessment and Plan Assessment and plan: Pneumonia; nosocomial acquired abx per ID Fecal impaction/intractable nausea vomiting sp enema and has had BM, now improved -on miralax and improved ACute blood loss anemia Upper GIB -coffee ground emesis -GI consulted,EGD on 06/16 confirms Dyana lebron tear -transfuse to keep hg above 7 CVA with residual right-sided hemiparesis, dysphagia on meds for secondary prevention Right BKA - Supportive care Hypertension -cont bp meds Diabetes mellitus - SSI - Uncontrolled, increase lantus dose ELVIRA/hypernatremia/ vasomotor nephropathy, has CKD stage 2-3, bl creat about 1.9 - improving on hypotonic IVF, Nephrology on board Hypokalemia -repleted, on K supplement Anemia of chronic illness stable, cont to monitor DVT prophylaxis - scd in light of gi bleed Patient's primary is Dr Erickson. History Interval history: Review of systems Constitutional: fever resolved, no malaise, no joint pains CVS: No chest pain, no orthopnea, no dyspnea on exertion, no pedal edema GI: was vomiting dark liquid, now resolved Respiratory: No shortness of breath, no wheezing, no coughing Hospitalist Physical - Physical exam Narrative exam: General.: Appears well, no distress, nontoxic HEENT: Moist mucous membranes, extraocular muscles intact, no lymphadenopathy Neck: supple Cardiac: S1-S2 heard Lungs: Diminished air entry at the bases Abdomen: belly is soft, NT, ND Extremities: no edema clubbing or cyanosis Skin: no rash or lesions Neurologic: r hemiparesis Psych: calm, and cooperative - Constitutional Vitals: Temp Pulse Resp BP Pulse Ox 98.8 F 91 H 16 109/73 93 06/17/18 10:49 06/17/18 14:00 06/17/18 14:00 06/17/18 10:49 06/17/18 10:49 Results - Labs CBC & Chem 7: 06/17/18 07:00 06/17/18 07:00 Labs: Laboratory Last Values WBC 7.1 K/mm3 (4.5-11.0) 06/17/18 07:00 RBC 2.35 M/mm3 (3.65-5.03) L 06/17/18 07:00 Hgb 7.0 gm/dl (11.8-15.2) L 06/17/18 07:00 Hct 20.9 % (35.5-45.6) L 06/17/18 07:00 MCV 89 fl (84-94) 06/17/18 07:00 MCH 30 pg (28-32) 06/17/18 07:00 MCHC 33 % (32-34) 06/17/18 07:00 RDW 15.3 % (13.2-15.2) H 06/17/18 07:00 Plt Count 334 K/mm3 (140-440) 06/17/18 07:00 Lymph % (Auto) 13.9 % (13.4-35.0) 06/17/18 07:00 [place] % (Auto) 8.9 % (0.0-7.3) H 06/17/18 07:00 Eos % (Auto) 6.7 % (0.0-4.3) H 06/17/18 07:00 Baso % (Auto) 0.7 % (0.0-1.8) 06/17/18 07:00 Lymph # 1.0 K/mm3 (1.2-5.4) L 06/17/18 07:00 [place] # 0.6 K/mm3 (0.0-0.8) 06/17/18 07:00 Eos # 0.5 K/mm3 (0.0-0.4) H 06/17/18 07:00 Baso # 0.1 K/mm3 (0.0-0.1) 06/17/18 07:00 Seg Neutrophils % 69.8 % (40.0-70.0) 06/17/18 07:00 Seg Neutrophils # 4.9 K/mm3 (1.8-7.7) 06/17/18 07:00 PT 15.6 Sec. (12.2-14.9) H 06/16/18 10:37 INR 1.20 (0.87-1.13) H 06/16/18 10:37 Sodium 142 mmol/L (137-145) 06/17/18 07:00 Potassium 4.1 mmol/L (3.6-5.0) 06/17/18 07:00 Chloride 105.5 mmol/L (98-107) 06/17/18 07:00 Carbon Dioxide 27 mmol/L (22-30) 06/17/18 07:00 Anion Gap 14 mmol/L 06/17/18 07:00 BUN 31 mg/dL (9-20) H 06/17/18 07:00 Creatinine 1.7 mg/dL (0.8-1.5) H 06/17/18 07:00 Estimated GFR 51 ml/min 06/17/18 07:00 BUN/Creatinine Ratio 18 % 06/17/18 07:00 Glucose 204 mg/dL (75-100) H 06/17/18 07:00 POC Glucose 173 (70-105) H 06/17/18 11:04 Lactic Acid 1.10 mmol/L (0.7-2.0) 06/14/18 12:50 Calcium 8.7 mg/dL (8.4-10.2) 06/17/18 07:00 Phosphorus 3.20 mg/dL (2.5-4.5) 06/13/18 04:53 Magnesium 2.10 mg/dL (1.7-2.3) 06/07/18 05:15 Iron 33 ug/dL (49-181) L 06/08/18 06:00 TIBC 189 mcg/dL (250-450) L 06/08/18 06:00 Ferritin 1111.0 ng/mL (13.0-400.0) H 06/08/18 06:00 Prealbumin 0.230 g/L (0.200-0.400) 06/03/18 19:51 Urine Color [place] (Yellow) 06/14/18 Unknown Urine Turbidity Turbid (Clear) 06/14/18 Unknown Urine pH 8.0 (5.0-7.0) H 06/14/18 Unknown Ur Specific [place] 1.012 (1.003-1.030) 06/14/18 Unknown Urine Protein >500 mg/dL (Negative) 06/14/18 Unknown Urine Glucose (UA) Neg mg/dL (Negative) 06/14/18 Unknown Urine Ketones Neg mg/dL (Negative) 06/14/18 Unknown Urine Blood Neg (Negative) 06/14/18 Unknown Urine Nitrite Neg (Negative) 06/14/18 Unknown Urine Bilirubin Neg (Negative) 06/14/18 Unknown Urine Urobilinogen 2.0 mg/dL (<2.0) 06/14/18 Unknown Ur Leukocyte Esterase Mod (Negative) 06/14/18 Unknown Urine WBC (Auto) 17.0 /HPF (0.0-6.0) H 06/14/18 Unknown Urine RBC (Auto) 12.0 /HPF (0.0-6.0) 06/14/18 Unknown U Epithel Cells (Auto) 12.0 /HPF (0-13.0) 06/14/18 Unknown Triple Phos Crystals 1+ 06/14/18 Unknown Urine Mucus 1+ /HPF 06/14/18 Unknown Urine Eosinophils None seen (None Seen) 06/08/18 09:55 Urine Creatinine 140.4 mg/dL (0.1-20.0) H 06/08/18 09:55 Protein/Creatinin Ratio 0.26 06/08/18 09:55 Urine Sodium 45 mmol/L 06/08/18 09:55 Urine Total Protein 36 mg/dL (5-11.8) H 06/08/18 09:55 Nutrition/Malnutrition Assess - Dietary Evaluation Nutrition/Malnutrition Findings: Nutrition Notes Start: 06/04/18 11:20 Freq: Status: Active Protocol: Document 06/13/18 14:54 RM (Rec: 06/13/18 14:56 RM [id number]) Nutrition Notes Initial or Follow up Brief Note Current Diagnosis Acute Kidney Injury CKD(stage I-IV) Diabetes Hypertension Stroke Hyperlipidemia Current Diet Glucerna 1.2 at 50 ml/hr Subjective/Other Information Pt using bathroom at time of visit. Observed Glucerna 1.2 hanging next to bed. Per nurse TF was clamped for PT but pt was tolerating TF at goal. Nutrition Intervention Follow-Up By: 06/18/18 Additional Comments Follow for TF tolerance
[2018-06-17] MEDS: LANTUS SUB-Q SCH (21:31)
[2018-06-18] MEDS: APRESOLINE FEEDTUBE SCH ×3 (05:46→22:13)
[2018-06-18] MEDS: FLAGYL 500 MG/100 ML 500 MG/100 ML BAG IV SCH ×3 (05:46→22:11)
[2018-06-18] MEDS: LOPRESSOR FEEDTUBE SCH ×4 (05:46→18:29)
[2018-06-18] MEDS: REGLAN IV SCH (05:47)
[2018-06-18] MEDS: HEPARIN SUB-Q SCH ×3 (05:47→22:13)
[2018-06-18] MEDS: HumaLOG SUB-Q SCH ×4 (06:57→23:51)
[2018-06-18 08:00] LABS: Basophils # (Auto) 0.1 K/mm3 (0.0-0.1); Basophils % (Auto) 0.9 % (0.0-1.8); Eosinophils # (Auto) 0.5 K/mm3 (0.0-0.4); Eosinophils % (Auto) 6.9 % (0.0-4.3); Hematocrit 21.1 % (35.5-45.6); Hemoglobin 7.1 gm/dl (11.8-15.2); Lymphocytes # (Auto) 1.2 K/mm3 (1.2-5.4); Lymphocytes % (Auto) 16.5 % (13.4-35.0); Mean Corpuscular HGB Conc 34 % (32-34); Mean Corpuscular Volume 89 fl (84-94); Monocytes # (Auto) 0.6 K/mm3 (0.0-0.8); Monocytes % (Auto) 8.4 % (0.0-7.3); Platelet Count 321 K/mm3 (140-440); Red Blood Count 2.38 M/mm3 (3.65-5.03); Red Cell Distribution Width 15.1 % (13.2-15.2)
[2018-06-18 08:15] LABS: BUN/Creatinine Ratio 17; Blood Urea Nitrogen 24 mg/dL (9-20); Calcium 8.3 mg/dL (8.4-10.2); Hemolysis Index 0
[2018-06-18] MEDS: COLACE FEEDTUBE SCH ×2 (08:26→22:12)
[2018-06-18] MEDS: PEPCID FEEDTUBE SCH (08:26)
[2018-06-18] MEDS: ASPIRIN FEEDTUBE SCH (08:26)
[2018-06-18] MEDS: MIRALAX 3350 FEEDTUBE SCH (08:26)
[2018-06-18] MEDS: PLAVIX FEEDTUBE SCH (08:26)
[2018-06-18] MEDS: PROTONIX IV SCH ×2 (08:26→22:12)
[2018-06-18] MEDS: DUONEB *Not for PRN Use IH SCH ×2 (08:47→15:24)
--- NOTE | 2018-06-18 10:31 | Progress Note ---
Assessment and Plan Cultures 06/07/2018 Stool:OccultBlood: positive 06/14/2018: Blood: no growth to date 06/14/2018: Urine: 10-10,00 CFU/ml of a mixed culture greater than 2 organisms 06/15/2018: Blood: no growth to date A/P: 53--year-old male medical history of CVA, hypertension, DM and CKD that was admitted to acute rehabilitation from [facility] for acute right-sided weakness on secondary prevention of stroke. He was admitted to [facility] on 06/04/2018 for management of high blood pressure and diabetes. On admission, labs and vital stable, now with: 1. Sepsis: Resolved etiology most likely RUL pneumonia, borderline pyuria in U/A ?UTI seems less likely. Urine cultures show mixed culture greater than 2 organisms. Blood cultures show no growth thus far. Currently being treated with Cefepime. 2. Acute respiratory failure secondary to RUL Pneumonia: HCAP v/s aspiration, likely latter. Chest xray reveals a right upper lobe Pneumonia on 06/14/18, +/- aspiration pneumonia. On admission 06/07/18 chest xray showed no infiltrates.. Discontinue Cefepime, start Ceftriaxone and Flagyl . 3. UTI: borderline pyuria in U/A ?UTI seems less likely. Urine cultures show mixed culture greater than 2 organisms. Continue abx as above. 4. ELVIRA on CKD: antimicrobials renally dosed. Nephrology following 5. Type 2 Diabetes: uncontrolled 6. Right BKA 7. CVA with residual right-sided hemiparesis 8. GI Bleed: GI following Plan: -f/u blood cultures -Clinically improving, Continue Ceftriaxone and Flagyl, D4 for a total of 5 days -If discharging today Ok to give Augmentin 875 BID for 1 day. d/w Dr. Vincenzo Rowland, [employer] [facility] M: [id number] O:[phone] Subjective Date of service: 06/18/18 Principal diagnosis: CVA, Acute on CKD Interval history: Patient seen and examined. No acute distress observed. Sitting up in bed, no acute distress. Objective - Exam Narrative Exam: Constitutional: Awake, alert. No acute distress Head, Ears, Nose: Normocephalic, atraumatic. External ears, nose normal Eyes: Conjunctivae/corneas clear. No icterus. No ptosis. Neck: Supple, no meningeal signs Oral: dentition poor. no thrush. Cardiovascular: S1, S2 normal. Respiratory: Good air entry, clear to auscultation bilaterally GI: Soft, non-tender; bowel sounds normal. No peritoneal signs, + peg Musculoskeletal: No pedal edema, no cyanosis, + BKA. Skin: No rash or abscess. Hem/Lymphatic: No palpable cervical or supraclavicular nodes. No lymphangitis Psych: Mood ok. Affect normal Neurological: Awake, alert, oriented. - Constitutional Vitals: Vital Signs Temp Pulse Resp BP Pulse Ox 98.0 F 98 H 18 134/92 97 06/18/18 07:23 06/18/18 08:53 06/18/18 08:53 06/18/18 07:23 06/18/18 08:52 Temperature -Last 24 Hours Temperature 98.0 F Temperature 98.5 F Temperature 97.9 F Temperature 98.0 F Temperature 98.8 F - Labs CBC & Chem 7: 06/18/18 07:24 06/18/18 07:24 Labs: Abnormal lab results 06/17/18 06/17/18 06/17/18 Range/Units 11:04 16:21 21:33 RBC (3.65-5.03) M/mm3 Hgb (11.8-15.2) gm/dl Hct (35.5-45.6) % [place] % (Auto) (0.0-7.3) % Eos % (Auto) (0.0-4.3) % Eos # (0.0-0.4) K/mm3 BUN (9-20) mg/dL Glucose (75-100) mg/dL POC Glucose 173 H 172 H 197 H (70-105) Calcium (8.4-10.2) mg/dL 06/18/18 06/18/18 06/18/18 Range/Units 06:41 07:24 07:24 RBC 2.38 L (3.65-5.03) M/mm3 Hgb 7.1 L (11.8-15.2) gm/dl Hct 21.1 L (35.5-45.6) % [place] % (Auto) 8.4 H (0.0-7.3) % Eos % (Auto) 6.9 H (0.0-4.3) % Eos # 0.5 H (0.0-0.4) K/mm3 BUN 24 H (9-20) mg/dL Glucose 185 H (75-100) mg/dL POC Glucose 159 H (70-105) Calcium 8.3 L (8.4-10.2) mg/dL
[2018-06-18] MEDS: ROCEPHIN/NS 2 GM/100 ML 2 GM/100 ML BAG IV SCH (10:47)
--- NOTE | 2018-06-18 12:14 | Progress Note ---
Assessment and Plan Acute Renal Failure secondary to Ischemic ATN on likely CKD from HTN: -Renal function reviewed. Serum creatinine today is 1.4. Yesterdays serum creatinine was 1.7 renal function slowly improvinmg -On 1/2NS @ 50 ml/hr -GN work-up ordered at previous hospital was negative -Renal ultrasound at previous hospital showed signs of CKD -Avoid nephrotoxic agents -Obtain daily weights -Monitor I/O's -Monitor renal function closely Acute CVA: -On ASA, plavix and Statin -Rehab therapy Hypertension: -Continue BP meds and adjust as needed Diabetes Mellitus: -On Insulin Oropharyngeal Dysphagia: -Peg Tube feedings Anemia in CKD: - Epogen dosing for anemia management Right Upper Lobe Pneumonia: -On IV Rocephin and Flagyl -As per primary Subjective Date of service: 06/18/18 Principal diagnosis: CVA, Acute on CKD Interval history: Patient seen sitting up in chair undergoing physical therapy. Objective - Vital Signs Vital signs: Vital Signs - 12hr 06/18/18 06/18/18 06/18/18 04:58 05:46 07:23 Temperature 98.5 F 98.0 F Pulse Rate 100 H 100 H 92 H Pulse Rate [ Anterior Bilateral Throughout] Respiratory 18 20 Rate Respiratory Rate [Anterior Bilateral Throughout] Blood Pressure 134/90 134/90 134/92 O2 Sat by Pulse 97 95 Oximetry 06/18/18 06/18/18 06/18/18 08:35 08:52 08:53 Temperature Pulse Rate Pulse Rate [ 95 H 98 H Anterior Bilateral Throughout] Respiratory Rate Respiratory 18 18 Rate [Anterior Bilateral Throughout] Blood Pressure O2 Sat by Pulse 97 Oximetry 06/18/18 11:37 Temperature 97.9 F Pulse Rate Pulse Rate [ Anterior Bilateral Throughout] Respiratory 20 Rate Respiratory Rate [Anterior Bilateral Throughout] Blood Pressure 118/80 O2 Sat by Pulse Oximetry - General Appearance General appearance: well-developed, appears stated age EENT: ATNC, PERRL, hearing intact, vision intact Neck: no JVD, supple Respiratory: Present: Decreased Breath Sounds Cardiology: regular, S1S2 Gastrointestinal: normoactive bowel sounds Integumentary: no rash, warm and dry Neurologic: alert and oriented x3 Musculoskeletal: other (Right BKA) Psychiatric: cooperative - Lab 06/18/18 07:24 06/18/18 07:24 Most recent lab results Calcium 8.3 mg/dL (8.4-10.2) L 06/18/18 07:24 Phosphorus 3.20 mg/dL (2.5-4.5) 06/13/18 04:53 Magnesium 2.10 mg/dL (1.7-2.3) 06/07/18 05:15 Urine Creatinine 140.4 mg/dL (0.1-20.0) H 06/08/18 09:55 Urine Sodium 45 mmol/L 06/08/18 09:55 Urine Total Protein 36 mg/dL (5-11.8) H 06/08/18 09:55 Medications & Allergies - Medications Allergies/Adverse Reactions: Allergies No Known Allergies Allergy (Unverified 08/03/15 12:32) Home Medications: Home Medications Medication Instructions Recorded Confirmed Last Taken Type Aspirin [Aspirin BABY CHEW TAB] 81 mg PO QDAY 08/04/15 06/05/18 Unknown History Insulin Detemir [Levemir Flextouch] 35 unit SQ BID 08/04/15 06/05/18 Unknown History NIFEdipine XL [Procardia Xl] 60 mg PO QDAY 08/04/15 06/05/18 Unknown History Simvastatin [Zocor TAB] 40 mg PO QHS 08/04/15 06/05/18 Unknown History Sitagliptin/Metformin (Nf) 1 each PO BID 08/04/15 06/05/18 Unknown History [Janumet 50-1,000 mg (Nf)] Sulfamethoxazole/Trimethoprim 1 each PO BID #14 tablet 08/04/15 06/05/18 Unknown Rx [Bactrim DS TAB] Active Medications: Generic Name Dose Route Start Last Admin Trade Name Theodoreq PRN Reason Stop Dose Admin Acetaminophen 650 mg 06/15/18 20:58 06/15/18 21:17 Tylenol DE 650 mg Q4H PRN Administration Pain, Mild (1-3) Acetaminophen/Hydrocodone Bitart 1 each 06/09/18 20:50 06/14/18 22:27 [place] 5/325 PO 1 each Q6H PRN Administration Pain, Moderate (4-6) Albuterol/Ipratropium 1 ampul 06/14/18 20:00 06/18/18 08:47 Duoneb *Not For Prn Use* IH 06/18/18 19:59 1 ampul TIDRT JONO Administration Lipase/Protease/Amylase 1 each 06/10/18 14:01 Pancrealthea Laguerre 10,500 Unit FEEDTUBE PRN PRN For Clogged Feeding Tube Aspirin 325 mg 06/04/18 08:00 06/18/18 08:26 Aspirin FEEDTUBE 325 mg QDAY JONO Administration Atorvastatin Calcium 40 mg 06/03/18 21:00 06/17/18 21:02 Lipitor FEEDTUBE 40 mg QHS JONO Administration Clopidogrel Bisulfate 75 mg 06/04/18 08:00 06/18/18 08:26 Plavix FEEDTUBE 75 mg QDAY JONO Administration Dextrose 50 ml 06/03/18 17:09 D50w (25gm) Syringe IV PRN PRN Hypoglycemia Docusate Sodium 100 mg 06/03/18 22:00 06/18/18 08:26 Colace FEEDTUBE 100 mg BID JONO Administration Epoetin Abhijeet 10,000 unit 06/08/18 10:00 06/15/18 11:18 Procrit SUB-Q 10,000 unit Webb JONO Administration Heparin Sodium (Porcine) 5,000 unit 06/03/18 22:00 06/18/18 05:47 Heparin SUB-Q 5,000 unit Q8HR JONO Administration Hydralazine HCl 25 mg 06/10/18 14:00 06/18/18 05:46 Apresoline FEEDTUBE 25 mg Q8HR JONO Administration Ceftriaxone Sodium 2 gm in 100 mls @ 200 mls/hr 06/15/18 15:00 06/18/18 10:47 Rocephin/Ns 2 Gm/100 Ml IV 200 mls/hr Q24HR JONO Administration Protocol Metronidazole 500 mg in 100 mls @ 100 mls/hr 06/15/18 15:00 06/18/18 05:46 Flagyl 500 Mg/100 Ml IV 100 mls/hr Q8HR JONO Administration Protocol Insulin Glargine 20 units 06/10/18 21:00 06/17/18 21:31 Lantus SUB-Q 20 units QHS JONO Administration Insulin Human Lispro 0 unit 06/18/18 07:00 06/18/18 06:57 Humalog SUB-Q 2 unit Q6HR JONO Administration Protocol Metoprolol Tartrate 50 mg 06/07/18 10:00 06/18/18 08:26 Lopressor FEEDTUBE 50 mg Q8H JONO Administration Ondansetron HCl 4 mg 06/14/18 16:19 06/14/18 16:47 Zofran IV 4 mg Q6H PRN Administration Nausea And Vomiting Pantoprazole Sodium 40 mg 06/16/18 13:00 06/18/18 08:26 Protonix IV 40 mg BID JONO Administration Phenyleph/Shark Oil/Min Oil/Petrol 1 applic 06/10/18 14:19 Preparation H DE Q6HR PRN Hemorrhoids Polyethylene Glycol 17 gm 06/17/18 08:00 06/18/18 08:26 Miralax 3350 FEEDTUBE 17 gm QDAY JONO Administration Promethazine HCl 25 mg 06/15/18 08:32 Phenergan DE Q6H PRN Nausea And Vomiting Simple Syrup 15 ml 06/10/18 14:01 Simple Syrup FEEDTUBE PRN PRN Hypoglycemia Simple Syrup 30 ml 06/10/18 14:01 Simple Syrup FEEDTUBE PRN PRN Hypoglycemia Sodium Bicarbonate 325 mg 06/10/18 14:01 Sodium Bicarbonate FEEDTUBE PRN PRN For Clogged Feeding Tube Sodium Chloride 50 ml 06/17/18 11:00 06/17/18 13:57 Nacl 0.45% 1000 Ml IV 50 ml DIRECT JONO Administration
--- NOTE | 2018-06-18 12:17 | Progress Note ---
Assessment and Plan Assessment and plan: Pneumonia; nosocomial acquired abx per ID Fecal impaction/intractable nausea vomiting sp enema and has had BM, now improved -on miralax and improved ACute blood loss anemia Upper GIB -coffee ground emesis -GI consulted,EGD on 06/16 confirms Dyana lebron tear -transfuse to keep hg above 7 CVA with residual right-sided hemiparesis, dysphagia on meds for secondary prevention Right BKA - Supportive care Hypertension -cont bp meds Diabetes mellitus - SSI - Uncontrolled, increased lantus dose ELVIRA/hypernatremia/ vasomotor nephropathy, has CKD stage 2-3, bl creat about 1.9 -mgt per Nephrology Hypokalemia -repleted, on K supplement Anemia of chronic illness stable, cont to monitor DVT prophylaxis - scd in light of gi bleed Patient's primary is Dr Erickson. History Interval history: Review of systems Constitutional: fever resolved, no malaise, no joint pains CVS: No chest pain, no orthopnea, no dyspnea on exertion, no pedal edema GI: no abdo pain or vomiting Respiratory: No shortness of breath, no wheezing, no coughing Hospitalist Physical - Physical exam Narrative exam: General.: Appears well, no distress, nontoxic HEENT: Moist mucous membranes, extraocular muscles intact, no lymphadenopathy Neck: supple Cardiac: S1-S2 heard Lungs: Diminished air entry at the bases Abdomen: belly is soft, NT, ND Extremities: no edema clubbing or cyanosis Skin: no rash or lesions Neurologic: r hemiparesis Psych: calm, and cooperative - Constitutional Vitals: Temp Pulse Resp BP Pulse Ox 97.9 F 98 H 20 118/80 97 06/18/18 11:37 06/18/18 08:53 06/18/18 11:37 06/18/18 11:37 06/18/18 08:52 Results - Labs CBC & Chem 7: 06/18/18 07:24 06/18/18 07:24 Labs: Laboratory Last Values WBC 7.1 K/mm3 (4.5-11.0) 06/18/18 07:24 RBC 2.38 M/mm3 (3.65-5.03) L 06/18/18 07:24 Hgb 7.1 gm/dl (11.8-15.2) L 06/18/18 07:24 Hct 21.1 % (35.5-45.6) L 06/18/18 07:24 MCV 89 fl (84-94) 06/18/18 07:24 MCH 30 pg (28-32) 06/18/18 07:24 MCHC 34 % (32-34) 06/18/18 07:24 RDW 15.1 % (13.2-15.2) 06/18/18 07:24 Plt Count 321 K/mm3 (140-440) 06/18/18 07:24 Lymph % (Auto) 16.5 % (13.4-35.0) 06/18/18 07:24 [place] % (Auto) 8.4 % (0.0-7.3) H 06/18/18 07:24 Eos % (Auto) 6.9 % (0.0-4.3) H 06/18/18 07:24 Baso % (Auto) 0.9 % (0.0-1.8) 06/18/18 07:24 Lymph # 1.2 K/mm3 (1.2-5.4) 06/18/18 07:24 [place] # 0.6 K/mm3 (0.0-0.8) 06/18/18 07:24 Eos # 0.5 K/mm3 (0.0-0.4) H 06/18/18 07:24 Baso # 0.1 K/mm3 (0.0-0.1) 06/18/18 07:24 Seg Neutrophils % 67.3 % (40.0-70.0) 06/18/18 07:24 Seg Neutrophils # 4.8 K/mm3 (1.8-7.7) 06/18/18 07:24 PT 15.6 Sec. (12.2-14.9) H 06/16/18 10:37 INR 1.20 (0.87-1.13) H 06/16/18 10:37 Sodium 142 mmol/L (137-145) 06/18/18 07:24 Potassium 3.9 mmol/L (3.6-5.0) 06/18/18 07:24 Chloride 105.2 mmol/L (98-107) 06/18/18 07:24 Carbon Dioxide 24 mmol/L (22-30) 06/18/18 07:24 Anion Gap 17 mmol/L 06/18/18 07:24 BUN 24 mg/dL (9-20) H 06/18/18 07:24 Creatinine 1.4 mg/dL (0.8-1.5) 06/18/18 07:24 Estimated GFR > 60 ml/min 06/18/18 07:24 BUN/Creatinine Ratio 17 % 06/18/18 07:24 Glucose 185 mg/dL (75-100) H 06/18/18 07:24 POC Glucose 204 (70-105) H 06/18/18 11:48 Lactic Acid 1.10 mmol/L (0.7-2.0) 06/14/18 12:50 Calcium 8.3 mg/dL (8.4-10.2) L 06/18/18 07:24 Phosphorus 3.20 mg/dL (2.5-4.5) 06/13/18 04:53 Magnesium 2.10 mg/dL (1.7-2.3) 06/07/18 05:15 Iron 33 ug/dL (49-181) L 06/08/18 06:00 TIBC 189 mcg/dL (250-450) L 06/08/18 06:00 Ferritin 1111.0 ng/mL (13.0-400.0) H 06/08/18 06:00 Prealbumin 0.230 g/L (0.200-0.400) 06/03/18 19:51 Urine Color [place] (Yellow) 06/14/18 Unknown Urine Turbidity Turbid (Clear) 06/14/18 Unknown Urine pH 8.0 (5.0-7.0) H 06/14/18 Unknown Ur Specific [place] 1.012 (1.003-1.030) 06/14/18 Unknown Urine Protein >500 mg/dL (Negative) 06/14/18 Unknown Urine Glucose (UA) Neg mg/dL (Negative) 06/14/18 Unknown Urine Ketones Neg mg/dL (Negative) 06/14/18 Unknown Urine Blood Neg (Negative) 06/14/18 Unknown Urine Nitrite Neg (Negative) 06/14/18 Unknown Urine Bilirubin Neg (Negative) 06/14/18 Unknown Urine Urobilinogen 2.0 mg/dL (<2.0) 06/14/18 Unknown Ur Leukocyte Esterase Mod (Negative) 06/14/18 Unknown Urine WBC (Auto) 17.0 /HPF (0.0-6.0) H 06/14/18 Unknown Urine RBC (Auto) 12.0 /HPF (0.0-6.0) 06/14/18 Unknown U Epithel Cells (Auto) 12.0 /HPF (0-13.0) 06/14/18 Unknown Triple Phos Crystals 1+ 06/14/18 Unknown Urine Mucus 1+ /HPF 06/14/18 Unknown Urine Eosinophils None seen (None Seen) 06/08/18 09:55 Urine Creatinine 140.4 mg/dL (0.1-20.0) H 06/08/18 09:55 Protein/Creatinin Ratio 0.26 06/08/18 09:55 Urine Sodium 45 mmol/L 06/08/18 09:55 Urine Total Protein 36 mg/dL (5-11.8) H 06/08/18 09:55 Nutrition/Malnutrition Assess - Dietary Evaluation Nutrition/Malnutrition Findings: Nutrition Notes Start: 06/04/18 11:20 Freq: Status: Active Protocol: Document 06/18/18 10:32 CT (Rec: 06/18/18 11:02 CT [id number]) Co-Sign 06/18/18 10:32 LP Nutrition Notes Initial or Follow up Reassessment Current Diagnosis Acute Kidney Injury CKD(stage I-IV) Diabetes Hypertension Stroke Hyperlipidemia Other Pertinent Diagnosis Dysphagia, R BKA Current Diet Glucerna 1.2 at 50 ml/hr Labs/Tests Glucose 204 Pertinent Medications Reviewed Height 6 ft 2.4 in Weight 100.8 kg [place] Body Weight (kg) 87.45 BMI 28.2 Subjective/Other Information RD consult for TF management. Observed Glucerna 1.2 infusing at 70 ml/hr. Tech states pt has been tolerating TF well. Percent of energy/protein needs met: 87%/100% Burn Absent Trauma Absent #1 Nutrition Diagnosis Inadequate oral intake Diagnosis Progress(for reassessment Continues documentation) Is patient on ventilator? No Is Patient Ambulatory and/or Out of Bed Yes REE-([place]-St. Jeor-ambulatory/OOB) [ 2494.869 [id number]] Kcal/Kg value to use for calculation 23 Approximate Energy Requirements Using 2318 kcal/Kg Calculation Used for Recommendations Kcal/kg Additional Notes Protein needs: 60-100 g (0.6-0 .8 g/kg) Fluids: 1 mL/kg inderjit or per MD Nutrition Intervention Change Diet Order: Continue TF Nutrition Support: Glucerna 1.2 at 70 mL/hr Flush 100 mL q4hr Kcal 2,016 Protein (gm) 100 Fluid (mL) 1,352 Goal #1 Continue to meet at least 75% inderjit and pro needs Goal #2 TF tolerance Anticipated Discharge Needs: TF Follow-Up By: 06/25/18 Additional Comments Follow for TF tolerance
[2018-06-18] MEDS: NACL 0.45% 1000 ML IV SCH (22:11)
[2018-06-18] MEDS: LANTUS SUB-Q SCH (22:30)
[2018-06-19] MEDS ORDERED: NACL 0.45% 1000 ML 1,000 ML IV SCH (05:00)
[2018-06-19 05:10] LABS: Basophils # (Auto) 0.1 K/mm3 (0.0-0.1); Basophils % (Auto) 1.1 % (0.0-1.8); Eosinophils # (Auto) 0.4 K/mm3 (0.0-0.4); Eosinophils % (Auto) 5.8 % (0.0-4.3); Hematocrit 21.9 % (35.5-45.6); Hemoglobin 7.2 gm/dl (11.8-15.2); Lymphocytes # (Auto) 1.8 K/mm3 (1.2-5.4); Lymphocytes % (Auto) 23.5 % (13.4-35.0); Mean Corpuscular HGB Conc 33 % (32-34); Mean Corpuscular Volume 89 fl (84-94); Monocytes # (Auto) 0.6 K/mm3 (0.0-0.8); Monocytes % (Auto) 8.1 % (0.0-7.3); Platelet Count 336 K/mm3 (140-440); Red Blood Count 2.47 M/mm3 (3.65-5.03); Red Cell Distribution Width 15.1 % (13.2-15.2)
[2018-06-19 05:26] LABS: BUN/Creatinine Ratio 14; Blood Urea Nitrogen 19 mg/dL (9-20); Calcium 8.7 mg/dL (8.4-10.2); Hemolysis Index 2
[2018-06-19] MEDS: FLAGYL 500 MG/100 ML 500 MG/100 ML BAG IV SCH ×3 (05:36→21:33)
[2018-06-19] MEDS: LOPRESSOR FEEDTUBE SCH ×3 (05:36→19:37)
[2018-06-19] MEDS: HEPARIN SUB-Q SCH ×3 (05:36→21:34)
[2018-06-19] MEDS: APRESOLINE FEEDTUBE SCH ×3 (05:36→21:34)
[2018-06-19] MEDS: HumaLOG SUB-Q SCH ×3 (05:53→19:33)
--- NOTE | 2018-06-19 10:09 | Progress Note ---
Assessment and Plan Cultures 06/07/2018 Stool:OccultBlood: positive 06/14/2018: Blood: no growth to date 06/14/2018: Urine: 10-10,00 CFU/ml of a mixed culture greater than 2 organisms 06/15/2018: Blood: no growth to date A/P: 53--year-old male medical history of CVA, hypertension, DM and CKD that was admitted to acute rehabilitation from [facility] for acute right-sided weakness on secondary prevention of stroke. He was admitted to [facility] on 06/04/2018 for management of high blood pressure and diabetes. On admission, labs and vital stable, now with: 1. Sepsis: Resolved etiology most likely RUL pneumonia, borderline pyuria in U/A ?UTI seems less likely. Urine cultures show mixed culture greater than 2 organisms. Blood cultures show no growth thus far. Currently being treated with Cefepime. 2. Acute respiratory failure secondary to RUL Pneumonia: HCAP v/s aspiration, likely latter. Chest xray reveals a right upper lobe Pneumonia on 06/14/18, +/- aspiration pneumonia. On admission 06/07/18 chest xray showed no infiltrates.. Discontinue Cefepime, start Ceftriaxone and Flagyl . 3. UTI: borderline pyuria in U/A ?UTI seems less likely. Urine cultures show mixed culture greater than 2 organisms. Continue abx as above. 4. ELVIRA on CKD: antimicrobials renally dosed. Nephrology following 5. Type 2 Diabetes: uncontrolled 6. Right BKA 7. CVA with residual right-sided hemiparesis 8. GI Bleed: GI following Plan: -Clinically improving, Continue Ceftriaxone and Flagyl, D5 of D7 until 06/21/18 -Ok to d/c home from ID standpoint on Augmentin 875mg BID until 06/21/18 [facility] M: [id number] O:[phone] Subjective Date of service: 06/19/18 Principal diagnosis: CVA, Acute on CKD Interval history: Patient seen and examined. No acute distress observed. Sitting up in bed, no acute distress. Objective - Exam Narrative Exam: Constitutional: Awake, alert. No acute distress Head, Ears, Nose: Normocephalic, atraumatic. External ears, nose normal Eyes: Conjunctivae/corneas clear. No icterus. No ptosis. Neck: Supple, no meningeal signs Oral: dentition poor. no thrush. Cardiovascular: S1, S2 normal. Respiratory: Good air entry, clear to auscultation bilaterally GI: Soft, non-tender; bowel sounds normal. No peritoneal signs, + peg Musculoskeletal: No pedal edema, no cyanosis, + BKA. Skin: No rash or abscess. Hem/Lymphatic: No palpable cervical or supraclavicular nodes. No lymphangitis Psych: Mood ok. Affect normal Neurological: Awake, alert, oriented. - Constitutional Vitals: Vital Signs Temp Pulse Resp BP Pulse Ox 98.1 F 94 H 18 123/84 95 06/19/18 08:14 06/19/18 08:14 06/19/18 08:14 06/19/18 08:14 06/19/18 08:14 Temperature -Last 24 Hours Temperature 98.1 F Temperature 98.6 F Temperature 99.4 F Temperature 98.0 F Temperature 97.9 F - Labs CBC & Chem 7: 06/19/18 16:30 06/19/18 04:50 Labs: Abnormal lab results 06/18/18 06/18/18 06/18/18 Range/Units 11:48 18:38 22:19 RBC (3.65-5.03) M/mm3 Hgb (11.8-15.2) gm/dl Hct (35.5-45.6) % [place] % (Auto) (0.0-7.3) % Eos % (Auto) (0.0-4.3) % Glucose (75-100) mg/dL POC Glucose 204 H 163 H 163 H (70-105) 06/19/18 06/19/18 06/19/18 Range/Units 04:50 04:50 05:29 RBC 2.47 L (3.65-5.03) M/mm3 Hgb 7.2 L (11.8-15.2) gm/dl Hct 21.9 L (35.5-45.6) % [place] % (Auto) 8.1 H (0.0-7.3) % Eos % (Auto) 5.8 H (0.0-4.3) % Glucose 108 H (75-100) mg/dL POC Glucose 109 H (70-105)
[2018-06-19] MEDS: MIRALAX 3350 FEEDTUBE SCH (10:44)
[2018-06-19] MEDS: COLACE FEEDTUBE SCH ×2 (10:44→21:34)
[2018-06-19] MEDS: PLAVIX FEEDTUBE SCH (10:46)
[2018-06-19] MEDS: ASPIRIN FEEDTUBE SCH (10:46)
[2018-06-19] MEDS: ROCEPHIN/NS 2 GM/100 ML 2 GM/100 ML BAG IV SCH (10:49)
--- NOTE | 2018-06-19 11:42 | Progress Note ---
Subjective Date of service: 06/19/18 Principal diagnosis: CVA, Acute on CKD Interval history: 53-year-old LHD male who experienced increased right-sided weakness three days prior to presentation at an outside hospital. He also had decreased balance and gait. He was admitted and worked up for stroke. MRI of brain confirmed the presence of a stroke. A repeat MRI showed a second stroke in a different area. Patient was continued on secondary stroke prevention medications. He had a PEG tube placed and was started on a low volume of TF. He developed acute kidney injury and a nephrology consult was called. He required transfer to the [facility] for management of uncontrolled blood pressure. He was later weaned off of Cardene drip and restarted on oral blood pressure medications. Hgb is still decreased at 7.2. Last 4 days has varied between 7.0 and 7.2. Had GI Bleed earlier in week but did not drop below 7. Has dropped from 10.2 on 06/03. Has tachycardia and is symptomatic - dizzy with standing, worsened endurance and dyspnea with therapy. Will transfuse 1U PRBC for symptomatic anemia. Discussed with patient and he is in agreement. Patient is participating in therapy and making fair progress - slowed over past few days due to illness. +BM. No pain currently. PEG ok. TF at goal. MBSS still aspirating BP - Continue medications and adjust as needed. please avoid nephrotoxic meds. Prosthesis needs repair, [employer] has casted for new unit - awaiting delivery Doing better from sepsis standpoint. Complete abx. Afebrile since 06/15, WBC normalized. No chills or productive cough No other issues per patient, nursing or therapy. Look to d/c Saturday 06/24 All available medical records, therapy notes, vitals and labs were reviewed. Objective - Exam Narrative Exam: MUSCULOSKELETAL SPECIALTY EXAM Constitutional: Well developed, well nourished, appropriately groomed, LHD EENT: Hearing intact to finger rustle. Poor dentition. Respiratory: Clear to auscultation bilaterally , no increased work of breathing. Cardiovascular Regular Rate/ Rhythm, no swelling edema or tenderness in all 4 extremities. All 4 extremities warm. GI : + bowel sounds, soft, NTTP, nondistended, PEG INTEGUMENTARY Normal in all 4 extremities except for what appears to be old/healed sores on LLE Musuloskeletal BUE and BLE normal without defect, crepitus, sublux, effusion, or TTP except for Right BKA. RUE and RLE 4-/5. Decreased aROM, good pROM, normal tone. LUE and LLE 4+/5, good ROM with normal tone. NEURO: Significant Left facial droop involving upper and lower face (LMN), Tongue protrudes left , sensation on face is assymetric, otherwise CN 2-12 grossly intact. Sensation intact on LEFT extremities and impaired on RIGHT. Coordination intact on left, decreased on right. No tremor noted. Aphasia and dysarthria present. Naming and repetition intact. At times he seems to have trouble focusing visually, but the basic vision is ok. POSTURE and GAIT: Deferred until seen with therapy for safety. Patient examined in bed. PSYCH: Alert, orientated x3, affect appears normal. Insight appears intact. - Constitutional Vitals: Vital Signs - 12hr 06/19/18 06/19/18 06/19/18 04:36 05:36 08:14 Temperature 37.0 C 36.7 C Pulse Rate 98 H 98 H 94 H Respiratory 20 18 Rate Blood Pressure 151/96 151/96 123/84 O2 Sat by Pulse 96 95 Oximetry - Allied health notes Allied health notes reviewed: nursing, PT, ST, OT FIMS assessment as documented by PT/OT/ST: Grooming Patient cleans teeth/dentures: Yes Patient matamoros/brushes hair: Yes Patient washes, rinses and Yes dries face: Patient washes, rinses and Yes dries hands: Patient shaves: No Patient performs (no make-up/ 4/4 (100%) shaving): Grooming FIM Score 4. Minimal Assistance (Patient = 75% or more. Needs touching.) Toileting Toileting Device Commode over Toilet Toileting FIM Score 3. Moderate Assistance (Patient = 50% or more. Some lifting.) Social interaction/Memory/Problem solving Social Interaction FIM Score 7. Complete [place] (Interacts appropriately. Controls temper.) Memory FIM Score 7. Complete [place] (Remembers people and routines.) Problem Solving FIM Score 7. Complete [place] (Solves complex problems. Self corrects.) Transfers Mode of Locomotion: Wheelchair Bed/Chair/Wheelchair Transfers 2. Maximal Assistance (Patient = 25% or more) FIM Score Toilet Transfers FIM Score 3. Moderate Assistance (Patient = 50% or more. Some lifting.) Patient transferred to: Shower Shower Transfers FIM Score 2. Maximal Assistance (Patient = 25% or more) Locomotion- Stairs Stairs FIM Score 0. Activity does not occur Locomotion- walk/wheelchair Most Frequent Mode of Wheelchair Locomotion: Ambulation Distance 175 Walking FIM Score 4. Minimal Assistance (Patient = 75% or more. Minimum of 150 ft.) Wheelchair Propulsion Distance 300 Wheelchair FIM Score 5. Supervision (Minimum 150 ft. supv./cues or 50 ft. independently.) Eating Eating FIM Score 1. Total Assistance (Patient <25% or tube feeding) Dressing-Upper body Patient retrieves clothing No items: Patient applies/removes UE n/a prosthesis or orthosis: Upper Body Dressing FIM Score 4. Minimal Assistance (Patient = 75% or more. Needs touching.) Dressing-lower body Patient retrieves clothing No items: Patient applies/removes LE No: RLE prosthesis prosthesis or orthosis: Lower Body Dressing FIM Score 3. Moderate Assistance (Patient = 50% or more) - Labs CBC & Chem 7: 06/19/18 04:50 06/19/18 04:50 Labs: Laboratory Results - last 72 hr 06/16/18 06/16/18 06/17/18 16:21 23:09 07:00 WBC 7.1 RBC 2.35 L Hgb 7.0 L Hct 20.9 L MCV 89 MCH 30 MCHC 33 RDW 15.3 H Plt Count 334 Lymph % (Auto) 13.9 [place] % (Auto) 8.9 H Eos % (Auto) 6.7 H Baso % (Auto) 0.7 Lymph # 1.0 L [place] # 0.6 Eos # 0.5 H Baso # 0.1 Seg Neutrophils % 69.8 Seg Neutrophils # 4.9 Sodium Potassium Chloride Carbon Dioxide Anion Gap BUN Creatinine Estimated GFR BUN/Creatinine Ratio Glucose POC Glucose 109 H 142 H Calcium 06/17/18 06/17/18 06/17/18 07:00 07:32 11:04 WBC RBC Hgb Hct MCV MCH MCHC RDW Plt Count Lymph % (Auto) [place] % (Auto) Eos % (Auto) Baso % (Auto) Lymph # [place] # Eos # Baso # Seg Neutrophils % Seg Neutrophils # Sodium 142 Potassium 4.1 Chloride 105.5 Carbon Dioxide 27 Anion Gap 14 BUN 31 H Creatinine 1.7 H Estimated GFR 51 BUN/Creatinine Ratio 18 Glucose 204 H POC Glucose 207 H 173 H Calcium 8.7 06/17/18 06/17/18 06/18/18 16:21 21:33 06:41 WBC RBC Hgb Hct MCV MCH MCHC RDW Plt Count Lymph % (Auto) [place] % (Auto) Eos % (Auto) Baso % (Auto) Lymph # [place] # Eos # Baso # Seg Neutrophils % Seg Neutrophils # Sodium Potassium Chloride Carbon Dioxide Anion Gap BUN Creatinine Estimated GFR BUN/Creatinine Ratio Glucose POC Glucose 172 H 197 H 159 H Calcium 06/18/18 06/18/18 06/18/18 07:24 07:24 11:48 WBC 7.1 RBC 2.38 L Hgb 7.1 L Hct 21.1 L MCV 89 MCH 30 MCHC 34 RDW 15.1 Plt Count 321 Lymph % (Auto) 16.5 [place] % (Auto) 8.4 H Eos % (Auto) 6.9 H Baso % (Auto) 0.9 Lymph # 1.2 [place] # 0.6 Eos # 0.5 H Baso # 0.1 Seg Neutrophils % 67.3 Seg Neutrophils # 4.8 Sodium 142 Potassium 3.9 Chloride 105.2 Carbon Dioxide 24 Anion Gap 17 BUN 24 H Creatinine 1.4 Estimated GFR > 60 BUN/Creatinine Ratio 17 Glucose 185 H POC Glucose 204 H Calcium 8.3 L 06/18/18 06/18/18 06/19/18 18:38 22:19 04:50 WBC 7.5 RBC 2.47 L Hgb 7.2 L Hct 21.9 L MCV 89 MCH 29 MCHC 33 RDW 15.1 Plt Count 336 Lymph % (Auto) 23.5 [place] % (Auto) 8.1 H Eos % (Auto) 5.8 H Baso % (Auto) 1.1 Lymph # 1.8 [place] # 0.6 Eos # 0.4 Baso # 0.1 Seg Neutrophils % 61.5 Seg Neutrophils # 4.6 Sodium Potassium Chloride Carbon Dioxide Anion Gap BUN Creatinine Estimated GFR BUN/Creatinine Ratio Glucose POC Glucose 163 H 163 H Calcium 06/19/18 06/19/18 04:50 05:29 WBC RBC Hgb Hct MCV MCH MCHC RDW Plt Count Lymph % (Auto) [place] % (Auto) Eos % (Auto) Baso % (Auto) Lymph # [place] # Eos # Baso # Seg Neutrophils % Seg Neutrophils # Sodium 144 Potassium 3.7 Chloride 104.3 Carbon Dioxide 25 Anion Gap 18 BUN 19 Creatinine 1.4 Estimated GFR > 60 BUN/Creatinine Ratio 14 Glucose 108 H POC Glucose 109 H Calcium 8.7 Assessment and Plan I69.353 Right non-dom hemiparesis: Monitor for neuro decline. Continue secondary stroke prevention. Discussed recovery and secondary stroke prevention. Monitor for post-stroke depression and s/s of shoulder-hand syndrome. Monitor for safety awareness I69.322 Dysarthria: BEEF GRINDER for improvement in communication and speech I69.391 Dysphagia: BEEF GRINDER to improve swallow function. Continue TF (at goal) with NPO. Monitor and advance diet as safely as able. FEES, MBSS or EStim as needed. Z73.6 ADL dysfunction: OT will work on improving ability to perform ADLs (including assistive devices) to increase independence and decrease caregiver burden and improve functional transfers and mobility training. R26.2 Difficulty walking: PT will work on gait training and proper use of assistive devices and advance as appropriate to use of stairs and outside ambulation on uneven surfaces. R26.81 Unsteadiness on feet: PT will work on improving static and dynamic sitting and standing balance as well as proper use of assistive devices to decrease risk of falls. R26.89 Abnormality of gait: PT will work to improve safety and efficiency of gait through neuromotor training and gait training along with instruction on proper use of assistive devices. Has prosthesis with him M62.81 Muscle weakness: PT & OT will work on strengthening exercises to improve functional strength including mixture of closed and open kinetic chain exerci ses. R53.81 Debility: PT & OT will work on improving overall functional status to improve participation with ADLs, mobility and social involvement. R53.83 Fatigue: PT & OT will work on improving endurance through aerobic exercises and therapeutic activity while monitoring patients tolerance for act ivity and vital signs as needed. I10 Hypertension: Adjust as needed. Avoid nephrotoxic meds E78.5 Hyperlipidemia: Continue Statin E11.8 Diabetes: Monitor D 62 and D64.9 Anemia of chronic disease: worsened with GIB, transfuse 1 u PRBC today E87.6 Hypokalemia: Resolved, monitor labs Z89.511 R BKA: awaiting repair of prosthesis Sepsis/SIRS PNA RUL GIB ELVIRA due to ATN at OSH but likely Acute on CKD per consult here DVT ppx: Heparin TID due to renal function GI ppx: Pepcid Pain: Continue physical modalities in therapy and pain medications as needed to achieve functional pain control. Sleep: Monitor and address as needed. Bowel: Monitor and address as needed. Appetite: Monitor and address as needed when able to take PO. Discharge planning: Pending therapy progress and care plan meeting. Will continue discussion with therapy team, SW, patient and family. Restrictions/ Precautions: Falls, aspiration WB status: FWB Functional Hx: ADLs: Independent and working Cognition: Independent Mobility: independent Consult: Hospitalists for medical management Nephrology for renal function ID for sepsis/SIRS GI for GIB Appreciate assistance. Barriers to Discharge: Decreased mobility and ability to perform self care, right sided weakness, balance deficits, dysphagia Estimated Length of Stay: 21 days Discharge Destination: Home with family if possible
--- NOTE | 2018-06-19 11:57 | Progress Note ---
Assessment and Plan Acute Renal Failure secondary to Ischemic ATN on likely CKD from HTN: -Renal function reviewed. Serum creatinine yesterday is 1.4, stable -On 1/2NS @ 50 ml/hr -GN work-up ordered at previous hospital was negative -Renal ultrasound at previous hospital showed signs of CKD -Avoid nephrotoxic agents -Obtain daily weights -Monitor I/O's -Monitor renal function closely Acute CVA: -On ASA, Plavix and Statin -Rehab therapy Hypertension: -Continue BP meds and adjust as needed Diabetes Mellitus: -On Insulin Oropharyngeal Dysphagia: -Peg Tube feedings Anemia in CKD: - Epogen dosing for anemia management Right Upper Lobe Pneumonia: -On IV Rocephin and Flagyl -As per primary Subjective Date of service: 06/19/18 Principal diagnosis: CVA, Acute on CKD Interval history: Patient seen sitting up in chair. Reviewed renal plan of care. Objective - Vital Signs Vital signs: Vital Signs - 12hr 06/19/18 06/19/18 06/19/18 04:36 05:36 08:14 Temperature 98.6 F 98.1 F Pulse Rate 98 H 98 H 94 H Respiratory 20 18 Rate Blood Pressure 151/96 151/96 123/84 O2 Sat by Pulse 96 95 Oximetry - General Appearance General appearance: well-developed, appears stated age EENT: ATNC, PERRL Neck: no JVD, supple Respiratory: Present: Decreased Breath Sounds Cardiology: S1S2 Gastrointestinal: normoactive bowel sounds Integumentary: warm and dry Neurologic: alert and oriented x3 Musculoskeletal: other (No edema, has right BKA) - Lab 06/19/18 04:50 06/19/18 04:50 Most recent lab results Calcium 8.7 mg/dL (8.4-10.2) 06/19/18 04:50 Phosphorus 3.20 mg/dL (2.5-4.5) 06/13/18 04:53 Magnesium 2.10 mg/dL (1.7-2.3) 06/07/18 05:15 Urine Creatinine 140.4 mg/dL (0.1-20.0) H 06/08/18 09:55 Urine Sodium 45 mmol/L 06/08/18 09:55 Urine Total Protein 36 mg/dL (5-11.8) H 06/08/18 09:55 Medications & Allergies - Medications Allergies/Adverse Reactions: Allergies No Known Allergies Allergy (Unverified 08/03/15 12:32) Home Medications: Home Medications Medication Instructions Recorded Confirmed Last Taken Type Aspirin [Aspirin BABY CHEW TAB] 81 mg PO QDAY 08/04/15 06/05/18 Unknown History Insulin Detemir [Levemir Flextouch] 35 unit SQ BID 08/04/15 06/05/18 Unknown History NIFEdipine XL [Procardia Xl] 60 mg PO QDAY 08/04/15 06/05/18 Unknown History Simvastatin [Zocor TAB] 40 mg PO QHS 08/04/15 06/05/18 Unknown History Sitagliptin/Metformin (Nf) 1 each PO BID 08/04/15 06/05/18 Unknown History [Janumet 50-1,000 mg (Nf)] Sulfamethoxazole/Trimethoprim 1 each PO BID #14 tablet 08/04/15 06/05/18 Unknown Rx [Bactrim DS TAB] Active Medications: Generic Name Dose Route Start Last Admin Trade Name Freq PRN Reason Stop Dose Admin Acetaminophen 650 mg 06/15/18 20:58 06/15/18 21:17 Tylenol MI 650 mg Q4H PRN Administration Pain, Mild (1-3) Acetaminophen/Hydrocodone Bitart 1 each 06/09/18 20:50 06/14/18 22:27 [place] 5/325 PO 1 each Q6H PRN Administration Pain, Moderate (4-6) Lipase/Protease/Amylase 1 each 06/10/18 14:01 Pancrealthea Laguerre 10,500 Unit FEEDTUBE PRN PRN For Clogged Feeding Tube Aspirin 325 mg 06/04/18 08:00 06/19/18 10:46 Aspirin FEEDTUBE 325 mg QDAY JONO Administration Atorvastatin Calcium 40 mg 06/03/18 21:00 06/18/18 22:12 Lipitor FEEDTUBE 40 mg QHS JONO Administration Clopidogrel Bisulfate 75 mg 06/04/18 08:00 06/19/18 10:46 Plavix FEEDTUBE 75 mg QDAY JONO Administration Dextrose 50 ml 06/03/18 17:09 D50w (25gm) Syringe IV PRN PRN Hypoglycemia Docusate Sodium 100 mg 06/03/18 22:00 06/19/18 10:44 Colace FEEDTUBE 100 mg BID JONO Administration Epoetin Abhijeet 10,000 unit 06/08/18 10:00 06/15/18 11:18 Procrit SUB-Q 10,000 unit Webb JONO Administration Heparin Sodium (Porcine) 5,000 unit 06/03/18 22:00 06/19/18 05:36 Heparin SUB-Q 5,000 unit Q8HR JONO Administration Hydralazine HCl 25 mg 06/10/18 14:00 06/19/18 05:36 Apresoline FEEDTUBE 25 mg Q8HR JONO Administration Ceftriaxone Sodium 2 gm in 100 mls @ 200 mls/hr 06/15/18 15:00 06/19/18 10:49 Rocephin/Ns 2 Gm/100 Ml IV 06/21/18 10:29 200 mls/hr Q24HR JONO Administration Protocol Metronidazole 500 mg in 100 mls @ 100 mls/hr 06/15/18 15:00 06/19/18 05:36 Flagyl 500 Mg/100 Ml IV 06/21/18 22:59 100 mls/hr Q8HR JONO Administration Protocol Sodium Chloride 1,000 mls @ 50 mls/hr 06/19/18 05:00 Nacl 0.45% 1000 Ml IV DIRECT JONO Insulin Glargine 20 units 06/10/18 21:00 06/18/18 22:30 Lantus SUB-Q 20 units QHS JONO Administration Insulin Human Lispro 0 unit 06/18/18 07:00 06/19/18 05:53 Humalog SUB-Q Not Given Q6HR [facility] Protocol Lansoprazole 30 mg 06/19/18 22:00 Prevacid Solutab FEEDTUBE BID JONO Metoprolol Tartrate 50 mg 06/07/18 10:00 06/19/18 10:53 Lopressor FEEDTUBE 50 mg Q8H JONO Administration Ondansetron HCl 4 mg 06/14/18 16:19 06/14/18 16:47 Zofran IV 4 mg Q6H PRN Administration Nausea And Vomiting Phenyleph/Shark Oil/Min Oil/Petrol 1 applic 06/10/18 14:19 Preparation H MI Q6HR PRN Hemorrhoids Polyethylene Glycol 17 gm 06/17/18 08:00 06/19/18 10:44 Miralax 3350 FEEDTUBE 17 gm QDAY JONO Administration Promethazine HCl 25 mg 06/15/18 08:32 Phenergan MI Q6H PRN Nausea And Vomiting Simple Syrup 15 ml 06/10/18 14:01 Simple Syrup FEEDTUBE PRN PRN Hypoglycemia Simple Syrup 30 ml 06/10/18 14:01 Simple Syrup FEEDTUBE PRN PRN Hypoglycemia Sodium Bicarbonate 325 mg 06/10/18 14:01 Sodium Bicarbonate FEEDTUBE PRN PRN For Clogged Feeding Tube
[2018-06-19] MEDS ORDERED: NACL 0.9% 500 ML 500 ML IV NR (13:45)
--- NOTE | 2018-06-19 16:32 | Progress Note ---
Assessment and Plan Assessment and plan: Pneumonia; nosocomial acquired abx per ID Fecal impaction/intractable nausea vomiting- resolved sp enema and has had BM, now improved -on miralax and improved ACute blood loss anemia Upper GIB -coffee ground emesis now resolved -GI consulted,EGD on 06/16 confirms Dyana lebron tear -transfuse to keep hg above 7 CVA with residual right-sided hemiparesis, dysphagia on meds for secondary prevention Right BKA - Supportive care Hypertension -cont bp meds Diabetes mellitus cont insulins ELVIRA/hypernatremia/ vasomotor nephropathy, has CKD stage 2-3, bl creat about 1.9; now resolved -mgt per Nephrology , Hypokalemia -repleted, on K supplement Anemia of chronic illness stable, cont to monitor DVT prophylaxis - scd in light of gi bleed Patient's primary is Dr Erickson. History Interval history: Review of systems Constitutional: fever resolved, no malaise, no joint pains CVS: No chest pain, no orthopnea, no dyspnea on exertion, no pedal edema GI: no abdo pain or vomiting Respiratory: No shortness of breath, no wheezing, no coughing Hospitalist Physical - Physical exam Narrative exam: General.: Appears well, no distress, nontoxic HEENT: Moist mucous membranes, extraocular muscles intact, no lymphadenopathy Neck: supple Cardiac: S1-S2 heard Lungs: CTA BL Abdomen: belly is soft, NT, ND Extremities: no edema clubbing or cyanosis R LE amputation , wearing prosthesis Skin: no rash or lesions Neurologic: r hemiparesis Psych: calm, and cooperative - Constitutional Vitals: Temp Pulse Resp BP Pulse Ox 98.1 F 94 H 18 123/84 95 06/19/18 08:14 06/19/18 08:14 06/19/18 08:14 06/19/18 08:14 06/19/18 08:14 Results - Labs CBC & Chem 7: 06/19/18 04:50 06/19/18 04:50 Labs: Laboratory Last Values WBC 7.5 K/mm3 (4.5-11.0) 06/19/18 04:50 RBC 2.47 M/mm3 (3.65-5.03) L 06/19/18 04:50 Hgb 7.2 gm/dl (11.8-15.2) L 06/19/18 04:50 Hct 21.9 % (35.5-45.6) L 06/19/18 04:50 MCV 89 fl (84-94) 06/19/18 04:50 MCH 29 pg (28-32) 06/19/18 04:50 MCHC 33 % (32-34) 06/19/18 04:50 RDW 15.1 % (13.2-15.2) 06/19/18 04:50 Plt Count 336 K/mm3 (140-440) 06/19/18 04:50 Lymph % (Auto) 23.5 % (13.4-35.0) 06/19/18 04:50 [place] % (Auto) 8.1 % (0.0-7.3) H 06/19/18 04:50 Eos % (Auto) 5.8 % (0.0-4.3) H 06/19/18 04:50 Baso % (Auto) 1.1 % (0.0-1.8) 06/19/18 04:50 Lymph # 1.8 K/mm3 (1.2-5.4) 06/19/18 04:50 [place] # 0.6 K/mm3 (0.0-0.8) 06/19/18 04:50 Eos # 0.4 K/mm3 (0.0-0.4) 06/19/18 04:50 Baso # 0.1 K/mm3 (0.0-0.1) 06/19/18 04:50 Seg Neutrophils % 61.5 % (40.0-70.0) 06/19/18 04:50 Seg Neutrophils # 4.6 K/mm3 (1.8-7.7) 06/19/18 04:50 PT 15.6 Sec. (12.2-14.9) H 06/16/18 10:37 INR 1.20 (0.87-1.13) H 06/16/18 10:37 Sodium 144 mmol/L (137-145) 06/19/18 04:50 Potassium 3.7 mmol/L (3.6-5.0) 06/19/18 04:50 Chloride 104.3 mmol/L (98-107) 06/19/18 04:50 Carbon Dioxide 25 mmol/L (22-30) 06/19/18 04:50 Anion Gap 18 mmol/L 06/19/18 04:50 BUN 19 mg/dL (9-20) 06/19/18 04:50 Creatinine 1.4 mg/dL (0.8-1.5) 06/19/18 04:50 Estimated GFR > 60 ml/min 06/19/18 04:50 BUN/Creatinine Ratio 14 % 06/19/18 04:50 Glucose 108 mg/dL (75-100) H 06/19/18 04:50 POC Glucose 165 (70-105) H 06/19/18 11:45 Lactic Acid 1.10 mmol/L (0.7-2.0) 06/14/18 12:50 Calcium 8.7 mg/dL (8.4-10.2) 06/19/18 04:50 Phosphorus 3.20 mg/dL (2.5-4.5) 06/13/18 04:53 Magnesium 2.10 mg/dL (1.7-2.3) 06/07/18 05:15 Iron 33 ug/dL (49-181) L 06/08/18 06:00 TIBC 189 mcg/dL (250-450) L 06/08/18 06:00 Ferritin 1111.0 ng/mL (13.0-400.0) H 06/08/18 06:00 Prealbumin 0.230 g/L (0.200-0.400) 06/03/18 19:51 Urine Color [place] (Yellow) 06/14/18 Unknown Urine Turbidity Turbid (Clear) 06/14/18 Unknown Urine pH 8.0 (5.0-7.0) H 06/14/18 Unknown Ur Specific [place] 1.012 (1.003-1.030) 06/14/18 Unknown Urine Protein >500 mg/dL (Negative) 06/14/18 Unknown Urine Glucose (UA) Neg mg/dL (Negative) 06/14/18 Unknown Urine Ketones Neg mg/dL (Negative) 06/14/18 Unknown Urine Blood Neg (Negative) 06/14/18 Unknown Urine Nitrite Neg (Negative) 06/14/18 Unknown Urine Bilirubin Neg (Negative) 06/14/18 Unknown Urine Urobilinogen 2.0 mg/dL (<2.0) 06/14/18 Unknown Ur Leukocyte Esterase Mod (Negative) 06/14/18 Unknown Urine WBC (Auto) 17.0 /HPF (0.0-6.0) H 06/14/18 Unknown Urine RBC (Auto) 12.0 /HPF (0.0-6.0) 06/14/18 Unknown U Epithel Cells (Auto) 12.0 /HPF (0-13.0) 06/14/18 Unknown Triple Phos Crystals 1+ 06/14/18 Unknown Urine Mucus 1+ /HPF 06/14/18 Unknown Urine Eosinophils None seen (None Seen) 06/08/18 09:55 Urine Creatinine 140.4 mg/dL (0.1-20.0) H 06/08/18 09:55 Protein/Creatinin Ratio 0.26 06/08/18 09:55 Urine Sodium 45 mmol/L 06/08/18 09:55 Urine Total Protein 36 mg/dL (5-11.8) H 06/08/18 09:55 Nutrition/Malnutrition Assess - Dietary Evaluation Nutrition/Malnutrition Findings: Nutrition Notes Start: 06/04/18 11:20 Freq: Status: Active Protocol: Document 06/18/18 10:32 CT (Rec: 06/18/18 11:02 CT [id number]) Co-Sign 06/18/18 10:32 LP Nutrition Notes Initial or Follow up Reassessment Current Diagnosis Acute Kidney Injury CKD(stage I-IV) Diabetes Hypertension Stroke Hyperlipidemia Other Pertinent Diagnosis Dysphagia, R BKA Current Diet Glucerna 1.2 at 50 ml/hr Labs/Tests Glucose 204 Pertinent Medications Reviewed Height 6 ft 2.4 in Weight 100.8 kg [place] Body Weight (kg) 87.45 BMI 28.2 Subjective/Other Information RD consult for TF management. Observed Glucerna 1.2 infusing at 70 ml/hr. Tech states pt has been tolerating TF well. Percent of energy/protein needs met: 87%/100% Burn Absent Trauma Absent #1 Nutrition Diagnosis Inadequate oral intake Diagnosis Progress(for reassessment Continues documentation) Is patient on ventilator? No Is Patient Ambulatory and/or Out of Bed Yes REE-([place]-St. Jeor-ambulatory/OOB) [ 2494.869 NUTR.MSJOOB] Kcal/Kg value to use for calculation 23 Approximate Energy Requirements Using 2318 kcal/Kg Calculation Used for Recommendations Kcal/kg Additional Notes Protein needs: 60-100 g (0.6-0 .8 g/kg) Fluids: 1 mL/kg inderjit or per MD Nutrition Intervention Change Diet Order: Continue TF Nutrition Support: Glucerna 1.2 at 70 mL/hr Flush 100 mL q4hr Kcal 2,016 Protein (gm) 100 Fluid (mL) 1,352 Goal #1 Continue to meet at least 75% inderjit and pro needs Goal #2 TF tolerance Anticipated Discharge Needs: TF Follow-Up By: 06/25/18 Additional Comments Follow for TF tolerance
[2018-06-19 16:55] LABS: Hematocrit 24.1 % (35.5-45.6); Hemoglobin 7.9 gm/dl (11.8-15.2)
[2018-06-19] MEDS: PREVACID SOLUTAB FEEDTUBE SCH (21:34)
[2018-06-19] MEDS: LANTUS SUB-Q SCH (21:35)
[2018-06-20] MEDS: HumaLOG SUB-Q SCH ×3 (03:43→18:32)
[2018-06-20] MEDS: LOPRESSOR FEEDTUBE SCH ×3 (03:44→18:32)
[2018-06-20] MEDS: HEPARIN SUB-Q SCH ×3 (05:18→22:31)
[2018-06-20] MEDS: FLAGYL 500 MG/100 ML 500 MG/100 ML BAG IV SCH ×3 (05:21→22:33)
[2018-06-20] MEDS: APRESOLINE FEEDTUBE SCH ×3 (05:38→22:31)
[2018-06-20 06:30] LABS: BUN/Creatinine Ratio 16; Blood Urea Nitrogen 19 mg/dL (9-20); Calcium 8.8 mg/dL (8.4-10.2); Hemolysis Index 0
--- NOTE | 2018-06-20 10:20 | Progress Note ---
Assessment and Plan Cultures 06/07/2018 Stool:OccultBlood: positive 06/14/2018: Blood: no growth to date 06/14/2018: Urine: 10-10,00 CFU/ml of a mixed culture greater than 2 organisms 06/15/2018: Blood: no growth to date A/P: 53--year-old male medical history of CVA, hypertension, DM and CKD that was admitted to acute rehabilitation from [facility] for acute right-sided weakness on secondary prevention of stroke. He was admitted to [facility] on 06/04/2018 for management of high blood pressure and diabetes. On admission, labs and vital stable, now with: 1. Sepsis: Resolved; etiology most likely RUL pneumonia, borderline pyuria in U/A ?UTI seems less likely. Urine cultures show mixed culture greater than 2 organisms. Blood cultures show no growth thus far. 2. Acute respiratory failure secondary to RUL Pneumonia: HCAP v/s aspiration, likely latter. Chest xray reveals a right upper lobe Pneumonia on 06/14/18, +/- aspiration pneumonia. On admission 06/07/18 chest xray showed no infiltrates 3. UTI: borderline pyuria in U/A ?UTI seems less likely. Urine cultures show mixed culture greater than 2 organisms. 4. ELVIRA on CKD: antimicrobials renally dosed. Nephrology following 5. Type 2 Diabetes: uncontrolled 6. Right BKA 7. CVA with residual right-sided hemiparesis 8. GI Bleed: GI following Plan: - continue Ceftriaxone and Flagyl, D6 of D7 until 06/21/18 - If d/c home ok to do Augmentin 875mg BID until 06/21/18 I am signing off Alicia Loya MD [facility] M: [phone] O:[phone] Subjective Date of service: 06/20/18 Principal diagnosis: CVA, Acute on CKD Interval history: Patient feels better, no fever, on PT standing up. Objective - Exam Narrative Exam: Constitutional: Awake, alert. No acute distress Head, Ears, Nose: Normocephalic, atraumatic. External ears, nose normal Eyes: Conjunctivae/corneas clear. No icterus. No ptosis. Neck: Supple, no meningeal signs Oral: dentition poor. no thrush. Cardiovascular: S1, S2 normal. Respiratory: Good air entry, clear to auscultation bilaterally GI: Soft, non-tender; bowel sounds normal. No peritoneal signs, + peg Musculoskeletal: No pedal edema, no cyanosis, + BKA. Skin: No rash or abscess. Hem/Lymphatic: No palpable cervical or supraclavicular nodes. No lymphangitis Psych: Mood ok. Affect normal Neurological: Awake, alert, oriented, left facial droop, aphasia, disarthria - Constitutional Vitals: Vital Signs Temp Pulse Resp BP Pulse Ox 98.5 F 86 18 145/90 98 06/20/18 03:21 06/20/18 05:38 06/20/18 03:21 06/20/18 05:38 06/20/18 03:21 Temperature -Last 24 Hours Temperature 98.5 F Temperature 98.4 F Temperature 98.5 F Temperature 98.1 F Temperature 98.3 F Temperature 98.3 F Temperature 98.1 F Temperature 97.4 F - Labs CBC & Chem 7: 06/19/18 16:30 06/20/18 05:26 Labs: Abnormal lab results 06/19/18 06/19/18 06/19/18 Range/Units 11:45 16:26 16:30 Hgb 7.9 L (11.8-15.2) gm/dl Hct 24.1 L (35.5-45.6) % Glucose (75-100) mg/dL POC Glucose 165 H 140 H (70-105) Crossmatch 06/19/18 06/20/18 06/20/18 Range/Units 16:30 00:14 05:26 Hgb (11.8-15.2) gm/dl Hct (35.5-45.6) % Glucose 138 H (75-100) mg/dL POC Glucose 122 H (70-105) Crossmatch See Detail
[2018-06-20] MEDS: PLAVIX FEEDTUBE SCH (10:33)
[2018-06-20] MEDS: ASPIRIN FEEDTUBE SCH (10:33)
[2018-06-20] MEDS: COLACE FEEDTUBE SCH ×2 (10:34→22:33)
[2018-06-20] MEDS: PREVACID SOLUTAB FEEDTUBE SCH ×2 (10:34→22:29)
[2018-06-20] MEDS: MIRALAX 3350 FEEDTUBE SCH (10:34)
[2018-06-20] MEDS: ROCEPHIN/NS 2 GM/100 ML 2 GM/100 ML BAG IV SCH (10:34)
[2018-06-20 11:27] LABS: Hematocrit 25.9 % (35.5-45.6); Hemoglobin 8.7 gm/dl (11.8-15.2); Mean Corpuscular HGB Conc 34 % (32-34); Mean Corpuscular Volume 88 fl (84-94); Platelet Count 364 K/mm3 (140-440); Red Blood Count 2.93 M/mm3 (3.65-5.03)
[2018-06-20 11:59] LABS: Monocytes % (Manual) 0 % (0.0-7.3); Myelocytes # (Manual) 0.5 K/mm3; Total Cells Counted 100
[2018-06-20 12:00] LABS: Anisocytosis 1+; Poikilocytosis 1+
[2018-06-20 12:01] LABS: Platelet Estimate Consistent w Auto
--- NOTE | 2018-06-20 12:36 | Progress Note ---
Assessment and Plan Assessment and plan: Pneumonia; nosocomial acquired abx per ID Fecal impaction/intractable nausea vomiting- resolved sp enema and has had BM, now improved -on miralax and improved ACute blood loss anemia Upper GIB -coffee ground emesis now resolved -GI consulted,EGD on 06/16 confirms Dyana lebron tear -sp 1 unit prbc CVA with residual right-sided hemiparesis, dysphagia on meds for secondary prevention Right BKA - Supportive care Hypertension -cont bp meds Diabetes mellitus cont insulins ELVIRA/hypernatremia/ vasomotor nephropathy, has CKD stage 2-3, bl creat about 1.9; now resolved -mgt per Nephrology Hypokalemia -repleted, on K supplement Anemia of chronic illness stable, cont to monitor DVT prophylaxis - scd in light of gi bleed Patient's primary is Dr Erickson. History Interval history: Review of systems Constitutional: fever resolved, no malaise, no joint pains CVS: No chest pain, no orthopnea, no dyspnea on exertion, no pedal edema GI: no abdo pain or vomiting Respiratory: No shortness of breath, no wheezing, no coughing Hospitalist Physical - Physical exam Narrative exam: General.: Appears well, no distress, nontoxic HEENT: Moist mucous membranes, extraocular muscles intact, no lymphadenopathy Neck: supple Cardiac: S1-S2 heard Lungs: CTA BL Abdomen: belly is soft, NT, ND Extremities: no edema clubbing or cyanosis R LE amputation , wearing prosthesis Skin: no rash or lesions Neurologic: r hemiparesis Psych: calm, and cooperative - Constitutional Vitals: Temp Pulse Resp BP Pulse Ox 98.2 F 83 18 132/94 95 06/20/18 10:35 06/20/18 10:32 06/20/18 03:21 06/20/18 10:32 06/20/18 10:32 Results - Labs CBC & Chem 7: 06/20/18 11:04 06/20/18 05:26 Labs: Laboratory Last Values WBC 9.1 K/mm3 (4.5-11.0) 06/20/18 11:04 RBC 2.93 M/mm3 (3.65-5.03) L 06/20/18 11:04 Hgb 8.7 gm/dl (11.8-15.2) L 06/20/18 11:04 Hct 25.9 % (35.5-45.6) L 06/20/18 11:04 MCV 88 fl (84-94) 06/20/18 11:04 MCH 30 pg (28-32) 06/20/18 11:04 MCHC 34 % (32-34) 06/20/18 11:04 RDW 16.0 % (13.2-15.2) H 06/20/18 11:04 Plt Count 364 K/mm3 (140-440) 06/20/18 11:04 Lymph % (Auto) 23.5 % (13.4-35.0) 06/19/18 04:50 [place] % (Auto) 8.1 % (0.0-7.3) H 06/19/18 04:50 Eos % (Auto) 5.8 % (0.0-4.3) H 06/19/18 04:50 Baso % (Auto) 1.1 % (0.0-1.8) 06/19/18 04:50 Lymph # 1.8 K/mm3 (1.2-5.4) 06/19/18 04:50 [place] # 0.6 K/mm3 (0.0-0.8) 06/19/18 04:50 Eos # 0.4 K/mm3 (0.0-0.4) 06/19/18 04:50 Baso # 0.1 K/mm3 (0.0-0.1) 06/19/18 04:50 Add Manual Diff Complete 06/20/18 11:04 Total Counted 100 06/20/18 11:04 Seg Neutrophils % 61.5 % (40.0-70.0) 06/19/18 04:50 Seg Neuts % (Manual) 59.0 % (40.0-70.0) 06/20/18 11:04 Band Neutrophils % 0 % 06/20/18 11:04 Lymphocytes % (Manual) 24.0 % (13.4-35.0) 06/20/18 11:04 Reactive Lymphs % (Man) 0 % 06/20/18 11:04 Monocytes % (Manual) 0 % (0.0-7.3) 06/20/18 11:04 Eosinophils % (Manual) 8.0 % (0.0-4.3) H 06/20/18 11:04 Basophils % (Manual) 4.0 % (0.0-1.8) H 06/20/18 11:04 Metamyelocytes % 0 % 06/20/18 11:04 Myelocytes % 5.0 % 06/20/18 11:04 Promyelocytes % 0 % 06/20/18 11:04 Blast Cells % 0 % 06/20/18 11:04 Nucleated RBC % Not Reportable 06/20/18 11:04 Seg Neutrophils # 4.6 K/mm3 (1.8-7.7) 06/19/18 04:50 Seg Neutrophils # Man 5.4 K/mm3 (1.8-7.7) 06/20/18 11:04 Band Neutrophils # 0.0 K/mm3 06/20/18 11:04 Lymphocytes # (Manual) 2.2 K/mm3 (1.2-5.4) 06/20/18 11:04 Abs React Lymphs (Man) 0.0 K/mm3 06/20/18 11:04 Monocytes # (Manual) 0.0 K/mm3 (0.0-0.8) 06/20/18 11:04 Eosinophils # (Manual) 0.7 K/mm3 (0.0-0.4) H 06/20/18 11:04 Basophils # (Manual) 0.4 K/mm3 (0.0-0.1) H 06/20/18 11:04 Metamyelocytes # 0.0 K/mm3 06/20/18 11:04 Myelocytes # 0.5 K/mm3 06/20/18 11:04 Promyelocytes # 0.0 K/mm3 06/20/18 11:04 Blast Cells # 0.0 K/mm3 06/20/18 11:04 WBC Morphology Not Reportable 06/20/18 11:04 Hypersegmented Neuts Not Reportable 06/20/18 11:04 Hyposegmented Neuts Not Reportable 06/20/18 11:04 Hypogranular Neuts Not Reportable 06/20/18 11:04 Smudge Cells Not Reportable 06/20/18 11:04 Toxic Granulation Not Reportable 06/20/18 11:04 Toxic Vacuolation Not Reportable 06/20/18 11:04 Dohle Bodies Not Reportable 06/20/18 11:04 [place]-Huet Anomaly Not Reportable 06/20/18 11:04 Fadumo Rods Not Reportable 06/20/18 11:04 Platelet Estimate Consistent w auto 06/20/18 11:04 Clumped Platelets Not Reportable 06/20/18 11:04 Plt Clumps, EDTA Not Reportable 06/20/18 11:04 Large Platelets Not Reportable 06/20/18 11:04 Giant Platelets Not Reportable 06/20/18 11:04 Platelet Satelliting Not Reportable 06/20/18 11:04 Plt Morphology Comment Not Reportable 06/20/18 11:04 RBC Morphology Not Reportable 06/20/18 11:04 Dimorphic RBCs Not Reportable 06/20/18 11:04 Polychromasia Not Reportable 06/20/18 11:04 Hypochromasia Not Reportable 06/20/18 11:04 Poikilocytosis 1+ 06/20/18 11:04 Anisocytosis 1+ 06/20/18 11:04 Microcytosis Not Reportable 06/20/18 11:04 Macrocytosis Not Reportable 06/20/18 11:04 Spherocytes Not Reportable 06/20/18 11:04 Pappenheimer Bodies Not Reportable 06/20/18 11:04 Sickle Cells Not Reportable 06/20/18 11:04 Target Cells Not Reportable 06/20/18 11:04 Tear Drop Cells Not Reportable 06/20/18 11:04 Ovalocytes Not Reportable 06/20/18 11:04 Helmet Cells Not Reportable 06/20/18 11:[address] [place] Bodies Not Reportable 06/20/18 11:04 [place] Rings Not Reportable 06/20/18 11:04 [place] Cells Not Reportable 06/20/18 11:04 Bite Cells Not Reportable 06/20/18 11:04 Crenated Cell Not Reportable 06/20/18 11:04 Elliptocytes Not Reportable 06/20/18 11:04 Acanthocytes (Spur) Not Reportable 06/20/18 11:04 Rouleaux Not Reportable 06/20/18 11:04 Hemoglobin C Crystals Not Reportable 06/20/18 11:04 Schistocytes Not Reportable 06/20/18 11:04 Malaria parasites Not Reportable 06/20/18 11:04 Eb Bodies Not Reportable 06/20/18 11:04 Hem Pathologist Commnt No 06/20/18 11:04 PT 15.6 Sec. (12.2-14.9) H 06/16/18 10:37 INR 1.20 (0.87-1.13) H 06/16/18 10:37 Sodium 142 mmol/L (137-145) 06/20/18 05:26 Potassium 3.8 mmol/L (3.6-5.0) 06/20/18 05:26 Chloride 105.2 mmol/L (98-107) 06/20/18 05:26 Carbon Dioxide 25 mmol/L (22-30) 06/20/18 05:26 Anion Gap 16 mmol/L 06/20/18 05:26 BUN 19 mg/dL (9-20) 06/20/18 05:26 Creatinine 1.2 mg/dL (0.8-1.5) 06/20/18 05:26 Estimated GFR > 60 ml/min 06/20/18 05:26 BUN/Creatinine Ratio 16 % 06/20/18 05:26 Glucose 138 mg/dL (75-100) H 06/20/18 05:26 POC Glucose 122 (70-105) H 06/20/18 00:14 Lactic Acid 1.10 mmol/L (0.7-2.0) 06/14/18 12:50 Calcium 8.8 mg/dL (8.4-10.2) 06/20/18 05:26 Phosphorus 3.20 mg/dL (2.5-4.5) 06/13/18 04:53 Magnesium 2.10 mg/dL (1.7-2.3) 06/07/18 05:15 Iron 33 ug/dL (49-181) L 06/08/18 06:00 TIBC 189 mcg/dL (250-450) L 06/08/18 06:00 Ferritin 1111.0 ng/mL (13.0-400.0) H 06/08/18 06:00 Prealbumin 0.230 g/L (0.200-0.400) 06/03/18 19:51 Urine Color [place] (Yellow) 06/14/18 Unknown Urine Turbidity Turbid (Clear) 06/14/18 Unknown Urine pH 8.0 (5.0-7.0) H 06/14/18 Unknown Ur Specific [place] 1.012 (1.003-1.030) 06/14/18 Unknown Urine Protein >500 mg/dL (Negative) 06/14/18 Unknown Urine Glucose (UA) Neg mg/dL (Negative) 06/14/18 Unknown Urine Ketones Neg mg/dL (Negative) 06/14/18 Unknown Urine Blood Neg (Negative) 06/14/18 Unknown Urine Nitrite Neg (Negative) 06/14/18 Unknown Urine Bilirubin Neg (Negative) 06/14/18 Unknown Urine Urobilinogen 2.0 mg/dL (<2.0) 06/14/18 Unknown Ur Leukocyte Esterase Mod (Negative) 06/14/18 Unknown Urine WBC (Auto) 17.0 /HPF (0.0-6.0) H 06/14/18 Unknown Urine RBC (Auto) 12.0 /HPF (0.0-6.0) 06/14/18 Unknown U Epithel Cells (Auto) 12.0 /HPF (0-13.0) 06/14/18 Unknown Triple Phos Crystals 1+ 06/14/18 Unknown Urine Mucus 1+ /HPF 06/14/18 Unknown Urine Eosinophils None seen (None Seen) 06/08/18 09:55 Urine Creatinine 140.4 mg/dL (0.1-20.0) H 06/08/18 09:55 Protein/Creatinin Ratio 0.26 06/08/18 09:55 Urine Sodium 45 mmol/L 06/08/18 09:55 Urine Total Protein 36 mg/dL (5-11.8) H 06/08/18 09:55 Blood Type O POSITIVE 06/19/18 16:30 Antibody Screen Negative 06/19/18 16:30 Crossmatch See Detail 06/19/18 16:30 Nutrition/Malnutrition Assess - Dietary Evaluation Nutrition/Malnutrition Findings: Nutrition Notes Start: 06/04/18 11:20 Freq: Status: Active Protocol: Document 06/18/18 10:32 CT (Rec: 06/18/18 11:02 CT [id number]) Co-Sign 06/18/18 10:32 LP Nutrition Notes Initial or Follow up Reassessment Current Diagnosis Acute Kidney Injury CKD(stage I-IV) Diabetes Hypertension Stroke Hyperlipidemia Other Pertinent Diagnosis Dysphagia, R BKA Current Diet Glucerna 1.2 at 50 ml/hr Labs/Tests Glucose 204 Pertinent Medications Reviewed Height 6 ft 2.4 in Weight 100.8 kg [place] Body Weight (kg) 87.45 BMI 28.2 Subjective/Other Information RD consult for TF management. Observed Glucerna 1.2 infusing at 70 ml/hr. Tech states pt has been tolerating TF well. Percent of energy/protein needs met: 87%/100% Burn Absent Trauma Absent #1 Nutrition Diagnosis Inadequate oral intake Diagnosis Progress(for reassessment Continues documentation) Is patient on ventilator? No Is Patient Ambulatory and/or Out of Bed Yes REE-([place]-St. Jeor-ambulatory/OOB) [ 2494.869 NUTR.MSJOOB] Kcal/Kg value to use for calculation 23 Approximate Energy Requirements Using 2318 kcal/Kg Calculation Used for Recommendations Kcal/kg Additional Notes Protein needs: 60-100 g (0.6-0 .8 g/kg) Fluids: 1 mL/kg inderjit or per MD Nutrition Intervention Change Diet Order: Continue TF Nutrition Support: Glucerna 1.2 at 70 mL/hr Flush 100 mL q4hr Kcal 2,016 Protein (gm) 100 Fluid (mL) 1,352 Goal #1 Continue to meet at least 75% inderjit and pro needs Goal #2 TF tolerance Anticipated Discharge Needs: TF Follow-Up By: 06/25/18 Additional Comments Follow for TF tolerance
--- NOTE | 2018-06-20 12:47 | Progress Note ---
Assessment and Plan Acute Renal Failure secondary to Ischemic ATN on likely CKD from HTN: -resolved - will d/c IVF -Renal ultrasound at previous hospital showed signs of CKD -Avoid nephrotoxic agents -Obtain daily weights -Monitor I/O's -Monitor renal function closely Acute CVA: -On ASA, Plavix and Statin -Rehab therapy Hypertension: -Continue BP meds and adjust as needed Diabetes Mellitus: -On Insulin Oropharyngeal Dysphagia: -Peg Tube feedings Anemia in CKD: - Epogen dosing for anemia management Right Upper Lobe Pneumonia: -On IV Rocephin and Flagyl -As per primary will sign off, please reconsult if needed Subjective Date of service: 06/20/18 Principal diagnosis: CVA, Acute on CKD Interval history: denies acute issues Objective - Vital Signs Vital signs: Vital Signs - 12hr 06/20/18 06/20/18 06/20/18 01:06 01:21 01:51 Temperature 98.3 F 98.3 F 98.1 F Pulse Rate 84 87 86 Respiratory 18 18 18 Rate Blood Pressure 131/79 126/79 123/81 O2 Sat by Pulse 97 100 98 Oximetry 06/20/18 06/20/18 06/20/18 02:21 02:51 03:21 Temperature 98.5 F 98.4 F 98.5 F Pulse Rate 84 85 84 Respiratory 18 18 18 Rate Blood Pressure 130/86 125/85 126/86 O2 Sat by Pulse 97 98 98 Oximetry 06/20/18 06/20/18 06/20/18 05:38 10:32 10:35 Temperature 98.2 F Pulse Rate 86 83 Respiratory Rate Blood Pressure 145/90 132/94 O2 Sat by Pulse 95 Oximetry - General Appearance General appearance: well-developed, well-nourished EENT: ATNC, PERRL, mucous membranes moist Neck: no JVD, no carotid bruit Respiratory: Present: Clear to Ascultation. Absent: Rales, Ronchi Cardiology: regular, S1S2 Gastrointestinal: normoactive bowel sounds, no tenderness, no distended Integumentary: no rash, warm and dry Neurologic: no focal deficit, no asterixis Musculoskeletal: other (no edema in BLE) Psychiatric: cooperative - Lab 06/20/18 11:04 06/20/18 05:26 Most recent lab results Calcium 8.8 mg/dL (8.4-10.2) 06/20/18 05:26 Phosphorus 3.20 mg/dL (2.5-4.5) 06/13/18 04:53 Magnesium 2.10 mg/dL (1.7-2.3) 06/07/18 05:15 Urine Creatinine 140.4 mg/dL (0.1-20.0) H 06/08/18 09:55 Urine Sodium 45 mmol/L 06/08/18 09:55 Urine Total Protein 36 mg/dL (5-11.8) H 06/08/18 09:55 Medications & Allergies - Medications Allergies/Adverse Reactions: Allergies No Known Allergies Allergy (Unverified 08/03/15 12:32) Home Medications: Home Medications Medication Instructions Recorded Confirmed Last Taken Type Aspirin [Aspirin BABY CHEW TAB] 81 mg PO QDAY 08/04/15 06/05/18 Unknown History Insulin Detemir [Levemir Flextouch] 35 unit SQ BID 08/04/15 06/05/18 Unknown History NIFEdipine XL [Procardia Xl] 60 mg PO QDAY 08/04/15 06/05/18 Unknown History Simvastatin [Zocor TAB] 40 mg PO QHS 08/04/15 06/05/18 Unknown History Sitagliptin/Metformin (Nf) 1 each PO BID 08/04/15 06/05/18 Unknown History [Janumet 50-1,000 mg (Nf)] Sulfamethoxazole/Trimethoprim 1 each PO BID #14 tablet 08/04/15 06/05/18 Unknown Rx [Bactrim DS TAB] Active Medications: Generic Name Dose Route Start Last Admin Trade Name Freq PRN Reason Stop Dose Admin Acetaminophen 650 mg 06/15/18 20:58 06/15/18 21:17 Tylenol [place] 650 mg Q4H PRN Administration Pain, Mild (1-3) Acetaminophen/Hydrocodone Bitart 1 each 06/09/18 20:50 06/14/18 22:27 [place] 5/325 PO 1 each Q6H PRN Administration Pain, Moderate (4-6) Lipase/Protease/Amylase 1 each 06/10/18 14:01 Amy Laguerre 10,500 Unit FEEDTUBE PRN PRN For Clogged Feeding Tube Aspirin 325 mg 06/04/18 08:00 06/20/18 10:33 Aspirin FEEDTUBE 325 mg QDAY JONO Administration Atorvastatin Calcium 40 mg 06/03/18 21:00 06/19/18 21:34 Lipitor FEEDTUBE 40 mg QHS JONO Administration Clopidogrel Bisulfate 75 mg 06/04/18 08:00 06/20/18 10:33 Plavix FEEDTUBE 75 mg QDAY JONO Administration Dextrose 50 ml 06/03/18 17:09 D50w (25gm) Syringe IV PRN PRN Hypoglycemia Docusate Sodium 100 mg 06/03/18 22:00 06/20/18 10:34 Colace FEEDTUBE Not Given BID JONO Epoetin Abhijeet 10,000 unit 06/08/18 10:00 06/15/18 11:18 Procrit SUB-Q 10,000 unit Webb JONO Administration Heparin Sodium (Porcine) 5,000 unit 06/03/18 22:00 06/20/18 05:18 Heparin SUB-Q 5,000 unit Q8HR JONO Administration Hydralazine HCl 25 mg 06/10/18 14:00 06/20/18 05:38 Apresoline FEEDTUBE 25 mg Q8HR JONO Administration Ceftriaxone Sodium 2 gm in 100 mls @ 200 mls/hr 06/15/18 15:00 06/20/18 10:34 Rocephin/Ns 2 Gm/100 Ml IV 06/21/18 10:29 200 mls/hr Q24HR JONO Administration Protocol Metronidazole 500 mg in 100 mls @ 100 mls/hr 06/15/18 15:00 06/20/18 05:21 Flagyl 500 Mg/100 Ml IV 06/21/18 22:59 100 mls/hr Q8HR JONO Administration Protocol Insulin Glargine 20 units 06/10/18 21:00 06/19/18 21:35 Lantus SUB-Q 20 units QHS JONO Administration Insulin Human Lispro 0 unit 06/18/18 07:00 06/20/18 03:43 Humalog SUB-Q Not Given Q6HR JONO Protocol Lansoprazole 30 mg 06/19/18 22:00 06/20/18 10:34 Prevacid Solutab FEEDTUBE 30 mg BID JONO Administration Metoprolol Tartrate 50 mg 06/07/18 10:00 06/20/18 10:33 Lopressor FEEDTUBE 50 mg Q8H JONO Administration Ondansetron HCl 4 mg 06/14/18 16:06/14/18 16:47 Zofran IV 4 mg Q6H PRN Administration Nausea And Vomiting Phenyleph/Shark Oil/Min Oil/Petrol 1 applic 06/10/18 14:19 Preparation H NJ Q6HR PRN Hemorrhoids Polyethylene Glycol 17 gm 06/17/18 08:00 06/20/18 10:34 Miralax 3350 FEEDTUBE Not Given QDAY JONO Promethazine HCl 25 mg 06/15/18 08:32 Phenergan NJ Q6H PRN Nausea And Vomiting Simple Syrup 15 ml 06/10/18 14:01 Simple Syrup FEEDTUBE PRN PRN Hypoglycemia Simple Syrup 30 ml 06/10/18 14:01 Simple Syrup FEEDTUBE PRN PRN Hypoglycemia Sodium Bicarbonate 325 mg 06/10/18 14:01 Sodium Bicarbonate FEEDTUBE PRN PRN For Clogged Feeding Tube
[2018-06-20] MEDS: LANTUS SUB-Q SCH (21:30)
[2018-06-21] MEDS: LOPRESSOR FEEDTUBE SCH ×3 (01:45→18:14)
[2018-06-21] MEDS: APRESOLINE FEEDTUBE SCH ×3 (05:30→22:06)
[2018-06-21] MEDS: HumaLOG SUB-Q SCH ×5 (06:20→22:23)
[2018-06-21] MEDS: FLAGYL 500 MG/100 ML 500 MG/100 ML BAG IV SCH ×3 (06:36→22:05)
[2018-06-21] MEDS: HEPARIN SUB-Q SCH ×3 (06:36→22:14)
--- NOTE | 2018-06-21 09:47 | Progress Note ---
Subjective Date of service: 06/21/18 Principal diagnosis: CVA, Acute on CKD Interval history: 53-year-old LHD male who experienced increased right-sided weakness three days prior to presentation at an outside hospital. He also had decreased balance and gait. He was admitted and worked up for stroke. MRI of brain confirmed the presence of a stroke. A repeat MRI showed a second stroke in a different area. Patient was continued on secondary stroke prevention medications. He had a PEG tube placed and was started on a low volume of TF. He developed acute kidney injury and a nephrology consult was called. He required transfer to the [facility] for management of uncontrolled blood pressure. He was later weaned off of Cardene drip and restarted on oral blood pressure medications. 8.7 on recheck CBC after transfusion of 1u PRBC. Symptoms improved. Patient is participating in therapy and making fair progress. +BM. No pain currently. PEG ok. TF at goal. BP - Continue medications and adjust as needed. please avoid nephrotoxic meds. Prosthesis - check socket tested, awaiting final Doing better from sepsis standpoint. Complete abx. Afebrile since 06/15, WBC normalized. No chills or productive cough. No other issues per patient, nursing or therapy. Discussed need for prolonged therapy at SNF. Patient agreeable even though it's not the hoped for outcome. States that he realizes he can't be alone. Will look into local SNFs for opening. Look to d/c Saturday 06/24 All available medical records, therapy notes, vitals and labs were reviewed. Objective - Exam Narrative Exam: MUSCULOSKELETAL SPECIALTY EXAM Constitutional: Well developed, well nourished, appropriately groomed, LHD EENT: Hearing intact to finger rustle. Poor dentition. Respiratory: Clear to auscultation bilaterally , no increased work of breathing. Cardiovascular Regular Rate/ Rhythm, no swelling edema or tenderness in all 4 extremities. All 4 extremities warm. GI : + bowel sounds, soft, NTTP, nondistended, PEG INTEGUMENTARY Normal in all 4 extremities Musuloskeletal BUE and BLE normal without defect, crepitus, sublux, effusion, or TTP except for Right BKA. RUE and RLE 4-/5. Decreased aROM, good pROM, normal tone. LUE and LLE 4+/5, good ROM with normal tone. NEURO: Significant Left facial droop involving upper and lower face (LMN), Tongue protrudes left , sensation on face is assymetric, otherwise CN 2-12 grossly int act. Sensation intact on LEFT extremities and impaired on RIGHT. Coordination intact on left, decreased on right. No tremor noted. Aphasia and dysarthria present. Naming and repetition intact. POSTURE and GAIT: Standing/walking with therapy with some balance deficits. Able to walk short distance. PSYCH: Alert, orientated x3, affect appears normal. Insight appears intact. - Constitutional Vitals: Vital Signs - 12hr 06/20/18 06/20/18 06/21/18 22:00 22:31 01:45 Temperature Pulse Rate 83 70 Respiratory 16 Rate Respiratory 17 Rate [Denies] Blood Pressure 141/93 108/70 Blood Pressure [Left] O2 Sat by Pulse 100 Oximetry 06/21/18 06/21/18 06/21/18 05:11 05:30 07:33 Temperature 36.8 C 37.1 C Pulse Rate 89 82 94 H Respiratory 17 18 Rate Respiratory Rate [Denies] Blood Pressure 130/78 Blood Pressure 114/68 172/105 [Left] O2 Sat by Pulse 94 99 Oximetry - Allied health notes Allied health notes reviewed: nursing, PT, ST, OT FIMS assessment as documented by PT/OT/ST: Grooming Patient cleans teeth/dentures: Yes Patient matamoros/brushes hair: Yes Patient washes, rinses and Yes dries face: Patient washes, rinses and Yes dries hands: Patient shaves: No: Pt's brother uses clippers to shave Patient applies make-up: No Patient performs (no make-up/ 0/4 (0%) shaving): Patient performs (w/ make-up/ 0/5 (0%) shaving): Grooming FIM Score 4. Minimal Assistance (Patient = 75% or more. Needs touching.) Toileting Toileting Device Commode over Toilet,Grab Bar Patient able to: Adjust clothes before,Clean self,Adjust clothes after Patient able to perform: 1/3 (33%) Toileting FIM Score 4. Minimal Assistance (Patient = 75% or more. Needs touching.) Social interaction/Memory/Problem solving Social Interaction FIM Score 6. Mod. [place] (Mostly appropriate. May need meds. No supv.) Memory FIM Score 6. Modified [place](Mild difficulty remembering people/routines.) Problem Solving FIM Score 5. Supervision (Needs cueing <10% to solve routine problems.) Transfers Mode of Locomotion: Wheelchair Bed/Chair/Wheelchair Transfers 5. Supervision (Needs supv. or set-up for FIM Score sliding board, foot rests.) Toilet Transfers FIM Score 4. Minimal Assistance (Patient = 75% or more. Needs touching.) Patient transferred to: Shower Tub Transfers FIM Score 0. Activity does not occur Shower Transfers FIM Score 4. Minimal Assistance (Patient = 75% or more. Needs touching.) Locomotion- Stairs Stairs FIM Score 0. Activity does not occur Locomotion- walk/wheelchair Most Frequent Mode of Wheelchair Locomotion: Ambulation Distance 40 Walking FIM Score 4. Minimal Assistance (Patient = 75% or more. Minimum of 150 ft.) Wheelchair Propulsion Distance 300 Wheelchair FIM Score 5. Supervision (Minimum 150 ft. supv./cues or 50 ft. independently.) Eating Eating FIM Score 1. Total Assistance (Patient <25% or tube feeding) Dressing-Upper body Patient retrieves clothing Yes: Pt advised of what he wants to wear items: Patient applies/removes UE No prosthesis or orthosis: Upper Body Dressing FIM Score 6. Modified [place] (Needs equipment, velcro or pros./orth.) Dressing-lower body Lower Body Dressing Device Karate Instructor/Stick Patient retrieves clothing No: Clothing S/U, pt advised of what he wants to items: wear Patient applies/removes LE Yes: Required S/U for iniaition, pt completed prosthesis or orthosis: Mod (I) afterwards Lower Body Dressing FIM Score 5. Supv./Set-Up ([place] sets out clothes or applies pros./orth.) - Labs CBC & Chem 7: 06/20/18 11:04 06/20/18 05:26 Labs: Laboratory Results - last 72 hr 06/18/18 06/18/18 06/18/18 11:48 18:38 22:19 WBC RBC Hgb Hct MCV MCH MCHC RDW Plt Count Lymph % (Auto) Coleman % (Auto) Eos % (Auto) Baso % (Auto) Lymph # Coleman # Eos # Baso # Add Manual Diff Total Counted Seg Neutrophils % Seg Neuts % (Manual) Band Neutrophils % Lymphocytes % (Manual) Reactive Lymphs % (Man) Monocytes % (Manual) Eosinophils % (Manual) Basophils % (Manual) Metamyelocytes % Myelocytes % Promyelocytes % Blast Cells % Nucleated RBC % Seg Neutrophils # Seg Neutrophils # Man Band Neutrophils # Lymphocytes # (Manual) Abs React Lymphs (Man) Monocytes # (Manual) Eosinophils # (Manual) Basophils # (Manual) Metamyelocytes # Myelocytes # Promyelocytes # Blast Cells # WBC Morphology Hypersegmented Neuts Hyposegmented Neuts Hypogranular Neuts Smudge Cells Toxic Granulation Toxic Vacuolation Dohle Bodies Pelger-Huet Anomaly Fadumo Rods Platelet Estimate Clumped Platelets Plt Clumps, EDTA Large Platelets Giant Platelets Platelet Satelliting Plt Morphology Comment RBC Morphology Dimorphic RBCs Polychromasia Hypochromasia Poikilocytosis Anisocytosis Microcytosis Macrocytosis Spherocytes Pappenheimer Bodies Sickle Cells Target Cells Tear Drop Cells Ovalocytes Helmet Cells [place] Bodies [place] Rings [place] Cells Bite Cells Crenated Cell Elliptocytes Acanthocytes (Spur) Rouleaux Hemoglobin C Crystals Schistocytes Malaria parasites Eb Bodies Hem Pathologist Commnt Sodium Potassium Chloride Carbon Dioxide Anion Gap BUN Creatinine Estimated GFR BUN/Creatinine Ratio Glucose POC Glucose 204 H 163 H 163 H Calcium Blood Type Antibody Screen Crossmatch 06/19/18 06/19/18 06/19/18 04:50 04:50 05:29 WBC 7.5 RBC 2.47 L Hgb 7.2 L Hct 21.9 L MCV 89 MCH 29 MCHC 33 RDW 15.1 Plt Count 336 Lymph % (Auto) 23.5 Coleman % (Auto) 8.1 H Eos % (Auto) 5.8 H Baso % (Auto) 1.1 Lymph # 1.8 Coleman # 0.6 Eos # 0.4 Baso # 0.1 Add Manual Diff Total Counted Seg Neutrophils % 61.5 Seg Neuts % (Manual) Band Neutrophils % Lymphocytes % (Manual) Reactive Lymphs % (Man) Monocytes % (Manual) Eosinophils % (Manual) Basophils % (Manual) Metamyelocytes % Myelocytes % Promyelocytes % Blast Cells % Nucleated RBC % Seg Neutrophils # 4.6 Seg Neutrophils # Man Band Neutrophils # Lymphocytes # (Manual) Abs React Lymphs (Man) Monocytes # (Manual) Eosinophils # (Manual) Basophils # (Manual) Metamyelocytes # Myelocytes # Promyelocytes # Blast Cells # WBC Morphology Hypersegmented Neuts Hyposegmented Neuts Hypogranular Neuts Smudge Cells Toxic Granulation Toxic Vacuolation Dohle Bodies Pelger-Huet Anomaly Fadumo Rods Platelet Estimate Clumped Platelets Plt Clumps, EDTA Large Platelets Giant Platelets Platelet Satelliting Plt Morphology Comment RBC Morphology Dimorphic RBCs Polychromasia Hypochromasia Poikilocytosis Anisocytosis Microcytosis Macrocytosis Spherocytes Pappenheimer Bodies Sickle Cells Target Cells Tear Drop Cells Ovalocytes Helmet Cells Muhammad[place] Bodies [place] Rings [place] Cells Bite Cells Crenated Cell Elliptocytes Acanthocytes (Spur) Rouleaux Hemoglobin C Crystals Schistocytes Malaria parasites Eb Bodies Hem Pathologist Commnt Sodium 144 Potassium 3.7 Chloride 104.3 Carbon Dioxide 25 Anion Gap 18 BUN 19 Creatinine 1.4 Estimated GFR > 60 BUN/Creatinine Ratio 14 Glucose 108 H POC Glucose 109 H Calcium 8.7 Blood Type Antibody Screen Crossmatch 06/19/18 06/19/18 06/19/18 11:45 16:26 16:30 WBC RBC Hgb 7.9 L Hct 24.1 L MCV MCH MCHC RDW Plt Count Lymph % (Auto) Coleman % (Auto) Eos % (Auto) Baso % (Auto) Lymph # Coleman # Eos # Baso # Add Manual Diff Total Counted Seg Neutrophils % Seg Neuts % (Manual) Band Neutrophils % Lymphocytes % (Manual) Reactive Lymphs % (Man) Monocytes % (Manual) Eosinophils % (Manual) Basophils % (Manual) Metamyelocytes % Myelocytes % Promyelocytes % Blast Cells % Nucleated RBC % Seg Neutrophils # Seg Neutrophils # Man Band Neutrophils # Lymphocytes # (Manual) Abs React Lymphs (Man) Monocytes # (Manual) Eosinophils # (Manual) Basophils # (Manual) Metamyelocytes # Myelocytes # Promyelocytes # Blast Cells # WBC Morphology Hypersegmented Neuts Hyposegmented Neuts Hypogranular Neuts Smudge Cells Toxic Granulation Toxic Vacuolation Dohle Bodies Pelger-Huet Anomaly Fadumo Rods Platelet Estimate Clumped Platelets Plt Clumps, EDTA Large Platelets Giant Platelets Platelet Satelliting Plt Morphology Comment RBC Morphology Dimorphic RBCs Polychromasia Hypochromasia Poikilocytosis Anisocytosis Microcytosis Macrocytosis Spherocytes Pappenheimer Bodies Sickle Cells Target Cells Tear Drop Cells Ovalocytes Helmet Cells Muhammad[place] Bodies [place] Rings [place] Cells Bite Cells Crenated Cell Elliptocytes Acanthocytes (Spur) Rouleaux Hemoglobin C Crystals Schistocytes Malaria parasites Eb Bodies Hem Pathologist Commnt Sodium Potassium Chloride Carbon Dioxide Anion Gap BUN Creatinine Estimated GFR BUN/Creatinine Ratio Glucose POC Glucose 165 H 140 H Calcium Blood Type Antibody Screen Crossmatch 06/19/18 06/20/18 06/20/18 16:30 00:14 05:26 WBC RBC Hgb Hct MCV MCH MCHC RDW Plt Count Lymph % (Auto) Coleman % (Auto) Eos % (Auto) Baso % (Auto) Lymph # Coleman # Eos # Baso # Add Manual Diff Total Counted Seg Neutrophils % Seg Neuts % (Manual) Band Neutrophils % Lymphocytes % (Manual) Reactive Lymphs % (Man) Monocytes % (Manual) Eosinophils % (Manual) Basophils % (Manual) Metamyelocytes % Myelocytes % Promyelocytes % Blast Cells % Nucleated RBC % Seg Neutrophils # Seg Neutrophils # Man Band Neutrophils # Lymphocytes # (Manual) Abs React Lymphs (Man) Monocytes # (Manual) Eosinophils # (Manual) Basophils # (Manual) Metamyelocytes # Myelocytes # Promyelocytes # Blast Cells # WBC Morphology Hypersegmented Neuts Hyposegmented Neuts Hypogranular Neuts Smudge Cells Toxic Granulation Toxic Vacuolation Dohle Bodies Pelger-Huet Anomaly Fadumo Rods Platelet Estimate Clumped Platelets Plt Clumps, EDTA Large Platelets Giant Platelets Platelet Satelliting Plt Morphology Comment RBC Morphology Dimorphic RBCs Polychromasia Hypochromasia Poikilocytosis Anisocytosis Microcytosis Macrocytosis Spherocytes Pappenheimer Bodies Sickle Cells Target Cells Tear Drop Cells Ovalocytes Helmet Cells Muhammad[place] Bodies [place] Rings [place] Cells Bite Cells Crenated Cell Elliptocytes Acanthocytes (Spur) Rouleaux Hemoglobin C Crystals Schistocytes Malaria parasites Eb Bodies Hem Pathologist Commnt Sodium 142 Potassium 3.8 Chloride 105.2 Carbon Dioxide 25 Anion Gap 16 BUN 19 Creatinine 1.2 Estimated GFR > 60 BUN/Creatinine Ratio 16 Glucose 138 H POC Glucose 122 H Calcium 8.8 Blood Type O POSITIVE Antibody Screen Negative Crossmatch See Detail 06/20/18 06/20/18 06/20/18 11:04 12:39 18:07 WBC 9.1 RBC 2.93 L Hgb 8.7 L Hct 25.9 L MCV 88 MCH 30 MCHC 34 RDW 16.0 H Plt Count 364 Lymph % (Auto) Coleman % (Auto) Eos % (Auto) Baso % (Auto) Lymph # Coleman # Eos # Baso # Add Manual Diff Complete Total Counted 100 Seg Neutrophils % Seg Neuts % (Manual) 59.0 Band Neutrophils % 0 Lymphocytes % (Manual) 24.0 Reactive Lymphs % (Man) 0 Monocytes % (Manual) 0 Eosinophils % (Manual) 8.0 H Basophils % (Manual) 4.0 H Metamyelocytes % 0 Myelocytes % 5.0 Promyelocytes % 0 Blast Cells % 0 Nucleated RBC % Not Reportable Seg Neutrophils # Seg Neutrophils # Man 5.4 Band Neutrophils # 0.0 Lymphocytes # (Manual) 2.2 Abs React Lymphs (Man) 0.0 Monocytes # (Manual) 0.0 Eosinophils # (Manual) 0.7 H Basophils # (Manual) 0.4 H Metamyelocytes # 0.0 Myelocytes # 0.5 Promyelocytes # 0.0 Blast Cells # 0.0 WBC Morphology Not Reportable Hypersegmented Neuts Not Reportable Hyposegmented Neuts Not Reportable Hypogranular Neuts Not Reportable Smudge Cells Not Reportable Toxic Granulation Not Reportable Toxic Vacuolation Not Reportable Dohle Bodies Not Reportable Pelger-Huet Anomaly Not Reportable Fadumo Rods Not Reportable Platelet Estimate Consistent w auto Clumped Platelets Not Reportable Plt Clumps, EDTA Not Reportable Large Platelets Not Reportable Giant Platelets Not Reportable Platelet Satelliting Not Reportable Plt Morphology Comment Not Reportable RBC Morphology Not Reportable Dimorphic RBCs Not Reportable Polychromasia Not Reportable Hypochromasia Not Reportable Poikilocytosis 1+ Anisocytosis 1+ Microcytosis Not Reportable Macrocytosis Not Reportable Spherocytes Not Reportable Pappenheimer Bodies Not Reportable Sickle Cells Not Reportable Target Cells Not Reportable Tear Drop Cells Not Reportable Ovalocytes Not Reportable Helmet Cells Not Reportable Muhammad[place] Bodies Not Reportable [place] Rings Not Reportable [place] Cells Not Reportable Bite Cells Not Reportable Crenated Cell Not Reportable Elliptocytes Not Reportable Acanthocytes (Spur) Not Reportable Rouleaux Not Reportable Hemoglobin C Crystals Not Reportable Schistocytes Not Reportable Malaria parasites Not Reportable Eb Bodies Not Reportable Hem Pathologist Commnt No Sodium Potassium Chloride Carbon Dioxide Anion Gap BUN Creatinine Estimated GFR BUN/Creatinine Ratio Glucose POC Glucose 152 H 136 H Calcium Blood Type Antibody Screen Crossmatch 06/20/18 06/21/18 22:32 05:26 WBC RBC Hgb Hct MCV MCH MCHC RDW Plt Count Lymph % (Auto) Coleman % (Auto) Eos % (Auto) Baso % (Auto) Lymph # Coleman # Eos # Baso # Add Manual Diff Total Counted Seg Neutrophils % Seg Neuts % (Manual) Band Neutrophils % Lymphocytes % (Manual) Reactive Lymphs % (Man) Monocytes % (Manual) Eosinophils % (Manual) Basophils % (Manual) Metamyelocytes % Myelocytes % Promyelocytes % Blast Cells % Nucleated RBC % Seg Neutrophils # Seg Neutrophils # Man Band Neutrophils # Lymphocytes # (Manual) Abs React Lymphs (Man) Monocytes # (Manual) Eosinophils # (Manual) Basophils # (Manual) Metamyelocytes # Myelocytes # Promyelocytes # Blast Cells # WBC Morphology Hypersegmented Neuts Hyposegmented Neuts Hypogranular Neuts Smudge Cells Toxic Granulation Toxic Vacuolation Dohle Bodies Pelger-Huet Anomaly Fadumo Rods Platelet Estimate Clumped Platelets Plt Clumps, EDTA Large Platelets Giant Platelets Platelet Satelliting Plt Morphology Comment RBC Morphology Dimorphic RBCs Polychromasia Hypochromasia Poikilocytosis Anisocytosis Microcytosis Macrocytosis Spherocytes Pappenheimer Bodies Sickle Cells Target Cells Tear Drop Cells Ovalocytes Helmet Cells Muhammad[place] Bodies [place] Rings [place] Cells Bite Cells Crenated Cell Elliptocytes Acanthocytes (Spur) Rouleaux Hemoglobin C Crystals Schistocytes Malaria parasites Eb Bodies Hem Pathologist Commnt Sodium Potassium Chloride Carbon Dioxide Anion Gap BUN Creatinine Estimated GFR BUN/Creatinine Ratio Glucose POC Glucose 129 H 148 H Calcium Blood Type Antibody Screen Crossmatch Assessment and Plan I69.353 Right non-dom hemiparesis: Monitor for neuro decline. Continue secondary stroke prevention. Discussed recovery and secondary stroke prevention. Monitor for post-stroke depression and s/s of shoulder-hand syndrome. Monitor for safety awareness I69.322 Dysarthria: [employer] for improvement in communication and speech I69.391 Dysphagia: [employer]OR to improve swallow function. Continue TF (at goal) with NPO. Monitor and advance diet as safely as able. FEES, MBSS or EStim as needed. Z73.6 ADL dysfunction: OT will work on improving ability to perform ADLs (including assistive devices) to increase independence and decrease caregiver burden and improve functional transfers and mobility training. R26.2 Difficulty walking: PT will work on gait training and proper use of assistive devices and advance as appropriate to use of stairs and outside ambulation on uneven surfaces. R26.81 Unsteadiness on feet: PT will work on improving static and dynamic sitting and standing balance as well as proper use of assistive devices to decrease risk of falls. R26.89 Abnormality of gait: PT will work to improve safety and efficiency of gait through neuromotor training and gait training along with instruction on proper use of assistive devices. Has prosthesis with him M62.81 Muscle weakness: PT & OT will work on strengthening exercises to improve functional strength including mixture of closed and open kinetic chain exercises. R53.81 Debility: PT & OT will work on improving overall functional status to improve participation with ADLs, mobility and social involvement. R53.83 Fatigue: PT & OT will work on improving endurance through aerobic exercises and therapeutic activity while monitoring patients tolerance for activity and vital signs as needed. I10 Hypertension: Adjust as needed. Avoid nephrotoxic meds E78.5 Hyperlipidemia: Continue Statin E11.8 Diabetes: Monitor D 62 and D64.9 Anemia of chronic disease: Better after transfusion, monitor E87.6 Hypokalemia: Resolved, monitor labs Z89.511 R BKA: awaiting delivery of prosthesis Resolved Sepsis/SIRS/ PNA RUL GIB ELVIRA due to ATN at OSH but likely Acute on CKD per consult here DVT ppx: Heparin TID due to renal function GI ppx: Pepcid Pain: Continue physical modalities in therapy and pain medications as needed to achieve functional pain control. Sleep: Monitor and address as needed. Bowel: Monitor and address as needed. Appetite: Monitor and address as needed when able to take PO. Discharge planning: Pending therapy progress and care plan meeting. Will continu e discussion with therapy team, SW, patient and family. Restrictions/ Precautions: Falls, aspiration WB status: FWB Functional Hx: ADLs: Independent and working Cognition: Independent Mobility: independent Consult: Hospitalists for medical management Nephrology for renal function ID for sepsis/SIRS GI for GIB Appreciate assistance. Barriers to Discharge: Decreased mobility and ability to perform self care, right sided weakness, balance deficits, dysphagia Estimated Length of Stay: 21 days Discharge Destination: likely SNF
[2018-06-21] MEDS: COLACE FEEDTUBE SCH ×2 (10:28→22:18)
[2018-06-21] MEDS: ASPIRIN FEEDTUBE SCH (11:06)
[2018-06-21] MEDS: PLAVIX FEEDTUBE SCH (11:58)
[2018-06-21] MEDS: PREVACID SOLUTAB FEEDTUBE SCH ×2 (11:59→22:05)
[2018-06-21] MEDS: ROCEPHIN/NS 2 GM/100 ML 2 GM/100 ML BAG IV SCH (14:07)
--- NOTE | 2018-06-21 14:59 | Progress Note ---
Assessment and Plan Assessment and plan: Pneumonia; nosocomial acquired abx per ID Fecal impaction/intractable nausea vomiting- resolved sp enema and has had BM, now improved -on miralax and improved ACute blood loss anemia Upper GIB -coffee ground emesis now resolved -GI consulted,EGD on 06/16 confirms Dyana lebron tear -sp 1 unit prbc CVA with residual right-sided hemiparesis, dysphagia on meds for secondary prevention Right BKA - Supportive care Hypertension -cont bp meds Diabetes mellitus cont insulins ELVIRA/hypernatremia/ vasomotor nephropathy, has CKD stage 2-3, bl creat about 1.9; now resolved -mgt per Nephrology Hypokalemia -repleted, on K supplement Anemia of chronic illness stable, cont to monitor DVT prophylaxis - scd in light of gi bleed Patient's primary is Dr Erickson. History Interval history: Review of systems Constitutional: fever resolved, no malaise, no joint pains CVS: No chest pain, no orthopnea, no dyspnea on exertion, no pedal edema GI: no abdo pain or vomiting Respiratory: No shortness of breath, no wheezing, no coughing Hospitalist Physical - Physical exam Narrative exam: General.: Appears well, no distress, nontoxic HEENT: Moist mucous membranes, extraocular muscles intact, no lymphadenopathy Neck: supple Cardiac: S1-S2 heard Lungs: CTA BL Abdomen: belly is soft, NT, ND Extremities: no edema clubbing or cyanosis R LE amputation , wearing prosthesis Skin: no rash or lesions Neurologic: r hemiparesis Psych: calm, and cooperative - Constitutional Vitals: Temp Pulse Resp BP Pulse Ox 98.0 F 88 18 159/104 97 06/21/18 12:18 06/21/18 12:18 06/21/18 12:18 06/21/18 12:18 06/21/18 12:18 Results - Labs CBC & Chem 7: 06/20/18 11:04 06/20/18 05:26 Labs: Laboratory Last Values WBC 9.1 K/mm3 (4.5-11.0) 06/20/18 11:04 RBC 2.93 M/mm3 (3.65-5.03) L 06/20/18 11:04 Hgb 8.7 gm/dl (11.8-15.2) L 06/20/18 11:04 Hct 25.9 % (35.5-45.6) L 06/20/18 11:04 MCV 88 fl (84-94) 06/20/18 11:04 MCH 30 pg (28-32) 06/20/18 11:04 MCHC 34 % (32-34) 06/20/18 11:04 RDW 16.0 % (13.2-15.2) H 06/20/18 11:04 Plt Count 364 K/mm3 (140-440) 06/20/18 11:04 Lymph % (Auto) 23.5 % (13.4-35.0) 06/19/18 04:50 [place] % (Auto) 8.1 % (0.0-7.3) H 06/19/18 04:50 Eos % (Auto) 5.8 % (0.0-4.3) H 06/19/18 04:50 Baso % (Auto) 1.1 % (0.0-1.8) 06/19/18 04:50 Lymph # 1.8 K/mm3 (1.2-5.4) 06/19/18 04:50 [place] # 0.6 K/mm3 (0.0-0.8) 06/19/18 04:50 Eos # 0.4 K/mm3 (0.0-0.4) 06/19/18 04:50 Baso # 0.1 K/mm3 (0.0-0.1) 06/19/18 04:50 Add Manual Diff Complete 06/20/18 11:04 Total Counted 100 06/20/18 11:04 Seg Neutrophils % 61.5 % (40.0-70.0) 06/19/18 04:50 Seg Neuts % (Manual) 59.0 % (40.0-70.0) 06/20/18 11:04 Band Neutrophils % 0 % 06/20/18 11:04 Lymphocytes % (Manual) 24.0 % (13.4-35.0) 06/20/18 11:04 Reactive Lymphs % (Man) 0 % 06/20/18 11:04 Monocytes % (Manual) 0 % (0.0-7.3) 06/20/18 11:04 Eosinophils % (Manual) 8.0 % (0.0-4.3) H 06/20/18 11:04 Basophils % (Manual) 4.0 % (0.0-1.8) H 06/20/18 11:04 Metamyelocytes % 0 % 06/20/18 11:04 Myelocytes % 5.0 % 06/20/18 11:04 Promyelocytes % 0 % 06/20/18 11:04 Blast Cells % 0 % 06/20/18 11:04 Nucleated RBC % Not Reportable 06/20/18 11:04 Seg Neutrophils # 4.6 K/mm3 (1.8-7.7) 06/19/18 04:50 Seg Neutrophils # Man 5.4 K/mm3 (1.8-7.7) 06/20/18 11:04 Band Neutrophils # 0.0 K/mm3 06/20/18 11:04 Lymphocytes # (Manual) 2.2 K/mm3 (1.2-5.4) 06/20/18 11:04 Abs React Lymphs (Man) 0.0 K/mm3 06/20/18 11:04 Monocytes # (Manual) 0.0 K/mm3 (0.0-0.8) 06/20/18 11:04 Eosinophils # (Manual) 0.7 K/mm3 (0.0-0.4) H 06/20/18 11:04 Basophils # (Manual) 0.4 K/mm3 (0.0-0.1) H 06/20/18 11:04 Metamyelocytes # 0.0 K/mm3 06/20/18 11:04 Myelocytes # 0.5 K/mm3 06/20/18 11:04 Promyelocytes # 0.0 K/mm3 06/20/18 11:04 Blast Cells # 0.0 K/mm3 06/20/18 11:04 WBC Morphology Not Reportable 06/20/18 11:04 Hypersegmented Neuts Not Reportable 06/20/18 11:04 Hyposegmented Neuts Not Reportable 06/20/18 11:04 Hypogranular Neuts Not Reportable 06/20/18 11:04 Smudge Cells Not Reportable 06/20/18 11:04 Toxic Granulation Not Reportable 06/20/18 11:04 Toxic Vacuolation Not Reportable 06/20/18 11:04 Dohle Bodies Not Reportable 06/20/18 11:04 Pelger-Huet Anomaly Not Reportable 06/20/18 11:04 Fadumo Rods Not Reportable 06/20/18 11:04 Platelet Estimate Consistent w auto 06/20/18 11:04 Clumped Platelets Not Reportable 06/20/18 11:04 Plt Clumps, EDTA Not Reportable 06/20/18 11:04 Large Platelets Not Reportable 06/20/18 11:04 Giant Platelets Not Reportable 06/20/18 11:04 Platelet Satelliting Not Reportable 06/20/18 11:04 Plt Morphology Comment Not Reportable 06/20/18 11:04 RBC Morphology Not Reportable 06/20/18 11:04 Dimorphic RBCs Not Reportable 06/20/18 11:04 Polychromasia Not Reportable 06/20/18 11:04 Hypochromasia Not Reportable 06/20/18 11:04 Poikilocytosis 1+ 06/20/18 11:04 Anisocytosis 1+ 06/20/18 11:04 Microcytosis Not Reportable 06/20/18 11:04 Macrocytosis Not Reportable 06/20/18 11:04 Spherocytes Not Reportable 06/20/18 11:04 Pappenheimer Bodies Not Reportable 06/20/18 11:04 Sickle Cells Not Reportable 06/20/18 11:04 Target Cells Not Reportable 06/20/18 11:04 Tear Drop Cells Not Reportable 06/20/18 11:04 Ovalocytes Not Reportable 06/20/18 11:04 Helmet Cells Not Reportable 06/20/18 11:04 Muhammad-[place] Bodies Not Reportable 06/20/18 11:04 [place] Rings Not Reportable 06/20/18 11:04 [place] Cells Not Reportable 06/20/18 11:04 Bite Cells Not Reportable 06/20/18 11:04 Crenated Cell Not Reportable 06/20/18 11:04 Elliptocytes Not Reportable 06/20/18 11:04 Acanthocytes (Spur) Not Reportable 06/20/18 11:04 Rouleaux Not Reportable 06/20/18 11:04 Hemoglobin C Crystals Not Reportable 06/20/18 11:04 Schistocytes Not Reportable 06/20/18 11:04 Malaria parasites Not Reportable 06/20/18 11:04 Eb Bodies Not Reportable 06/20/18 11:04 Hem Pathologist Commnt No 06/20/18 11:04 PT 15.6 Sec. (12.2-14.9) H 06/16/18 10:37 INR 1.20 (0.87-1.13) H 06/16/18 10:37 Sodium 142 mmol/L (137-145) 06/20/18 05:26 Potassium 3.8 mmol/L (3.6-5.0) 06/20/18 05:26 Chloride 105.2 mmol/L (98-107) 06/20/18 05:26 Carbon Dioxide 25 mmol/L (22-30) 06/20/18 05:26 Anion Gap 16 mmol/L 06/20/18 05:26 BUN 19 mg/dL (9-20) 06/20/18 05:26 Creatinine 1.2 mg/dL (0.8-1.5) 06/20/18 05:26 Estimated GFR > 60 ml/min 06/20/18 05:26 BUN/Creatinine Ratio 16 % 06/20/18 05:26 Glucose 138 mg/dL (75-100) H 06/20/18 05:26 POC Glucose 168 (70-105) H 06/21/18 11:25 Lactic Acid 1.10 mmol/L (0.7-2.0) 06/14/18 12:50 Calcium 8.8 mg/dL (8.4-10.2) 06/20/18 05:26 Phosphorus 3.20 mg/dL (2.5-4.5) 06/13/18 04:53 Magnesium 2.10 mg/dL (1.7-2.3) 06/07/18 05:15 Iron 33 ug/dL (49-181) L 06/08/18 06:00 TIBC 189 mcg/dL (250-450) L 06/08/18 06:00 Ferritin 1111.0 ng/mL (13.0-400.0) H 06/08/18 06:00 Prealbumin 0.230 g/L (0.200-0.400) 06/03/18 19:51 Urine Color [place] (Yellow) 06/14/18 Unknown Urine Turbidity Turbid (Clear) 06/14/18 Unknown Urine pH 8.0 (5.0-7.0) H 06/14/18 Unknown Ur Specific [place] 1.012 (1.003-1.030) 06/14/18 Unknown Urine Protein >500 mg/dL (Negative) 06/14/18 Unknown Urine Glucose (UA) Neg mg/dL (Negative) 06/14/18 Unknown Urine Ketones Neg mg/dL (Negative) 06/14/18 Unknown Urine Blood Neg (Negative) 06/14/18 Unknown Urine Nitrite Neg (Negative) 06/14/18 Unknown Urine Bilirubin Neg (Negative) 06/14/18 Unknown Urine Urobilinogen 2.0 mg/dL (<2.0) 06/14/18 Unknown Ur Leukocyte Esterase Mod (Negative) 06/14/18 Unknown Urine WBC (Auto) 17.0 /HPF (0.0-6.0) H 06/14/18 Unknown Urine RBC (Auto) 12.0 /HPF (0.0-6.0) 06/14/18 Unknown U Epithel Cells (Auto) 12.0 /HPF (0-13.0) 06/14/18 Unknown Triple Phos Crystals 1+ 06/14/18 Unknown Urine Mucus 1+ /HPF 06/14/18 Unknown Urine Eosinophils None seen (None Seen) 06/08/18 09:55 Urine Creatinine 140.4 mg/dL (0.1-20.0) H 06/08/18 09:55 Protein/Creatinin Ratio 0.26 06/08/18 09:55 Urine Sodium 45 mmol/L 06/08/18 09:55 Urine Total Protein 36 mg/dL (5-11.8) H 06/08/18 09:55 Blood Type O POSITIVE 06/19/18 16:30 Antibody Screen Negative 06/19/18 16:30 Crossmatch See Detail 06/19/18 16:30 Nutrition/Malnutrition Assess - Dietary Evaluation Nutrition/Malnutrition Findings: Nutrition Notes Start: 06/04/18 11:20 Freq: Status: Active Protocol: Document 06/18/18 10:32 CT (Rec: 06/18/18 11:02 CT [id number]) Co-Sign 06/18/18 10:32 LP Nutrition Notes Initial or Follow up Reassessment Current Diagnosis Acute Kidney Injury CKD(stage I-IV) Diabetes Hypertension Stroke Hyperlipidemia Other Pertinent Diagnosis Dysphagia, R BKA Current Diet Glucerna 1.2 at 50 ml/hr Labs/Tests Glucose 204 Pertinent Medications Reviewed Height 6 ft 2.4 in Weight 100.8 kg [place] Body Weight (kg) 87.45 BMI 28.2 Subjective/Other Information RD consult for TF management. Observed Glucerna 1.2 infusing at 70 ml/hr. Tech states pt has been tolerating TF well. Percent of energy/protein needs met: 87%/100% Burn Absent Trauma Absent #1 Nutrition Diagnosis Inadequate oral intake Diagnosis Progress(for reassessment Continues documentation) Is patient on ventilator? No Is Patient Ambulatory and/or Out of Bed Yes REE-([place]-St. Jeor-ambulatory/OOB) [ 2494.869 NUTR.MSJOOB] Kcal/Kg value to use for calculation 23 Approximate Energy Requirements Using 2318 kcal/Kg Calculation Used for Recommendations Kcal/kg Additional Notes Protein needs: 60-100 g (0.6-0 .8 g/kg) Fluids: 1 mL/kg inderjit or per MD Nutrition Intervention Change Diet Order: Continue TF Nutrition Support: Glucerna 1.2 at 70 mL/hr Flush 100 mL q4hr Kcal 2,016 Protein (gm) 100 Fluid (mL) 1,352 Goal #1 Continue to meet at least 75% inderjit and pro needs Goal #2 TF tolerance Anticipated Discharge Needs: TF Follow-Up By: 06/25/18 Additional Comments Follow for TF tolerance
[2018-06-21] MEDS: MIRALAX 3350 FEEDTUBE SCH (18:28)
[2018-06-21] MEDS: LANTUS SUB-Q SCH (22:21)
[2018-06-22] MEDS: HumaLOG SUB-Q SCH ×4 (06:32→18:47)
[2018-06-22] MEDS: HEPARIN SUB-Q SCH ×3 (06:43→22:15)
[2018-06-22] MEDS: APRESOLINE FEEDTUBE SCH ×3 (06:44→22:21)
[2018-06-22] MEDS: LOPRESSOR FEEDTUBE SCH ×3 (06:45→18:44)
[2018-06-22] MEDS: COLACE FEEDTUBE SCH ×2 (09:29→22:16)
--- NOTE | 2018-06-22 10:53 | Progress Note ---
Assessment and Plan Assessment and plan: Pneumonia; nosocomial acquired abx per ID Fecal impaction/intractable nausea vomiting- resolved sp enema and has had BM, now improved -on miralax and improved ACute blood loss anemia Upper GIB -coffee ground emesis now resolved -GI consulted,EGD on 06/16 confirms Dyana lebron tear -sp 1 unit prbc CVA with residual right-sided hemiparesis, dysphagia on meds for secondary prevention Right BKA - Supportive care Hypertension -cont bp meds Diabetes mellitus cont insulins ELVIRA/hypernatremia/ vasomotor nephropathy, has CKD stage 2-3, bl creat about 1.9; now resolved -mgt per Nephrology Hypokalemia -repleted, on K supplement Anemia of chronic illness stable, cont to monitor DVT prophylaxis - scd in light of gi bleed Patient's primary is Dr Erickson. History Interval history: Review of systems Constitutional: fever resolved, no malaise, no joint pains CVS: No chest pain, no orthopnea, no dyspnea on exertion, no pedal edema GI: no abdo pain or vomiting Respiratory: No shortness of breath, no wheezing, no coughing Hospitalist Physical - Physical exam Narrative exam: General.: Appears well, no distress, nontoxic HEENT: Moist mucous membranes, extraocular muscles intact, no lymphadenopathy Neck: supple Cardiac: S1-S2 heard Lungs: CTA BL Abdomen: belly is soft, NT, ND Extremities: no edema clubbing or cyanosis R LE amputation , wearing prosthesis Skin: no rash or lesions Neurologic: r hemiparesis Psych: calm, and cooperative - Constitutional Vitals: Temp Pulse Resp BP Pulse Ox 98.0 F 91 H 18 151/99 99 06/22/18 04:48 06/22/18 06:45 06/22/18 04:48 06/22/18 06:45 06/22/18 04:48 Results - Labs CBC & Chem 7: 06/20/18 11:04 06/20/18 05:26 Labs: Laboratory Last Values WBC 9.1 K/mm3 (4.5-11.0) 06/20/18 11:04 RBC 2.93 M/mm3 (3.65-5.03) L 06/20/18 11:04 Hgb 8.7 gm/dl (11.8-15.2) L 06/20/18 11:04 Hct 25.9 % (35.5-45.6) L 06/20/18 11:04 MCV 88 fl (84-94) 06/20/18 11:04 MCH 30 pg (28-32) 06/20/18 11:04 MCHC 34 % (32-34) 06/20/18 11:04 RDW 16.0 % (13.2-15.2) H 06/20/18 11:04 Plt Count 364 K/mm3 (140-440) 06/20/18 11:04 Lymph % (Auto) 23.5 % (13.4-35.0) 06/19/18 04:50 [place] % (Auto) 8.1 % (0.0-7.3) H 06/19/18 04:50 Eos % (Auto) 5.8 % (0.0-4.3) H 06/19/18 04:50 Baso % (Auto) 1.1 % (0.0-1.8) 06/19/18 04:50 Lymph # 1.8 K/mm3 (1.2-5.4) 06/19/18 04:50 [place] # 0.6 K/mm3 (0.0-0.8) 06/19/18 04:50 Eos # 0.4 K/mm3 (0.0-0.4) 06/19/18 04:50 Baso # 0.1 K/mm3 (0.0-0.1) 06/19/18 04:50 Add Manual Diff Complete 06/20/18 11:04 Total Counted 100 06/20/18 11:04 Seg Neutrophils % 61.5 % (40.0-70.0) 06/19/18 04:50 Seg Neuts % (Manual) 59.0 % (40.0-70.0) 06/20/18 11:04 Band Neutrophils % 0 % 06/20/18 11:04 Lymphocytes % (Manual) 24.0 % (13.4-35.0) 06/20/18 11:04 Reactive Lymphs % (Man) 0 % 06/20/18 11:04 Monocytes % (Manual) 0 % (0.0-7.3) 06/20/18 11:04 Eosinophils % (Manual) 8.0 % (0.0-4.3) H 06/20/18 11:04 Basophils % (Manual) 4.0 % (0.0-1.8) H 06/20/18 11:04 Metamyelocytes % 0 % 06/20/18 11:04 Myelocytes % 5.0 % 06/20/18 11:04 Promyelocytes % 0 % 06/20/18 11:04 Blast Cells % 0 % 06/20/18 11:04 Nucleated RBC % Not Reportable 06/20/18 11:04 Seg Neutrophils # 4.6 K/mm3 (1.8-7.7) 06/19/18 04:50 Seg Neutrophils # Man 5.4 K/mm3 (1.8-7.7) 06/20/18 11:04 Band Neutrophils # 0.0 K/mm3 06/20/18 11:04 Lymphocytes # (Manual) 2.2 K/mm3 (1.2-5.4) 06/20/18 11:04 Abs React Lymphs (Man) 0.0 K/mm3 06/20/18 11:04 Monocytes # (Manual) 0.0 K/mm3 (0.0-0.8) 06/20/18 11:04 Eosinophils # (Manual) 0.7 K/mm3 (0.0-0.4) H 06/20/18 11:04 Basophils # (Manual) 0.4 K/mm3 (0.0-0.1) H 06/20/18 11:04 Metamyelocytes # 0.0 K/mm3 06/20/18 11:04 Myelocytes # 0.5 K/mm3 06/20/18 11:04 Promyelocytes # 0.0 K/mm3 06/20/18 11:04 Blast Cells # 0.0 K/mm3 06/20/18 11:04 WBC Morphology Not Reportable 06/20/18 11:04 Hypersegmented Neuts Not Reportable 06/20/18 11:04 Hyposegmented Neuts Not Reportable 06/20/18 11:04 Hypogranular Neuts Not Reportable 06/20/18 11:04 Smudge Cells Not Reportable 06/20/18 11:04 Toxic Granulation Not Reportable 06/20/18 11:04 Toxic Vacuolation Not Reportable 06/20/18 11:04 Dohle Bodies Not Reportable 06/20/18 11:04 Pelger-Huet Anomaly Not Reportable 06/20/18 11:04 Fadumo Rods Not Reportable 06/20/18 11:04 Platelet Estimate Consistent w auto 06/20/18 11:04 Clumped Platelets Not Reportable 06/20/18 11:04 Plt Clumps, EDTA Not Reportable 06/20/18 11:04 Large Platelets Not Reportable 06/20/18 11:04 Giant Platelets Not Reportable 06/20/18 11:04 Platelet Satelliting Not Reportable 06/20/18 11:04 Plt Morphology Comment Not Reportable 06/20/18 11:04 RBC Morphology Not Reportable 06/20/18 11:04 Dimorphic RBCs Not Reportable 06/20/18 11:04 Polychromasia Not Reportable 06/20/18 11:04 Hypochromasia Not Reportable 06/20/18 11:04 Poikilocytosis 1+ 06/20/18 11:04 Anisocytosis 1+ 06/20/18 11:04 Microcytosis Not Reportable 06/20/18 11:04 Macrocytosis Not Reportable 06/20/18 11:04 Spherocytes Not Reportable 06/20/18 11:04 Pappenheimer Bodies Not Reportable 06/20/18 11:04 Sickle Cells Not Reportable 06/20/18 11:04 Target Cells Not Reportable 06/20/18 11:04 Tear Drop Cells Not Reportable 06/20/18 11:04 Ovalocytes Not Reportable 06/20/18 11:04 Helmet Cells Not Reportable 06/20/18 11:04 Muhammad-[place] Bodies Not Reportable 06/20/18 11:04 [place] Rings Not Reportable 06/20/18 11:04 [place] Cells Not Reportable 06/20/18 11:04 Bite Cells Not Reportable 06/20/18 11:04 Crenated Cell Not Reportable 06/20/18 11:04 Elliptocytes Not Reportable 06/20/18 11:04 Acanthocytes (Spur) Not Reportable 06/20/18 11:04 Rouleaux Not Reportable 06/20/18 11:04 Hemoglobin C Crystals Not Reportable 06/20/18 11:04 Schistocytes Not Reportable 06/20/18 11:04 Malaria parasites Not Reportable 06/20/18 11:04 Eb Bodies Not Reportable 06/20/18 11:04 Hem Pathologist Commnt No 06/20/18 11:04 PT 15.6 Sec. (12.2-14.9) H 06/16/18 10:37 INR 1.20 (0.87-1.13) H 06/16/18 10:37 Sodium 142 mmol/L (137-145) 06/20/18 05:26 Potassium 3.8 mmol/L (3.6-5.0) 06/20/18 05:26 Chloride 105.2 mmol/L (98-107) 06/20/18 05:26 Carbon Dioxide 25 mmol/L (22-30) 06/20/18 05:26 Anion Gap 16 mmol/L 06/20/18 05:26 BUN 19 mg/dL (9-20) 06/20/18 05:26 Creatinine 1.2 mg/dL (0.8-1.5) 06/20/18 05:26 Estimated GFR > 60 ml/min 06/20/18 05:26 BUN/Creatinine Ratio 16 % 06/20/18 05:26 Glucose 138 mg/dL (75-100) H 06/20/18 05:26 POC Glucose 123 (70-105) H 06/22/18 06:02 Lactic Acid 1.10 mmol/L (0.7-2.0) 06/14/18 12:50 Calcium 8.8 mg/dL (8.4-10.2) 06/20/18 05:26 Phosphorus 3.20 mg/dL (2.5-4.5) 06/13/18 04:53 Magnesium 2.10 mg/dL (1.7-2.3) 06/07/18 05:15 Iron 33 ug/dL (49-181) L 06/08/18 06:00 TIBC 189 mcg/dL (250-450) L 06/08/18 06:00 Ferritin 1111.0 ng/mL (13.0-400.0) H 06/08/18 06:00 Prealbumin 0.230 g/L (0.200-0.400) 06/03/18 19:51 Urine Color [place] (Yellow) 06/14/18 Unknown Urine Turbidity Turbid (Clear) 06/14/18 Unknown Urine pH 8.0 (5.0-7.0) H 06/14/18 Unknown Ur Specific [place] 1.012 (1.003-1.030) 06/14/18 Unknown Urine Protein >500 mg/dL (Negative) 06/14/18 Unknown Urine Glucose (UA) Neg mg/dL (Negative) 06/14/18 Unknown Urine Ketones Neg mg/dL (Negative) 06/14/18 Unknown Urine Blood Neg (Negative) 06/14/18 Unknown Urine Nitrite Neg (Negative) 06/14/18 Unknown Urine Bilirubin Neg (Negative) 06/14/18 Unknown Urine Urobilinogen 2.0 mg/dL (<2.0) 06/14/18 Unknown Ur Leukocyte Esterase Mod (Negative) 06/14/18 Unknown Urine WBC (Auto) 17.0 /HPF (0.0-6.0) H 06/14/18 Unknown Urine RBC (Auto) 12.0 /HPF (0.0-6.0) 06/14/18 Unknown U Epithel Cells (Auto) 12.0 /HPF (0-13.0) 06/14/18 Unknown Triple Phos Crystals 1+ 06/14/18 Unknown Urine Mucus 1+ /HPF 06/14/18 Unknown Urine Eosinophils None seen (None Seen) 06/08/18 09:55 Urine Creatinine 140.4 mg/dL (0.1-20.0) H 06/08/18 09:55 Protein/Creatinin Ratio 0.26 06/08/18 09:55 Urine Sodium 45 mmol/L 06/08/18 09:55 Urine Total Protein 36 mg/dL (5-11.8) H 06/08/18 09:55 Blood Type O POSITIVE 06/19/18 16:30 Antibody Screen Negative 06/19/18 16:30 Crossmatch See Detail 06/19/18 16:30 Nutrition/Malnutrition Assess - Dietary Evaluation Nutrition/Malnutrition Findings: Nutrition Notes Start: 06/04/18 11:20 Freq: Status: Active Protocol: Document 06/18/18 10:32 CT (Rec: 06/18/18 11:02 CT [id number]) Co-Sign 06/18/18 10:32 LP Nutrition Notes Initial or Follow up Reassessment Current Diagnosis Acute Kidney Injury CKD(stage I-IV) Diabetes Hypertension Stroke Hyperlipidemia Other Pertinent Diagnosis Dysphagia, R BKA Current Diet Glucerna 1.2 at 50 ml/hr Labs/Tests Glucose 204 Pertinent Medications Reviewed Height 6 ft 2.4 in Weight 100.8 kg [place] Body Weight (kg) 87.45 BMI 28.2 Subjective/Other Information RD consult for TF management. Observed Glucerna 1.2 infusing at 70 ml/hr. Tech states pt has been tolerating TF well. Percent of energy/protein needs met: 87%/100% Burn Absent Trauma Absent #1 Nutrition Diagnosis Inadequate oral intake Diagnosis Progress(for reassessment Continues documentation) Is patient on ventilator? No Is Patient Ambulatory and/or Out of Bed Yes REE-([place]-St. Jeor-ambulatory/OOB) [ 2494.869 NUTR.MSJOOB] Kcal/Kg value to use for calculation 23 Approximate Energy Requirements Using 2318 kcal/Kg Calculation Used for Recommendations Kcal/kg Additional Notes Protein needs: 60-100 g (0.6-0 .8 g/kg) Fluids: 1 mL/kg inderjit or per MD Nutrition Intervention Change Diet Order: Continue TF Nutrition Support: Glucerna 1.2 at 70 mL/hr Flush 100 mL q4hr Kcal 2,016 Protein (gm) 100 Fluid (mL) 1,352 Goal #1 Continue to meet at least 75% inderjit and pro needs Goal #2 TF tolerance Anticipated Discharge Needs: TF Follow-Up By: 06/25/18 Additional Comments Follow for TF tolerance
--- NOTE | 2018-06-22 11:00 | Progress Note ---
Assessment and Plan Cultures 06/07/2018 Stool:OccultBlood: positive 06/14/2018: Blood: no growth to date 06/14/2018: Urine: 10-10,00 CFU/ml of a mixed culture greater than 2 organisms 06/15/2018: Blood: no growth to date A/P: 53--year-old male medical history of CVA, hypertension, DM and CKD that was admitted to acute rehabilitation from [facility] for acute right-sided weakness on secondary prevention of stroke. He was admitted to [facility] on 06/04/2018 for management of high blood pressure and diabetes. On admission, labs and vital stable, now with: 1. Sepsis: Resolved etiology most likely RUL pneumonia, borderline pyuria in U/A ?UTI seems less likely. Urine cultures show mixed culture greater than 2 organisms. Blood cultures show no growth thus far. Currently being treated with Cefepime. 2. Acute respiratory failure secondary to RUL Pneumonia: HCAP v/s aspiration, likely latter. Chest xray reveals a right upper lobe Pneumonia on 06/14/18, +/- aspiration pneumonia. On admission 06/07/18 chest xray showed no infiltrates.. Discontinue Cefepime, start Ceftriaxone and Flagyl . 3. UTI: borderline pyuria in U/A ?UTI seems less likely. Urine cultures show mixed culture greater than 2 organisms. Continue abx as above. 4. ELVIRA on CKD: antimicrobials renally dosed. Nephrology following 5. Type 2 Diabetes: uncontrolled 6. Right BKA 7. CVA with residual right-sided hemiparesis 8. GI Bleed: GI following Plan: -completed 7 days of antimicrobial treatment, clinically stable - monitor off antibiotics -ID is signing off [facility] M: [phone] O:[phone] Subjective Date of service: 06/22/18 Principal diagnosis: CVA, Acute on CKD Interval history: Patient seen and examined. Denied generalized pain, sob or rashes. Sitting up in bed, stated that he was ready to go home. Objective - Exam Narrative Exam: Constitutional: Awake, alert. No acute distress Head, Ears, Nose: Normocephalic, atraumatic. External ears, nose normal Eyes: Conjunctivae/corneas clear. No icterus. No ptosis. Neck: Supple, no meningeal signs Oral: dentition poor. no thrush. Cardiovascular: S1, S2 normal. Respiratory: Good air entry, clear to auscultation bilaterally GI: Soft, non-tender; bowel sounds normal. No peritoneal signs, + peg Musculoskeletal: No pedal edema, no cyanosis, + BKA. Skin: No rash or abscess. Hem/Lymphatic: No palpable cervical or supraclavicular nodes. No lymphangitis Psych: Mood ok. Affect normal Neurological: Awake, alert, oriented. - Constitutional Vitals: Vital Signs Temp Pulse Resp BP Pulse Ox 98.0 F 91 H 18 151/99 99 06/22/18 04:48 06/22/18 06:45 06/22/18 04:48 06/22/18 06:45 06/22/18 04:48 Temperature -Last 24 Hours Temperature 98.0 F Temperature 98.5 F Temperature 98.5 F Temperature 98.0 F - Labs CBC & Chem 7: 06/20/18 11:04 06/20/18 05:26 Labs: Abnormal lab results 06/21/18 06/21/18 06/21/18 Range/Units 11:25 16:29 22:19 POC Glucose 168 H 155 H 149 H (70-105) 06/22/18 Range/Units 06:02 POC Glucose 123 H (70-105)
[2018-06-22] MEDS: PLAVIX FEEDTUBE SCH (13:26)
[2018-06-22] MEDS: ASPIRIN FEEDTUBE SCH (13:26)
[2018-06-22] MEDS: MIRALAX 3350 FEEDTUBE SCH (13:29)
[2018-06-22] MEDS: PREVACID SOLUTAB FEEDTUBE SCH ×2 (13:31→22:16)
[2018-06-22] MEDS: PROCRIT SUB-Q SCH (18:36)
[2018-06-22] MEDS: LANTUS SUB-Q SCH (22:27)
[2018-06-23] MEDS: HumaLOG SUB-Q SCH ×4 (04:54→18:28)
[2018-06-23] MEDS: APRESOLINE FEEDTUBE SCH ×3 (05:12→21:18)
[2018-06-23] MEDS: LOPRESSOR FEEDTUBE SCH ×4 (05:13→21:23)
[2018-06-23] MEDS: HEPARIN SUB-Q SCH ×3 (05:13→21:21)
[2018-06-23] MEDS: MIRALAX 3350 FEEDTUBE SCH (08:47)
[2018-06-23] MEDS: ASPIRIN FEEDTUBE SCH (08:47)
[2018-06-23] MEDS: PLAVIX FEEDTUBE SCH (08:47)
[2018-06-23] MEDS: COLACE FEEDTUBE SCH ×2 (08:47→21:20)
[2018-06-23] MEDS: PREVACID SOLUTAB FEEDTUBE SCH ×2 (08:48→21:19)
--- NOTE | 2018-06-23 10:06 | Progress Note ---
Assessment and Plan Assessment and plan: Pneumonia; nosocomial acquired abx per ID Fecal impaction/intractable nausea vomiting- resolved sp enema and has had BM, now improved -on miralax and improved ACute blood loss anemia Upper GIB -coffee ground emesis now resolved -GI consulted,EGD on 06/16 confirms Dyana lebron tear -sp 1 unit prbc CVA with residual right-sided hemiparesis, dysphagia on meds for secondary prevention Right BKA - Supportive care Hypertension -cont bp meds Diabetes mellitus cont insulins ELVIRA/hypernatremia/ vasomotor nephropathy, has CKD stage 2-3, bl creat about 1.9; now resolved -mgt per Nephrology Hypokalemia -repleted, on K supplement Anemia of chronic illness stable, cont to monitor DVT prophylaxis - scd in light of gi bleed Patient's primary is Dr Erickson. History Interval history: Review of systems Constitutional: fever resolved, no malaise, no joint pains CVS: No chest pain, no orthopnea, no dyspnea on exertion, no pedal edema GI: no abdo pain or vomiting Respiratory: No shortness of breath, no wheezing, no coughing Hospitalist Physical - Physical exam Narrative exam: General.: Appears well, no distress, nontoxic HEENT: Moist mucous membranes, extraocular muscles intact, no lymphadenopathy Neck: supple Cardiac: S1-S2 heard Lungs: CTA BL Abdomen: belly is soft, NT, ND Extremities: no edema clubbing or cyanosis R LE amputation , wearing prosthesis Skin: no rash or lesions Neurologic: r hemiparesis Psych: calm, and cooperative - Constitutional Vitals: Temp Pulse Resp BP Pulse Ox 98 F 88 18 135/96 98 06/23/18 08:58 06/23/18 08:58 06/23/18 08:58 06/23/18 08:58 06/23/18 08:58 Results - Labs CBC & Chem 7: 06/20/18 11:04 06/20/18 05:26 Labs: Laboratory Last Values WBC 9.1 K/mm3 (4.5-11.0) 06/20/18 11:04 RBC 2.93 M/mm3 (3.65-5.03) L 06/20/18 11:04 Hgb 8.7 gm/dl (11.8-15.2) L 06/20/18 11:04 Hct 25.9 % (35.5-45.6) L 06/20/18 11:04 MCV 88 fl (84-94) 06/20/18 11:04 MCH 30 pg (28-32) 06/20/18 11:04 MCHC 34 % (32-34) 06/20/18 11:04 RDW 16.0 % (13.2-15.2) H 06/20/18 11:04 Plt Count 364 K/mm3 (140-440) 06/20/18 11:04 Lymph % (Auto) 23.5 % (13.4-35.0) 06/19/18 04:50 [place] % (Auto) 8.1 % (0.0-7.3) H 06/19/18 04:50 Eos % (Auto) 5.8 % (0.0-4.3) H 06/19/18 04:50 Baso % (Auto) 1.1 % (0.0-1.8) 06/19/18 04:50 Lymph # 1.8 K/mm3 (1.2-5.4) 06/19/18 04:50 [place] # 0.6 K/mm3 (0.0-0.8) 06/19/18 04:50 Eos # 0.4 K/mm3 (0.0-0.4) 06/19/18 04:50 Baso # 0.1 K/mm3 (0.0-0.1) 06/19/18 04:50 Add Manual Diff Complete 06/20/18 11:04 Total Counted 100 06/20/18 11:04 Seg Neutrophils % 61.5 % (40.0-70.0) 06/19/18 04:50 Seg Neuts % (Manual) 59.0 % (40.0-70.0) 06/20/18 11:04 Band Neutrophils % 0 % 06/20/18 11:04 Lymphocytes % (Manual) 24.0 % (13.4-35.0) 06/20/18 11:04 Reactive Lymphs % (Man) 0 % 06/20/18 11:04 Monocytes % (Manual) 0 % (0.0-7.3) 06/20/18 11:04 Eosinophils % (Manual) 8.0 % (0.0-4.3) H 06/20/18 11:04 Basophils % (Manual) 4.0 % (0.0-1.8) H 06/20/18 11:04 Metamyelocytes % 0 % 06/20/18 11:04 Myelocytes % 5.0 % 06/20/18 11:04 Promyelocytes % 0 % 06/20/18 11:04 Blast Cells % 0 % 06/20/18 11:04 Nucleated RBC % Not Reportable 06/20/18 11:04 Seg Neutrophils # 4.6 K/mm3 (1.8-7.7) 06/19/18 04:50 Seg Neutrophils # Man 5.4 K/mm3 (1.8-7.7) 06/20/18 11:04 Band Neutrophils # 0.0 K/mm3 06/20/18 11:04 Lymphocytes # (Manual) 2.2 K/mm3 (1.2-5.4) 06/20/18 11:04 Abs React Lymphs (Man) 0.0 K/mm3 06/20/18 11:04 Monocytes # (Manual) 0.0 K/mm3 (0.0-0.8) 06/20/18 11:04 Eosinophils # (Manual) 0.7 K/mm3 (0.0-0.4) H 06/20/18 11:04 Basophils # (Manual) 0.4 K/mm3 (0.0-0.1) H 06/20/18 11:04 Metamyelocytes # 0.0 K/mm3 06/20/18 11:04 Myelocytes # 0.5 K/mm3 06/20/18 11:04 Promyelocytes # 0.0 K/mm3 06/20/18 11:04 Blast Cells # 0.0 K/mm3 06/20/18 11:04 WBC Morphology Not Reportable 06/20/18 11:04 Hypersegmented Neuts Not Reportable 06/20/18 11:04 Hyposegmented Neuts Not Reportable 06/20/18 11:04 Hypogranular Neuts Not Reportable 06/20/18 11:04 Smudge Cells Not Reportable 06/20/18 11:04 Toxic Granulation Not Reportable 06/20/18 11:04 Toxic Vacuolation Not Reportable 06/20/18 11:04 Dohle Bodies Not Reportable 06/20/18 11:04 Pelger-Huet Anomaly Not Reportable 06/20/18 11:04 Fadumo Rods Not Reportable 06/20/18 11:04 Platelet Estimate Consistent w auto 06/20/18 11:04 Clumped Platelets Not Reportable 06/20/18 11:04 Plt Clumps, EDTA Not Reportable 06/20/18 11:04 Large Platelets Not Reportable 06/20/18 11:04 Giant Platelets Not Reportable 06/20/18 11:04 Platelet Satelliting Not Reportable 06/20/18 11:04 Plt Morphology Comment Not Reportable 06/20/18 11:04 RBC Morphology Not Reportable 06/20/18 11:04 Dimorphic RBCs Not Reportable 06/20/18 11:04 Polychromasia Not Reportable 06/20/18 11:04 Hypochromasia Not Reportable 06/20/18 11:04 Poikilocytosis 1+ 06/20/18 11:04 Anisocytosis 1+ 06/20/18 11:04 Microcytosis Not Reportable 06/20/18 11:04 Macrocytosis Not Reportable 06/20/18 11:04 Spherocytes Not Reportable 06/20/18 11:04 Pappenheimer Bodies Not Reportable 06/20/18 11:04 Sickle Cells Not Reportable 06/20/18 11:04 Target Cells Not Reportable 06/20/18 11:04 Tear Drop Cells Not Reportable 06/20/18 11:04 Ovalocytes Not Reportable 06/20/18 11:04 Helmet Cells Not Reportable 06/20/18 11:04 [place] Bodies Not Reportable 06/20/18 11:04 [place] Rings Not Reportable 06/20/18 11:04 [place] Cells Not Reportable 06/20/18 11:04 Bite Cells Not Reportable 06/20/18 11:04 Crenated Cell Not Reportable 06/20/18 11:04 Elliptocytes Not Reportable 06/20/18 11:04 Acanthocytes (Spur) Not Reportable 06/20/18 11:04 Rouleaux Not Reportable 06/20/18 11:04 Hemoglobin C Crystals Not Reportable 06/20/18 11:04 Schistocytes Not Reportable 06/20/18 11:04 Malaria parasites Not Reportable 06/20/18 11:04 Eb Bodies Not Reportable 06/20/18 11:04 Hem Pathologist Commnt No 06/20/18 11:04 PT 15.6 Sec. (12.2-14.9) H 06/16/18 10:37 INR 1.20 (0.87-1.13) H 06/16/18 10:37 Sodium 142 mmol/L (137-145) 06/20/18 05:26 Potassium 3.8 mmol/L (3.6-5.0) 06/20/18 05:26 Chloride 105.2 mmol/L (98-107) 06/20/18 05:26 Carbon Dioxide 25 mmol/L (22-30) 06/20/18 05:26 Anion Gap 16 mmol/L 06/20/18 05:26 BUN 19 mg/dL (9-20) 06/20/18 05:26 Creatinine 1.2 mg/dL (0.8-1.5) 06/20/18 05:26 Estimated GFR > 60 ml/min 06/20/18 05:26 BUN/Creatinine Ratio 16 % 06/20/18 05:26 Glucose 138 mg/dL (75-100) H 06/20/18 05:26 POC Glucose 127 (70-105) H 06/23/18 05:31 Lactic Acid 1.10 mmol/L (0.7-2.0) 06/14/18 12:50 Calcium 8.8 mg/dL (8.4-10.2) 06/20/18 05:26 Phosphorus 3.20 mg/dL (2.5-4.5) 06/13/18 04:53 Magnesium 2.10 mg/dL (1.7-2.3) 06/07/18 05:15 Iron 33 ug/dL (49-181) L 06/08/18 06:00 TIBC 189 mcg/dL (250-450) L 06/08/18 06:00 Ferritin 1111.0 ng/mL (13.0-400.0) H 06/08/18 06:00 Prealbumin 0.230 g/L (0.200-0.400) 06/03/18 19:51 Urine Color [place] (Yellow) 06/14/18 Unknown Urine Turbidity Turbid (Clear) 06/14/18 Unknown Urine pH 8.0 (5.0-7.0) H 06/14/18 Unknown Ur Specific [place] 1.012 (1.003-1.030) 06/14/18 Unknown Urine Protein >500 mg/dL (Negative) 06/14/18 Unknown Urine Glucose (UA) Neg mg/dL (Negative) 06/14/18 Unknown Urine Ketones Neg mg/dL (Negative) 06/14/18 Unknown Urine Blood Neg (Negative) 06/14/18 Unknown Urine Nitrite Neg (Negative) 06/14/18 Unknown Urine Bilirubin Neg (Negative) 06/14/18 Unknown Urine Urobilinogen 2.0 mg/dL (<2.0) 06/14/18 Unknown Ur Leukocyte Esterase Mod (Negative) 06/14/18 Unknown Urine WBC (Auto) 17.0 /HPF (0.0-6.0) H 06/14/18 Unknown Urine RBC (Auto) 12.0 /HPF (0.0-6.0) 06/14/18 Unknown U Epithel Cells (Auto) 12.0 /HPF (0-13.0) 06/14/18 Unknown Triple Phos Crystals 1+ 06/14/18 Unknown Urine Mucus 1+ /HPF 06/14/18 Unknown Urine Eosinophils None seen (None Seen) 06/08/18 09:55 Urine Creatinine 140.4 mg/dL (0.1-20.0) H 06/08/18 09:55 Protein/Creatinin Ratio 0.26 06/08/18 09:55 Urine Sodium 45 mmol/L 06/08/18 09:55 Urine Total Protein 36 mg/dL (5-11.8) H 06/08/18 09:55 Blood Type O POSITIVE 06/19/18 16:30 Antibody Screen Negative 06/19/18 16:30 Crossmatch See Detail 06/19/18 16:30 Nutrition/Malnutrition Assess - Dietary Evaluation Nutrition/Malnutrition Findings: Nutrition Notes Start: 06/04/18 11:20 Freq: Status: Active Protocol: Document 06/18/18 10:32 CT (Rec: 06/18/18 11:02 CT [id number]) Co-Sign 06/18/18 10:32 LP Nutrition Notes Initial or Follow up Reassessment Current Diagnosis Acute Kidney Injury CKD(stage I-IV) Diabetes Hypertension Stroke Hyperlipidemia Other Pertinent Diagnosis Dysphagia, R BKA Current Diet Glucerna 1.2 at 50 ml/hr Labs/Tests Glucose 204 Pertinent Medications Reviewed Height 6 ft 2.4 in Weight 100.8 kg [place] Body Weight (kg) 87.45 BMI 28.2 Subjective/Other Information RD consult for TF management. Observed Glucerna 1.2 infusing at 70 ml/hr. Tech states pt has been tolerating TF well. Percent of energy/protein needs met: 87%/100% Burn Absent Trauma Absent #1 Nutrition Diagnosis Inadequate oral intake Diagnosis Progress(for reassessment Continues documentation) Is patient on ventilator? No Is Patient Ambulatory and/or Out of Bed Yes REE-([place]-ambulatory/OOB) [ 2494.869 NUTR.MSJOOB] Kcal/Kg value to use for calculation 23 Approximate Energy Requirements Using 2318 kcal/Kg Calculation Used for Recommendations Kcal/kg Additional Notes Protein needs: 60-100 g (0.6-0 .8 g/kg) Fluids: 1 mL/kg inderjit or per MD Nutrition Intervention Change Diet Order: Continue TF Nutrition Support: Glucerna 1.2 at 70 mL/hr Flush 100 mL q4hr Kcal 2,016 Protein (gm) 100 Fluid (mL) 1,352 Goal #1 Continue to meet at least 75% inderjit and pro needs Goal #2 TF tolerance Anticipated Discharge Needs: TF Follow-Up By: 06/25/18 Additional Comments Follow for TF tolerance
[2018-06-23] MEDS: LANTUS SUB-Q SCH (21:21)
[2018-06-24] MEDS: LOPRESSOR FEEDTUBE SCH ×4 (03:09→18:02)
[2018-06-24] MEDS: HEPARIN SUB-Q SCH ×3 (06:11→22:09)
[2018-06-24] MEDS: APRESOLINE FEEDTUBE SCH ×3 (06:50→22:12)
[2018-06-24] MEDS: HumaLOG SUB-Q SCH ×4 (07:45→18:01)
[2018-06-24] MEDS: ASPIRIN FEEDTUBE SCH (08:39)
[2018-06-24] MEDS: PLAVIX FEEDTUBE SCH (08:39)
[2018-06-24] MEDS: MIRALAX 3350 FEEDTUBE SCH (08:40)
[2018-06-24] MEDS: COLACE FEEDTUBE SCH ×2 (08:40→22:11)
[2018-06-24] MEDS: PREVACID SOLUTAB FEEDTUBE SCH ×2 (08:41→22:10)
--- NOTE | 2018-06-24 11:05 | Progress Note ---
Assessment and Plan Assessment and plan: Pneumonia; nosocomial acquired abx per ID Fecal impaction/intractable nausea vomiting- resolved sp enema and has had BM, now improved -on miralax and improved ACute blood loss anemia Upper GIB -coffee ground emesis now resolved -GI consulted,EGD on 06/16 confirms Dyana lebron tear -sp 1 unit prbc CVA with residual right-sided hemiparesis, dysphagia on meds for secondary prevention Right BKA - Supportive care Hypertension -cont bp meds Diabetes mellitus cont insulins ELVIRA/hypernatremia/ vasomotor nephropathy, has CKD stage 2-3, bl creat about 1.9; now resolved -mgt per Nephrology Hypokalemia -repleted, on K supplement Anemia of chronic illness stable, cont to monitor DVT prophylaxis - scd in light of gi bleed Patient's primary is Dr Erickson. History Interval history: Review of systems Constitutional: fever resolved, no malaise, no joint pains CVS: No chest pain, no orthopnea, no dyspnea on exertion, no pedal edema GI: no abdo pain or vomiting Respiratory: No shortness of breath, no wheezing, no coughing Hospitalist Physical - Physical exam Narrative exam: General.: Appears well, no distress, nontoxic HEENT: Moist mucous membranes, extraocular muscles intact, no lymphadenopathy Neck: supple Cardiac: S1-S2 heard Lungs: CTA BL Abdomen: belly is soft, NT, ND Extremities: no edema clubbing or cyanosis R LE amputation , wearing prosthesis Skin: no rash or lesions Neurologic: r hemiparesis Psych: calm, and cooperative - Constitutional Vitals: Temp Pulse Resp BP Pulse Ox 97.9 F 92 H 20 127/82 99 06/24/18 07:14 06/24/18 07:14 06/24/18 07:14 06/24/18 07:14 06/24/18 07:14 Results - Labs CBC & Chem 7: 06/20/18 11:04 06/20/18 05:26 Labs: Laboratory Last Values WBC 9.1 K/mm3 (4.5-11.0) 06/20/18 11:04 RBC 2.93 M/mm3 (3.65-5.03) L 06/20/18 11:04 Hgb 8.7 gm/dl (11.8-15.2) L 06/20/18 11:04 Hct 25.9 % (35.5-45.6) L 06/20/18 11:04 MCV 88 fl (84-94) 06/20/18 11:04 MCH 30 pg (28-32) 06/20/18 11:04 MCHC 34 % (32-34) 06/20/18 11:04 RDW 16.0 % (13.2-15.2) H 06/20/18 11:04 Plt Count 364 K/mm3 (140-440) 06/20/18 11:04 Lymph % (Auto) 23.5 % (13.4-35.0) 06/19/18 04:50 [place] % (Auto) 8.1 % (0.0-7.3) H 06/19/18 04:50 Eos % (Auto) 5.8 % (0.0-4.3) H 06/19/18 04:50 Baso % (Auto) 1.1 % (0.0-1.8) 06/19/18 04:50 Lymph # 1.8 K/mm3 (1.2-5.4) 06/19/18 04:50 [place] # 0.6 K/mm3 (0.0-0.8) 06/19/18 04:50 Eos # 0.4 K/mm3 (0.0-0.4) 06/19/18 04:50 Baso # 0.1 K/mm3 (0.0-0.1) 06/19/18 04:50 Add Manual Diff Complete 06/20/18 11:04 Total Counted 100 06/20/18 11:04 Seg Neutrophils % 61.5 % (40.0-70.0) 06/19/18 04:50 Seg Neuts % (Manual) 59.0 % (40.0-70.0) 06/20/18 11:04 Band Neutrophils % 0 % 06/20/18 11:04 Lymphocytes % (Manual) 24.0 % (13.4-35.0) 06/20/18 11:04 Reactive Lymphs % (Man) 0 % 06/20/18 11:04 Monocytes % (Manual) 0 % (0.0-7.3) 06/20/18 11:04 Eosinophils % (Manual) 8.0 % (0.0-4.3) H 06/20/18 11:04 Basophils % (Manual) 4.0 % (0.0-1.8) H 06/20/18 11:04 Metamyelocytes % 0 % 06/20/18 11:04 Myelocytes % 5.0 % 06/20/18 11:04 Promyelocytes % 0 % 06/20/18 11:04 Blast Cells % 0 % 06/20/18 11:04 Nucleated RBC % Not Reportable 06/20/18 11:04 Seg Neutrophils # 4.6 K/mm3 (1.8-7.7) 06/19/18 04:50 Seg Neutrophils # Man 5.4 K/mm3 (1.8-7.7) 06/20/18 11:04 Band Neutrophils # 0.0 K/mm3 06/20/18 11:04 Lymphocytes # (Manual) 2.2 K/mm3 (1.2-5.4) 06/20/18 11:04 Abs React Lymphs (Man) 0.0 K/mm3 06/20/18 11:04 Monocytes # (Manual) 0.0 K/mm3 (0.0-0.8) 06/20/18 11:04 Eosinophils # (Manual) 0.7 K/mm3 (0.0-0.4) H 06/20/18 11:04 Basophils # (Manual) 0.4 K/mm3 (0.0-0.1) H 06/20/18 11:04 Metamyelocytes # 0.0 K/mm3 06/20/18 11:04 Myelocytes # 0.5 K/mm3 06/20/18 11:04 Promyelocytes # 0.0 K/mm3 06/20/18 11:04 Blast Cells # 0.0 K/mm3 06/20/18 11:04 WBC Morphology Not Reportable 06/20/18 11:04 Hypersegmented Neuts Not Reportable 06/20/18 11:04 Hyposegmented Neuts Not Reportable 06/20/18 11:04 Hypogranular Neuts Not Reportable 06/20/18 11:04 Smudge Cells Not Reportable 06/20/18 11:04 Toxic Granulation Not Reportable 06/20/18 11:04 Toxic Vacuolation Not Reportable 06/20/18 11:04 Dohle Bodies Not Reportable 06/20/18 11:04 Pelger-Huet Anomaly Not Reportable 06/20/18 11:04 Fadumo Rods Not Reportable 06/20/18 11:04 Platelet Estimate Consistent w auto 06/20/18 11:04 Clumped Platelets Not Reportable 06/20/18 11:04 Plt Clumps, EDTA Not Reportable 06/20/18 11:04 Large Platelets Not Reportable 06/20/18 11:04 Giant Platelets Not Reportable 06/20/18 11:04 Platelet Satelliting Not Reportable 06/20/18 11:04 Plt Morphology Comment Not Reportable 06/20/18 11:04 RBC Morphology Not Reportable 06/20/18 11:04 Dimorphic RBCs Not Reportable 06/20/18 11:04 Polychromasia Not Reportable 06/20/18 11:04 Hypochromasia Not Reportable 06/20/18 11:04 Poikilocytosis 1+ 06/20/18 11:04 Anisocytosis 1+ 06/20/18 11:04 Microcytosis Not Reportable 06/20/18 11:04 Macrocytosis Not Reportable 06/20/18 11:04 Spherocytes Not Reportable 06/20/18 11:04 Pappenheimer Bodies Not Reportable 06/20/18 11:04 Sickle Cells Not Reportable 06/20/18 11:04 Target Cells Not Reportable 06/20/18 11:04 Tear Drop Cells Not Reportable 06/20/18 11:04 Ovalocytes Not Reportable 06/20/18 11:04 Helmet Cells Not Reportable 06/20/18 11:04 [place] Bodies Not Reportable 06/20/18 11:04 [place] Rings Not Reportable 06/20/18 11:04 [place] Cells Not Reportable 06/20/18 11:04 Bite Cells Not Reportable 06/20/18 11:04 Crenated Cell Not Reportable 06/20/18 11:04 Elliptocytes Not Reportable 06/20/18 11:04 Acanthocytes (Spur) Not Reportable 06/20/18 11:04 Rouleaux Not Reportable 06/20/18 11:04 Hemoglobin C Crystals Not Reportable 06/20/18 11:04 Schistocytes Not Reportable 06/20/18 11:04 Malaria parasites Not Reportable 06/20/18 11:04 Eb Bodies Not Reportable 06/20/18 11:04 Hem Pathologist Commnt No 06/20/18 11:04 PT 15.6 Sec. (12.2-14.9) H 06/16/18 10:37 INR 1.20 (0.87-1.13) H 06/16/18 10:37 Sodium 142 mmol/L (137-145) 06/20/18 05:26 Potassium 3.8 mmol/L (3.6-5.0) 06/20/18 05:26 Chloride 105.2 mmol/L (98-107) 06/20/18 05:26 Carbon Dioxide 25 mmol/L (22-30) 06/20/18 05:26 Anion Gap 16 mmol/L 06/20/18 05:26 BUN 19 mg/dL (9-20) 06/20/18 05:26 Creatinine 1.2 mg/dL (0.8-1.5) 06/20/18 05:26 Estimated GFR > 60 ml/min 06/20/18 05:26 BUN/Creatinine Ratio 16 % 06/20/18 05:26 Glucose 138 mg/dL (75-100) H 06/20/18 05:26 POC Glucose 145 (70-105) H 06/24/18 06:30 Lactic Acid 1.10 mmol/L (0.7-2.0) 06/14/18 12:50 Calcium 8.8 mg/dL (8.4-10.2) 06/20/18 05:26 Phosphorus 3.20 mg/dL (2.5-4.5) 06/13/18 04:53 Magnesium 2.10 mg/dL (1.7-2.3) 06/07/18 05:15 Iron 33 ug/dL (49-181) L 06/08/18 06:00 TIBC 189 mcg/dL (250-450) L 06/08/18 06:00 Ferritin 1111.0 ng/mL (13.0-400.0) H 06/08/18 06:00 Prealbumin 0.230 g/L (0.200-0.400) 06/03/18 19:51 Urine Color [place] (Yellow) 06/14/18 Unknown Urine Turbidity Turbid (Clear) 06/14/18 Unknown Urine pH 8.0 (5.0-7.0) H 06/14/18 Unknown Ur Specific [place] 1.012 (1.003-1.030) 06/14/18 Unknown Urine Protein >500 mg/dL (Negative) 06/14/18 Unknown Urine Glucose (UA) Neg mg/dL (Negative) 06/14/18 Unknown Urine Ketones Neg mg/dL (Negative) 06/14/18 Unknown Urine Blood Neg (Negative) 06/14/18 Unknown Urine Nitrite Neg (Negative) 06/14/18 Unknown Urine Bilirubin Neg (Negative) 06/14/18 Unknown Urine Urobilinogen 2.0 mg/dL (<2.0) 06/14/18 Unknown Ur Leukocyte Esterase Mod (Negative) 06/14/18 Unknown Urine WBC (Auto) 17.0 /HPF (0.0-6.0) H 06/14/18 Unknown Urine RBC (Auto) 12.0 /HPF (0.0-6.0) 06/14/18 Unknown U Epithel Cells (Auto) 12.0 /HPF (0-13.0) 06/14/18 Unknown Triple Phos Crystals 1+ 06/14/18 Unknown Urine Mucus 1+ /HPF 06/14/18 Unknown Urine Eosinophils None seen (None Seen) 06/08/18 09:55 Urine Creatinine 140.4 mg/dL (0.1-20.0) H 06/08/18 09:55 Protein/Creatinin Ratio 0.26 06/08/18 09:55 Urine Sodium 45 mmol/L 06/08/18 09:55 Urine Total Protein 36 mg/dL (5-11.8) H 06/08/18 09:55 Blood Type O POSITIVE 06/19/18 16:30 Antibody Screen Negative 06/19/18 16:30 Crossmatch See Detail 06/19/18 16:30 Nutrition/Malnutrition Assess - Dietary Evaluation Nutrition/Malnutrition Findings: Nutrition Notes Start: 06/04/18 11:20 Freq: Status: Active Protocol: Document 06/18/18 10:32 CT (Rec: 06/18/18 11:02 CT [id number]) Co-Sign 06/18/18 10:32 LP Nutrition Notes Initial or Follow up Reassessment Current Diagnosis Acute Kidney Injury CKD(stage I-IV) Diabetes Hypertension Stroke Hyperlipidemia Other Pertinent Diagnosis Dysphagia, R BKA Current Diet Glucerna 1.2 at 50 ml/hr Labs/Tests Glucose 204 Pertinent Medications Reviewed Height 6 ft 2.4 in Weight 100.8 kg [place] Body Weight (kg) 87.45 BMI 28.2 Subjective/Other Information RD consult for TF management. Observed Glucerna 1.2 infusing at 70 ml/hr. Tech states pt has been tolerating TF well. Percent of energy/protein needs met: 87%/100% Burn Absent Trauma Absent #1 Nutrition Diagnosis Inadequate oral intake Diagnosis Progress(for reassessment Continues documentation) Is patient on ventilator? No Is Patient Ambulatory and/or Out of Bed Yes REE-([place]-ambulatory/OOB) [ 2494.869 NUTR.MSJOOB] Kcal/Kg value to use for calculation 23 Approximate Energy Requirements Using 2318 kcal/Kg Calculation Used for Recommendations Kcal/kg Additional Notes Protein needs: 60-100 g (0.6-0 .8 g/kg) Fluids: 1 mL/kg inderjit or per MD Nutrition Intervention Change Diet Order: Continue TF Nutrition Support: Glucerna 1.2 at 70 mL/hr Flush 100 mL q4hr Kcal 2,016 Protein (gm) 100 Fluid (mL) 1,352 Goal #1 Continue to meet at least 75% inderjit and pro needs Goal #2 TF tolerance Anticipated Discharge Needs: TF Follow-Up By: 06/25/18 Additional Comments Follow for TF tolerance
--- NOTE | 2018-06-24 17:09 | Progress Note ---
Subjective Date of service: 06/24/18 Principal diagnosis: CVA, Acute on CKD Interval history: 53-year-old LHD male who experienced increased right-sided weakness three days prior to presentation at an outside hospital. He also had decreased balance and gait. He was admitted and worked up for stroke. MRI of brain confirmed the presence of a stroke. A repeat MRI showed a second stroke in a different area. Patient was continued on secondary stroke prevention medications. He had a PEG tube placed and was started on a low volume of TF. He developed acute kidney injury and a nephrology consult was called. He required transfer to the [facility] for management of uncontrolled blood pressure. He was later weaned off of Cardene drip and restarted on oral blood pressure medications. Patient was supposed to discharge today to SNF. Awaiting approval. Will discuss in Team Conference. Complains of itching in primarily L eye since this weekend. Denies issue with vision, persistent but not constant. No visible abnormality. Will recheck labs for renal function and Hgb level. Symptoms improved after transfusion, no current complaints of dyspnea. Patient is participating in therapy and making good progress. +BM. No pain currently. PEG ok. TF at goal. BP - Continue medications and adjust as needed. please avoid nephrotoxic meds. Prosthesis - check socket tested, awaiting final Completed abx. Afebrile since 06/15, WBC normalized. No chills or productive cough. Secretions managed much better than before No other issues per patient, nursing or therapy. Discussed need for prolonged therapy at SNF. Patient agreeable even though it's not the hoped for outcome. States that he realizes he can't be alone. Will look into local SNFs for opening. Look to d/c once approval is given by insurance All available medical records, therapy notes, vitals and labs were reviewed. Objective - Exam Narrative Exam: MUSCULOSKELETAL SPECIALTY EXAM Constitutional: Well developed, well nourished, appropriately groomed, LHD EENT: Hearing intact to finger rustle. Poor dentition. No visible injury to either eye, sclera not red or inflamed, no foreign body appreciated. Respiratory: Clear to auscultation bilaterally , no increased work of breathing. Cardiovascular Regular Rate/ Rhythm, no swelling edema or tenderness in all 4 extremities. All 4 extremities warm. GI : + bowel sounds, soft, NTTP, nondistended, PEG INTEGUMENTARY Normal in all 4 extremities Musuloskeletal BUE and BLE normal without defect, crepitus, sublux, effusion, or TTP except for Right BKA. RUE and RLE 4-/5. Decreased aROM, good pROM, normal tone. LUE and LLE 4+/5, good ROM with normal tone. NEURO: Significant Left facial droop involving upper and lower face (LMN), Tongue protrudes left , sensation on face is assymetric, otherwise CN 2-12 grossly intact. Sensation intact on LEFT extremities and impaired on RIGHT. Coordination intact on left, decreased on right. No tremor noted. Aphasia and dysarthria present but improving. Naming and repetition intact. POSTURE and GAIT: Standing/walking with therapy with some balance deficits. PSYCH: Alert, orientated x3, affect appears normal. Insight appears intact. - Constitutional Vitals: Vital Signs - 12hr 06/24/18 06/24/18 06/24/18 06:00 07:14 12:44 Temperature 37.0 C 36.6 C 36.6 C Pulse Rate 92 H 92 H 84 Respiratory 17 20 20 Rate Blood Pressure 127/82 Blood Pressure 128/84 134/86 [Left] O2 Sat by Pulse 99 100 Oximetry 06/24/18 16:06 Temperature 36.6 C Pulse Rate 88 Respiratory 20 Rate Blood Pressure Blood Pressure 116/83 [Left] O2 Sat by Pulse 99 Oximetry - Allied health notes Allied health notes reviewed: nursing, PT, ST, OT FIMS assessment as documented by PT/OT/ST: Grooming Patient cleans teeth/dentures: Yes Patient matamoros/brushes hair: Yes Patient washes, rinses and Yes dries face: Patient washes, rinses and Yes dries hands: Patient shaves: No: Pt's brother uses clippers to shave Patient applies make-up: No Patient performs (no make-up/ 0/4 (0%) shaving): Patient performs (w/ make-up/ 0/5 (0%) shaving): Grooming FIM Score 4. Minimal Assistance (Patient = 75% or more. Needs touching.) Toileting Toileting Device Commode over Toilet,Grab Bar Patient able to: Adjust clothes before,Clean self,Adjust clothes after Patient able to perform: 1/3 (33%) Toileting FIM Score 4. Minimal Assistance (Patient = 75% or more. Needs touching.) Social interaction/Memory/Problem solving Social Interaction FIM Score 7. Complete [place] (Interacts appropriately. Controls temper.) Memory FIM Score 7. Complete [place] (Remembers people and routines.) Problem Solving FIM Score 7. Complete [place] (Solves complex problems. Self corrects.) Transfers Mode of Locomotion: Walking Bed/Chair/Wheelchair Transfers 3. Moderate Assistance (Patient = 50% or more. FIM Score Some lifting.) Toilet Transfers FIM Score 4. Minimal Assistance (Patient = 75% or more. Needs touching.) Patient transferred to: Shower Tub Transfers FIM Score 0. Activity does not occur Shower Transfers FIM Score 4. Minimal Assistance (Patient = 75% or more. Needs touching.) Locomotion- Stairs Stairs FIM Score 0. Activity does not occur Locomotion- walk/wheelchair Most Frequent Mode of Wheelchair Locomotion: Ambulation Distance 150 Walking FIM Score 4. Minimal Assistance (Patient = 75% or more. Minimum of 150 ft.) Wheelchair Propulsion Distance 200 Wheelchair FIM Score 6. Modified [place] (Wheels a minimum of 150 ft.) Eating Eating FIM Score 1. Total Assistance (Patient <25% or tube feeding) Dressing-Upper body Patient retrieves clothing No items: Patient applies/removes UE n/a prosthesis or orthosis: Upper Body Dressing FIM Score 6. Modified [place] (Needs equipment, velcro or pros./orth.) Dressing-lower body Lower Body Dressing Device Enrollment Nurse/Stick Patient retrieves clothing No items: Patient applies/removes LE n/a prosthesis or orthosis: Lower Body Dressing FIM Score 6. Modified [place] (Needs equipment, velcro or pros./orth.) - Labs CBC & Chem 7: 06/20/18 11:04 06/20/18 05:26 Labs: Laboratory Results - last 72 hr 06/21/18 06/22/18 06/22/18 22:19 06:02 13:27 POC Glucose 149 H 123 H 155 H 06/22/18 06/22/18 06/23/18 18:37 22:30 05:31 POC Glucose 115 H 124 H 127 H 06/23/18 06/23/18 06/24/18 18:16 22:03 06:30 POC Glucose 156 H 123 H 145 H 06/24/18 06/24/18 11:28 16:42 POC Glucose 147 H 142 H Assessment and Plan I69.353 Right non-dom hemiparesis: Monitor for neuro decline. Continue secondary stroke prevention. Discussed recovery and secondary stroke prevention. Monitor for post-stroke depression and s/s of shoulder-hand syndrome. Monitor for safety awareness I69.322 Dysarthria: THERAPIST'S ASSISTANT for improvement in communication and speech I69.391 Dysphagia: THERAPIST'S ASSISTANT to improve swallow function. Continue TF (at goal) with NPO. Monitor and advance diet as safely as able. FEES, MBSS or EStim as needed. Z73.6 ADL dysfunction: OT will work on improving ability to perform ADLs (including assistive devices) to increase independence and decrease caregiver burden and improve functional transfers and mobility training. R26.2 Difficulty walking: PT will work on gait training and proper use of assistive devices and advance as appropriate to use of stairs and outside ambulation on uneven surfaces. R26.81 Unsteadiness on feet: PT will work on improving static and dynamic sitting and standing balance as well as proper use of assistive devices to decrease risk of falls. R26.89 Abnormality of gait: PT will work to improve safety and efficiency of gait through neuromotor training and gait training along with instruction on proper use of assistive devices. Has prosthesis with him M62.81 Muscle weakness: PT & OT will work on strengthening exercises to improve functional strength including mixture of closed and open kinetic chain exercises. R53.81 Debility: PT & OT will work on improving overall functional status to improve participation with ADLs, mobility and social involvement. R53.83 Fatigue: PT & OT will work on improving endurance through aerobic exercises and therapeutic activity while monitoring patients tolerance for activity and vital signs as needed. I10 Hypertension: Adjust as needed. Avoid nephrotoxic meds E78.5 Hyperlipidemia: Continue Statin E11.8 Diabetes: Monitor D 62 and D64.9 Anemia of chronic disease: Better after transfusion, monitor E87.6 Hypokalemia: Resolved, monitor labs Z89.511 R BKA: awaiting delivery of prosthesis Artificial tears for b/l eyes, monitor Resolved Sepsis/SIRS/ PNA RUL GIB ELVIRA due to ATN at OSH but likely Acute on CKD per consult here DVT ppx: Heparin TID due to renal function GI ppx: Pepcid Pain: Continue physical modalities in therapy and pain medications as needed to achieve functional pain control. Sleep: Monitor and address as needed. Bowel: Monitor and address as needed. Appetite: Monitor and address as needed when able to take PO. Discharge planning: Pending therapy progress and care plan meeting. Will continue discussion with therapy team, SW, patient and family. Restrictions/ Precautions: Falls, aspiration WB status: FWB Functional Hx: ADLs: Independent and working Cognition: Independent Mobility: independent Consult: Hospitalists for medical management Nephrology for renal function ID for sepsis/SIRS GI for GIB Appreciate assistance. Barriers to Discharge: Decreased mobility and ability to perform self care, rig ht sided weakness, balance deficits, dysphagia Estimated Length of Stay: 21 days Discharge Destination: likely SNF
[2018-06-24] MEDS: ISOPTO TEARS 0.5% OU SCH (22:09)
[2018-06-24] MEDS: LANTUS SUB-Q SCH (22:22)
[2018-06-25] MEDS: HumaLOG SUB-Q SCH ×4 (00:14→18:59)
[2018-06-25] MEDS: LOPRESSOR FEEDTUBE SCH ×4 (02:30→22:34)
[2018-06-25 04:46] LABS: Hematocrit 29.6 % (35.5-45.6); Hemoglobin 9.9 gm/dl (11.8-15.2); Mean Corpuscular HGB Conc 34 % (32-34); Mean Corpuscular Volume 90 fl (84-94); Platelet Count 433 K/mm3 (140-440); Red Cell Distribution Width 17.6 % (13.2-15.2)
[2018-06-25 05:04] LABS: BUN/Creatinine Ratio 20; Blood Urea Nitrogen 26 mg/dL (9-20); Calcium 9.2 mg/dL (8.4-10.2); Hemolysis Index 4
[2018-06-25] MEDS: HEPARIN SUB-Q SCH ×3 (05:53→22:31)
[2018-06-25] MEDS: APRESOLINE FEEDTUBE SCH ×3 (05:54→22:34)
[2018-06-25] MEDS: PLAVIX FEEDTUBE SCH (08:40)
[2018-06-25] MEDS: ASPIRIN FEEDTUBE SCH (08:40)
[2018-06-25] MEDS: PREVACID SOLUTAB FEEDTUBE SCH ×2 (08:42→22:30)
[2018-06-25] MEDS: MIRALAX 3350 FEEDTUBE SCH (08:59)
[2018-06-25] MEDS: COLACE FEEDTUBE SCH ×2 (09:00→22:32)
--- NOTE | 2018-06-25 10:53 | Progress Note ---
Assessment and Plan Assessment and plan: Pneumonia; nosocomial acquired mgt per ID, has completed abx Fecal impaction/intractable nausea vomiting- resolved sp enema and has had BM, now improved -on miralax and improved ACute blood loss anemia Upper GIB -coffee ground emesis now resolved -GI consulted,EGD on 06/16 confirms Dyana lebron tear -sp 1 unit prbc CVA with residual right-sided hemiparesis, dysphagia on meds for secondary prevention Right BKA - Supportive care Hypertension -cont bp meds Diabetes mellitus cont insulins ELVIRA/hypernatremia/ vasomotor nephropathy, has CKD stage 2-3, bl creat about 1.9; now resolved -mgt per Nephrology Hypokalemia -repleted, on K supplement Anemia of chronic illness stable, cont to monitor DVT prophylaxis - scd in light of gi bleed Patient's primary is Dr Erickson. Dispkajal; awaiting SNF placement History Interval history: Review of systems Constitutional: fever resolved, no malaise, no joint pains CVS: No chest pain, no orthopnea, no dyspnea on exertion, no pedal edema GI: no abdo pain or vomiting Respiratory: No shortness of breath, no wheezing, no coughing Hospitalist Physical - Physical exam Narrative exam: General.: Appears well, no distress, nontoxic HEENT: Moist mucous membranes, extraocular muscles intact, no lymphadenopathy Neck: supple Cardiac: S1-S2 heard Lungs: CTA BL Abdomen: belly is soft, NT, ND Extremities: no edema clubbing or cyanosis R LE amputation , wearing prosthesis Skin: no rash or lesions Neurologic: r hemiparesis Psych: calm, and cooperative - Constitutional Vitals: Temp Pulse Resp BP Pulse Ox 98.6 F 83 18 127/86 96 06/25/18 07:54 06/25/18 09:08 06/25/18 07:54 06/25/18 09:08 06/25/18 07:55 Results - Labs CBC & Chem 7: 06/25/18 04:30 06/25/18 04:30 Labs: Laboratory Last Values WBC 8.1 K/mm3 (4.5-11.0) 06/25/18 04:30 RBC 3.30 M/mm3 (3.65-5.03) L 06/25/18 04:30 Hgb 9.9 gm/dl (11.8-15.2) L 06/25/18 04:30 Hct 29.6 % (35.5-45.6) L 06/25/18 04:30 MCV 90 fl (84-94) 06/25/18 04:30 MCH 30 pg (28-32) 06/25/18 04:30 MCHC 34 % (32-34) 06/25/18 04:30 RDW 17.6 % (13.2-15.2) H 06/25/18 04:30 Plt Count 433 K/mm3 (140-440) 06/25/18 04:30 Lymph % (Auto) 23.5 % (13.4-35.0) 06/19/18 04:50 [place] % (Auto) 8.1 % (0.0-7.3) H 06/19/18 04:50 Eos % (Auto) 5.8 % (0.0-4.3) H 06/19/18 04:50 Baso % (Auto) 1.1 % (0.0-1.8) 06/19/18 04:50 Lymph # 1.8 K/mm3 (1.2-5.4) 06/19/18 04:50 [place] # 0.6 K/mm3 (0.0-0.8) 06/19/18 04:50 Eos # 0.4 K/mm3 (0.0-0.4) 06/19/18 04:50 Baso # 0.1 K/mm3 (0.0-0.1) 06/19/18 04:50 Add Manual Diff Complete 06/20/18 11:04 Total Counted 100 06/20/18 11:04 Seg Neutrophils % 61.5 % (40.0-70.0) 06/19/18 04:50 Seg Neuts % (Manual) 59.0 % (40.0-70.0) 06/20/18 11:04 Band Neutrophils % 0 % 06/20/18 11:04 Lymphocytes % (Manual) 24.0 % (13.4-35.0) 06/20/18 11:04 Reactive Lymphs % (Man) 0 % 06/20/18 11:04 Monocytes % (Manual) 0 % (0.0-7.3) 06/20/18 11:04 Eosinophils % (Manual) 8.0 % (0.0-4.3) H 06/20/18 11:04 Basophils % (Manual) 4.0 % (0.0-1.8) H 06/20/18 11:04 Metamyelocytes % 0 % 06/20/18 11:04 Myelocytes % 5.0 % 06/20/18 11:04 Promyelocytes % 0 % 06/20/18 11:04 Blast Cells % 0 % 06/20/18 11:04 Nucleated RBC % Not Reportable 06/20/18 11:04 Seg Neutrophils # 4.6 K/mm3 (1.8-7.7) 06/19/18 04:50 Seg Neutrophils # Man 5.4 K/mm3 (1.8-7.7) 06/20/18 11:04 Band Neutrophils # 0.0 K/mm3 06/20/18 11:04 Lymphocytes # (Manual) 2.2 K/mm3 (1.2-5.4) 06/20/18 11:04 Abs React Lymphs (Man) 0.0 K/mm3 06/20/18 11:04 Monocytes # (Manual) 0.0 K/mm3 (0.0-0.8) 06/20/18 11:04 Eosinophils # (Manual) 0.7 K/mm3 (0.0-0.4) H 06/20/18 11:04 Basophils # (Manual) 0.4 K/mm3 (0.0-0.1) H 06/20/18 11:04 Metamyelocytes # 0.0 K/mm3 06/20/18 11:04 Myelocytes # 0.5 K/mm3 06/20/18 11:04 Promyelocytes # 0.0 K/mm3 06/20/18 11:04 Blast Cells # 0.0 K/mm3 06/20/18 11:04 WBC Morphology Not Reportable 06/20/18 11:04 Hypersegmented Neuts Not Reportable 06/20/18 11:04 Hyposegmented Neuts Not Reportable 06/20/18 11:04 Hypogranular Neuts Not Reportable 06/20/18 11:04 Smudge Cells Not Reportable 06/20/18 11:04 Toxic Granulation Not Reportable 06/20/18 11:04 Toxic Vacuolation Not Reportable 06/20/18 11:04 Dohle Bodies Not Reportable 06/20/18 11:04 Pelger-Huet Anomaly Not Reportable 06/20/18 11:04 Fadumo Rods Not Reportable 06/20/18 11:04 Platelet Estimate Consistent w auto 06/20/18 11:04 Clumped Platelets Not Reportable 06/20/18 11:04 Plt Clumps, EDTA Not Reportable 06/20/18 11:04 Large Platelets Not Reportable 06/20/18 11:04 Giant Platelets Not Reportable 06/20/18 11:04 Platelet Satelliting Not Reportable 06/20/18 11:04 Plt Morphology Comment Not Reportable 06/20/18 11:04 RBC Morphology Not Reportable 06/20/18 11:04 Dimorphic RBCs Not Reportable 06/20/18 11:04 Polychromasia Not Reportable 06/20/18 11:04 Hypochromasia Not Reportable 06/20/18 11:04 Poikilocytosis 1+ 06/20/18 11:04 Anisocytosis 1+ 06/20/18 11:04 Microcytosis Not Reportable 06/20/18 11:04 Macrocytosis Not Reportable 06/20/18 11:04 Spherocytes Not Reportable 06/20/18 11:04 Pappenheimer Bodies Not Reportable 06/20/18 11:04 Sickle Cells Not Reportable 06/20/18 11:04 Target Cells Not Reportable 06/20/18 11:04 Tear Drop Cells Not Reportable 06/20/18 11:04 Ovalocytes Not Reportable 06/20/18 11:04 Helmet Cells Not Reportable 06/20/18 11:04 [place] Bodies Not Reportable 06/20/18 11:04 [place] Rings Not Reportable 06/20/18 11:04 [place] Cells Not Reportable 06/20/18 11:04 Bite Cells Not Reportable 06/20/18 11:04 Crenated Cell Not Reportable 06/20/18 11:04 Elliptocytes Not Reportable 06/20/18 11:04 Acanthocytes (Spur) Not Reportable 06/20/18 11:04 Rouleaux Not Reportable 06/20/18 11:04 Hemoglobin C Crystals Not Reportable 06/20/18 11:04 Schistocytes Not Reportable 06/20/18 11:04 Malaria parasites Not Reportable 06/20/18 11:04 Eb Bodies Not Reportable 06/20/18 11:04 Hem Pathologist Commnt No 06/20/18 11:04 PT 15.6 Sec. (12.2-14.9) H 06/16/18 10:37 INR 1.20 (0.87-1.13) H 06/16/18 10:37 Sodium 140 mmol/L (137-145) 06/25/18 04:30 Potassium 4.8 mmol/L (3.6-5.0) D 06/25/18 04:30 Chloride 100.8 mmol/L (98-107) 06/25/18 04:30 Carbon Dioxide 27 mmol/L (22-30) 06/25/18 04:30 Anion Gap 17 mmol/L 06/25/18 04:30 BUN 26 mg/dL (9-20) H 06/25/18 04:30 Creatinine 1.3 mg/dL (0.8-1.5) 06/25/18 04:30 Estimated GFR > 60 ml/min 06/25/18 04:30 BUN/Creatinine Ratio 20 % 06/25/18 04:30 Glucose 131 mg/dL (75-100) H 06/25/18 04:30 POC Glucose 142 (70-105) H 06/25/18 05:52 Lactic Acid 1.10 mmol/L (0.7-2.0) 06/14/18 12:50 Calcium 9.2 mg/dL (8.4-10.2) 06/25/18 04:30 Phosphorus 3.20 mg/dL (2.5-4.5) 06/13/18 04:53 Magnesium 2.10 mg/dL (1.7-2.3) 06/07/18 05:15 Iron 33 ug/dL (49-181) L 06/08/18 06:00 TIBC 189 mcg/dL (250-450) L 06/08/18 06:00 Ferritin 1111.0 ng/mL (13.0-400.0) H 06/08/18 06:00 Prealbumin 0.230 g/L (0.200-0.400) 06/03/18 19:51 Urine Color [place] (Yellow) 06/14/18 Unknown Urine Turbidity Turbid (Clear) 06/14/18 Unknown Urine pH 8.0 (5.0-7.0) H 06/14/18 Unknown Ur Specific [place] 1.012 (1.003-1.030) 06/14/18 Unknown Urine Protein >500 mg/dL (Negative) 06/14/18 Unknown Urine Glucose (UA) Neg mg/dL (Negative) 06/14/18 Unknown Urine Ketones Neg mg/dL (Negative) 06/14/18 Unknown Urine Blood Neg (Negative) 06/14/18 Unknown Urine Nitrite Neg (Negative) 06/14/18 Unknown Urine Bilirubin Neg (Negative) 06/14/18 Unknown Urine Urobilinogen 2.0 mg/dL (<2.0) 06/14/18 Unknown Ur Leukocyte Esterase Mod (Negative) 06/14/18 Unknown Urine WBC (Auto) 17.0 /HPF (0.0-6.0) H 06/14/18 Unknown Urine RBC (Auto) 12.0 /HPF (0.0-6.0) 06/14/18 Unknown U Epithel Cells (Auto) 12.0 /HPF (0-13.0) 06/14/18 Unknown Triple Phos Crystals 1+ 06/14/18 Unknown Urine Mucus 1+ /HPF 06/14/18 Unknown Urine Eosinophils None seen (None Seen) 06/08/18 09:55 Urine Creatinine 140.4 mg/dL (0.1-20.0) H 06/08/18 09:55 Protein/Creatinin Ratio 0.26 06/08/18 09:55 Urine Sodium 45 mmol/L 06/08/18 09:55 Urine Total Protein 36 mg/dL (5-11.8) H 06/08/18 09:55 Blood Type O POSITIVE 06/19/18 16:30 Antibody Screen Negative 06/19/18 16:30 Crossmatch See Detail 06/19/18 16:30 Nutrition/Malnutrition Assess - Dietary Evaluation Nutrition/Malnutrition Findings: Nutrition Notes Start: 06/04/18 11:20 Freq: Status: Active Protocol: Document 06/18/18 10:32 CT (Rec: 06/18/18 11:02 CT [id number]) Co-Sign 06/18/18 10:32 LP Nutrition Notes Initial or Follow up Reassessment Current Diagnosis Acute Kidney Injury CKD(stage I-IV) Diabetes Hypertension Stroke Hyperlipidemia Other Pertinent Diagnosis Dysphagia, R BKA Current Diet Glucerna 1.2 at 50 ml/hr Labs/Tests Glucose 204 Pertinent Medications Reviewed Height 6 ft 2.4 in Weight 100.8 kg [place] Body Weight (kg) 87.45 BMI 28.2 Subjective/Other Information RD consult for TF management. Observed Glucerna 1.2 infusing at 70 ml/hr. Tech states pt has been tolerating TF well. Percent of energy/protein needs met: 87%/100% Burn Absent Trauma Absent #1 Nutrition Diagnosis Inadequate oral intake Diagnosis Progress(for reassessment Continues documentation) Is patient on ventilator? No Is Patient Ambulatory and/or Out of Bed Yes REE-([place] [facility]-ambulatory/OOB) [ 2494.869 [id number]] Kcal/Kg value to use for calculation 23 Approximate Energy Requirements Using 2318 kcal/Kg Calculation Used for Recommendations Kcal/kg Additional Notes Protein needs: 60-100 g (0.6-0 .8 g/kg) Fluids: 1 mL/kg inderjit or per MD Nutrition Intervention Change Diet Order: Continue TF Nutrition Support: Glucerna 1.2 at 70 mL/hr Flush 100 mL q4hr Kcal 2,016 Protein (gm) 100 Fluid (mL) 1,352 Goal #1 Continue to meet at least 75% inderjit and pro needs Goal #2 TF tolerance Anticipated Discharge Needs: TF Follow-Up By: 06/25/18 Additional Comments Follow for TF tolerance
[2018-06-25] MEDS: LANTUS SUB-Q SCH (22:32)
[2018-06-25] MEDS: ISOPTO TEARS 0.5% OU SCH (22:33)
[2018-06-26] MEDS: HumaLOG SUB-Q SCH ×4 (04:50→18:00)
[2018-06-26] MEDS: LOPRESSOR FEEDTUBE SCH ×2 (05:01→21:39)
[2018-06-26] MEDS: HEPARIN SUB-Q SCH ×3 (05:02→21:38)
[2018-06-26] MEDS: APRESOLINE FEEDTUBE SCH ×2 (05:03→21:28)
--- NOTE | 2018-06-26 07:45 | Progress Note ---
Subjective Date of service: 06/26/18 Principal diagnosis: CVA, Acute on CKD Interval history: 53-year-old LHD male who experienced increased right-sided weakness three days prior to presentation at an outside hospital. He also had decreased balance and gait. He was admitted and worked up for stroke. MRI of brain confirmed the presence of a stroke. A repeat MRI showed a second stroke in a different area. Patient was continued on secondary stroke prevention medications. He had a PEG tube placed and was started on a low volume of TF. He developed acute kidney injury and a nephrology consult was called. He required transfer to the [facility] for management of uncontrolled blood pressure. He was later weaned off of Cardene drip and restarted on oral blood pressure medications. Awaiting approval for discharge to SNF. No complaints of eye discomfort today. Denies issue with vision. No visible abnormality. Recheck of labs showed improved Hgb and stable renal function, no current complaints of dyspnea. Patient is participating in therapy and making good progress. +BM. No pain currently. PEG ok. TF at goal. BP - Continue medications and adjust as needed. please avoid nephrotoxic meds. Change metoprolol to BID and monitor HR/BP for need to increase dose. Uncertain why he was started on TID dosing but he was stable with occasional relative hypotension. Prosthesis - check socket tested, awaiting final Completed abx. Afebrile since 06/15, WBC normalized. No chills or productive cough. No other issues per patient, nursing or therapy. Discussed need for prolonged therapy at SNF. Patient agreeable even though it's not the hoped for outcome. States that he realizes he can't be alone. All available medical records, therapy notes, vitals and labs were reviewed. Objective - Exam Narrative Exam: MUSCULOSKELETAL SPECIALTY EXAM Constitutional: Well developed, well nourished, appropriately groomed, LHD EENT: Hearing intact to finger rustle. Poor dentition. No visible injury to either eye, sclera not red or inflamed, no foreign body appreciated. Respiratory: Clear to auscultation bilaterally , no increased work of breathing. Cardiovascular Regular Rate/ Rhythm, no swelling edema or tenderness in all 4 extremities. All 4 extremities warm. GI : + bowel sounds, soft, NTTP, nondistended, PEG INTEGUMENTARY Normal in all 4 extremities Musuloskeletal BUE and BLE normal without defect, crepitus, sublux, effusion, or TTP except for Right BKA. RUE and RLE 4-/5. Decreased aROM, good pROM, normal tone. LUE and LLE 4+/5, good ROM with normal tone. NEURO: Significant Left facial droop involving upper and lower face (LMN), Tongue protrudes left , sensation on face is assymetric, otherwise CN 2-12 grossly intact. Sensation intact on LEFT extremities and impaired on RIGHT. Coordi nation intact on left, decreased on right. No tremor noted. Aphasia and dysarthria present but improving. Naming and repetition intact. POSTURE and GAIT: Standing/walking with therapy with some balance deficits. PSYCH: Alert, orientated x3, affect appears normal. Insight appears intact. - Constitutional Vitals: Vital Signs - 12hr 06/25/18 06/26/18 06/26/18 22:34 01:40 04:49 Temperature 36.8 C Pulse Rate 89 85 Respiratory 16 20 Rate Blood Pressure 145/95 99/60 O2 Sat by Pulse 86 Oximetry 06/26/18 06/26/18 05:01 05:03 Temperature Pulse Rate 88 88 Respiratory Rate Blood Pressure 99/60 O2 Sat by Pulse Oximetry - Allied health notes Allied health notes reviewed: nursing, PT, ST, OT FIMS assessment as documented by PT/OT/ST: Grooming Patient cleans teeth/dentures: Yes Patient matamoros/brushes hair: Yes Patient washes, rinses and Yes dries face: Patient washes, rinses and Yes dries hands: Patient shaves: No: Pt's brother uses clippers to shave Patient applies make-up: No Patient performs (no make-up/ 0/4 (0%) shaving): Patient performs (w/ make-up/ 0/5 (0%) shaving): Grooming FIM Score 4. Minimal Assistance (Patient = 75% or more. Needs touching.) Toileting Toileting Device Commode over Toilet,Grab Bar Patient able to: Adjust clothes before,Clean self,Adjust clothes after Patient able to perform: 1/3 (33%) Toileting FIM Score 4. Minimal Assistance (Patient = 75% or more. Needs touching.) Social interaction/Memory/Problem solving Social Interaction FIM Score 7. Complete Velma (Interacts appropriately. Controls temper.) Memory FIM Score 7. Complete Velma (Remembers people and routines.) Problem Solving FIM Score 7. Complete Velma (Solves complex problems. Self corrects.) Transfers Mode of Locomotion: Wheelchair Bed/Chair/Wheelchair Transfers 4. Minimal Assistance (Patient = 75% or more. FIM Score Needs touching.) Toilet Transfers FIM Score 4. Minimal Assistance (Patient = 75% or more. Needs touching.) Patient transferred to: Shower Tub Transfers FIM Score 0. Activity does not occur Shower Transfers FIM Score 4. Minimal Assistance (Patient = 75% or more. Needs touching.) Locomotion- Stairs Stairs FIM Score 0. Activity does not occur Locomotion- walk/wheelchair Most Frequent Mode of Wheelchair Locomotion: Ambulation Distance 170 Walking FIM Score 4. Minimal Assistance (Patient = 75% or more. Minimum of 150 ft.) Wheelchair Propulsion Distance 200 Wheelchair FIM Score 6. Modified Velma (Wheels a minimum of 150 ft.) Eating Eating FIM Score 1. Total Assistance (Patient <25% or tube feeding) Dressing-Upper body Patient retrieves clothing No items: Patient applies/removes UE n/a prosthesis or orthosis: Upper Body Dressing FIM Score 6. Modified Velma (Needs equipment, velcro or pros./orth.) Dressing-lower body Lower Body Dressing Device Supervisor Multifocal Lens/Stick Patient retrieves clothing No items: Patient applies/removes LE Yes prosthesis or orthosis: Lower Body Dressing FIM Score 5. Supv./Set-Up ([place]arrison sets out clothes or applies pros./orth.) - Labs CBC & Chem 7: 06/25/18 04:30 06/25/18 04:30 Labs: Laboratory Results - last 72 hr 06/23/18 06/23/18 06/24/18 18:16 22:03 06:30 WBC RBC Hgb Hct MCV MCH MCHC RDW Plt Count Sodium Potassium Chloride Carbon Dioxide Anion Gap BUN Creatinine Estimated GFR BUN/Creatinine Ratio Glucose POC Glucose 156 H 123 H 145 H Calcium 06/24/18 06/24/18 06/24/18 11:28 16:42 22:24 WBC RBC Hgb Hct MCV MCH MCHC RDW Plt Count Sodium Potassium Chloride Carbon Dioxide Anion Gap BUN Creatinine Estimated GFR BUN/Creatinine Ratio Glucose POC Glucose 147 H 142 H 92 Calcium 02/06/19 02/06/19 02/06/19 04:30 04:30 05:52 WBC 8.1 RBC 3.30 L Hgb 9.9 L Hct 29.6 L MCV 90 MCH 30 MCHC 34 RDW 17.6 H Plt Count 433 Sodium 140 Potassium 4.8 D Chloride 100.8 Carbon Dioxide 27 Anion Gap 17 BUN 26 H Creatinine 1.3 Estimated GFR > 60 BUN/Creatinine Ratio 20 Glucose 131 H POC Glucose 142 H Calcium 9.2 06/25/18 06/25/18 06/25/18 11:30 17:38 22:22 WBC RBC Hgb Hct MCV MCH MCHC RDW Plt Count Sodium Potassium Chloride Carbon Dioxide Anion Gap BUN Creatinine Estimated GFR BUN/Creatinine Ratio Glucose POC Glucose 147 H 130 H 119 H Calcium 06/26/18 05:12 WBC RBC Hgb Hct MCV MCH MCHC RDW Plt Count Sodium Potassium Chloride Carbon Dioxide Anion Gap BUN Creatinine Estimated GFR BUN/Creatinine Ratio Glucose POC Glucose 133 H Calcium Assessment and Plan I69.353 Right non-dom hemiparesis: Monitor for neuro decline. Continue secondary stroke prevention. Discussed recovery and secondary stroke prevention. Monitor for post-stroke depression and s/s of shoulder-hand syndrome. Monitor for safety awareness I69.322 Dysarthria: ONLINE ADVERTISING MANAGER for improvement in communication and speech I69.391 Dysphagia: ONLINE ADVERTISING MANAGER to improve swallow function. Continue TF (at goal) with NPO. Monitor and advance diet as safely as able. FEES, MBSS or EStim as needed. Z73.6 ADL dysfunction: OT will work on improving ability to perform ADLs (including assistive devices) to increase independence and decrease caregiver burden and improve functional transfers and mobility training. R26.2 Difficulty walking: PT will work on gait training and proper use of assistive devices and advance as appropriate to use of stairs and outside ambul ation on uneven surfaces. R26.81 Unsteadiness on feet: PT will work on improving static and dynamic sitting and standing balance as well as proper use of assistive devices to decrease risk of falls. R26.89 Abnormality of gait: PT will work to improve safety and efficiency of gait through neuromotor training and gait training along with instruction on proper use of assistive devices. Has prosthesis with him M62.81 Muscle weakness: PT & OT will work on strengthening exercises to improve functional strength including mixture of closed and open kinetic chain exercises. R53.81 Debility: PT & OT will work on improving overall functional status to improve participation with ADLs, mobility and social involvement. R53.83 Fatigue: PT & OT will work on improving endurance through aerobic exercises and therapeutic activity while monitoring patients tolerance for activity and vital signs as needed. I10 Hypertension: Adjust as needed. Avoid nephrotoxic meds. Change metoprolol to BID and monitor, may need dose increase. E78.5 Hyperlipidemia: Continue Statin E11.8 Diabetes: Monitor D 62 and D64.9 Anemia of chronic disease: Better after transfusion, monitor E87.6 Hypokalemia: Resolved, monitor labs Z89.511 R BKA: awaiting delivery of prosthesis Artificial tears for b/l eyes, monitor Resolved Sepsis/SIRS/ PNA RUL GIB ELVIRA due to ATN at OSH but likely Acute on CKD per consult here DVT ppx: Heparin TID due to renal function GI ppx: prevacid Pain: Continue physical modalities in therapy and pain medications as needed to achieve functional pain control. Sleep: Monitor and address as needed. Bowel: Monitor and address as needed. Appetite: Monitor and address as needed when able to take PO. Discharge planning: Pending therapy progress and care plan meeting. Will continue discussion with therapy team, SW, patient and family. Restrictions/ Precautions: Falls, aspiration WB status: FWB Functional Hx: ADLs: Independent and working Cognition: Independent Mobility: independent Consult: Hospitalists for medical management Nephrology for renal function ID for sepsis/SIRS GI for GIB Appreciate assistance. Barriers to Discharge: Decreased mobility and ability to perform self care, right sided weakness, balance deficits, dysphagia Estimated Length of Stay: 21 days Discharge Destination: likely SNF
[2018-06-26] MEDS: MIRALAX 3350 FEEDTUBE SCH (08:57)
[2018-06-26] MEDS: PLAVIX FEEDTUBE SCH (08:57)
[2018-06-26] MEDS: ASPIRIN FEEDTUBE SCH (08:57)
[2018-06-26] MEDS: PREVACID SOLUTAB FEEDTUBE SCH ×2 (08:57→21:42)
[2018-06-26] MEDS: COLACE FEEDTUBE SCH ×2 (08:58→21:36)
--- NOTE | 2018-06-26 13:51 | Progress Note ---
Assessment and Plan Assessment and plan: Pneumonia; nosocomial acquired mgt per ID, has completed abx Fecal impaction/intractable nausea vomiting- resolved sp enema and has had BM, now improved -on miralax and improved ACute blood loss anemia Upper GIB -coffee ground emesis now resolved -GI consulted,EGD on 06/16 confirms Dyana lebron tear -sp 1 unit prbc CVA with residual right-sided hemiparesis, dysphagia on meds for secondary prevention Right BKA - Supportive care Hypertension -cont bp meds Diabetes mellitus cont insulins ELVIRA/hypernatremia/ vasomotor nephropathy, has CKD stage 2-3, bl creat about 1.9; now resolved -mgt per Nephrology Hypokalemia -repleted, on K supplement Anemia of chronic illness stable, cont to monitor DVT prophylaxis - scd in light of gi bleed Patient's primary is Dr Erickson. Dispkajal; awaiting SNF placement History Interval history: Review of systems Constitutional: fever resolved, no malaise, no joint pains CVS: No chest pain, no orthopnea, no dyspnea on exertion, no pedal edema GI: no abdo pain or vomiting Respiratory: No shortness of breath, no wheezing, no coughing Hospitalist Physical - Physical exam Narrative exam: General.: Appears well, no distress, nontoxic HEENT: Moist mucous membranes, extraocular muscles intact, no lymphadenopathy Neck: supple Cardiac: S1-S2 heard Lungs: CTA BL Abdomen: belly is soft, NT, ND Extremities: no edema clubbing or cyanosis R LE amputation , wearing prosthesis Skin: no rash or lesions Neurologic: r hemiparesis Psych: calm, and cooperative - Constitutional Vitals: Temp Pulse Resp BP Pulse Ox 98.7 F 74 19 110/81 98 06/26/18 07:32 06/26/18 07:32 06/26/18 07:32 06/26/18 07:32 06/26/18 07:32 Results - Labs CBC & Chem 7: 06/25/18 04:30 06/25/18 04:30 Labs: Laboratory Last Values WBC 8.1 K/mm3 (4.5-11.0) 06/25/18 04:30 RBC 3.30 M/mm3 (3.65-5.03) L 06/25/18 04:30 Hgb 9.9 gm/dl (11.8-15.2) L 06/25/18 04:30 Hct 29.6 % (35.5-45.6) L 06/25/18 04:30 MCV 90 fl (84-94) 06/25/18 04:30 MCH 30 pg (28-32) 06/25/18 04:30 MCHC 34 % (32-34) 06/25/18 04:30 RDW 17.6 % (13.2-15.2) H 06/25/18 04:30 Plt Count 433 K/mm3 (140-440) 06/25/18 04:30 Lymph % (Auto) 23.5 % (13.4-35.0) 06/19/18 04:50 [place] % (Auto) 8.1 % (0.0-7.3) H 06/19/18 04:50 Eos % (Auto) 5.8 % (0.0-4.3) H 06/19/18 04:50 Baso % (Auto) 1.1 % (0.0-1.8) 06/19/18 04:50 Lymph # 1.8 K/mm3 (1.2-5.4) 06/19/18 04:50 [place] # 0.6 K/mm3 (0.0-0.8) 06/19/18 04:50 Eos # 0.4 K/mm3 (0.0-0.4) 06/19/18 04:50 Baso # 0.1 K/mm3 (0.0-0.1) 06/19/18 04:50 Add Manual Diff Complete 06/20/18 11:04 Total Counted 100 06/20/18 11:04 Seg Neutrophils % 61.5 % (40.0-70.0) 06/19/18 04:50 Seg Neuts % (Manual) 59.0 % (40.0-70.0) 06/20/18 11:04 Band Neutrophils % 0 % 06/20/18 11:04 Lymphocytes % (Manual) 24.0 % (13.4-35.0) 06/20/18 11:04 Reactive Lymphs % (Man) 0 % 06/20/18 11:04 Monocytes % (Manual) 0 % (0.0-7.3) 06/20/18 11:04 Eosinophils % (Manual) 8.0 % (0.0-4.3) H 06/20/18 11:04 Basophils % (Manual) 4.0 % (0.0-1.8) H 06/20/18 11:04 Metamyelocytes % 0 % 06/20/18 11:04 Myelocytes % 5.0 % 06/20/18 11:04 Promyelocytes % 0 % 06/20/18 11:04 Blast Cells % 0 % 06/20/18 11:04 Nucleated RBC % Not Reportable 06/20/18 11:04 Seg Neutrophils # 4.6 K/mm3 (1.8-7.7) 06/19/18 04:50 Seg Neutrophils # Man 5.4 K/mm3 (1.8-7.7) 06/20/18 11:04 Band Neutrophils # 0.0 K/mm3 06/20/18 11:04 Lymphocytes # (Manual) 2.2 K/mm3 (1.2-5.4) 06/20/18 11:04 Abs React Lymphs (Man) 0.0 K/mm3 06/20/18 11:04 Monocytes # (Manual) 0.0 K/mm3 (0.0-0.8) 06/20/18 11:04 Eosinophils # (Manual) 0.7 K/mm3 (0.0-0.4) H 06/20/18 11:04 Basophils # (Manual) 0.4 K/mm3 (0.0-0.1) H 06/20/18 11:04 Metamyelocytes # 0.0 K/mm3 06/20/18 11:04 Myelocytes # 0.5 K/mm3 06/20/18 11:04 Promyelocytes # 0.0 K/mm3 06/20/18 11:04 Blast Cells # 0.0 K/mm3 06/20/18 11:04 WBC Morphology Not Reportable 06/20/18 11:04 Hypersegmented Neuts Not Reportable 06/20/18 11:04 Hyposegmented Neuts Not Reportable 06/20/18 11:04 Hypogranular Neuts Not Reportable 06/20/18 11:04 Smudge Cells Not Reportable 06/20/18 11:04 Toxic Granulation Not Reportable 06/20/18 11:04 Toxic Vacuolation Not Reportable 06/20/18 11:04 Dohle Bodies Not Reportable 06/20/18 11:04 Pelger-Huet Anomaly Not Reportable 06/20/18 11:04 Fadumo Rods Not Reportable 06/20/18 11:04 Platelet Estimate Consistent w auto 06/20/18 11:04 Clumped Platelets Not Reportable 06/20/18 11:04 Plt Clumps, EDTA Not Reportable 06/20/18 11:04 Large Platelets Not Reportable 06/20/18 11:04 Giant Platelets Not Reportable 06/20/18 11:04 Platelet Satelliting Not Reportable 06/20/18 11:04 Plt Morphology Comment Not Reportable 06/20/18 11:04 RBC Morphology Not Reportable 06/20/18 11:04 Dimorphic RBCs Not Reportable 06/20/18 11:04 Polychromasia Not Reportable 06/20/18 11:04 Hypochromasia Not Reportable 06/20/18 11:04 Poikilocytosis 1+ 06/20/18 11:04 Anisocytosis 1+ 06/20/18 11:04 Microcytosis Not Reportable 06/20/18 11:04 Macrocytosis Not Reportable 06/20/18 11:04 Spherocytes Not Reportable 06/20/18 11:04 Pappenheimer Bodies Not Reportable 06/20/18 11:04 Sickle Cells Not Reportable 06/20/18 11:04 Target Cells Not Reportable 06/20/18 11:04 Tear Drop Cells Not Reportable 06/20/18 11:04 Ovalocytes Not Reportable 06/20/18 11:04 Helmet Cells Not Reportable 06/20/18 11:04 [place] Bodies Not Reportable 06/20/18 11:04 [place] Rings Not Reportable 06/20/18 11:04 [place] Cells Not Reportable 06/20/18 11:04 Bite Cells Not Reportable 06/20/18 11:04 Crenated Cell Not Reportable 06/20/18 11:04 Elliptocytes Not Reportable 06/20/18 11:04 Acanthocytes (Spur) Not Reportable 06/20/18 11:04 Rouleaux Not Reportable 06/20/18 11:04 Hemoglobin C Crystals Not Reportable 06/20/18 11:04 Schistocytes Not Reportable 06/20/18 11:04 Malaria parasites Not Reportable 06/20/18 11:04 Eb Bodies Not Reportable 06/20/18 11:04 Hem Pathologist Commnt No 06/20/18 11:04 PT 15.6 Sec. (12.2-14.9) H 06/16/18 10:37 INR 1.20 (0.87-1.13) H 06/16/18 10:37 Sodium 140 mmol/L (137-145) 06/25/18 04:30 Potassium 4.8 mmol/L (3.6-5.0) D 06/25/18 04:30 Chloride 100.8 mmol/L (98-107) 06/25/18 04:30 Carbon Dioxide 27 mmol/L (22-30) 06/25/18 04:30 Anion Gap 17 mmol/L 06/25/18 04:30 BUN 26 mg/dL (9-20) H 06/25/18 04:30 Creatinine 1.3 mg/dL (0.8-1.5) 06/25/18 04:30 Estimated GFR > 60 ml/min 06/25/18 04:30 BUN/Creatinine Ratio 20 % 06/25/18 04:30 Glucose 131 mg/dL (75-100) H 06/25/18 04:30 POC Glucose 140 (70-105) H 06/26/18 11:18 Lactic Acid 1.10 mmol/L (0.7-2.0) 06/14/18 12:50 Calcium 9.2 mg/dL (8.4-10.2) 06/25/18 04:30 Phosphorus 3.20 mg/dL (2.5-4.5) 06/13/18 04:53 Magnesium 2.10 mg/dL (1.7-2.3) 06/07/18 05:15 Iron 33 ug/dL (49-181) L 06/08/18 06:00 TIBC 189 mcg/dL (250-450) L 06/08/18 06:00 Ferritin 1111.0 ng/mL (13.0-400.0) H 06/08/18 06:00 Prealbumin 0.230 g/L (0.200-0.400) 06/03/18 19:51 Urine Color [place] (Yellow) 06/14/18 Unknown Urine Turbidity Turbid (Clear) 06/14/18 Unknown Urine pH 8.0 (5.0-7.0) H 06/14/18 Unknown Ur Specific [place] 1.012 (1.003-1.030) 06/14/18 Unknown Urine Protein >500 mg/dL (Negative) 06/14/18 Unknown Urine Glucose (UA) Neg mg/dL (Negative) 06/14/18 Unknown Urine Ketones Neg mg/dL (Negative) 06/14/18 Unknown Urine Blood Neg (Negative) 06/14/18 Unknown Urine Nitrite Neg (Negative) 06/14/18 Unknown Urine Bilirubin Neg (Negative) 06/14/18 Unknown Urine Urobilinogen 2.0 mg/dL (<2.0) 06/14/18 Unknown Ur Leukocyte Esterase Mod (Negative) 06/14/18 Unknown Urine WBC (Auto) 17.0 /HPF (0.0-6.0) H 06/14/18 Unknown Urine RBC (Auto) 12.0 /HPF (0.0-6.0) 06/14/18 Unknown U Epithel Cells (Auto) 12.0 /HPF (0-13.0) 06/14/18 Unknown Triple Phos Crystals 1+ 06/14/18 Unknown Urine Mucus 1+ /HPF 06/14/18 Unknown Urine Eosinophils None seen (None Seen) 06/08/18 09:55 Urine Creatinine 140.4 mg/dL (0.1-20.0) H 06/08/18 09:55 Protein/Creatinin Ratio 0.26 06/08/18 09:55 Urine Sodium 45 mmol/L 06/08/18 09:55 Urine Total Protein 36 mg/dL (5-11.8) H 06/08/18 09:55 Blood Type O POSITIVE 06/19/18 16:30 Antibody Screen Negative 06/19/18 16:30 Crossmatch See Detail 06/19/18 16:30 Nutrition/Malnutrition Assess - Dietary Evaluation Nutrition/Malnutrition Findings: Nutrition Notes Start: 06/04/18 11:20 Freq: Status: Active Protocol: Document 06/25/18 15:50 RM (Rec: 06/25/18 15:54 RM [id number]) Nutrition Notes Initial or Follow up Reassessment Current Diagnosis Acute Kidney Injury CKD(stage I-IV) Diabetes Hypertension Stroke Hyperlipidemia Other Pertinent Diagnosis Dysphagia, R BKA, PEG Current Diet Glucerna 1.2 at 50 ml/hr Labs/Tests Reviewed Pertinent Medications Reviewed Height 6 ft 2.4 in Weight 100.8 kg [place] Body Weight (kg) 87.45 BMI 28.2 Subjective/Other Information Glucerna hanging but not infusing at time of visit. Per nurse TF was clamped for PT but pt was tolerating TF at goal rate before. Percent of energy/protein needs met: 87%/100% Burn Absent Trauma Absent #1 Nutrition Diagnosis Inadequate oral intake Diagnosis Progress(for reassessment Continues documentation) Is patient on ventilator? No Is Patient Ambulatory and/or Out of Bed Yes REE-([place]-ambulatory/OOB) [ 2494.869 [id number]] Kcal/Kg value to use for calculation 23 Approximate Energy Requirements Using 2318 kcal/Kg Calculation Used for Recommendations Kcal/kg Additional Notes Protein needs: 60-100 g (0.6-0 .8 g/kg) Fluids: 1 mL/kg inderjit or per MD Nutrition Intervention Change Diet Order: Continue TF Nutrition Support: Glucerna 1.2 at 70 mL/hr Flush 100 mL q4hr Kcal 2,016 Protein (gm) 100 Fluid (mL) 1,352 Goal #1 Continue to meet at least 75% inderjit and pro needs Goal #2 TF tolerance Anticipated Discharge Needs: TF Follow-Up By: 07/02/18 Additional Comments Follow for TF tolerance
[2018-06-26] MEDS: LANTUS SUB-Q SCH (21:37)
[2018-06-27] MEDS: HumaLOG SUB-Q SCH ×4 (01:13→18:17)
[2018-06-27] MEDS: APRESOLINE FEEDTUBE SCH ×3 (06:20→21:36)
[2018-06-27] MEDS: HEPARIN SUB-Q SCH ×3 (06:22→21:37)
[2018-06-27] MEDS: MIRALAX 3350 FEEDTUBE SCH (08:48)
[2018-06-27] MEDS: ASPIRIN FEEDTUBE SCH (08:48)
[2018-06-27] MEDS: PLAVIX FEEDTUBE SCH (08:48)
[2018-06-27] MEDS: COLACE FEEDTUBE SCH ×2 (08:48→21:35)
[2018-06-27] MEDS: LOPRESSOR FEEDTUBE SCH ×2 (08:49→21:35)
[2018-06-27] MEDS: PREVACID SOLUTAB FEEDTUBE SCH ×2 (08:50→21:35)
--- NOTE | 2018-06-27 12:21 | Progress Note ---
Assessment and Plan Assessment and plan: Pneumonia; nosocomial acquired mgt per ID, has completed abx Fecal impaction/intractable nausea vomiting- resolved sp enema and has had BM, now improved -on miralax and improved ACute blood loss anemia Upper GIB -coffee ground emesis now resolved -GI consulted,EGD on 06/16 confirms Dyana lebron tear -sp 1 unit prbc CVA with residual right-sided hemiparesis, dysphagia on meds for secondary prevention Right BKA - Supportive care Hypertension -cont bp meds Diabetes mellitus cont insulins ELVIRA/hypernatremia/ vasomotor nephropathy, has CKD stage 2-3, bl creat about 1.9; now resolved -mgt per Nephrology Hypokalemia -repleted, on K supplement Anemia of chronic illness stable, cont to monitor DVT prophylaxis - scd in light of gi bleed Patient's primary is Dr Erickson. Dispkajal; awaiting SNF placement History Interval history: Review of systems Constitutional: fever resolved, no malaise, no joint pains CVS: No chest pain, no orthopnea, no dyspnea on exertion, no pedal edema GI: no abdo pain or vomiting Respiratory: No shortness of breath, no wheezing, no coughing Hospitalist Physical - Physical exam Narrative exam: General.: Appears well, no distress, nontoxic HEENT: Moist mucous membranes, extraocular muscles intact, no lymphadenopathy Neck: supple Cardiac: S1-S2 heard Lungs: CTA BL Abdomen: belly is soft, NT, ND Extremities: no edema clubbing or cyanosis R LE amputation , wearing prosthesis Skin: no rash or lesions Neurologic: r hemiparesis Psych: calm, and cooperative - Constitutional Vitals: Temp Pulse Resp BP Pulse Ox 97.3 F L 88 18 92/65 100 06/27/18 11:35 06/27/18 11:35 06/27/18 11:35 06/27/18 11:35 06/27/18 11:35 Results - Labs CBC & Chem 7: 06/25/18 04:30 06/25/18 04:30 Labs: Laboratory Last Values WBC 8.1 K/mm3 (4.5-11.0) 06/25/18 04:30 RBC 3.30 M/mm3 (3.65-5.03) L 06/25/18 04:30 Hgb 9.9 gm/dl (11.8-15.2) L 06/25/18 04:30 Hct 29.6 % (35.5-45.6) L 06/25/18 04:30 MCV 90 fl (84-94) 06/25/18 04:30 MCH 30 pg (28-32) 06/25/18 04:30 MCHC 34 % (32-34) 06/25/18 04:30 RDW 17.6 % (13.2-15.2) H 06/25/18 04:30 Plt Count 433 K/mm3 (140-440) 06/25/18 04:30 Lymph % (Auto) 23.5 % (13.4-35.0) 06/19/18 04:50 [place] % (Auto) 8.1 % (0.0-7.3) H 06/19/18 04:50 Eos % (Auto) 5.8 % (0.0-4.3) H 06/19/18 04:50 Baso % (Auto) 1.1 % (0.0-1.8) 06/19/18 04:50 Lymph # 1.8 K/mm3 (1.2-5.4) 06/19/18 04:50 [place] # 0.6 K/mm3 (0.0-0.8) 06/19/18 04:50 Eos # 0.4 K/mm3 (0.0-0.4) 06/19/18 04:50 Baso # 0.1 K/mm3 (0.0-0.1) 06/19/18 04:50 Add Manual Diff Complete 06/20/18 11:04 Total Counted 100 06/20/18 11:04 Seg Neutrophils % 61.5 % (40.0-70.0) 06/19/18 04:50 Seg Neuts % (Manual) 59.0 % (40.0-70.0) 06/20/18 11:04 Band Neutrophils % 0 % 06/20/18 11:04 Lymphocytes % (Manual) 24.0 % (13.4-35.0) 06/20/18 11:04 Reactive Lymphs % (Man) 0 % 06/20/18 11:04 Monocytes % (Manual) 0 % (0.0-7.3) 06/20/18 11:04 Eosinophils % (Manual) 8.0 % (0.0-4.3) H 06/20/18 11:04 Basophils % (Manual) 4.0 % (0.0-1.8) H 06/20/18 11:04 Metamyelocytes % 0 % 06/20/18 11:04 Myelocytes % 5.0 % 06/20/18 11:04 Promyelocytes % 0 % 06/20/18 11:04 Blast Cells % 0 % 06/20/18 11:04 Nucleated RBC % Not Reportable 06/20/18 11:04 Seg Neutrophils # 4.6 K/mm3 (1.8-7.7) 06/19/18 04:50 Seg Neutrophils # Man 5.4 K/mm3 (1.8-7.7) 06/20/18 11:04 Band Neutrophils # 0.0 K/mm3 06/20/18 11:04 Lymphocytes # (Manual) 2.2 K/mm3 (1.2-5.4) 06/20/18 11:04 Abs React Lymphs (Man) 0.0 K/mm3 06/20/18 11:04 Monocytes # (Manual) 0.0 K/mm3 (0.0-0.8) 06/20/18 11:04 Eosinophils # (Manual) 0.7 K/mm3 (0.0-0.4) H 06/20/18 11:04 Basophils # (Manual) 0.4 K/mm3 (0.0-0.1) H 06/20/18 11:04 Metamyelocytes # 0.0 K/mm3 06/20/18 11:04 Myelocytes # 0.5 K/mm3 06/20/18 11:04 Promyelocytes # 0.0 K/mm3 06/20/18 11:04 Blast Cells # 0.0 K/mm3 06/20/18 11:04 WBC Morphology Not Reportable 06/20/18 11:04 Hypersegmented Neuts Not Reportable 06/20/18 11:04 Hyposegmented Neuts Not Reportable 06/20/18 11:04 Hypogranular Neuts Not Reportable 06/20/18 11:04 Smudge Cells Not Reportable 06/20/18 11:04 Toxic Granulation Not Reportable 06/20/18 11:04 Toxic Vacuolation Not Reportable 06/20/18 11:04 Dohle Bodies Not Reportable 06/20/18 11:04 Pelger-Huet Anomaly Not Reportable 06/20/18 11:04 Fadumo Rods Not Reportable 06/20/18 11:04 Platelet Estimate Consistent w auto 06/20/18 11:04 Clumped Platelets Not Reportable 06/20/18 11:04 Plt Clumps, EDTA Not Reportable 06/20/18 11:04 Large Platelets Not Reportable 06/20/18 11:04 Giant Platelets Not Reportable 06/20/18 11:04 Platelet Satelliting Not Reportable 06/20/18 11:04 Plt Morphology Comment Not Reportable 06/20/18 11:04 RBC Morphology Not Reportable 06/20/18 11:04 Dimorphic RBCs Not Reportable 06/20/18 11:04 Polychromasia Not Reportable 06/20/18 11:04 Hypochromasia Not Reportable 06/20/18 11:04 Poikilocytosis 1+ 06/20/18 11:04 Anisocytosis 1+ 06/20/18 11:04 Microcytosis Not Reportable 06/20/18 11:04 Macrocytosis Not Reportable 06/20/18 11:04 Spherocytes Not Reportable 06/20/18 11:04 Pappenheimer Bodies Not Reportable 06/20/18 11:04 Sickle Cells Not Reportable 06/20/18 11:04 Target Cells Not Reportable 06/20/18 11:04 Tear Drop Cells Not Reportable 06/20/18 11:04 Ovalocytes Not Reportable 06/20/18 11:04 Helmet Cells Not Reportable 06/20/18 11:04 [place] Bodies Not Reportable 06/20/18 11:04 [place] Rings Not Reportable 06/20/18 11:04 [place] Cells Not Reportable 06/20/18 11:04 Bite Cells Not Reportable 06/20/18 11:04 Crenated Cell Not Reportable 06/20/18 11:04 Elliptocytes Not Reportable 06/20/18 11:04 Acanthocytes (Spur) Not Reportable 06/20/18 11:04 Rouleaux Not Reportable 06/20/18 11:04 Hemoglobin C Crystals Not Reportable 06/20/18 11:04 Schistocytes Not Reportable 06/20/18 11:04 Malaria parasites Not Reportable 06/20/18 11:04 Eb Bodies Not Reportable 06/20/18 11:04 Hem Pathologist Commnt No 06/20/18 11:04 PT 15.6 Sec. (12.2-14.9) H 06/16/18 10:37 INR 1.20 (0.87-1.13) H 06/16/18 10:37 Sodium 140 mmol/L (137-145) 06/25/18 04:30 Potassium 4.8 mmol/L (3.6-5.0) D 06/25/18 04:30 Chloride 100.8 mmol/L (98-107) 06/25/18 04:30 Carbon Dioxide 27 mmol/L (22-30) 06/25/18 04:30 Anion Gap 17 mmol/L 06/25/18 04:30 BUN 26 mg/dL (9-20) H 06/25/18 04:30 Creatinine 1.3 mg/dL (0.8-1.5) 06/25/18 04:30 Estimated GFR > 60 ml/min 06/25/18 04:30 BUN/Creatinine Ratio 20 % 06/25/18 04:30 Glucose 131 mg/dL (75-100) H 06/25/18 04:30 POC Glucose 151 (70-105) H 06/27/18 11:32 Lactic Acid 1.10 mmol/L (0.7-2.0) 06/14/18 12:50 Calcium 9.2 mg/dL (8.4-10.2) 06/25/18 04:30 Phosphorus 3.20 mg/dL (2.5-4.5) 06/13/18 04:53 Magnesium 2.10 mg/dL (1.7-2.3) 06/07/18 05:15 Iron 33 ug/dL (49-181) L 06/08/18 06:00 TIBC 189 mcg/dL (250-450) L 06/08/18 06:00 Ferritin 1111.0 ng/mL (13.0-400.0) H 06/08/18 06:00 Prealbumin 0.230 g/L (0.200-0.400) 06/03/18 19:51 Urine Color [place] (Yellow) 06/14/18 Unknown Urine Turbidity Turbid (Clear) 06/14/18 Unknown Urine pH 8.0 (5.0-7.0) H 06/14/18 Unknown Ur Specific [place] 1.012 (1.003-1.030) 06/14/18 Unknown Urine Protein >500 mg/dL (Negative) 06/14/18 Unknown Urine Glucose (UA) Neg mg/dL (Negative) 06/14/18 Unknown Urine Ketones Neg mg/dL (Negative) 06/14/18 Unknown Urine Blood Neg (Negative) 06/14/18 Unknown Urine Nitrite Neg (Negative) 06/14/18 Unknown Urine Bilirubin Neg (Negative) 06/14/18 Unknown Urine Urobilinogen 2.0 mg/dL (<2.0) 06/14/18 Unknown Ur Leukocyte Esterase Mod (Negative) 06/14/18 Unknown Urine WBC (Auto) 17.0 /HPF (0.0-6.0) H 06/14/18 Unknown Urine RBC (Auto) 12.0 /HPF (0.0-6.0) 06/14/18 Unknown U Epithel Cells (Auto) 12.0 /HPF (0-13.0) 06/14/18 Unknown Triple Phos Crystals 1+ 06/14/18 Unknown Urine Mucus 1+ /HPF 06/14/18 Unknown Urine Eosinophils None seen (None Seen) 06/08/18 09:55 Urine Creatinine 140.4 mg/dL (0.1-20.0) H 06/08/18 09:55 Protein/Creatinin Ratio 0.26 06/08/18 09:55 Urine Sodium 45 mmol/L 06/08/18 09:55 Urine Total Protein 36 mg/dL (5-11.8) H 06/08/18 09:55 Blood Type O POSITIVE 06/19/18 16:30 Antibody Screen Negative 06/19/18 16:30 Crossmatch See Detail 06/19/18 16:30 Nutrition/Malnutrition Assess - Dietary Evaluation Nutrition/Malnutrition Findings: Nutrition Notes Start: 06/04/18 11:20 Freq: Status: Active Protocol: Document 06/25/18 15:50 RM (Rec: 06/25/18 15:54 RM [id number]) Nutrition Notes Initial or Follow up Reassessment Current Diagnosis Acute Kidney Injury CKD(stage I-IV) Diabetes Hypertension Stroke Hyperlipidemia Other Pertinent Diagnosis Dysphagia, R BKA, PEG Current Diet Glucerna 1.2 at 50 ml/hr Labs/Tests Reviewed Pertinent Medications Reviewed Height 6 ft 2.4 in Weight 100.8 kg [place] Body Weight (kg) 87.45 BMI 28.2 Subjective/Other Information Glucerna hanging but not infusing at time of visit. Per nurse TF was clamped for PT but pt was tolerating TF at goal rate before. Percent of energy/protein needs met: 87%/100% Burn Absent Trauma Absent #1 Nutrition Diagnosis Inadequate oral intake Diagnosis Progress(for reassessment Continues documentation) Is patient on ventilator? No Is Patient Ambulatory and/or Out of Bed Yes REE-([facility]-ambulatory/OOB) [ 2494.869 [id number]] Kcal/Kg value to use for calculation 23 Approximate Energy Requirements Using 2318 kcal/Kg Calculation Used for Recommendations Kcal/kg Additional Notes Protein needs: 60-100 g (0.6-0 .8 g/kg) Fluids: 1 mL/kg inderjit or per MD Nutrition Intervention Change Diet Order: Continue TF Nutrition Support: Glucerna 1.2 at 70 mL/hr Flush 100 mL q4hr Kcal 2,016 Protein (gm) 100 Fluid (mL) 1,352 Goal #1 Continue to meet at least 75% inderjit and pro needs Goal #2 TF tolerance Anticipated Discharge Needs: TF Follow-Up By: 07/02/18 Additional Comments Follow for TF tolerance
[2018-06-27] MEDS: LANTUS SUB-Q SCH (21:51)
[2018-06-28] MEDS: HumaLOG SUB-Q SCH ×4 (00:18→22:54)
[2018-06-28] MEDS: HEPARIN SUB-Q SCH ×3 (05:19→22:37)
[2018-06-28] MEDS: APRESOLINE FEEDTUBE SCH ×3 (05:41→22:35)
--- NOTE | 2018-06-28 08:32 | Progress Note ---
Subjective Date of service: 06/28/18 Principal diagnosis: CVA, Acute on CKD Interval history: 53-year-old LHD male who experienced increased right-sided weakness three days prior to presentation at an outside hospital. He also had decreased balance and gait. He was admitted and worked up for stroke. MRI of brain confirmed the presence of a stroke. A repeat MRI showed a second stroke in a different area. Patient was continued on secondary stroke prevention medications. He had a PEG tube placed and was started on a low volume of TF. He developed acute kidney injury and a nephrology consult was called. He required transfer to the [facility] for management of uncontrolled blood pressure. He was later weaned off of Cardene drip and restarted on oral blood pressure medications. Awaiting approval for discharge to SNF. No complaints of eye discomfort today. Denies issue with vision. No visible abnormality. No current complaints of dyspnea, cough, chills, N/V, or pain. Patient is participating in therapy and making good progress. +BM. PEG ok. TF at goal. BP - Continue medications and adjust as needed. please avoid nephrotoxic meds. Prosthesis - new unit arrived and fits well. He is adjusting to it as expected. Has some knee instability due to weakness from the CVA. Will continue to monitor progress. No other issues per patient, nursing or therapy. Discussed need for prolonged therapy at SNF. Patient agreeable. Peer to Peer with [employer] yesterday to overturn SNF denial. Call was later than expected and SNF admissions team was already gone for the weekend. Will transfer as soon as possible for continued therapy. Discussed need to progress towards self care for TF and medication mgmnt as much as possible give his decreased fine motor control. Continue to improve ADLs and mobility. Continue CARDIAC CATH TECH for dysphagia. All available medical records, therapy notes, vitals and labs were reviewed. Objective - Exam Narrative Exam: MUSCULOSKELETAL SPECIALTY EXAM Constitutional: Well developed, well nourished, appropriately groomed, LHD EENT: Hearing intact to finger rustle. Poor dentition. No visible injury to either eye, sclera not red or inflamed, no foreign body appreciated. Respiratory: Clear to auscultation bilaterally , no increased work of breathing. Cardiovascular Regular Rate/ Rhythm, no swelling edema or tenderness in all 4 extremities. All 4 extremities warm. GI : + bowel sounds, soft, NTTP, nondistended, PEG INTEGUMENTARY Normal in all 4 extremities Musuloskeletal BUE and BLE normal without defect, crepitus, sublux, effusion, or TTP except for Right BKA. RUE and RLE 4-/5. Decreased aROM, good pROM, normal tone. LUE and LLE 4+/5, good ROM with normal tone. NEURO: Significant Left facial droop involving upper and lower face (LMN), Tongue protrudes left , sensation on face is assymetric, otherwise CN 2-12 grossly intact. Sensation intact on LEFT extremities and impaired on RIGHT. Coordination intact on left, decreased on right. No tremor noted. Aphasia and dysarthria present but improving. Naming and repetition intact. POSTURE and GAIT: Standing/walking with therapy with some balance deficits. PSYCH: Alert, orientated x3, affect appears normal. Insight appears intact. - Constitutional Vitals: Vital Signs - 12hr 06/27/18 06/27/18 06/28/18 20:41 21:35 05:40 Temperature 37.2 C 37.1 C Pulse Rate 94 H 87 82 Respiratory 18 18 Rate Blood Pressure 129/83 129/83 112/75 O2 Sat by Pulse 96 100 Oximetry 06/28/18 06/28/18 05:41 07:10 Temperature 36.8 C Pulse Rate 85 84 Respiratory 16 Rate Blood Pressure 112/75 131/80 O2 Sat by Pulse 98 Oximetry - Allied health notes Allied health notes reviewed: nursing, PT, ST, OT FIMS assessment as documented by PT/OT/ST: Grooming Patient cleans teeth/dentures: Yes Patient matamoros/brushes hair: Yes Patient washes, rinses and Yes dries face: Patient washes, rinses and Yes dries hands: Patient shaves: No: Pt's brother uses clippers to shave Patient applies make-up: No Patient performs (no make-up/ 0/4 (0%) shaving): Patient performs (w/ make-up/ 0/5 (0%) shaving): Grooming FIM Score 4. Minimal Assistance (Patient = 75% or more. Needs touching.) Toileting Toileting Device Commode over Toilet,Grab Bar Patient able to: Adjust clothes before,Clean self,Adjust clothes after Patient able to perform: 1/3 (33%) Toileting FIM Score 4. Minimal Assistance (Patient = 75% or more. Needs touching.) Social interaction/Memory/Problem solving Social Interaction FIM Score 7. Complete [place] (Interacts appropriately. Controls temper.) Memory FIM Score 7. Complete [place] (Remembers people and routines.) Problem Solving FIM Score 7. Complete [place] (Solves complex problems. Self corrects.) Transfers Mode of Locomotion: Wheelchair Bed/Chair/Wheelchair Transfers 4. Minimal Assistance (Patient = 75% or more. FIM Score Needs touching.) Toilet Transfers FIM Score 4. Minimal Assistance (Patient = 75% or more. Needs touching.) Patient transferred to: Shower Tub Transfers FIM Score 0. Activity does not occur Shower Transfers FIM Score 4. Minimal Assistance (Patient = 75% or more. Needs touching.) Locomotion- Stairs Stairs FIM Score 0. Activity does not occur Locomotion- walk/wheelchair Most Frequent Mode of Wheelchair Locomotion: Ambulation Distance 330 Walking FIM Score 4. Minimal Assistance (Patient = 75% or more. Minimum of 150 ft.) Wheelchair Propulsion Distance 350 Wheelchair FIM Score 6. Modified [place] (Wheels a minimum of 150 ft.) Eating Eating FIM Score 1. Total Assistance (Patient <25% or tube feeding) Dressing-Upper body Patient retrieves clothing No items: Patient applies/removes UE n/a prosthesis or orthosis: Upper Body Dressing FIM Score 5. Supv./Set-Up (Gilbert sets out clothes or applies pros./orth.) Dressing-lower body Lower Body Dressing Device Gm Mobile/Stick Patient retrieves clothing No items: Patient applies/removes LE Yes prosthesis or orthosis: Lower Body Dressing FIM Score 4. Minimal Assistance (Patient = 75% or more. Needs touching.) - Labs CBC & Chem 7: 06/25/18 04:30 06/25/18 04:30 Labs: Laboratory Results - last 72 hr 06/25/18 06/25/18 06/25/18 11:30 17:38 22:22 POC Glucose 147 H 130 H 119 H 06/26/18 06/26/18 06/26/18 05:12 11:18 17:00 POC Glucose 133 H 140 H 141 H 06/26/18 06/27/18 06/27/18 21:22 06:03 11:32 POC Glucose 103 130 H 151 H 06/27/18 06/27/18 06/28/18 17:54 21:37 06:01 POC Glucose 133 H 129 H 122 H Assessment and Plan I69.353 Right non-dom hemiparesis: Monitor for neuro decline. Continue secondary stroke prevention. Discussed recovery and secondary stroke prevention. Monitor for post-stroke depression and s/s of shoulder-hand syndrome. Monitor for safety awareness I69.322 Dysarthria: CARDIAC CATH TECH for improvement in communication and speech I69.391 Dysphagia: CARDIAC CATH TECH to improve swallow function. Continue TF (at goal) with NPO. Monitor and advance diet as safely as able. FEES, MBSS or EStim as needed. Z73.6 ADL dysfunction: OT will work on improving ability to perform ADLs (including assistive devices) to increase independence and decrease caregiver burden and improve functional transfers and mobility training. R26.2 Difficulty walking: PT will work on gait training and proper use of assistive devices and advance as appropriate to use of stairs and outside ambulation on uneven surfaces. R26.81 Unsteadiness on feet: PT will work on improving static and dynamic sitting and standing balance as well as proper use of assistive devices to decrease risk of falls. R26.89 Abnormality of gait: PT will work to improve safety and efficiency of gait through neuromotor training and gait training along with instruction on proper use of assistive devices. Has prosthesis with him M62.81 Muscle weakness: PT & OT will work on strengthening exercises to improve functional strength including mixture of closed and open kinetic chain exercises. R53.81 Debility: PT & OT will work on improving overall functional status to improve participation with ADLs, mobility and social involvement. R53.83 Fatigue: PT & OT will work on improving endurance through aerobic exercises and therapeutic activity while monitoring patients tolerance for activity and vital signs as needed. I10 Hypertension: Adjust as needed. Avoid nephrotoxic meds. Changed metoprolol to BID , monitor, may need dose increase. E78.5 Hyperlipidemia: Continue Statin E11.8 Diabetes: Monitor D 62 and D64.9 Anemia of chronic disease: monitor E87.6 Hypokalemia: Resolved, monitor labs Z89.511 R BKA: final unit delivered and he is adjusting to it. Artificial tears for b/l eyes, monitor Resolved Sepsis/SIRS/ PNA RUL GIB ELVIRA due to ATN at OSH but likely Acute on CKD per consult here DVT ppx: Heparin TID due to renal function GI ppx: prevacid Pain: Continue physical modalities in therapy and pain medications as needed to achieve functional pain control. Sleep: Monitor and address as needed. Bowel: Monitor and address as needed. Appetite: Monitor and address as needed when able to take PO. Discharge planning: Pending therapy progress and care plan meeting. Will continue discussion with therapy team, SW, patient and family. Restrictions/ Precautions: Falls, aspiration WB status: FWB Functional Hx: ADLs: Independent and working Cognition: Independent Mobility: independent Consult: Hospitalists for medical management Nephrology for renal function ID for sepsis/SIRS GI for GIB Appreciate assistance. Barriers to Discharge: Decreased mobility and ability to perform self care, right sided weakness, balance deficits, dysphagia Estimated Length of Stay: 21 days Discharge Destination: SNF
[2018-06-28] MEDS: MIRALAX 3350 FEEDTUBE SCH (09:19)
[2018-06-28] MEDS: ASPIRIN FEEDTUBE SCH (09:19)
[2018-06-28] MEDS: LOPRESSOR FEEDTUBE SCH ×2 (09:19→22:53)
[2018-06-28] MEDS: PLAVIX FEEDTUBE SCH (09:19)
[2018-06-28] MEDS: COLACE FEEDTUBE SCH ×2 (09:19→23:11)
[2018-06-28] MEDS: PREVACID SOLUTAB FEEDTUBE SCH ×2 (09:21→22:37)
[2018-06-28] MEDS: LANTUS SUB-Q SCH (22:37)
[2018-06-29] MEDS: HumaLOG SUB-Q SCH ×4 (04:26→18:48)
[2018-06-29] MEDS: APRESOLINE FEEDTUBE SCH ×3 (05:18→22:00)
[2018-06-29] MEDS: HEPARIN SUB-Q SCH ×3 (05:18→22:00)
--- NOTE | 2018-06-29 06:32 | Progress Note ---
Assessment and Plan Pneumonia; nosocomial acquired mgt per ID, has completed abx Fecal impaction/intractable nausea vomiting- resolved sp enema and has had BM, now improved -on miralax and improved ACute blood loss anemia Upper GIB -coffee ground emesis now resolved -GI consulted,EGD on 06/16 confirms Dyana lebron tear -sp 1 unit prbc CVA with residual right-sided hemiparesis, dysphagia on meds for secondary prevention Right BKA - Supportive care Hypertension -cont bp meds Diabetes mellitus cont insulins ELVIRA/hypernatremia/ vasomotor nephropathy, has CKD stage 2-3, bl creat about 1.9; now resolved -mgt per Nephrology Hypokalemia -repleted, on K supplement Anemia of chronic illness stable, cont to monitor DVT prophylaxis - scd in light of gi bleed Patient's primary is Dr Ericskon. Dispo; awaiting SNF placement Subjective Date of service: 06/28/18 Principal diagnosis: CVA, Acute on CKD Interval history: Same condition Objective - Constitutional Vitals: Vital Signs - 12hr 06/28/18 06/28/18 19:21 23:25 Temperature 97.8 F 98.7 F Pulse Rate 81 82 Respiratory 18 18 Rate Blood Pressure 114/88 125/89 O2 Sat by Pulse 97 96 Oximetry General appearance: Present: no acute distress, well-nourished - EENT Eyes: PERRL, EOM intact ENT: hearing intact, clear oral mucosa Ears: bilateral: normal - Neck Neck: supple, normal ROM - Respiratory Respiratory effort: normal Respiratory: bilateral: CTA - Breasts Breasts: normal - Cardiovascular Rhythm: regular Heart Sounds: Present: S1 & S2. Absent: gallop, rub Extremities: pulses intact, No edema, normal color, Full ROM, abnormal (Rt BKA) - Gastrointestinal General gastrointestinal: Present: soft, non-tender, non-distended, normal bowel sounds - Genitourinary Male genitourinary: normal - Integumentary Integumentary: clear, warm, dry - Musculoskeletal Musculoskeletal: 1, strength equal bilaterally - Neurologic Neurologic: moves all extremities - Psychiatric Psychiatric: memory intact, appropriate mood/affect, intact judgment & insight - Labs CBC & Chem 7: 06/25/18 04:30 06/25/18 04:30 Labs: Abnormal lab results 06/28/18 06/28/18 06/28/18 Range/Units 11:10 17:48 23:33 POC Glucose 156 H 154 H 140 H (70-105)
[2018-06-29] MEDS: COLACE FEEDTUBE SCH ×2 (11:25→22:00)
[2018-06-29] MEDS: PREVACID SOLUTAB FEEDTUBE SCH ×2 (11:32→21:35)
[2018-06-29] MEDS: ASPIRIN FEEDTUBE SCH (11:32)
[2018-06-29] MEDS: LOPRESSOR FEEDTUBE SCH ×2 (11:32→21:44)
[2018-06-29] MEDS: MIRALAX 3350 FEEDTUBE SCH (11:33)
[2018-06-29] MEDS: PLAVIX FEEDTUBE SCH (11:35)
--- NOTE | 2018-06-29 15:42 | Progress Note ---
Assessment and Plan Pneumonia; nosocomial acquired mgt per ID, has completed abx Fecal impaction/intractable nausea vomiting- resolved sp enema and has had BM, now improved -on miralax and improved ACute blood loss anemia Upper GIB -coffee ground emesis now resolved -GI consulted,EGD on 06/16 confirms Dyana lebron tear -sp 1 unit prbc CVA with residual right-sided hemiparesis, dysphagia on meds for secondary prevention Right BKA - Supportive care Hypertension -cont bp meds Diabetes mellitus cont insulins ELVIRA/hypernatremia/ vasomotor nephropathy, has CKD stage 2-3, bl creat about 1.9; now resolved -mgt per Nephrology Hypokalemia -repleted, on K supplement Anemia of chronic illness stable, cont to monitor DVT prophylaxis - scd in light of gi bleed Patient's primary is Dr Erickson. Dispo; awaiting SNF placement Subjective Date of service: 06/29/18 Principal diagnosis: CVA, Acute on CKD Interval history: Same condition Objective - Constitutional General appearance: Present: no acute distress, well-nourished - EENT Eyes: PERRL, EOM intact ENT: hearing intact, clear oral mucosa Ears: bilateral: normal - Neck Neck: supple, normal ROM - Respiratory Respiratory effort: normal Respiratory: bilateral: CTA - Breasts Breasts: normal - Cardiovascular Rhythm: regular Heart Sounds: Present: S1 & S2. Absent: gallop, rub Extremities: pulses intact, No edema, normal color, Full ROM, abnormal (R BKA) - Gastrointestinal General gastrointestinal: Present: soft, non-tender, non-distended, normal bowel sounds - Genitourinary Male genitourinary: normal - Integumentary Integumentary: clear, warm, dry - Musculoskeletal Musculoskeletal: 1, strength equal bilaterally - Neurologic Neurologic: moves all extremities - Psychiatric Psychiatric: memory intact, appropriate mood/affect, intact judgment & insight - Labs CBC & Chem 7: 06/25/18 04:30 06/25/18 04:30 Labs: Abnormal lab results 06/28/18 06/28/18 Range/Units 17:48 23:33 POC Glucose 154 H 140 H (70-105)
[2018-06-29] MEDS: PROCRIT SUB-Q SCH (17:01)
[2018-06-29] MEDS: LANTUS SUB-Q SCH (22:00)
[2018-06-30] MEDS: HumaLOG SUB-Q SCH ×3 (06:00→12:34)
[2018-06-30 06:20] LABS: Basophils # (Auto) 0.1 K/mm3 (0.0-0.1); Basophils % (Auto) 0.9 % (0.0-1.8); Eosinophils # (Auto) 0.3 K/mm3 (0.0-0.4); Eosinophils % (Auto) 6.1 % (0.0-4.3); Hematocrit 33.3 % (35.5-45.6); Hemoglobin 10.9 gm/dl (11.8-15.2); Mean Corpuscular HGB Conc 33 % (32-34); Mean Corpuscular Volume 91 fl (84-94); Monocytes # (Auto) 0.4 K/mm3 (0.0-0.8); Monocytes % (Auto) 6.7 % (0.0-7.3); Platelet Count 363 K/mm3 (140-440); Red Blood Count 3.66 M/mm3 (3.65-5.03)
[2018-06-30] MEDS: HEPARIN SUB-Q SCH ×2 (06:32→13:49)
[2018-06-30] MEDS: APRESOLINE FEEDTUBE SCH ×2 (06:32→13:56)
[2018-06-30 06:45] LABS: BUN/Creatinine Ratio 21; Blood Urea Nitrogen 30 mg/dL (9-20); Calcium 9.3 mg/dL (8.4-10.2); Hemolysis Index 4
[2018-06-30] MEDS ORDERED: BABY ASPIRIN FEEDTUBE SCH (08:00)
[2018-06-30] MEDS: MIRALAX 3350 FEEDTUBE SCH (08:04)
[2018-06-30] MEDS: PLAVIX FEEDTUBE SCH (08:04)
[2018-06-30] MEDS: COLACE FEEDTUBE SCH (08:04)
[2018-06-30] MEDS: LOPRESSOR FEEDTUBE SCH (08:04)
[2018-06-30] MEDS: PREVACID SOLUTAB FEEDTUBE SCH (08:07)
--- NOTE | 2018-06-30 15:22 | Discharge Summary ---
Providers - Providers Date of Admission: 06/03/18 17:09 Date of discharge: 06/30/18 Attending physician: LUIS A ISLAS III, MD 06/03/18 17:09 Consult to Dietitian/Nutrition [CONS] Routine Physician Instructions: Reason For Exam: Reason for Consult: Write/Manage Tube Feeding Consult to Physician [CONS] Routine Comment: CONSULT COMPLETED Consulting Provider: RUBY CARTER Physician Instructions: Reason For Exam: Medical Management Consult to Physician [CONS] Routine Comment: Patient known from [facility]/NOTIFIED - [facility] Consulting Provider: FELIX JACOBSEN Physician Instructions: Reason For Exam: Renal Function Occupational Therapy Evaluate and Treat [CONS] Routine Comment: Reason For Exam: Eval and treat ADL dysfunction CVA Physical Therapy Evaluation and Treat [CONS] Routine Comment: Reason For Exam: Eval and treat mobility dysfunction CVA Speech Therapy Evaluation and Treat [CONS] Routine Reason For Exam: Eval and treat dysphagia and cog CVA 06/03/18 17:13 Consult to Case Management [CONS] Routine Services Needed at Discharge: Home Health Services Notified:: [employer] 06/03/18 17:25 Consult to Dietitian/Nutrition [CONS] Routine Physician Instructions: Assess nutrtn needs, initiate, modify, manage TF Reason For Exam: Reason for Consult: Write/Manage Tube Feeding Reason for Consult: Write/Manage Tube Feeding 06/14/18 17:03 Consult to Physician [CONS] Routine Comment: NOTIFIED @17:15,STATED WILL FOLLOW UP TOMORROW Consulting Provider: MANNY ERVIN Physician Instructions: Reason For Exam: SEPSIS 06/15/18 11:22 Consult to Physician [CONS] Routine Comment: CONSULT - COMPLETED Consulting Provider: LISA MCFARLAND Physician Instructions: Reason For Exam: fecal retention 06/17/18 15:42 Consult to Dietitian/Nutrition [CONS] Routine Physician Instructions: Assess nutrtn needs, initiate, modify, manage TF Reason For Exam: Reason for Consult: Write/Manage Tube Feeding Reason for Consult: Write/Manage Tube Feeding Primary care physician: LUIS CARLOS ROJAS Hospitalization Reason for admission: Multiple CVAs with Right hemiparesis Condition: Good Pertinent studies: MBSS 06/12/2018 Patient presents with an oral/pharyngeal phase dysphagia characterized by poor A-P movement of tbe bolus, premature spillage of the contents into the subhash leculae space and stasis in the pyriform sinuses. Patient was unable to clear the pharynx with noted reflux of the contents into the oral cavity. Patient also exhibits an absent swallow reflex which increases the risk for aspiration. Procedures: EGD dated 06/16/2018 2 small Dyana-Sun tears Grade 2 esophagitis Otherwise benign Hospital course: 53-year-old LHD male who experienced increased right-sided weakness three days prior to presentation at an outside hospital. He also had decreased balance and gait. He was admitted and worked up for stroke. MRI of brain confirmed the presence of a stroke. A repeat MRI showed a second stroke in a different area. Patient was continued on secondary stroke prevention medications. He had a PEG tube placed and was started on a low volume of TF. He developed acute kidney injury and a nephrology consult was called. He required transfer to the [facility] for management of uncontrolled blood pressure. He was later weaned off of Cardene drip and restarted on oral blood pressure medications. Prior to acceptance ,out of concern for his renal function and uncontrolled blood pressures, I had the opportunity to talk to his training lead who stated he had improved over the last couple of days and he felt he was stable to participate in an acute rehab program. PEG placed at OSH on 05/26/2018. Once in our rehabilitation program patient tolerated therapy and participated and progressed fairly well. His prior prosthesis was ill fitting and a new prosthesis was ordered and fitted and delivered prior to discharge. He also has new supplies with him for the prosthesis. During his stay with us attempted a modified barium study in order to advance the patient's diet however he exhibited absent swallow reflex and was kept nothing by mouth on a tube feed diet. Approximately midway through his stay he developed pneumonia with sepsis which was treated with IV antibiotics. An ID consult was obtained. Sepsis and pneumonia resolved and he has been afebrile since 06/15/2018. During this time he also developed hematochezia resulting in a GI consult with an EGD being performed. His hemoglobin was low resulting in a transfusion of one unit PRBCs. He was placed on Procrit earlier in his stay by nephrology. His last hemoglobin is 10.9 as of this morning. Still has issues using the right side due to hemiparesis however he is able to ambulate with a rolling walker and assistance. He is improving his ability to perform ADLs. Fine motor control and higher level functioning is still in need of improvement. 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 (7) Anemia Status: Chronic Qualifiers: Anemia type: due to chronic kidney disease (8) Acquired absence of right leg below knee Status: Chronic Core Measure Documentation - Palliative Care Palliative Care/ Comfort Measures: Not Applicable - Core Measures Any of the following diagnoses?: stroke - Stroke Discharge Requirements Statin for LDL = or >70 mg/dl on DC: Yes Anticoag for atrial fib/atrial flutter: Not Applicable Antithrombotic for ischemic stroke: Yes Exam - Physical Exam Narrative exam: MUSCULOSKELETAL SPECIALTY EXAM Constitutional: Well developed, well nourished, appropriately groomed, LHD EENT: Hearing intact to finger rustle. Poor dentition. Respiratory: Clear to auscultation bilaterally , no increased work of breathing. Cardiovascular Regular Rate/ Rhythm, no swelling edema or tenderness in all 4 extremities. All 4 extremities warm. GI : + bowel sounds, soft, NTTP, nondistended, PEG INTEGUMENTARY Normal in all 4 extremities Musuloskeletal BUE and BLE normal without defect, crepitus, sublux, effusion, or TTP - except for Right BKA. RUE and RLE 4-/5. Decreased aROM, good pROM, normal tone. LUE and LLE 4+/5, good ROM with normal tone. NEURO: Significant Left facial droop involving upper and lower face (LMN), Tongue protrudes left , sensation on face is assymetric, otherwise CN 2-12 grossly intact. Sensation intact on LEFT extremities and impaired on RIGHT. Coordination intact on left, decreased on right. No tremor noted. Aphasia and dysarthria present but improving. Naming and repetition intact. POSTURE and GAIT: Standing/walking with therapy with some balance deficits. PSYCH: Alert, orientated x3, affect appears normal. Insight appears intact. - Constitutional Vitals: Temp Pulse Resp BP Pulse Ox 36.2 C L 83 18 99/75 94 06/30/18 12:11 06/30/18 12:11 06/30/18 12:11 06/30/18 12:11 06/30/18 12:11 - Allied Health Allied health notes reviewed: nursing, PT, ST, OT Plan Activity: advance as tolerated, no driving until cleared by PCP, up only with assistance, fall precautions Weight Bearing Status: Full Weight Bearing Diet: other (NPO. TF Glucerna 1.2 @ 70mL/hr. Water flush 100mL q6hr) Special Instructions: follow up in rehab, physical therapy, occupational therapy Durable Medical Equipment Needed Upon Discharge: Walker-Rolling, Wheelchair Follow up with: LUIS CARLOS ROJAS MD [Primary Care Provider] - 7 Days Prescriptions: AtorvaSTATin [Lipitor] 40 mg FEEDTUBE QHS #30 tablet Insulin Glargine [Lantus VIAL] 20 units SUB-Q QHS 30 Days units Acetaminophen [Acetaminophen SUPPOS] 650 mg AK Q4H PRN #10 supp.rect PRN Reason: Pain, Mild (1-3) Aspirin [Aspirin BABY CHEW TAB] 81 mg FEEDTUBE QDAY #30 tab.chew Clopidogrel [Plavix] 75 mg FEEDTUBE QDAY #30 tablet Docusate Sodium [Colace ORAL LIQ] 100 mg FEEDTUBE BID 30 Days oral.liqd Epoetin Abhijeet 10,000 Unit [Procrit] 10,000 unit SUB-Q Webb #4 vial hydrALAZINE [Apresoline TAB] 25 mg FEEDTUBE Q8HR #90 tablet Lansoprazole Solutab [Prevacid Solutab] 30 mg FEEDTUBE BID #30 tab.rapdis Lipase/Protease/Amylase [Pancreaze Dr 10,500 Unit] 1 each FEEDTUBE PRN PRN #10 capsule PRN Reason: For Clogged Feeding Tube Lispro Insulin [Humalog] 0 unit SUB-Q Q6HR 30 Days units Metoprolol [Lopressor TAB] 50 mg FEEDTUBE BID #60 tablet Polyethylene Glycol 3350 [Miralax 3350] 17 gm FEEDTUBE QDAY #30 powd.pack
[2018-06-30 15:48] VITALS: BP 107/83
== END 2018-06-30 17:38 | DRG 64 ==
LOC: UNDOADMIN 15:21 → 3A 15:21 → 3B 17:09
PROVIDERS: ADMIT Physical Medicine & Rehabilitation; ATTEND Physical Medicine & Rehabilitation
PROC: 0DB38ZX Excision of Lower Esophagus, Via Natural or Artificial Opening Endoscopic, Diagnostic (ICD-10-PCS; principal; 2018-06-16)
PROC: 30233N1 Transfusion of Nonautologous Red Blood Cells into Peripheral Vein, Percutaneous Approach (ICD-10-PCS; 2018-06-20)
DX: I63.9 Cerebral infarction, unspecified (principal); A41.9 Sepsis, unspecified organism; N17.0 Acute kidney failure with tubular necrosis; J96.00 Acute respiratory failure, unspecified whether with hypoxia or hypercapnia; J18.1 Lobar pneumonia, unspecified organism; E87.0 Hyperosmolality and hypernatremia; N39.0 Urinary tract infection, site not specified; K92.2 Gastrointestinal hemorrhage, unspecified; D62 Acute posthemorrhagic anemia; I69.353 Hemiplegia and hemiparesis following cerebral infarction affecting right non-dominant side; E78.5 Hyperlipidemia, unspecified; R47.1 Dysarthria and anarthria; R26.2 Difficulty in walking, not elsewhere classified; Y95 Nosocomial condition; M62.81 Muscle weakness (generalized); R53.81 Other malaise; N18.9 Chronic kidney disease, unspecified; D63.1 Anemia in chronic kidney disease; I12.9 Hypertensive chronic kidney disease with stage 1 through stage 4 chronic kidney disease, or unspecified chronic kidney disease; E11.22 Type 2 diabetes mellitus with diabetic chronic kidney disease; R13.12 Dysphagia, oropharyngeal phase; E87.6 Hypokalemia; K56.41 Fecal impaction; K44.9 Diaphragmatic hernia without obstruction or gangrene; K20.9 Esophagitis, unspecified; E87.5 Hyperkalemia; Z89.511 Acquired absence of right leg below knee; Z82.3 Family history of stroke; Z83.3 Family history of diabetes mellitus; Z82.49 Family history of ischemic heart disease and other diseases of the circulatory system; Z87.891 Personal history of nicotine dependence; Z79.82 Long term (current) use of aspirin; Z79.899 Other long term (current) drug therapy; Z93.1 Gastrostomy status
CPT/HCPCS: 36415; 71046; 74018; 74230; 80048; 81001; 82140; 82270; 82570; 82728; 82962; 83550; 83735; 84100; 84134; 84156; 84300; 85007; 85018; 85025; 85027; 85610; 86850; 86900; 86901; 86920; 87040; 87086; 88305; 88312; 88342; 89050; 93005; 93010; 94640; 94760; G0378; A9270-GY; C9113; J0692; J0696; J0885; J1644; J1815; J1956; J2405; J2704; J2765; J7030; J7040; P9016

== ENCOUNTER 2020-01-13 11:32 | Emergency (ER) | payer SELFPAY ==
[2020-01-13] MEDS ORDERED: SODIUM CHLORIDE 0.9% 1000 ML 1,000 ML IV ONE ×2 (14:46→16:02)
[2020-01-13 15:55] LABS: Basophils # (Auto) 0.1 K/mm3 (0.0-0.1); Basophils % (Auto) 0.5 % (0.0-1.8); Eosinophils # (Auto) 0.1 K/mm3 (0.0-0.4); Hematocrit 32.5 % (35.5-45.6); Hemoglobin 10.6 gm/dl (11.8-15.2); Lymphocytes # (Auto) 1.3 K/mm3 (1.2-5.4); Lymphocytes % (Auto) 10.9 % (13.4-35.0); Mean Corpuscular HGB Conc 33 % (32-34); Mean Corpuscular Volume 85 fl (84-94); Monocytes # (Auto) 0.8 K/mm3 (0.0-0.8); Monocytes % (Auto) 6.3 % (0.0-7.3); Platelet Count 592 K/mm3 (140-440); Red Blood Count 3.81 M/mm3 (3.65-5.03); Red Cell Distribution Width 14.7 % (13.2-15.2)
[2020-01-13] MEDS ORDERED: ONDANSETRON 4 MG/2 ML INJ IV ONE (16:02)
--- NOTE | 2020-01-13 16:04 | Emergency Department Report ---
ED N/V/D HPI - General Chief complaint: Nausea/Vomiting/Diarrhea Stated complaint: DEHYDRATION PUI?: No Time Seen by Provider: 01/13/20 14:44 Source: patient Mode of arrival: Wheelchair Limitations: No Limitations - History of Present Illness Initial comments: Chief complaint: I have been vomiting. I feel dehydrated." This is a 54-year-old male with history of CVA, hemiplegia hypertension, hyperlipidemia, diabetes mellitus, right BKA who presents with nausea and vomiting since yesterday. He feels that he may have eaten too much on yesterday. He denies abdominal pain or fever. He denies diarrhea. He denies cough, shortness of breath. MD complaint: nausea, vomiting -: Gradual, days(s) (1) Description of Vomiting: food contents Associated Abdominal Pain: No Severity: moderate Worsens with: eating Associated Symptoms: denies other symptoms - Related Data Previous Rx's Medication Instructions Recorded Last Taken Type Acetaminophen [Acetaminophen 650 mg [place] Q4H PRN #10 supp.rect 06/30/18 Unknown Rx SUPPOS] Aspirin [Aspirin BABY CHEW TAB] 81 mg FEEDTUBE QDAY #30 tab.chew 06/30/18 Unk nown Rx AtorvaSTATin [Lipitor] 40 mg FEEDTUBE QHS #30 tablet 06/30/18 Unknown Rx Clopidogrel [Plavix] 75 mg FEEDTUBE QDAY #30 tablet 06/30/18 Unknown Rx Docusate Sodium [Colace ORAL LIQ] 100 mg FEEDTUBE BID 30 Days 06/30/18 Unknown Rx oral.liqd Epoetin Abhijeet 10,000 Unit [Procrit] 10,000 unit SUB-Q Webb #4 vial 06/30/18 Unknown Rx Insulin Glargine [Lantus VIAL] 20 units SUB-Q QHS 30 Days units 06/30/18 Unknown Rx Lansoprazole Solutab [Prevacid 30 mg FEEDTUBE BID #30 tab.rapdis 06/30/18 Unknown Rx Solutab] Lipase/Protease/Amylase [Pancreaze 1 each FEEDTUBE PRN PRN #10 capsule 06/30/18 Unknown Rx 10,500 Unit] Lispro Insulin [HumaLOG] 0 unit SUB-Q Q6HR 30 Days units 06/30/18 Unknown Rx Metoprolol [Lopressor TAB] 50 mg FEEDTUBE BID #60 tablet 06/30/18 Unknown Rx hydrALAZINE [Apresoline TAB] 25 mg FEEDTUBE Q8HR #90 tablet 06/30/18 Unknown Rx polyethylene glycoL 3350 [Miralax 17 gm FEEDTUBE QDAY #30 powd.pack 06/30/18 Unknown Rx 3350] Allergies Allergy/AdvReac Type Severity Reaction Status Date / Time No Known Allergies Allergy Unverified 08/03/15 12:32 ED Review of Systems ROS: Stated complaint: DEHYDRATION Other details as noted in HPI Comment: All other systems reviewed and negative Constitutional: other ("Dehydrated"). denies: fever Respiratory: denies: cough, shortness of breath Cardiovascular: denies: chest pain Gastrointestinal: nausea, vomiting. denies: abdominal pain, diarrhea Neurological: denies: headache ED Past Medical Hx - Past Medical History Previous Medical History?: Yes Hx Hypertension: Yes (on htn medicine) Hx CVA: Yes Hx Diabetes: Yes Additional medical history: High cholesterol - Surgical History Past Surgical History?: Yes Additional Surgical History: Right BKA - Social History Smoking Status: Never Smoker - Medications Home Medications: Home Medications Medication Instructions Recorded Confirmed Last Taken Type Acetaminophen [Acetaminophen 650 mg NJ Q4H PRN #10 supp.rect 06/30/18 Unknown Rx SUPPOS] Aspirin [Aspirin BABY CHEW TAB] 81 mg FEEDTUBE QDAY #30 tab.chew 06/30/18 Unknown Rx AtorvaSTATin [Lipitor] 40 mg FEEDTUBE QHS #30 tablet 06/30/18 Unknown Rx Clopidogrel [Plavix] 75 mg FEEDTUBE QDAY #30 tablet 06/30/18 Unknown Rx Docusate Sodium [Colace ORAL LIQ] 100 mg FEEDTUBE BID 30 Days 06/30/18 Unknown Rx oral.liqd Epoetin Abhijeet 10,000 Unit [Procrit] 10,000 unit SUB-Q Webb #4 vial 06/30/18 Unknown Rx Insulin Glargine [Lantus VIAL] 20 units SUB-Q QHS 30 Days units 06/30/18 Unknown Rx Lansoprazole Solutab [Prevacid 30 mg FEEDTUBE BID #30 tab.rapdis 06/30/18 Unknown Rx Solutab] Lipase/Protease/Amylase [Pancreaze 1 each FEEDTUBE PRN PRN #10 capsule 06/30/[address] 10,500 Unit] Lispro Insulin [HumaLOG] 0 unit SUB-Q Q6HR 30 Days units 06/30/18 Unknown Rx Metoprolol [Lopressor TAB] 50 mg FEEDTUBE BID #60 tablet 06/30/18 Unknown Rx hydrALAZINE [Apresoline TAB] 25 mg FEEDTUBE Q8HR #90 tablet 06/30/18 Unknown Rx polyethylene glycoL 3350 [Miralax 17 gm FEEDTUBE QDAY #30 powd.pack 06/30/18 Unknown Rx 3350] ED Physical Exam - General Limitations: No Limitations General appearance: alert, in no apparent distress - Head Head exam: Present: atraumatic, normocephalic - Eye Eye exam: Present: normal appearance - ENT ENT exam: Present: mucous membranes moist - Neck Neck exam: Present: normal inspection, full ROM - Respiratory Respiratory exam: Present: normal lung sounds bilaterally. Absent: respiratory distress, wheezes, rales, rhonchi - Cardiovascular Cardiovascular Exam: Present: regular rate, normal rhythm, normal heart sounds. Absent: systolic murmur, diastolic murmur, rubs, gallop - GI/Abdominal GI/Abdominal exam: Present: soft, normal bowel sounds. Absent: distended, tenderness, guarding, rebound - Extremities Exam Extremities exam: Present: other (Right lower extremity: Prosthesis in place) - Neurological Exam Neurological exam: Present: alert, oriented X3 - Psychiatric Psychiatric exam: Present: normal affect, normal mood - Skin Skin exam: Present: warm, dry, intact, normal color. Absent: rash ED Course Vital Signs 01/13/20 11:46 Temperature 98.2 F Pulse Rate 115 H Respiratory 18 Rate Blood Pressure 107/68 O2 Sat by Pulse 98 Oximetry ED Medical Decision Making - Lab Data Result diagrams: 01/13/20 15:31 01/13/20 15:35 - Medical Decision Making Nausea vomiting without fever or abdominal pain. Differential diagnosis includes viral syndrome, food poisoning, gastroparesis, IBS. Mild leukocytosis seen on CBC. Without indication of peritonitis, Patient's kidney function has declined since 2019 when he was admitted for CVA. He states that he has been without primary medical care due to lack of insurance. Although he is severely disabled with hemiplegia after stroke and right BKA, he does not have Medicaid or Medicare insurance. He lives with his brother. He is attempting to obtain healthcare insurance. In that time he has been without medication. I informed him that he will need primary care physician to watch his kidney function. I suspect acute on chronic renal insufficiency. The patient was treated with IV fluid therapy 2 L normal saline. Patient did have CKD in 2019 I have prescribed promethazine. I have referred him to our outpatient medicine physician. Critical care attestation.: If time is entered above; I have spent that time in minutes in the direct care of this critically ill patient, excluding procedure time. ED Disposition Clinical Impression: Vomiting, Acute on chronic renal insufficiency Disposition: TO HOME OR SELFCARE Is pt being admited?: No Does the pt Need Aspirin: No Condition: Stable Instructions: Chronic Kidney Disease (ED) Referrals: NATALYA ORTEGA FNP-C [Primary Care Provider] - 3-5 Days BHUPENDRA FARIA MD [Staff Physician] - 3-5 Days
[2020-01-13 16:16] LABS: Albumin 3.8 g/dL (3.9-5); Calcium 9.7 mg/dL (8.4-10.2)
[2020-01-13 18:38] VITALS: BP 133/87
== END 2020-01-13 17:20 | disposition home or self-care (01) ==
LOC: ED 11:32
DX: N18.9 Chronic kidney disease, unspecified (principal)
CPT/HCPCS: 36415; 80053; 83690; 85025; 96361; 96374; 99283; J2405; J7030

== ENCOUNTER 2020-01-18 19:57 | Inpatient (IN) | payer OTHER ==
[2020-01-18] MEDS ORDERED: ONDANSETRON 4 MG/2 ML INJ IV ONE (20:26)
[2020-01-18] MEDS ORDERED: SODIUM CHLORIDE 0.9% 1000 ML 1,000 ML IV ONE (20:26)
--- NOTE | 2020-01-18 20:27 | Emergency Department Report ---
ED General Adult HPI - General Chief complaint: Nausea/Vomiting/Diarrhea Stated complaint: SEPSIS Time Seen by Provider: 01/18/20 20:08 Source: patient, EMS Mode of arrival: Stretcher Limitations: Physical Limitation - History of Present Illness Initial comments: Patient presents to the emergency department the chief complaint of nausea and vomiting that has been present for the last month. Patient states he presented to the emergency department today because he was looking for some answers to why he was vomiting so much. Patient denies any chest pain or shortness of breath or diarrhea. -: Sudden Severity scale (0 -10): 0 Consistency: constant Improves with: none Worsens with: none Associated Symptoms: denies other symptoms Treatments Prior to Arrival: none - Related Data Previous Rx's Medication Instructions Recorded Last Taken Type Acetaminophen [Acetaminophen 650 mg [place] Q4H PRN #10 supp.rect 06/30/18 Unknown Rx SUPPOS] Aspirin [Aspirin BABY CHEW TAB] 81 mg FEEDTUBE QDAY #30 tab.chew 06/30/18 Unknown Rx AtorvaSTATin [Lipitor] 40 mg FEEDTUBE QHS #30 tablet 06/30/18 Unknown Rx Clopidogrel [Plavix] 75 mg FEEDTUBE QDAY #30 tablet 06/30/18 Unknown Rx Docusate Sodium [Colace ORAL LIQ] 100 mg FEEDTUBE BID 30 Days 06/30/18 Unknown Rx oral.liqd Epoetin Abhijeet 10,000 Unit [Procrit] 10,000 unit SUB-Q Webb #4 vial 06/30/18 Unknown Rx Insulin Glargine [Lantus VIAL] 20 units SUB-Q QHS 30 Days units 06/30/18 Unknown Rx Lansoprazole Solutab [Prevacid 30 mg FEEDTUBE BID #30 tab.rapdis 06/30/18 Unkn own Rx Solutab] Lipase/Protease/Amylase [Pancreaze 1 each FEEDTUBE PRN PRN #10 capsule 06/30/[address] 10,500 Unit] Lispro Insulin [HumaLOG] 0 unit SUB-Q Q6HR 30 Days units 06/30/18 Unknown Rx Metoprolol [Lopressor TAB] 50 mg FEEDTUBE BID #60 tablet 06/30/18 Unknown Rx hydrALAZINE [Apresoline TAB] 25 mg FEEDTUBE Q8HR #90 tablet 06/30/18 Unknown Rx polyethylene glycoL 3350 [Miralax 17 gm FEEDTUBE QDAY #30 powd.pack 06/30/18 Unknown Rx 3350] Promethazine [Phenergan] 25 mg PO Q6HR PRN #20 tab 01/13/20 Unknown Rx Allergies Allergy/AdvReac Type Severity Reaction Status Date / Time No Known Allergies Allergy Unverified 08/03/15 12:32 ED Review of Systems ROS: Stated complaint: SEPSIS Other details as noted in HPI Constitutional: denies: chills, fever Eyes: denies: eye pain, eye discharge, vision change ENT: denies: ear pain, throat pain Respiratory: denies: cough, shortness of breath, wheezing Cardiovascular: denies: chest pain, palpitations Endocrine: no symptoms reported Gastrointestinal: nausea, vomiting. denies: abdominal pain, diarrhea Genitourinary: denies: urgency, dysuria Musculoskeletal: denies: back pain, joint swelling, arthralgia Skin: denies: rash, lesions Neurological: denies: headache, weakness, paresthesias Psychiatric: denies: anxiety, depression Hematological/Lymphatic: denies: easy bleeding, easy bruising ED Past Medical Hx - Past Medical History Previous Medical History?: Yes Hx Hypertension: Yes (on htn medicine) Hx CVA: Yes Hx Diabetes: Yes Additional medical history: High cholesterol, gastritis - Surgical History Past Surgical History?: Yes Additional Surgical History: Right BKA - Social History Smoking Status: Never Smoker - Medications Home Medications: Home Medications Medication Instructions Recorded Confirmed Last Taken Type Acetaminophen [Acetaminophen 650 mg [place] Q4H PRN #10 supp.rect 06/30/18 Unknown Rx SUPPOS] Aspirin [Aspirin BABY CHEW TAB] 81 mg FEEDTUBE QDAY #30 tab.chew 06/30/18 Unknown Rx AtorvaSTATin [Lipitor] 40 mg FEEDTUBE QHS #30 tablet 06/30/18 Unknown Rx Clopidogrel [Plavix] 75 mg FEEDTUBE QDAY #30 tablet 06/30/18 Unknown Rx Docusate Sodium [Colace ORAL LIQ] 100 mg FEEDTUBE BID 30 Days 06/30/18 Unknown Rx oral.liqd Epoetin Abhijeet 10,000 Unit [Procrit] 10,000 unit SUB-Q Webb #4 vial 06/30/18 Unknown Rx Insulin Glargine [Lantus VIAL] 20 units SUB-Q QHS 30 Days units 06/30/18 Unknown Rx Lansoprazole Solutab [Prevacid 30 mg FEEDTUBE BID #30 tab.rapdis 06/30/18 Unknown Rx Solutab] Lipase/Protease/Amylase [Pancreaze 1 each FEEDTUBE PRN PRN #10 capsule 06/30/18 Unknown Rx 10,500 Unit] Lispro Insulin [HumaLOG] 0 unit SUB-Q Q6HR 30 Days units 06/30/18 Unknown Rx Metoprolol [Lopressor TAB] 50 mg FEEDTUBE BID #60 tablet 06/30/18 Unknown Rx hydrALAZINE [Apresoline TAB] 25 mg FEEDTUBE Q8HR #90 tablet 06/30/18 Unknown Rx polyethylene glycoL 3350 [Miralax 17 gm FEEDTUBE QDAY #30 powd.pack 06/30/18 Unknown Rx 3350] Promethazine [Phenergan] 25 mg PO Q6HR PRN #20 tab 01/13/20 Unknown Rx ED Physical Exam - General Limitations: Physical Limitation General appearance: alert, in no apparent distress, other (Patient has moderate aphasia secondary to a prior CVA) - Head Head exam: Present: atraumatic, normocephalic - Eye Eye exam: Present: normal appearance, PERRL - ENT ENT exam: Present: mucous membranes dry - Neck Neck exam: Present: normal inspection - Respiratory Respiratory exam: Present: normal lung sounds bilaterally. Absent: respiratory distress - Cardiovascular Cardiovascular Exam: Present: normal rhythm, tachycardia. Absent: systolic murmur, diastolic murmur, rubs, gallop - GI/Abdominal GI/Abdominal exam: Present: soft, tenderness (Mild tenderness to palpation right upper quadrant), normal bowel sounds. Absent: distended - Rectal Rectal exam: Present: deferred - Extremities Exam Extremities exam: Present: other (Patient has a prosthetic right leg secondary to a right BKA) - Back Exam Back exam: Present: normal inspection - Neurological Exam Neurological exam: Present: alert, oriented X3, CN II-XII intact, other (Patient has residual right side upper extremity deficits from a prior CVA). Absent: motor sensory deficit - Psychiatric Psychiatric exam: Present: normal affect, normal mood - Skin Skin exam: Present: warm, dry, intact, normal color. Absent: rash ED Course Vital Signs 01/18/20 01/18/20 01/18/20 20:05 20:30 20:46 Temperature 98.4 F Pulse Rate 124 H 123 H 124 H Respiratory 21 25 H 25 H Rate Blood Pressure 114/86 114/86 Blood Pressure 114/86 [Right] O2 Sat by Pulse 100 99 100 Oximetry 01/18/20 01/18/20 01/18/20 21:00 21:16 21:30 Temperature Pulse Rate 126 H 122 H 123 H Respiratory 19 25 H 25 H Rate Blood Pressure 114/86 105/77 105/77 Blood Pressure [Right] O2 Sat by Pulse 100 100 Oximetry 01/18/20 01/18/20 01/18/20 21:46 22:00 22:16 Temperature Pulse Rate 118 H 115 H 114 H Respiratory 21 21 21 Rate Blood Pressure 105/77 105/77 105/77 Blood Pressure [Right] O2 Sat by Pulse 100 100 100 Oximetry 01/18/20 22:30 Temperature Pulse Rate 113 H Respiratory 18 Rate Blood Pressure 105/77 Blood Pressure [Right] O2 Sat by Pulse 100 Oximetry ED Medical Decision Making - Lab Data Result diagrams: 01/18/20 20:17 01/18/20 20:17 Critical Care Time: Yes Critical care time in (mins) excluding proc time.: 35 Critical care attestation.: If time is entered above; I have spent that time in minutes in the direct care of this critically ill patient, excluding procedure time. ED Disposition Clinical Impression: Sepsis, Cholecystitis Disposition: OP ADMIT IP TO THIS HOSP Is pt being admited?: Yes Does the pt Need Aspirin: No Condition: Fair Referrals: PRIMARY CARE, [Primary Care Provider] - 3-5 Days
[2020-01-18 20:47] LABS: Hemoglobin 10.1 gm/dl (11.8-15.2); Mean Corpuscular HGB Conc 35 % (32-34); Mean Corpuscular Volume 87 fl (84-94); Platelet Count 672 K/mm3 (140-440); Red Blood Count 3.35 M/mm3 (3.65-5.03); Red Cell Distribution Width 14.8 % (13.2-15.2)
[2020-01-18 21:13] LABS: Calcium 8.6 mg/dL (8.4-10.2)
--- NOTE | 2020-01-18 21:25 | Cat Scan Report ---
CT ABDOMEN PELVIS WITHOUT CONTRAST INDICATION / CLINICAL INFORMATION: n/v x 1 month. TECHNIQUE: Axial CT images were obtained through the abdomen and pelvis without IV contrast. All CT scans at [facility] location are performed using CT dose reduction for ALARA by means of automated exposure control. COMPARISON: 08/23/2015 FINDINGS: LOWER CHEST: Faint multifocal diffuse pulmonary changes right more severe effected than left without evidence of consolidation. Rmdva-bfncdn-qnlkajfhx esophagus is present LIVER: No significant abnormality. GALLBLADDER: Markedly abnormal appearance in the region of the gallbladder-gallbladder fossa with a c omplex fluid collection with multiple pockets of air-gas with surrounding reticulation of fat acute-c hronic cholecystitis is a concern BILE DUCTS: No significant abnormality. PANCREAS: No significant abnormality. SPLEEN: No significant abnormality. ADRENALS: No significant abnormality. RIGHT KIDNEY and URETER: No significant abnormality. LEFT KIDNEY and URETER: No significant abnormality. STOMACH and SMALL BOWEL: Marked gastric distention is present. Significant thickening of the second t hird portion of the duodenum COLON: No significant abnormality. APPENDIX: No significant abnormality. PERITONEUM: No free fluid. No free air. No fluid collection. LYMPH NODES: No significant adenopathy. AORTA and ARTERIES: No significant abnormality. IVC and VEINS: No significant abnormality. URINARY BLADDER: No significant abnormality. REPRODUCTIVE ORGANS: No significant abnormality ADDITIONAL FINDINGS: None. SKELETAL SYSTEM: No significant abnormality. IMPRESSION: 1. Markedly abnormal right upper quadrant most likely representing severe cholecystitis with abscess and possible perforation. CRITICAL RESULT: Time of Discovery: 2109 hours eastern time Time of Communication: 0 hours eastern time Licensed Practitioner Receiving Report: Dr. Lawrence John was notified of these findings personally by Zbigniew Harrison Read Back Performed: Yes. Signer Name: Tristin Harrison MD Signed: 01/18/2020 9:21 PM Workstation Name: [id number]
[2020-01-18] MEDS ORDERED: SODIUM CHLORIDE 0.9% 1000 ML IV SOLN IV ONE (21:28)
[2020-01-18 21:29] LABS: Band Neutrophils # (Manual) 6.1 K/mm3; Basophils % (Manual) 0 % (0.0-1.8); Eosinophils % (Manual) 0 % (0.0-4.3); Total Cells Counted 100
[2020-01-18] MEDS ORDERED: PIPERACIL/TAZOBACTA 4.5/NS 100 4.5 GM/100 ML VIAL IV ONE (21:29)
[2020-01-18 21:30] LABS: Platelet Estimate Consistent w Auto
[2020-01-18] MEDS ORDERED: SODIUM CHLORIDE 0.9% 500 ML 500 ML ONE (21:35)
--- NOTE | 2020-01-18 22:39 | Consultation ---
History of Present Illness Consult date: 01/18/20 Reason for consult: other (abnormal CT) Requesting physician: RAMIRO JOHN Chief complaint: vomiting - History of present illness History of present illness: 54yo M with multiple medical problems presents emergency department with a one- month history of vomiting. CT evaluation showed severe cholecystitis with possible abscess and perforation. General surgery was consulted. Patient reports that his only complaint is that he has been nauseated and vomiting for the past month. He has been unable to keep anything down for at least 1 month. He denies any chest pain or abdominal pain. Denies any fevers or chills. Patient has not had any issues with bowel movements. Denies any back pain. Past History Past Medical History: diabetes, hypertension, hyperlipidemia, stroke, other (gastritis) Past Surgical History: Other (right BKA; previous gastric feeding tube) Social history: denies: smoking, alcohol abuse Family history: no significant family history Medications and Allergies Allergies Allergy/AdvReac Type Severity Reaction Status Date / Time No Known Allergies Allergy Unverified 08/03/15 12:32 Home Medications Medication Instructions Recorded Confirmed Last Taken Type Acetaminophen [Acetaminophen 650 mg MT Q4H PRN #10 supp.rect 06/30/18 Unknown Rx SUPPOS] Aspirin [Aspirin BABY CHEW TAB] 81 mg FEEDTUBE QDAY #30 tab.chew 06/30/18 Unknown Rx AtorvaSTATin [Lipitor] 40 mg FEEDTUBE QHS #30 tablet 06/30/18 Unknown Rx Clopidogrel [Plavix] 75 mg FEEDTUBE QDAY #30 tablet 06/30/18 Unknown Rx Docusate Sodium [Colace ORAL LIQ] 100 mg FEEDTUBE BID 30 Days 06/30/18 Unknown Rx oral.liqd Epoetin Abhijeet 10,000 Unit [Procrit] 10,000 unit SUB-Q Webb #4 vial 06/30/18 Unknown Rx Insulin Glargine [Lantus VIAL] 20 units SUB-Q QHS 30 Days units 06/30/18 Unknown Rx Lansoprazole Solutab [Prevacid 30 mg FEEDTUBE BID #30 tab.rapdis 06/30/18 Unknown Rx Solutab] Lipase/Protease/Amylase [Pancreaze 1 each FEEDTUBE PRN PRN #10 capsule 06/30/[address] 10,500 Unit] Lispro Insulin [HumaLOG] 0 unit SUB-Q Q6HR 30 Days units 06/30/18 Unknown Rx Metoprolol [Lopressor TAB] 50 mg FEEDTUBE BID #60 tablet 06/30/18 Unknown Rx hydrALAZINE [Apresoline TAB] 25 mg FEEDTUBE Q8HR #90 tablet 06/30/18 Unknown Rx polyethylene glycoL 3350 [Miralax 17 gm FEEDTUBE QDAY #30 powd.pack 06/30/18 Unknown Rx 3350] Promethazine [Phenergan] 25 mg PO Q6HR PRN #20 tab 01/13/20 Unknown Rx Review of Systems - Constitutional no fever, no chills, no chronic pain - Cardiovascular no chest pain, no shortness of breath - Respiratory no cough - Gastrointestinal nausea, vomiting, no abdominal pain, no change in bowel habits, no hematemesis, no coffee ground emesis, no BRBPR, no melena, no hematochezia, no dyspepsia/bloating - Genitourinary no dysuria - Muskuloskeletal no low back pain - Integumentary no rash, no pruritis, no sores, no wounds Exam Vital Signs Temp Pulse Resp BP Pulse Ox 98.4 F 124 H 21 114/86 100 01/18/20 20:05 01/18/20 20:05 01/18/20 20:05 01/18/20 20:05 01/18/20 20:05 - General physical appearance Positive: no distress, no pain, other (does not appear ill. Has obvious stroke related changes in face and body) - Eyes Negative: normal occular movement - Respiratory Positive: normal expansion, normal respiratory effort, clear to auscultation - Cardiovascular Rhythm: regular (mild tachycardia) - Abdomen Abdomen: Present: soft, bowel sounds normal, surgical scars (old Feeding tube site). Absent: tender, distended, masses, rebound, guarding, rigid, wound - Integumentary no rash, no growths, no abnormal pigmentation - Psychiatric Psychiatric: appropriate mood/affect, intact judgment & insight, cooperative Results - Labs 01/18/20 20:17 01/18/20 20:17 Abnormal lab results 01/18/20 01/18/20 01/18/20 Range/Units 20:17 20:17 21:32 WBC 15.3 H (4.5-11.0) K/mm3 RBC 3.35 L (3.65-5.03) M/mm3 Hgb 10.1 L (11.8-15.2) gm/dl Hct 29.0 L (35.5-45.6) % MCHC 35 H (32-34) % Plt Count 672 H (140-440) K/mm3 Lymphocytes % (Manual) 5.0 L (13.4-35.0) % Seg Neutrophils # Man 8.3 H (1.8-7.7) K/mm3 Lymphocytes # (Manual) 0.8 L (1.2-5.4) K/mm3 Chloride 93.9 L (98-107) mmol/L BUN 43 H (9-20) mg/dL Creatinine 3.8 H (0.8-1.3) mg/dL Glucose 230 H (75-100) mg/dL Lactic Acid 3.40 H* (0.7-2.0) mmol/L Total Protein 5.7 L (6.3-8.2) g/dL Albumin 3.0 L (3.9-5) g/dL Diabetes panel 01/18/20 Range/Units 20:17 Sodium 144 (137-145) mmol/L Potassium 4.1 (3.6-5.0) mmol/L Chloride 93.9 L (98-107) mmol/L Carbon Dioxide 26 (22-30) mmol/L BUN 43 H (9-20) mg/dL Creatinine 3.8 H (0.8-1.3) mg/dL Glucose 230 H (75-100) mg/dL Calcium 8.6 (8.4-10.2) mg/dL AST 11 (5-40) units/L ALT 7 (7-56) units/L Alkaline Phosphatase 69 (35-129) units/L Total Protein 5.7 L (6.3-8.2) g/dL Albumin 3.0 L (3.9-5) g/dL Calcium panel 01/18/20 Range/Units 20:17 Calcium 8.6 (8.4-10.2) mg/dL Albumin 3.0 L (3.9-5) g/dL Pituitary panel 01/18/20 Range/Units 20:17 Sodium 144 (137-145) mmol/L Potassium 4.1 (3.6-5.0) mmol/L Chloride 93.9 L (98-107) mmol/L Carbon Dioxide 26 (22-30) mmol/L BUN 43 H (9-20) mg/dL Creatinine 3.8 H (0.8-1.3) mg/dL Glucose 230 H (75-100) mg/dL Calcium 8.6 (8.4-10.2) mg/dL Adrenal panel 01/18/20 Range/Units 20:17 Sodium 144 (137-145) mmol/L Potassium 4.1 (3.6-5.0) mmol/L Chloride 93.9 L (98-107) mmol/L Carbon Dioxide 26 (22-30) mmol/L BUN 43 H (9-20) mg/dL Creatinine 3.8 H (0.8-1.3) mg/dL Glucose 230 H (75-100) mg/dL Calcium 8.6 (8.4-10.2) mg/dL Total Bilirubin 0.60 (0.1-1.2) mg/dL AST 11 (5-40) units/L ALT 7 (7-56) units/L Alkaline Phosphatase 69 (35-129) units/L Total Protein 5.7 L (6.3-8.2) g/dL Albumin 3.0 L (3.9-5) g/dL - Imaging CT scan - abdomen: report reviewed, image reviewed CT scan - pelvis: report reviewed, image reviewed Assessment and Plan - Patient Problems (1) Abnormal CT scan, gallbladder Current Visit: Yes Status: Acute Plan to address problem: Patient's history, clinical exam, and LFTs do not fit with the CT findings. Generally, with this sort of CT finding, patients are in extreme pain and often times are hypotensive with such significant disease. At this point, the main thing appears to be that the patient has acute renal insufficiency secondary to hypovolemia most likely due to his vomiting. As the patient has absolutely no tenderness and does not complain of pain, we will investigate this right upper quadrant further before considering surgery. In the meantime, he will need to be resuscitated. Recommend: 1. Obtain right upper quadrant ultrasound to better evaluate that area. The CT was limited due to lack of contrast. 2. Also obtain HIDA scan to assess for any evidence of cholecystitis 3. Repeat labs including LFTs in the morning. 4. Aggressive resuscitation 5. Serial exams. We will follow along. Please call with any questions. Discussed with Dr. John. Time=30min
[2020-01-18] MEDS ORDERED: ACETAMINOPHEN 325 MG TAB PO PRN (22:58)
[2020-01-18] MEDS ORDERED: MORPHINE 2 MG/1 ML INJ IV PRN (22:58)
[2020-01-18] MEDS ORDERED: ONDANSETRON 4 MG/2 ML INJ IV PRN (22:58)
[2020-01-18] MEDS ORDERED: DEXTROSE 50% IN WATER (25GM) 50 ML SYRINGE IV PRN (22:58)
--- NOTE | 2020-01-18 23:08 | History and Physical Report ---
History of Present Illness Date of examination: 01/18/20 Date of admission: 01/18/2020 Chief complaint: Abdominal pain History of present illness: 54-year-old -[place] male with known history of hypertension, diabetes mellitus, hyperlipidemia and also history of right BKA presenting to the emergency room today complaining of nausea vomiting which has been ongoing for about 1 month. He has also had some mild abdominal discomfort. He denies any diarrhea, no hematuria or dysuria. He denies any fever or chills, no chest pain or shortness of breath. Upon arrival in the emergency room patient was found to be tachycardic. Work-up reveals leukocytosis of 16, elevated lactic acid, acute kidney injury and CT abdomen reveals possible cholecystitis with abscess formation and perforation. General surgeon Dr. Chilel was consulted by the ER physician and recommendation is to commence patient on IV fluid and empiric IV antibiotics. Patient will be promptly followed up. Right upper quadrant ultrasound and HIDA scan were also recommended. Past History Past Medical History: diabetes, hypertension, hyperlipidemia, stroke, other (Gastritis) Past Surgical History: Other (Right BKA) Social history: no significant social history Family history: no significant family history Medications and Allergies Allergies Allergy/AdvReac Type Severity Reaction Status Date / Time No Known Allergies Allergy Unverified 08/03/15 12:32 Home Medications Medication Instructions Recorded Confirmed Last Taken Type Acetaminophen [Acetaminophen 650 mg AR Q4H PRN #10 supp.rect 06/30/18 01/19/20 Unknown Rx SUPPOS] Aspirin [Aspirin BABY CHEW TAB] 81 mg FEEDTUBE QDAY #30 tab.chew 06/30/18 01/19/20 Unknown Rx AtorvaSTATin [Lipitor] 40 mg FEEDTUBE QHS #30 tablet 06/30/18 01/19/20 Unknown Rx Clopidogrel [Plavix] 75 mg FEEDTUBE QDAY #30 tablet 06/30/18 01/19/20 Unknown Rx Docusate Sodium [Colace ORAL LIQ] 100 mg FEEDTUBE BID 30 Days 06/30/18 01/19/20 Unknown Rx oral.liqd Epoetin Abhijeet 10,000 Unit [Procrit] 10,000 unit SUB-Q Webb #4 vial 06/30/1801/18 Unknown Rx Insulin Glargine [Lantus VIAL] 20 units SUB-Q QHS 30 Days units 06/30/18 01/19/20 Unknown Rx Lansoprazole Solutab [Prevacid 30 mg FEEDTUBE BID #30 tab.rapdis 06/30/18 01/19/20 Unknown Rx Solutab] Lipase/Protease/Amylase [Pancreaze 1 each FEEDTUBE PRN PRN #10 capsule 06/30/18 01/19/[address] 10,500 Unit] Lispro Insulin [HumaLOG] 0 unit SUB-Q Q6HR 30 Days units 06/30/18 01/19/20 Unknown Rx Metoprolol [Lopressor TAB] 50 mg FEEDTUBE BID #60 tablet 06/30/18 01/19/20 Unknown Rx hydrALAZINE [Apresoline TAB] 25 mg FEEDTUBE Q8HR #90 tablet 06/30/18 01/19/20 Unknown Rx polyethylene glycoL 3350 [Miralax 17 gm FEEDTUBE QDAY #30 powd.pack 06/30/18 01/19/20 Unknown Rx 3350] Promethazine [Phenergan] 25 mg PO Q6HR PRN #20 tab 01/13/20 01/19/20 Unknown Rx Active Meds: Active Medications Acetaminophen (Tylenol) 650 mg PO Q4H PRN PRN Reason: Pain MILD(1-3)/Fever >100.5/AQUINO Dextrose (D50w (25gm) Syringe) 50 ml IV Q30MIN PRN; Protocol PRN Reason: Hypoglycemia Sodium Chloride (Nacl 0.9% 1000 Ml) 1,000 mls @ 125 mls/hr IV DIRECT JONO Piperacillin Sod/Tazobactam Sod (Zosyn/Ns 4.5gm/100ml) 4.5 gm in 100 mls @ 200 mls/hr IV Q8HR JONO; Protocol Insulin Human Lispro (Humalog) 0 unit SUB-Q ACHS JONO; Protocol Morphine Sulfate (Morphine) 2 mg IV Q4H PRN PRN Reason: Pain, Moderate (4-6) Ondansetron HCl (Zofran) 4 mg IV Q8H PRN PRN Reason: Nausea And Vomiting Sodium Chloride (Sodium Chloride Flush Syringe 10 Ml) 10 ml IV BID JONO Sodium Chloride (Sodium Chloride Flush Syringe 10 Ml) 10 ml IV PRN PRN PRN Reason: LINE FLUSH Review of Systems Constitutional: no fever, no chills Ears, nose, mouth and throat: no nasal congestion, no sore throat Cardiovascular: no chest pain, no palpitations Respiratory: no cough, no shortness of breath Gastrointestinal: abdominal pain, nausea, vomiting, no diarrhea Genitourinary Male: no dysuria, no hematuria, no nocturia Musculoskeletal: no neck pain, no low back pain Integumentary: no rash, no pruritis Neurological: no headaches, no confusion Psychiatric: no anxiety, no depression Exam - Constitutional Vitals: Temp Pulse Resp BP Pulse Ox 98.4 F 113 H 18 105/77 100 01/18/20 20:05 01/18/20 22:30 01/18/20 22:30 01/18/20 22:30 01/18/20 22:30 General appearance: Present: no acute distress, well-nourished - EENT Eyes: Present: PERRL, EOM intact. Absent: scleral icterus ENT: hearing intact, clear oral mucosa, dentition normal, poor dentition - Neck Neck: Present: supple, normal ROM - Respiratory Respiratory effort: normal Respiratory: bilateral: CTA - Cardiovascular Rhythm: regular Heart Sounds: Present: S1 & S2. Absent: gallop, systolic murmur, diastolic murmur, rub - Extremities Extremities: no ischemia, pulses intact, pulses symmetrical, No edema, Full ROM Peripheral Pulses: within normal limits - Abdominal General gastrointestinal: Present: soft, tender (Mild right upper quadrant tenderness.), non-distended, normal bowel sounds. Absent: mass - Integumentary Integumentary: Present: clear, warm, dry. Absent: rash - Musculoskeletal Musculoskeletal: strength equal bilaterally, other (Right BKA with Prothesis in place) - Psychiatric Psychiatric: appropriate mood/affect, intact judgment & insight, memory intact, cooperative - Neurologic Neurologic: CNII-XII intact, no focal deficits, moves all extremities Results - Labs CBC & Chem 7: 01/18/20 20:17 01/18/20 20:17 Labs: Abnormal lab results 01/18/20 01/18/20 01/18/20 Range/Units 20:17 20:17 21:32 WBC 15.3 H (4.5-11.0) K/mm3 RBC 3.35 L (3.65-5.03) M/mm3 Hgb 10.1 L (11.8-15.2) gm/dl Hct 29.0 L (35.5-45.6) % MCHC 35 H (32-34) % Plt Count 672 H (140-440) K/mm3 Lymphocytes % (Manual) 5.0 L (13.4-35.0) % Seg Neutrophils # Man 8.3 H (1.8-7.7) K/mm3 Lymphocytes # (Manual) 0.8 L (1.2-5.4) K/mm3 Chloride 93.9 L (98-107) mmol/L BUN 43 H (9-20) mg/dL Creatinine 3.8 H (0.8-1.3) mg/dL Glucose 230 H (75-100) mg/dL Lactic Acid 3.40 H* (0.7-2.0) mmol/L Total Protein 5.7 L (6.3-8.2) g/dL Albumin 3.0 L (3.9-5) g/dL Assessment and Plan - Patient Problems (1) Cholecystitis Current Visit: Yes Status: Acute Plan to address problem: Patient commenced on empiric IV antibiotics. He has been placed on IV Zosyn. Patient being followed by Dr. Chilel. (2) Sepsis Current Visit: Yes Status: Acute Plan to address problem: Possibly secondary to the cholecystitis. Will continue on IV fluid and empiric IV antibiotics. (3) Acute on chronic renal insufficiency Current Visit: No Status: Acute Plan to address problem: Patient placed on IV fluid normal saline. Will monitor BUN and creatinine (4) Essential (primary) hypertension Current Visit: No Status: Chronic Plan to address problem: We will continue patient's routine blood pressure medications as needed (5) Hyperlipidemia Current Visit: No Status: Chronic Qualifiers: Hyperlipidemia type: mixed hyperlipidemia Qualified Code(s): E78.2 - Mixed hyperlipidemia Plan to address problem: We will monitor lipid profile and resume routine home medications. (6) Type 2 diabetes mellitus with complications Current Visit: No Status: Chronic Plan to address problem: We will monitor Accu-Cheks closely. (7) DVT prophylaxis Current Visit: Yes Status: Acute Plan to address problem: Patient placed on sequential compression device. (8) Full code status Current Visit: Yes Status: Acute
--- NOTE | 2020-01-19 03:18 | Ultrasound Report ---
ULTRASOUND ABDOMEN, LIMITED (RIGHT UPPER QUADRANT) INDICATION: cholecystitis. COMPARISON: Abdominal CTA 2019 FINDINGS: Pancreas: Visualized portion shows no significant abnormality. Liver: Normal. Gallbladder: No normal appearing gallbladder. Complex fluid collection at the gallbladder fossa conta ining air measuring approximately 10.9 x 7.3 cm. Bile ducts: Normal. Common Bile Duct measures 5 mm. Free fluid: Small amount of free fluid. Additional Findings: Dilated stomach. IMPRESSION: 1. Complex gallbladder containing air. 2. Small amount of free fluid. 3. Distended stomach. Signer Name: Reji Tellez MD Signed: 01/19/2020 3:13 AM Workstation Name: [id number]
[2020-01-19] MEDS ORDERED: PIPERACIL/TAZOBACTA 4.5/NS 100 4.5 GM/100 ML VIAL IV SCH ×2 (06:00→10:00)
[2020-01-19] MEDS: SODIUM CHLORIDE 0.9% 1000 ML 1,000 ML IV SCH ×2 (06:57→20:15)
--- NOTE | 2020-01-19 08:09 | Progress Note ---
<SORINALFREDAPARRISHLAMCATHIE - Last Filed: 01/19/20 12:52> Assessment and Plan Assessment and Plan - Patient Problems (1) Cholecystitis Current Visit: Yes Status: Acute Plan to address problem: Continue empiric IV antibiotics. General surgeon Dr Chilel consulted HIDA scan-f/u with result (2) Sepsis possible due to cholecystitis Leucocytosis/Elevated lactic acid Current Visit: Yes Status: Acute Plan to address problem: Continue on IV fluid and empiric IV antibiotics. Monitor WBC and lactic acid levels (3) Acute on chronic renal insufficiency likely 2/2 to sepsis Current Visit: No Status: Acute Plan to address problem: Continue IV fluid hydration with normal saline. Monitor kidney function Kidney US to r/o hydronephrosis/obstruction (4) Essential (primary) hypertension Current Visit: No Status: Chronic Plan to address problem: Monitor blood pressure Continue antihypertensive Will adjust medicine if needed (5) Hyperlipidemia Current Visit: No Status: Chronic Qualifiers: Hyperlipidemia type: mixed hyperlipidemia Qualified Code(s): E78.2 - Mixed hyperlipidemia Plan to address problem: Check lipid profile Continue home statin (6) Type 2 diabetes mellitus with complications Current Visit: No Status: Chronic Plan to address problem: Monitor blood sugar with SSI Check HGA1C (7) DVT prophylaxis Current Visit: Yes Status: Acute Plan to address problem: Patient placed on sequential compression device. (8) Full code status Current Visit: Yes Status: Acute Subjective Date of service: 01/19/20 Principal diagnosis: Abdominal Pain, Nausea and vomiting Interval history: Patient seen at bedside. On assessment, he denies abdominal pain and tenderness, but admits mild nausea. Reviewed lab, mar, and v/s. Elevated WBC and lactic acidosis. On IV abx. 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 Reviewed General surgery note Sice pt clinical finding is not consistenty with CT finding-patient has absolutely no tenderness and and abdominal Planned to do HIDA scan to assess for evidence of Cholecystitis before considering surgery. HID scan done-f/u with result Objective - Constitutional Vitals: Vital Signs - 12hr 01/18/20 01/18/20 01/18/20 20:30 20:46 21:00 Temperature Pulse Rate 123 H 124 H 126 H Respiratory 25 H 25 H 19 Rate Blood Pressure 114/86 114/86 114/86 O2 Sat by Pulse 99 100 Oximetry 01/18/20 01/18/20 01/18/20 21:16 21:30 21:46 Temperature Pulse Rate 122 H 123 H 118 H Respiratory 25 H 25 H 21 Rate Blood Pressure 105/77 105/77 105/77 O2 Sat by Pulse 100 100 100 Oximetry 01/18/20 01/18/20 01/18/20 22:00 22:16 22:30 Temperature Pulse Rate 115 H 114 H 113 H Respiratory 21 21 18 Rate Blood Pressure 105/77 105/77 105/77 O2 Sat by Pulse 100 100 100 Oximetry 01/18/20 01/18/20 01/18/20 22:46 23:00 23:16 Temperature Pulse Rate 113 H 111 H 110 H Respiratory 19 21 11 L Rate Blood Pressure 105/77 156/99 156/99 O2 Sat by Pulse 100 100 100 Oximetry 01/18/20 01/18/20 01/18/20 23:20 23:30 23:40 Temperature Pulse Rate 114 H 110 H 108 H Respiratory 14 23 24 Rate Blood Pressure 156/99 146/94 146/94 O2 Sat by Pulse 99 100 100 Oximetry 01/18/20 01/19/20 01/19/20 23:50 00:44 05:17 Temperature 99.3 F 97.9 F Pulse Rate 108 H 111 H Respiratory 24 18 18 Rate Blood Pressure 146/94 171/115 136/91 O2 Sat by Pulse 100 94 Oximetry 01/19/20 07:33 Temperature 98.1 F Pulse Rate 107 H Respiratory 18 Rate Blood Pressure 158/102 O2 Sat by Pulse 96 Oximetry General appearance: Present: no acute distress - EENT Eyes: PERRL, EOM intact ENT: hearing intact, clear oral mucosa Ears: bilateral: normal - Neck Neck: supple, normal ROM - Respiratory Respiratory effort: normal Respiratory: bilateral: CTA - Breasts Breasts: normal - Cardiovascular Rhythm: regular Heart Sounds: Present: S1 & S2. Absent: gallop, rub Extremities: pulses intact, No edema, normal color, Full ROM - Gastrointestinal General gastrointestinal: Present: non-distended (denies abdominal pain but reports mild nause ), normal bowel sounds - Genitourinary Male genitourinary: normal - Integumentary Integumentary: clear, warm, dry - Musculoskeletal Musculoskeletal: 1, strength equal bilaterally - Neurologic Neurologic: moves all extremities - Psychiatric Psychiatric: memory intact, appropriate mood/affect, intact judgment & insight - Labs CBC & Chem 7: 01/18/20 20:17 01/18/20 20:17 Labs: Abnormal lab results 01/18/20 01/18/20 01/18/20 Range/Units 20:17 20:17 21:32 WBC 15.3 H (4.5-11.0) K/mm3 RBC 3.35 L (3.65-5.03) M/mm3 Hgb 10.1 L (11.8-15.2) gm/dl Hct 29.0 L (35.5-45.6) % MCHC 35 H (32-34) % Plt Count 672 H (140-440) K/mm3 Lymphocytes % (Manual) 5.0 L (13.4-35.0) % Seg Neutrophils # Man 8.3 H (1.8-7.7) K/mm3 Lymphocytes # (Manual) 0.8 L (1.2-5.4) K/mm3 Chloride 93.9 L (98-107) mmol/L BUN 43 H (9-20) mg/dL Creatinine 3.8 H (0.8-1.3) mg/dL Glucose 230 H (75-100) mg/dL Lactic Acid 3.40 H* (0.7-2.0) mmol/L Total Protein 5.7 L (6.3-8.2) g/dL Albumin 3.0 L (3.9-5) g/dL <ELSA SINGH - Last Filed: 01/19/20 15:54> Assessment and Plan I saw and evaluated the patient. I agree with the findings and the plan of care as documented in the Nurse Practitioner's~note, with the following corrections a nd additions. Objective - Constitutional Vitals: Vital Signs - 12hr 01/19/20 01/19/20 01/19/20 05:17 07:33 11:36 Temperature 97.9 F 98.1 F 98.9 F Pulse Rate 111 H 107 H 111 H Pulse Rate [ Intra-Procedure ] Pulse Rate [ Post-Procedure] Pulse Rate [Pre -Procedure] Respiratory 18 18 18 Rate Respiratory Rate [Intra- Procedure] Respiratory Rate [Post- Procedure] Respiratory Rate [Pre- Procedure] Blood Pressure 136/91 158/102 153/106 Blood Pressure [Intra- Procedure] Blood Pressure [Post-Procedure ] Blood Pressure [Pre-Procedure] O2 Sat by Pulse 94 96 93 Oximetry O2 Sat by Pulse Oximetry [ Intra-Procedure ] O2 Sat by Pulse Oximetry [Post -Procedure] O2 Sat by Pulse Oximetry [Pre- Procedure] 01/19/20 01/19/20 01/19/20 13:00 13:40 13:44 Temperature Pulse Rate Pulse Rate [ 103 H 105 H Intra-Procedure ] Pulse Rate [ Post-Procedure] Pulse Rate [Pre 105 H -Procedure] Respiratory Rate Respiratory 19 20 Rate [Intra- Procedure] Respiratory Rate [Post- Procedure] Respiratory 23 Rate [Pre- Procedure] Blood Pressure Blood Pressure 162/99 152/93 [Intra- Procedure] Blood Pressure [Post-Procedure ] Blood Pressure 141/103 [Pre-Procedure] O2 Sat by Pulse Oximetry O2 Sat by Pulse 100 100 Oximetry [ Intra-Procedure ] O2 Sat by Pulse Oximetry [Post -Procedure] O2 Sat by Pulse 100 Oximetry [Pre- Procedure] 01/19/20 01/19/20 01/19/20 13:49 13:54 13:59 Temperature Pulse Rate Pulse Rate [ 105 H 104 H 109 H Intra-Procedure ] Pulse Rate [ Post-Procedure] Pulse Rate [Pre -Procedure] Respiratory Rate Respiratory 19 19 24 Rate [Intra- Procedure] Respiratory Rate [Post- Procedure] Respiratory Rate [Pre- Procedure] Blood Pressure Blood Pressure 150/93 149/93 140/90 [Intra- Procedure] Blood Pressure [Post-Procedure ] Blood Pressure [Pre-Procedure] O2 Sat by Pulse Oximetry O2 Sat by Pulse 100 100 100 Oximetry [ Intra-Procedure ] O2 Sat by Pulse Oximetry [Post -Procedure] O2 Sat by Pulse Oximetry [Pre- Procedure] 01/19/20 01/19/20 01/19/20 14:05 14:10 14:15 Temperature Pulse Rate Pulse Rate [ 106 H 113 H 114 H Intra-Procedure ] Pulse Rate [ Post-Procedure] Pulse Rate [Pre -Procedure] Respiratory Rate Respiratory 23 20 31 H Rate [Intra- Procedure] Respiratory Rate [Post- Procedure] Respiratory Rate [Pre- Procedure] Blood Pressure Blood Pressure 150/90 140/85 131/78 [Intra- Procedure] Blood Pressure [Post-Procedure ] Blood Pressure [Pre-Procedure] O2 Sat by Pulse Oximetry O2 Sat by Pulse 100 100 100 Oximetry [ Intra-Procedure ] O2 Sat by Pulse Oximetry [Post -Procedure] O2 Sat by Pulse Oximetry [Pre- Procedure] 01/19/20 01/19/20 01/19/20 14:20 14:25 14:30 Temperature Pulse Rate Pulse Rate [ 109 H 110 H 108 H Intra-Procedure ] Pulse Rate [ Post-Procedure] Pulse Rate [Pre -Procedure] Respiratory Rate Respiratory 29 H 27 H 25 H Rate [Intra- Procedure] Respiratory Rate [Post- Procedure] Respiratory Rate [Pre- Procedure] Blood Pressure Blood Pressure 131/87 140/80 139/78 [Intra- Procedure] Blood Pressure [Post-Procedure ] Blood Pressure [Pre-Procedure] O2 Sat by Pulse Oximetry O2 Sat by Pulse 100 100 100 Oximetry [ Intra-Procedure ] O2 Sat by Pulse Oximetry [Post -Procedure] O2 Sat by Pulse Oximetry [Pre- Procedure] 01/19/20 01/19/20 14:35 14:45 Temperature Pulse Rate Pulse Rate [ 113 H Intra-Procedure ] Pulse Rate [ 112 H Post-Procedure] Pulse Rate [Pre -Procedure] Respiratory Rate Respiratory 16 Rate [Intra- Procedure] Respiratory 22 Rate [Post- Procedure] Respiratory Rate [Pre- Procedure] Blood Pressure Blood Pressure 140/80 [Intra- Procedure] Blood Pressure 133/83 [Post-Procedure ] Blood Pressure [Pre-Procedure] O2 Sat by Pulse Oximetry O2 Sat by Pulse 100 Oximetry [ Intra-Procedure ] O2 Sat by Pulse 100 Oximetry [Post -Procedure] O2 Sat by Pulse Oximetry [Pre- Procedure] - Labs CBC & Chem 7: 01/18/20 20:17 01/19/20 13:16 Labs: Abnormal lab results 01/18/20 01/18/20 01/18/20 Range/Units 20:17 20:17 21:32 WBC 15.3 H (4.5-11.0) K/mm3 RBC 3.35 L (3.65-5.03) M/mm3 Hgb 10.1 L (11.8-15.2) gm/dl Hct 29.0 L (35.5-45.6) % MCHC 35 H (32-34) % Plt Count 672 H (140-440) K/mm3 Lymphocytes % (Manual) 5.0 L (13.4-35.0) % Seg Neutrophils # Man 8.3 H (1.8-7.7) K/mm3 Lymphocytes # (Manual) 0.8 L (1.2-5.4) K/mm3 INR (0.87-1.13) Potassium (3.6-5.0) mmol/L Chloride 93.9 L (98-107) mmol/L BUN 43 H (9-20) mg/dL Creatinine 3.8 H (0.8-1.3) mg/dL Glucose 230 H (75-100) mg/dL POC Glucose (70-105) Lactic Acid 3.40 H* (0.7-2.0) mmol/L Calcium (8.4-10.2) mg/dL Total Protein 5.7 L (6.3-8.2) g/dL Albumin 3.0 L (3.9-5) g/dL 01/19/20 01/19/20 01/19/20 Range/Units 08:33 11:52 13:16 WBC (4.5-11.0) K/mm3 RBC (3.65-5.03) M/mm3 Hgb (11.8-15.2) gm/dl Hct (35.5-45.6) % MCHC (32-34) % Plt Count (140-440) K/mm3 Lymphocytes % (Manual) (13.4-35.0) % Seg Neutrophils # Man (1.8-7.7) K/mm3 Lymphocytes # (Manual) (1.2-5.4) K/mm3 INR (0.87-1.13) Potassium 3.5 L (3.6-5.0) mmol/L Chloride (98-107) mmol/L BUN 43 H (9-20) mg/dL Creatinine 3.0 H (0.8-1.3) mg/dL Glucose 161 H (75-100) mg/dL POC Glucose 174 H 169 H (70-105) Lactic Acid (0.7-2.0) mmol/L Calcium 8.1 L (8.4-10.2) mg/dL Total Protein (6.3-8.2) g/dL Albumin (3.9-5) g/dL 01/19/20 Range/Units 13:16 WBC (4.5-11.0) K/mm3 RBC (3.65-5.03) M/mm3 Hgb (11.8-15.2) gm/dl Hct (35.5-45.6) % MCHC (32-34) % Plt Count (140-440) K/mm3 Lymphocytes % (Manual) (13.4-35.0) % Seg Neutrophils # Man (1.8-7.7) K/mm3 Lymphocytes # (Manual) (1.2-5.4) K/mm3 INR 1.16 H (0.87-1.13) Potassium (3.6-5.0) mmol/L Chloride (98-107) mmol/L BUN (9-20) mg/dL Creatinine (0.8-1.3) mg/dL Glucose (75-100) mg/dL POC Glucose (70-105) Lactic Acid (0.7-2.0) mmol/L Calcium (8.4-10.2) mg/dL Total Protein (6.3-8.2) g/dL Albumin (3.9-5) g/dL
[2020-01-19] MEDS: INSULIN LISPRO 100 UNIT/ML VIAL 3 mL SUB-Q SCH ×4 (08:59→23:55)
[2020-01-19 10:25] LABS: Bacteria,Urine 1+ /HPF (Negative); Bilirubin,Urine NEG (Negative); Blood,Urine SM (Negative); Color,Urine Yellow (Yellow); Mucus,Urine FEW /HPF; Protein,Urine <15 mg/dL mg/dL (Negative)
--- NOTE | 2020-01-19 11:11 | Nuclear Medicine Report ---
NUCLEAR MEDICINE HEPATOBILIARY SCAN INDICATION / CLINICAL INFORMATION: cholecystitis. TECHNIQUE: Radiotracer: Tc-99m mebrofenin (by IV): 5.3 mCi. COMPARISON: CT and ultrasound on 01/18/2020 FINDINGS: HEPATIC ACTIVITY: Normal. BILIARY ACTIVITY: Normal. GALLBLADDER ACTIVITY: None SMALL BOWEL ACTIVITY: Normal IMPRESSION: No gallbladder filling at 60 minutes, suggestive of cystic duct obstruction and cholecystitis. Signer Name: Gilbert Qureshi MD Signed: 01/19/2020 11:07 AM Workstation Name: [id number]
--- NOTE | 2020-01-19 11:54 | Ultrasound Report ---
US renal BILAT INDICATION / CLINICAL INFORMATION: r/o hydronephrosis/obstruction. COMPARISON: None available. FINDINGS: RIGHT KIDNEY: Size = 10.4 cm. - Echogenicity: Normal. - Cortical thickness: Normal. - Hydronephrosis: None. - Cyst or mass: None. - Stones: None seen.. LEFT KIDNEY: Size = 11.8 cm. - Echogenicity: Normal. - Cortical thickness: Normal. - Hydronephrosis: None. - Cyst or mass: None. - Stones: None seen.. URINARY BLADDER: No significant abnormality. FREE FLUID: None. ADDITIONAL FINDINGS: None. IMPRESSION 1. No significant sonographic abnormality of the kidneys. Signer Name: Andreas Cortez MD Signed: 01/19/2020 11:50 AM Workstation Name: [id number]
[2020-01-19] MEDS ORDERED: MIDAZOLAM 5 MG/5 ML INJ MDV IV ONE (12:17)
[2020-01-19] MEDS ORDERED: fentaNYL 100 MCG/2 ML INJ IV ONE (13:00)
[2020-01-19 13:31] LABS: INR 1.16 (0.87-1.13)
[2020-01-19] MEDS ORDERED: ONDANSETRON 4 MG/2 ML INJ ONE (14:16)
--- NOTE | 2020-01-19 14:47 | Progress Note ---
Assessment and Plan 54-year-old male with right upper quadrant abscess, likely consistent with perforated gallbladder RUQ u/s - complex GB with air HIDA - nonvisualization of GB Status post IR drainage of right upper quadrant abscess. Patient is stable. Plan: 1. NPO 2. IVF 3. IV abx 4. monitor drain output and maintain drain to accordian suction 5. follow up abscess cultures 6. place NGT and keep to LIWS - discussed with patient's RN 7. prn pain and nausea control Will follow. Thank you, please call with questions. Subjective Date of service: 01/19/20 Narrative: Patient seen and examined. No acute complaints. Did have intermittent nausea and vomiting. No fevers or chills. Objective Vital Signs - 12hr 01/19/20 01/19/20 01/19/20 05:17 07:33 11:36 Temperature 97.9 F 98.1 F 98.9 F Pulse Rate 111 H 107 H 111 H Pulse Rate [ Intra-Procedure ] Pulse Rate [Pre -Procedure] Respiratory 18 18 18 Rate Respiratory Rate [Intra- Procedure] Respiratory Rate [Pre- Procedure] Blood Pressure 136/91 158/102 153/106 Blood Pressure [Intra- Procedure] Blood Pressure [Pre-Procedure] O2 Sat by Pulse 94 96 93 Oximetry O2 Sat by Pulse Oximetry [ Intra-Procedure ] O2 Sat by Pulse Oximetry [Pre- Procedure] 01/19/20 01/19/20 01/19/20 13:00 13:40 13:44 Temperature Pulse Rate Pulse Rate [ 103 H 105 H Intra-Procedure ] Pulse Rate [Pre 105 H -Procedure] Respiratory Rate Respiratory 19 20 Rate [Intra- Procedure] Respiratory 23 Rate [Pre- Procedure] Blood Pressure Blood Pressure 162/99 152/93 [Intra- Procedure] Blood Pressure 141/103 [Pre-Procedure] O2 Sat by Pulse Oximetry O2 Sat by Pulse 100 100 Oximetry [ Intra-Procedure ] O2 Sat by Pulse 100 Oximetry [Pre- Procedure] 01/19/20 01/19/20 01/19/20 13:49 13:54 13:59 Temperature Pulse Rate Pulse Rate [ 105 H 104 H 109 H Intra-Procedure ] Pulse Rate [Pre -Procedure] Respiratory Rate Respiratory 19 19 24 Rate [Intra- Procedure] Respiratory Rate [Pre- Procedure] Blood Pressure Blood Pressure 150/93 149/93 140/90 [Intra- Procedure] Blood Pressure [Pre-Procedure] O2 Sat by Pulse Oximetry O2 Sat by Pulse 100 100 100 Oximetry [ Intra-Procedure ] O2 Sat by Pulse Oximetry [Pre- Procedure] 01/19/20 01/19/20 01/19/20 14:05 14:10 14:15 Temperature Pulse Rate Pulse Rate [ 106 H 113 H 114 H Intra-Procedure ] Pulse Rate [Pre -Procedure] Respiratory Rate Respiratory 23 20 31 H Rate [Intra- Procedure] Respiratory Rate [Pre- Procedure] Blood Pressure Blood Pressure 150/90 140/85 131/78 [Intra- Procedure] Blood Pressure [Pre-Procedure] O2 Sat by Pulse Oximetry O2 Sat by Pulse 100 100 100 Oximetry [ Intra-Procedure ] O2 Sat by Pulse Oximetry [Pre- Procedure] 01/19/20 01/19/20 01/19/20 14:20 14:25 14:30 Temperature Pulse Rate Pulse Rate [ 109 H 110 H 108 H Intra-Procedure ] Pulse Rate [Pre -Procedure] Respiratory Rate Respiratory 29 H 27 H 25 H Rate [Intra- Procedure] Respiratory Rate [Pre- Procedure] Blood Pressure Blood Pressure 131/87 140/80 139/78 [Intra- Procedure] Blood Pressure [Pre-Procedure] O2 Sat by Pulse Oximetry O2 Sat by Pulse 100 100 100 Oximetry [ Intra-Procedure ] O2 Sat by Pulse Oximetry [Pre- Procedure] - General physical appearance Narrative Exam: Gen.: Awake, alert, oriented 3. No apparent distress ENT: Trachea midline. No lymphadenopathy. No scleral icterus or conjunctival pallor CV: S1, S2 present. Tachy Respiratory: No audible wheezes Abdomen: Soft, nondistended, nontender. Right upper quadrant drain with purulent drainage. No rebound, rigidity, guarding Extremities: No clubbing, cyanosis, edema - Labs 01/18/20 20:17 01/18/20 20:17 Diabetes panel 01/18/20 01/19/20 Range/Units 20:17 13:16 Sodium 144 (137-145) mmol/L Potassium 4.1 (3.6-5.0) mmol/L Chloride 93.9 L (98-107) mmol/L Carbon Dioxide 26 (22-30) mmol/L BUN 43 H (9-20) mg/dL Creatinine 3.8 H (0.8-1.3) mg/dL Glucose 230 H (75-100) mg/dL Hemoglobin A1c 5.8 (4-6) % Calcium 8.6 (8.4-10.2) mg/dL AST 11 (5-40) units/L ALT 7 (7-56) units/L Alkaline Phosphatase 69 (35-129) units/L Total Protein 5.7 L (6.3-8.2) g/dL Albumin 3.0 L (3.9-5) g/dL Calcium panel 01/18/20 Range/Units 20:17 Calcium 8.6 (8.4-10.2) mg/dL Albumin 3.0 L (3.9-5) g/dL Pituitary panel 01/18/20 Range/Units 20:17 Sodium 144 (137-145) mmol/L Potassium 4.1 (3.6-5.0) mmol/L Chloride 93.9 L (98-107) mmol/L Carbon Dioxide 26 (22-30) mmol/L BUN 43 H (9-20) mg/dL Creatinine 3.8 H (0.8-1.3) mg/dL Glucose 230 H (75-100) mg/dL Calcium 8.6 (8.4-10.2) mg/dL Adrenal panel 01/18/20 Range/Units 20:17 Sodium 144 (137-145) mmol/L Potassium 4.1 (3.6-5.0) mmol/L Chloride 93.9 L (98-107) mmol/L Carbon Dioxide 26 (22-30) mmol/L BUN 43 H (9-20) mg/dL Creatinine 3.8 H (0.8-1.3) mg/dL Glucose 230 H (75-100) mg/dL Calcium 8.6 (8.4-10.2) mg/dL Total Bilirubin 0.60 (0.1-1.2) mg/dL AST 11 (5-40) units/L ALT 7 (7-56) units/L Alkaline Phosphatase 69 (35-129) units/L Total Protein 5.7 L (6.3-8.2) g/dL Albumin 3.0 L (3.9-5) g/dL
--- NOTE | 2020-01-19 15:03 | Post Operative Note ---
Date of procedure: 01/19/20 Pre-op diagnosis: Gallbladder collection/cholecystitis Post-op diagnosis: same Findings: There is a collection in the right upper quadrant which corresponds to the location of the gallbladder. Unclear if this represents a combination of perforation, cholecystitis, or [id number] secondary to cholecystitis or PUD. Procedure: 1. CT guided placement of an 18 gauge needle into the right upper quadrant gallbladder collection 2. CT guided placement of an 8 Fr APD Drain in the right upper quadrant 3. CT guided placement of a second 18 gauge needle into the right upper quadrant; wire communicated with the originally placed drain and therefore a second drain was not placed Anesthesia: local (w/ conscious sedation) Surgeon: GELY JOSEPH Estimated blood loss: minimal Specimen disposition: to lab Condition: stable
[2020-01-19 15:33] LABS: Calcium 8.1 mg/dL (8.4-10.2)
[2020-01-19] MEDS: PIPERACIL-TAZO 2.25 GM/50 ML 2.25 GM/50 ML BAG IV SCH ×2 (18:08→23:31)
[2020-01-19 20:37] LABS: Basophils % (Auto) 0.2 % (0.0-1.8); Eosinophils # (Auto) 0.1 K/mm3 (0.0-0.4); Hematocrit 28.1 % (35.5-45.6); Hemoglobin 9.2 gm/dl (11.8-15.2); Lymphocytes # (Auto) 0.7 K/mm3 (1.2-5.4); Lymphocytes % (Auto) 7.1 % (13.4-35.0); Mean Corpuscular HGB Conc 33 % (32-34); Mean Corpuscular Volume 86 fl (84-94); Monocytes # (Auto) 0.5 K/mm3 (0.0-0.8); Monocytes % (Auto) 5.2 % (0.0-7.3); Platelet Count 553 K/mm3 (140-440); Red Blood Count 3.27 M/mm3 (3.65-5.03); Red Cell Distribution Width 15.1 % (13.2-15.2)
[2020-01-20] MEDS: SODIUM CHLORIDE 0.9% 1000 ML 1,000 ML IV SCH (05:20)
[2020-01-20] MEDS: PIPERACIL-TAZO 2.25 GM/50 ML 2.25 GM/50 ML BAG IV SCH ×3 (05:24→19:05)
[2020-01-20] MEDS ORDERED: hydrALAZINE 20 MG/1 ML INJ IV PRN (07:58)
[2020-01-20] MEDS: INSULIN LISPRO 100 UNIT/ML VIAL 3 mL SUB-Q SCH ×4 (08:37→22:19)
[2020-01-20 09:19] LABS: Basophils % (Auto) 0.3 % (0.0-1.8); Eosinophils # (Auto) 0.1 K/mm3 (0.0-0.4); Eosinophils % (Auto) 1.4 % (0.0-4.3); Hematocrit 25.7 % (35.5-45.6); Hemoglobin 8.4 gm/dl (11.8-15.2); Lymphocytes # (Auto) 0.6 K/mm3 (1.2-5.4); Lymphocytes % (Auto) 8.9 % (13.4-35.0); Mean Corpuscular HGB Conc 33 % (32-34); Mean Corpuscular Volume 86 fl (84-94); Monocytes # (Auto) 0.5 K/mm3 (0.0-0.8); Monocytes % (Auto) 6.9 % (0.0-7.3); Platelet Count 507 K/mm3 (140-440); Red Blood Count 2.99 M/mm3 (3.65-5.03); Red Cell Distribution Width 14.6 % (13.2-15.2)
[2020-01-20 10:17] LABS: Calcium 8.6 mg/dL (8.4-10.2)
[2020-01-20] MEDS: POTASSIUM CHLORIDE 10 MEQ 10 MEQ/100 ML BAG IV SCH ×3 (10:37→15:04)
[2020-01-20] MEDS ORDERED: DEXTROSE 5% IN WATER 1,000 ML IV SCH (11:00)
--- NOTE | 2020-01-20 16:02 | Progress Note ---
<LOUISE ROWAN VenkatSunday - Last Filed: 01/20/20 16:34> Assessment and Plan - Patient Problems (1) Cholecystitis Current Visit: Yes Status: Acute Plan to address problem: - 01/17 CT abd/pelvis shows faint multifocal diffuse pulmonary changes right more severe effected than left without evidence of consolidation, [id number] esophagus is present, markedly abnormal appearance in the region of the gallbladder-gallbladder fossa with a complex fluid collection with multiple pockets of air-gas with surrounding reticulation of fat acute-chronic cholecystitis is a concern and marked gastric distention is present with signifi cant thickening of the second third portion of the duodenum - 01/18 abd US shows complex gallbladder containing air, small amount of free fluid, and distended stomach. - 01/18 CT guided placement of drain to right upper quadrant and there was a collection in the RUQ which corresponds to the location of the gallbladder, however it is unclear if this represents a combination of perforation, cholecystitis, or [id number] secondary to cholecystitis or PUD per Dr. Granado. - 01/18 HIDA scan shows no gallbladder filling at 60 minutes, suggestive of cystic duct obstruction and cholecystitis - Continue IV antibiotics - General surgery consult (2) Sepsis Current Visit: Yes Status: Acute Plan to address problem: - On admit he did leukocytosis, tachycardia, lactic acidosis and worsening renal function - Possible source is gallbladder - On IV antibiotics - Monitor CBC - LA has normalized (3) Hypernatremia Current Visit: Yes Status: Acute Plan to address problem: - IVF changed to D5W at 42 - Trend BMP - Admit Na 144, now 156 - Possibly secondary to IVF with NS (4) Acute on chronic renal insufficiency Current Visit: No Status: Acute Plan to address problem: - IVF - Trend BMP - Cr is trending down - 01/18 renal US shows no significant sonographic abnormality of the kidneys. - Avoid nephrotoxic agent - Daily weights (5) Essential (primary) hypertension Current Visit: No Status: Chronic Plan to address problem: -Blood pressure monitor per protocol -Restarted hydralazine, Lopressor PO -Hydralazine IV as needed (6) Hyperlipidemia Current Visit: No Status: Chronic Qualifiers: Hyperlipidemia type: mixed hyperlipidemia Qualified Code(s): E78.2 - Mixed hyperlipidemia Plan to address problem: -Restarted home Lipitor (7) Type 2 diabetes mellitus with complications Current Visit: No Status: Chronic Plan to address problem: - Accu-Cheks AC at bedtime - Sliding scale insulin - 01/18 Hbg A1C 5.8 (8) DVT prophylaxis Current Visit: Yes Status: Acute Plan to address problem: - Heparin subq History Interval history: 54-year-old -[place] male with hypertension, diabetes mellitus, hype rlipidemia and also history of right BKA presenting to the emergency room on 01/17 complaining of nausea and vomiting which has been ongoing for about 1 month. He has also had some mild abdominal discomfort. Upon arrival in the emergency room patient was found to be tachycardic and work-up reveals l eukocytosis of 16, elevated lactic acid, acute kidney injury and CT abdomen reveals possible cholecystitis with abscess formation and perforation. He is s/p CT guided of drains into the right upper quadrant on 01/18. He is currently NPO with a NGT to LIS and does not have abd discomfort. 01/18: CT of the abdomen shows cholescystitis. HIDA scan to showed no gallbladder filling at 60 minutes, suggestive of cystic duct obstruction and cholecystitis. Placement of CT guided drains to RUQ. Hospitalist Physical - Constitutional Vitals: Temp Pulse Resp BP Pulse Ox 98.9 F 97 H 20 153/94 97 01/20/20 15:21 01/20/20 15:21 01/20/20 15:21 01/20/20 15:21 01/20/20 15:21 General appearance: Present: no acute distress Results - Labs CBC & Chem 7: 01/20/20 08:19 01/20/20 08:19 Labs: Laboratory Last Values WBC 7.3 K/mm3 (4.5-11.0) 01/20/20 08:19 RBC 2.99 M/mm3 (3.65-5.03) L 01/20/20 08:19 Hgb 8.4 gm/dl (11.8-15.2) L 01/20/20 08:19 Hct 25.7 % (35.5-45.6) L 01/20/20 08:19 MCV 86 fl (84-94) 01/20/20 08:19 MCH 28 pg (28-32) 01/20/20 08:19 MCHC 33 % (32-34) 01/20/20 08:19 RDW 14.6 % (13.2-15.2) 01/20/20 08:19 Plt Count 507 K/mm3 (140-440) H 01/20/20 08:19 Lymph % (Auto) 8.9 % (13.4-35.0) L 01/20/20 08:19 Hendricks % (Auto) 6.9 % (0.0-7.3) 01/20/20 08:19 Eos % (Auto) 1.4 % (0.0-4.3) 01/20/20 08:19 Baso % (Auto) 0.3 % (0.0-1.8) 01/20/20 08:19 Lymph # 0.6 K/mm3 (1.2-5.4) L 01/20/20 08:19 Hendricks # 0.5 K/mm3 (0.0-0.8) 01/20/20 08:19 Eos # 0.1 K/mm3 (0.0-0.4) 01/20/20 08:19 Baso # 0.0 K/mm3 (0.0-0.1) 01/20/20 08:19 Add Manual Diff Complete 01/18/20 20:17 Total Counted 100 01/18/20 20:17 Seg Neutrophils % 82.5 % (40.0-70.0) H 01/20/20 08:19 Seg Neuts % (Manual) 54.0 % (40.0-70.0) 01/18/20 20:17 Band Neutrophils % 40.0 % 01/18/20 20:17 Lymphocytes % (Manual) 5.0 % (13.4-35.0) L 01/18/20 20:17 Reactive Lymphs % (Man) 0 % 01/18/20 20:17 Monocytes % (Manual) 1.0 % (0.0-7.3) 01/18/20 20:17 Eosinophils % (Manual) 0 % (0.0-4.3) 01/18/20 20:17 Basophils % (Manual) 0 % (0.0-1.8) 01/18/20 20:17 Metamyelocytes % 0 % 01/18/20 20:17 Myelocytes % 0 % 01/18/20 20:17 Promyelocytes % 0 % 01/18/20 20:17 Blast Cells % 0 % 01/18/20 20:17 Nucleated RBC % Not Reportable 01/18/20 20:17 Seg Neutrophils # 6.0 K/mm3 (1.8-7.7) 01/20/20 08:19 Seg Neutrophils # Man 8.3 K/mm3 (1.8-7.7) H 01/18/20 20:17 Band Neutrophils # 6.1 K/mm3 01/18/20 20:17 Lymphocytes # (Manual) 0.8 K/mm3 (1.2-5.4) L 01/18/20 20:17 Abs React Lymphs (Man) 0.0 K/mm3 01/18/20 20:17 Monocytes # (Manual) 0.2 K/mm3 (0.0-0.8) 01/18/20 20:17 Eosinophils # (Manual) 0.0 K/mm3 (0.0-0.4) 01/18/20 20:17 Basophils # (Manual) 0.0 K/mm3 (0.0-0.1) 01/18/20 20:17 Metamyelocytes # 0.0 K/mm3 01/18/20 20:17 Myelocytes # 0.0 K/mm3 01/18/20 20:17 Promyelocytes # 0.0 K/mm3 01/18/20 20:17 Blast Cells # 0.0 K/mm3 01/18/20 20:17 WBC Morphology Not Reportable 01/18/20 20:17 Hypersegmented Neuts Not Reportable 01/18/20 20:17 Hyposegmented Neuts Not Reportable 01/18/20 20:17 Hypogranular Neuts Not Reportable 01/18/20 20:17 Smudge Cells Not Reportable 01/18/20 20:17 Toxic Granulation Not Reportable 01/18/20 20:17 Toxic Vacuolation Not Reportable 01/18/20 20:17 Dohle Bodies Not Reportable 01/18/20 20:17 Pelger-Huet Anomaly Not Reportable 01/18/20 20:17 Fadumo Rods Not Reportable 01/18/20 20:17 Platelet Estimate Consistent w auto 01/18/20 20:17 Clumped Platelets Not Reportable 01/18/20 20:17 Plt Clumps, EDTA Not Reportable 01/18/20 20:17 Large Platelets Not Reportable 01/18/20 20:17 Giant Platelets Not Reportable 01/18/20 20:17 Platelet Satelliting Not Reportable 01/18/20 20:17 Plt Morphology Comment Not Reportable 01/18/20 20:17 RBC Morphology Not Reportable 01/18/20 20:17 Dimorphic RBCs Not Reportable 01/18/20 20:17 Polychromasia Not Reportable 01/18/20 20:17 Hypochromasia Not Reportable 01/18/20 20:17 Poikilocytosis Not Reportable 01/18/20 20:17 Anisocytosis Not Reportable 01/18/20 20:17 Microcytosis Not Reportable 01/18/20 20:17 Macrocytosis Not Reportable 01/18/20 20:17 Spherocytes Not Reportable 01/18/20 20:17 Pappenheimer Bodies Not Reportable 01/18/20 20:17 Sickle Cells Not Reportable 01/18/20 20:17 Target Cells Not Reportable 01/18/20 20:17 Tear Drop Cells Not Reportable 01/18/20 20:17 Ovalocytes Not Reportable 01/18/20 20:17 Helmet Cells Not Reportable 01/18/20 20:17 Muhammad-Goulds Bodies Not Reportable 01/18/20 20:17 [place] Rings Not Reportable 01/18/20 20:17 Zelalem Cells Not Reportable 01/18/20 20:17 Bite Cells Not Reportable 01/18/20 20:17 Crenated Cell Not Reportable 01/18/20 20:17 Elliptocytes Not Reportable 01/18/20 20:17 Acanthocytes (Spur) Not Reportable 01/18/20 20:17 Rouleaux Not Reportable 01/18/20 20:17 Hemoglobin C Crystals Not Reportable 01/18/20 20:17 Schistocytes Not Reportable 01/18/20 20:17 Malaria parasites Not Reportable 01/18/20 20:17 Eb Bodies Not Reportable 01/18/20 20:17 Hem Pathologist Commnt No 01/18/20 20:17 PT 14.9 Sec. (12.2-14.9) 01/19/20 13:16 INR 1.16 (0.87-1.13) H 01/19/20 13:16 Sodium 156 mmol/L (137-145) H D 01/20/20 08:19 Potassium 3.6 mmol/L (3.6-5.0) 01/20/20 08:19 Chloride 106.6 mmol/L (98-107) 01/20/20 08:19 Carbon Dioxide 24 mmol/L (22-30) 01/20/20 08:19 Anion Gap 29 mmol/L 01/20/20 08:19 BUN 36 mg/dL (9-20) H 01/20/20 08:19 Creatinine 2.2 mg/dL (0.8-1.3) H 01/20/20 08:19 Estimated GFR 38 ml/min 01/20/20 08:19 BUN/Creatinine Ratio 16 % 01/20/20 08:19 Glucose 121 mg/dL (75-100) H 01/20/20 08:19 POC Glucose 115 (70-105) H 01/20/20 11:31 Hemoglobin A1c 5.8 % (4-6) 01/19/20 13:16 Lactic Acid 1.20 mmol/L (0.7-2.0) 01/19/20 19:32 Calcium 8.6 mg/dL (8.4-10.2) 01/20/20 08:19 Total Bilirubin 0.60 mg/dL (0.1-1.2) 01/18/20 20:17 AST 11 units/L (5-40) 01/18/20 20:17 ALT 7 units/L (7-56) 01/18/20 20:17 Alkaline Phosphatase 69 units/L (35-129) 01/18/20 20:17 Total Protein 5.7 g/dL (6.3-8.2) L 01/18/20 20:17 Albumin 3.0 g/dL (3.9-5) L 01/18/20 20:17 Albumin/Globulin Ratio 1.1 % 01/18/20 20:17 Lipase 17 units/L (13-60) 01/18/20 20:28 Urine Color Yellow (Yellow) 01/18/20 Unknown Urine Turbidity Slightly-cloudy (Clear) 01/18/20 Unknown Urine pH 6.0 (5.0-7.0) 01/18/20 Unknown Ur Specific [place] 1.011 (1.003-1.030) 01/18/20 Unknown Urine Protein <15 mg/dl mg/dL (Negative) 01/18/20 Unknown Urine Glucose (UA) 50 mg/dL (Negative) 01/18/20 Unknown Urine Ketones Tr mg/dL (Negative) 01/18/20 Unknown Urine Blood Sm (Negative) 01/18/20 Unknown Urine Nitrite Neg (Negative) 01/18/20 Unknown Urine Bilirubin Neg (Negative) 01/18/20 Unknown Urine Urobilinogen 2.0 mg/dL (<2.0) 01/18/20 Unknown Ur Leukocyte Esterase Neg (Negative) 01/18/20 Unknown Urine WBC (Auto) 4.0 /HPF (0.0-6.0) 01/18/20 Unknown Urine RBC (Auto) 2.0 /HPF (0.0-6.0) 01/18/20 Unknown U Epithel Cells (Auto) 4.0 /HPF (0-13.0) 01/18/20 Unknown Urine Bacteria (Auto) 1+ /HPF (Negative) 01/18/20 Unknown Urine Mucus Few /HPF 01/18/20 Unknown Microbiology: Microbiology 01/19/20 Unknown Abdomen Surgical Culture - Preliminary 01/18/20 21:39 Peripheral/Venous Blood Culture - Preliminary NO GROWTH AFTER 24 HOURS 01/18/20 21:32 Peripheral/Venous Blood Culture - Preliminary NO GROWTH AFTER 24 HOURS Mcmullen/IV: Voiding Method Condom Catheter IV Catheter Type [Left Hand] Peripheral IV IV Catheter Type [Right INT / Saline Lock Antecubital] Active Medications - Current Medications Current Medications: Generic Name Dose Route Start Last Admin Trade Name Freq PRN Reason Stop Dose Admin Acetaminophen 650 mg 01/18/20 22:58 Tylenol PO Q4H PRN Pain MILD(1-3)/Fever >100.5/AQUINO Bisacodyl 10 mg 01/19/20 16:00 01/20/20 11:38 Dulcolax MO 10 mg QDAY JONO Administration Dextrose 50 ml 01/18/20 22:58 D50w (25gm) Syringe IV Q30MIN PRN Hypoglycemia Protocol Hydralazine HCl 10 mg 01/20/20 07:58 Apresoline IV Q4HR PRN Hypertension Piperacillin Sod/Tazobactam Sod 2.25 gm in 50 mls @ 100 mls/hr 01/19/20 18:00 01/20/20 06:55 Zosyn/Ns 2.25 Gm/50ml IV Infused Q6HR [facility] Infusion Dextrose 1,000 mls @ 42 mls/hr 01/20/20 11:00 D5w IV 01/21/20 10:49 DIRECT [facility] Insulin Human Lispro 0 unit 01/19/20 07:30 01/20/20 08:37 Humalog SUB-Q Not Given ACHS [facility] Protocol Morphine Sulfate 2 mg 01/18/20 22:58 Morphine IV Q4H PRN Pain, Moderate (4-6) Ondansetron HCl 4 mg 01/18/20 22:58 01/19/20 14:15 Zofran IV 4 mg Q8H PRN Administration Nausea And Vomiting Sodium Chloride 10 ml 01/19/20 10:00 01/20/20 11:38 Sodium Chloride Flush Syringe 10 Ml IV 10 ml BID JONO Administration Sodium Chloride 10 ml 01/18/20 22:58 Sodium Chloride Flush Syringe 10 Ml IV PRN PRN LINE FLUSH <ELSA SINGH - Last Filed: 01/20/20 18:36> Assessment and Plan Assessment and plan: I saw and evaluated the patient. I agree with the findings and the plan of care as documented in the Nurse Practitioner's~note, with the following corrections and additions. Hospitalist Physical - Constitutional Vitals: Temp Pulse Resp BP Pulse Ox 98.9 F 97 H 20 153/94 97 01/20/20 15:21 01/20/20 15:21 01/20/20 15:21 01/20/20 15:21 01/20/20 15:21 Results - Labs CBC & Chem 7: 01/20/20 08:19 01/20/20 08:19 Labs: Laboratory Last Values WBC 7.3 K/mm3 (4.5-11.0) 01/20/20 08:19 RBC 2.99 M/mm3 (3.65-5.03) L 01/20/20 08:19 Hgb 8.4 gm/dl (11.8-15.2) L 01/20/20 08:19 Hct 25.7 % (35.5-45.6) L 01/20/20 08:19 MCV 86 fl (84-94) 01/20/20 08:19 MCH 28 pg (28-32) 01/20/20 08:19 MCHC 33 % (32-34) 01/20/20 08:19 RDW 14.6 % (13.2-15.2) 01/20/20 08:19 Plt Count 507 K/mm3 (140-440) H 01/20/20 08:19 Lymph % (Auto) 8.9 % (13.4-35.0) L 01/20/20 08:19 Hendricks % (Auto) 6.9 % (0.0-7.3) 01/20/20 08:19 Eos % (Auto) 1.4 % (0.0-4.3) 01/20/20 08:19 Baso % (Auto) 0.3 % (0.0-1.8) 01/20/20 08:19 Lymph # 0.6 K/mm3 (1.2-5.4) L 01/20/20 08:19 Hendricks # 0.5 K/mm3 (0.0-0.8) 01/20/20 08:19 Eos # 0.1 K/mm3 (0.0-0.4) 01/20/20 08:19 Baso # 0.0 K/mm3 (0.0-0.1) 01/20/20 08:19 Add Manual Diff Complete 01/18/20 20:17 Total Counted 100 01/18/20 20:17 Seg Neutrophils % 82.5 % (40.0-70.0) H 01/20/20 08:19 Seg Neuts % (Manual) 54.0 % (40.0-70.0) 01/18/20 20:17 Band Neutrophils % 40.0 % 01/18/20 20:17 Lymphocytes % (Manual) 5.0 % (13.4-35.0) L 01/18/20 20:17 Reactive Lymphs % (Man) 0 % 01/18/20 20:17 Monocytes % (Manual) 1.0 % (0.0-7.3) 01/18/20 20:17 Eosinophils % (Manual) 0 % (0.0-4.3) 01/18/20 20:17 Basophils % (Manual) 0 % (0.0-1.8) 01/18/20 20:17 Metamyelocytes % 0 % 01/18/20 20:17 Myelocytes % 0 % 01/18/20 20:17 Promyelocytes % 0 % 01/18/20 20:17 Blast Cells % 0 % 01/18/20 20:17 Nucleated RBC % Not Reportable 01/18/20 20:17 Seg Neutrophils # 6.0 K/mm3 (1.8-7.7) 01/20/20 08:19 Seg Neutrophils # Man 8.3 K/mm3 (1.8-7.7) H 01/18/20 20:17 Band Neutrophils # 6.1 K/mm3 01/18/20 20:17 Lymphocytes # (Manual) 0.8 K/mm3 (1.2-5.4) L 01/18/20 20:17 Abs React Lymphs (Man) 0.0 K/mm3 01/18/20 20:17 Monocytes # (Manual) 0.2 K/mm3 (0.0-0.8) 01/18/20 20:17 Eosinophils # (Manual) 0.0 K/mm3 (0.0-0.4) 01/18/20 20:17 Basophils # (Manual) 0.0 K/mm3 (0.0-0.1) 01/18/20 20:17 Metamyelocytes # 0.0 K/mm3 01/18/20 20:17 Myelocytes # 0.0 K/mm3 01/18/20 20:17 Promyelocytes # 0.0 K/mm3 01/18/20 20:17 Blast Cells # 0.0 K/mm3 01/18/20 20:17 WBC Morphology Not Reportable 01/18/20 20:17 Hypersegmented Neuts Not Reportable 01/18/20 20:17 Hyposegmented Neuts Not Reportable 01/18/20 20:17 Hypogranular Neuts Not Reportable 01/18/20 20:17 Smudge Cells Not Reportable 01/18/20 20:17 Toxic Granulation Not Reportable 01/18/20 20:17 Toxic Vacuolation Not Reportable 01/18/20 20:17 Dohle Bodies Not Reportable 01/18/20 20:17 Pelger-Huet Anomaly Not Reportable 01/18/20 20:17 Fadumo Rods Not Reportable 01/18/20 20:17 Platelet Estimate Consistent w auto 01/18/20 20:17 Clumped Platelets Not Reportable 01/18/20 20:17 Plt Clumps, EDTA Not Reportable 01/18/20 20:17 Large Platelets Not Reportable 01/18/20 20:17 Giant Platelets Not Reportable 01/18/20 20:17 Platelet Satelliting Not Reportable 01/18/20 20:17 Plt Morphology Comment Not Reportable 01/18/20 20:17 RBC Morphology Not Reportable 01/18/20 20:17 Dimorphic RBCs Not Reportable 01/18/20 20:17 Polychromasia Not Reportable 01/18/20 20:17 Hypochromasia Not Reportable 01/18/20 20:17 Poikilocytosis Not Reportable 01/18/20 20:17 Anisocytosis Not Reportable 01/18/20 20:17 Microcytosis Not Reportable 01/18/20 20:17 Macrocytosis Not Reportable 01/18/20 20:17 Spherocytes Not Reportable 01/18/20 20:17 Pappenheimer Bodies Not Reportable 01/18/20 20:17 Sickle Cells Not Reportable 01/18/20 20:17 Target Cells Not Reportable 01/18/20 20:17 Tear Drop Cells Not Reportable 01/18/20 20:17 Ovalocytes Not Reportable 01/18/20 20:17 Helmet Cells Not Reportable 01/18/20 20:17 Muhammad-Goulds Bodies Not Reportable 01/18/20 20:17 [place] Rings Not Reportable 01/18/20 20:17 Zelalem Cells Not Reportable 01/18/20 20:17 Bite Cells Not Reportable 01/18/20 20:17 Crenated Cell Not Reportable 01/18/20 20:17 Elliptocytes Not Reportable 01/18/20 20:17 Acanthocytes (Spur) Not Reportable 01/18/20 20:17 Rouleaux Not Reportable 01/18/20 20:17 Hemoglobin C Crystals Not Reportable 01/18/20 20:17 Schistocytes Not Reportable 01/18/20 20:17 Malaria parasites Not Reportable 01/18/20 20:17 Eb Bodies Not Reportable 01/18/20 20:17 Hem Pathologist Commnt No 01/18/20 20:17 PT 14.9 Sec. (12.2-14.9) 01/19/20 13:16 INR 1.16 (0.87-1.13) H 01/19/20 13:16 Sodium 156 mmol/L (137-145) H D 01/20/20 08:19 Potassium 3.6 mmol/L (3.6-5.0) 01/20/20 08:19 Chloride 106.6 mmol/L (98-107) 01/20/20 08:19 Carbon Dioxide 24 mmol/L (22-30) 01/20/20 08:19 Anion Gap 29 mmol/L 01/20/20 08:19 BUN 36 mg/dL (9-20) H 01/20/20 08:19 Creatinine 2.2 mg/dL (0.8-1.3) H 01/20/20 08:19 Estimated GFR 38 ml/min 01/20/20 08:19 BUN/Creatinine Ratio 16 % 01/20/20 08:19 Glucose 121 mg/dL (75-100) H 01/20/20 08:19 POC Glucose 103 (70-105) 01/20/20 16:22 Hemoglobin A1c 5.8 % (4-6) 01/19/20 13:16 Lactic Acid 1.20 mmol/L (0.7-2.0) 01/19/20 19:32 Calcium 8.6 mg/dL (8.4-10.2) 01/20/20 08:19 Total Bilirubin 0.60 mg/dL (0.1-1.2) 01/18/20 20:17 AST 11 units/L (5-40) 01/18/20 20:17 ALT 7 units/L (7-56) 01/18/20 20:17 Alkaline Phosphatase 69 units/L (35-129) 01/18/20 20:17 Total Protein 5.7 g/dL (6.3-8.2) L 01/18/20 20:17 Albumin 3.0 g/dL (3.9-5) L 01/18/20 20:17 Albumin/Globulin Ratio 1.1 % 01/18/20 20:17 Lipase 17 units/L (13-60) 01/18/20 20:28 Urine Color Yellow (Yellow) 01/18/20 Unknown Urine Turbidity Slightly-cloudy (Clear) 01/18/20 Unknown Urine pH 6.0 (5.0-7.0) 01/18/20 Unknown Ur Specific [place] 1.011 (1.003-1.030) 01/18/20 Unknown Urine Protein <15 mg/dl mg/dL (Negative) 01/18/20 Unknown Urine Glucose (UA) 50 mg/dL (Negative) 01/18/20 Unknown Urine Ketones Tr mg/dL (Negative) 01/18/20 Unknown Urine Blood Sm (Negative) 01/18/20 Unknown Urine Nitrite Neg (Negative) 01/18/20 Unknown Urine Bilirubin Neg (Negative) 01/18/20 Unknown Urine Urobilinogen 2.0 mg/dL (<2.0) 01/18/20 Unknown Ur Leukocyte Esterase Neg (Negative) 01/18/20 Unknown Urine WBC (Auto) 4.0 /HPF (0.0-6.0) 01/18/20 Unknown Urine RBC (Auto) 2.0 /HPF (0.0-6.0) 01/18/20 Unknown U Epithel Cells (Auto) 4.0 /HPF (0-13.0) 01/18/20 Unknown Urine Bacteria (Auto) 1+ /HPF (Negative) 01/18/20 Unknown Urine Mucus Few /HPF 01/18/20 Unknown Microbiology: Microbiology 01/19/20 Unknown Abdomen Surgical Culture - Preliminary 01/18/20 21:39 Peripheral/Venous Blood Culture - Preliminary NO GROWTH AFTER 24 HOURS 01/18/20 21:32 Peripheral/Venous Blood Culture - Preliminary NO GROWTH AFTER 24 HOURS Mcmullen/IV: Voiding Method Condom Catheter IV Catheter Type [Left Hand] Peripheral IV IV Catheter Type [Right INT / Saline Lock Antecubital] Active Medications - Current Medications Current Medications: Generic Name Dose Route Start Last Admin Trade Name Freq PRN Reason Stop Dose Admin Acetaminophen 650 mg 01/18/20 22:58 Tylenol PO Q4H PRN Pain MILD(1-3)/Fever >100.5/AQUINO Atorvastatin Calcium 40 mg 01/20/20 22:00 Lipitor FEEDTUBE QHS JONO Bisacodyl 10 mg 01/19/20 16:00 01/20/20 11:38 Dulcolax MO 10 mg QDAY JONO Administration Dextrose 50 ml 01/18/20 22:58 D50w (25gm) Syringe IV Q30MIN PRN Hypoglycemia Protocol Heparin Sodium (Porcine) 5,000 unit 01/20/20 22:00 Heparin SUB-Q Q12HR JONO Hydralazine HCl 10 mg 01/20/20 07:58 Apresoline IV Q4HR PRN Hypertension Hydralazine HCl 25 mg 01/20/20 22:00 Apresoline FEEDTUBE Q8HR [facility] Piperacillin Sod/Tazobactam Sod 2.25 gm in 50 mls @ 100 mls/hr 01/19/20 18:00 01/20/20 06:55 Zosyn/Ns 2.25 Gm/50ml IV Infused Q6HR [facility] Infusion Dextrose 1,000 mls @ 75 mls/hr 01/20/20 11:00 D5w IV 01/21/20 00:19 DIRECT JONO Insulin Human Lispro 0 unit 01/19/20 07:30 01/20/20 08:37 Humalog SUB-Q Not Given ACHS [facility] Protocol Lansoprazole 30 mg 01/20/20 22:00 Prevacid Solutab FEEDTUBE BID [facility] Metoprolol Tartrate 50 mg 01/20/20 22:00 Metoprolol FEEDTUBE BID [facility] Morphine Sulfate 2 mg 01/18/20 22:58 Morphine IV Q4H PRN Pain, Moderate (4-6) Ondansetron HCl 4 mg 01/18/20 22:58 01/19/20 14:15 Zofran IV 4 mg Q8H PRN Administration Nausea And Vomiting Sodium Chloride 10 ml 01/19/20 10:00 01/20/20 11:38 Sodium Chloride Flush Syringe 10 Ml IV 10 ml BID JONO Administration Sodium Chloride 10 ml 01/18/20 22:58 Sodium Chloride Flush Syringe 10 Ml IV PRN PRN LINE FLUSH
--- NOTE | 2020-01-20 17:03 | Consultation ---
History of Present Illness - Reason for Consult Consult date: 01/20/20 acute renal failure - History of Present Illness This is a 55 year old male who presented to the hospital for evaluation and management of nausea and vomiting that is present for [address] of Abdomen revealed Cholecystitis with abscess which was confirmed by HIDA scan along with obstruction. IR has performed CT guided placement of an 8 Fr APD Drain in the right upper quadrant to drain abscess. Patient's serum creatinine was noted to be elevated at 3.8 on admission which has slowly decreased to 2.2 on IV hydration. Baseline serum creatinine 1.2-1.4. We are being consulted for management of this patient's Acute Renal Failure. Past History Past Medical History: diabetes, hypertension, hyperlipidemia, stroke, other (Gastritis) Past Surgical History: Other (Right BKA) Social history: no significant social history Family history: no significant family history Medications and Allergies Allergies Allergy/AdvReac Type Severity Reaction Status Date / Time No Known Allergies Allergy Unverified 08/03/15 12:32 Home Medications Medication Instructions Recorded Confirmed Last Taken Type Acetaminophen [Acetaminophen 650 mg OK Q4H PRN #10 supp.rect 06/30/18 01/19/20 Unknown Rx SUPPOS] Aspirin [Aspirin BABY CHEW TAB] 81 mg FEEDTUBE QDAY #30 tab.chew 06/30/18 01/19/20 Unknown Rx AtorvaSTATin [Lipitor] 40 mg FEEDTUBE QHS #30 tablet 06/30/18 01/19/20 Unknown Rx Clopidogrel [Plavix] 75 mg FEEDTUBE QDAY #30 tablet 06/30/18 01/19/20 Unknown Rx Docusate Sodium [Colace ORAL LIQ] 100 mg FEEDTUBE BID 30 Days 06/30/18 01/19/20 Unknown Rx oral.liqd Epoetin Abhijeet 10,000 Unit [Procrit] 10,000 unit SUB-Q Webb #4 vial 06/30/18 01/19/20 Unknown Rx Insulin Glargine [Lantus VIAL] 20 units SUB-Q QHS 30 Days units 06/30/18 01/19/20 Unknown Rx Lansoprazole Solutab [Prevacid 30 mg FEEDTUBE BID #30 tab.rapdis 06/30/18 01/19/20 Unknown Rx Solutab] Lipase/Protease/Amylase [Pancreaze 1 each FEEDTUBE PRN PRN #10 capsule 06/30/18 01/19/20 Unknown Rx 10,500 Unit] Lispro Insulin [HumaLOG] 0 unit SUB-Q Q6HR 30 Days units 06/30/18 01/19/20 Unknown Rx Metoprolol [Lopressor TAB] 50 mg FEEDTUBE BID #60 tablet 06/30/18 01/19/20 Unknown Rx hydrALAZINE [Apresoline TAB] 25 mg FEEDTUBE Q8HR #90 tablet 06/30/18 01/19/20 Unknown Rx polyethylene glycoL 3350 [Miralax 17 gm FEEDTUBE QDAY #30 powd.pack 06/30/18 01/19/20 Unknown Rx 3350] Promethazine [Phenergan] 25 mg PO Q6HR PRN #20 tab 01/13/20 01/19/20 Unknown Rx Active Meds: Active Medications Acetaminophen (Tylenol) 650 mg PO Q4H PRN PRN Reason: Pain MILD(1-3)/Fever >100.5/AQUINO Atorvastatin Calcium (Lipitor) 40 mg FEEDTUBE QHS JONO Bisacodyl (Dulcolax) 10 mg OK QDAY JONO Last Admin: 01/20/20 11:38 Dose: 10 mg Documented by: Dextrose (D50w (25gm) Syringe) 50 ml IV Q30MIN PRN; Protocol PRN Reason: Hypoglycemia Heparin Sodium (Porcine) (Heparin) 5,000 unit SUB-Q Q12HR JONO Hydralazine HCl (Apresoline) 10 mg IV Q4HR PRN PRN Reason: Hypertension Hydralazine HCl (Apresoline) 25 mg FEEDTUBE Q8HR JONO Piperacillin Sod/Tazobactam Sod (Zosyn/Ns 2.25 Gm/50ml) 2.25 gm in 50 mls @ 100 mls/hr IV Q6HR [facility] Last Infusion: 01/20/20 06:55 Dose: Infused Documented by: Dextrose (D5w) 1,000 mls @ 42 mls/hr IV DIRECT JONO Stop: 01/21/20 10:49 Insulin Human Lispro (Humalog) 0 unit SUB-Q ACHS JONO; Protocol Last Admin: 01/20/20 08:37 Dose: Not Given Documented by: Lansoprazole (Prevacid Solutab) 30 mg FEEDTUBE BID JONO Metoprolol Tartrate (Metoprolol) 50 mg FEEDTUBE BID [facility] Morphine Sulfate (Morphine) 2 mg IV Q4H PRN PRN Reason: Pain, Moderate (4-6) Ondansetron HCl (Zofran) 4 mg IV Q8H PRN PRN Reason: Nausea And Vomiting Last Admin: 01/19/20 14:15 Dose: 4 mg Documented by: Sodium Chloride (Sodium Chloride Flush Syringe 10 Ml) 10 ml IV BID [facility] Last Admin: 01/20/20 11:38 Dose: 10 ml Documented by: Sodium Chloride (Sodium Chloride Flush Syringe 10 Ml) 10 ml IV PRN PRN PRN Reason: LINE FLUSH Review of Systems Constitutional: weight loss, fatigue, weakness Ears, nose, mouth and throat: no ear pain, no ear discharge, no tinnitis, no decreased hearing, no nose pain, no nasal congestion, no nasal discharge, no sinus pressure Cardiovascular: no chest pain, no orthopnea, no palpitations, no rapid/irregular heart beat, no edema, no syncope, no lightheadedness, no shortness of breath Respiratory: no cough with sputum, no excessive sputum, no hemoptysis, no shortness of breath, no dyspnea on exertion Gastrointestinal: nausea, vomiting, no diarrhea, no constipation, no melena, no hematochezia, no early satiety Genitourinary Male: no hematuria, no flank pain, no discharge, no urinary frequ ency, no urinary hesitancy Musculoskeletal: no neck pain, no shooting arm pain, no arm numbness/tingling, no low back pain, no shooting leg pain Integumentary: no rash, no pruritis, no redness, no sores, no wounds, no jaundice Neurological: weakness, no transient paralysis, no paralysis, no numbness, no tingling, no seizures, no syncope Psychiatric: no anxiety, no memory loss, no change in sleep habits, no sleep disturbances, no insomnia, no hypersomnia, no change in appetite Endocrine: no cold intolerance, no heat intolerance, no polyphagia, no excessive thirst, no polydipsia, no polyuria Hematologic/Lymphatic: no easy bruising, no easy bleeding, no lymphadenopathy Exam - Vital Signs Vital signs: Vital Signs Temp Pulse Resp BP Pulse Ox 98.4 F 124 H 21 114/86 100 01/18/20 20:05 01/18/20 20:05 01/18/20 20:05 01/18/20 20:05 01/18/20 20:05 - General Appearance General appearance: cachectic, fatigue, other (NAD) EENT: ATNC, PERRL, hearing intact Neck: Present: neck supple Respiratory: Decreased Breath Sounds Heart: S1S2 Gastrointestinal: Present: normoactive bowel sounds, other (Has NG tube with large amounts of drainage) Integumentary: warm and dry Neurologic: alert and oriented x3 Musculoskeletal: Present: other (No edema) Results - Lab Results 01/20/20 08:19 01/20/20 08:19 Most recent lab results Calcium 8.6 mg/dL (8.4-10.2) 01/20/20 08:19 Assessment and Plan Assessment: Acute Renal failure secondary to Prerenal Etiology Cholecystitis with Abscess Sepsis Diabetes Mellitus Hypertension Plan: -Renal labs reviewed. Serum creatinine 2.2 today, yesterday was 3.0, has good UOP -Baseline serum creatinine 1.2-1.4 -CT of Abd/Pelvis and Renal US-no acute renal findings -Increase D5W to 75 ml/hr -Obtain urine lytes -Obtain daily weights -Monitor I/O's -Avoid nephrotoxic agents -Continue to monitor
--- NOTE | 2020-01-20 18:06 | Progress Note ---
Assessment and Plan 54-year-old male with 1. right upper quadrant abscess, likely consistent with perforated gallbladder s/p CT guided drain placement 2. partial gastric outlet obstruction 2/2 #1 RUQ u/s - complex GB with air HIDA - nonvisualization of GB Pt stable. Passing flatus and +BM. NGT output 1800cc overnight and 300cc today. IR drain - 150cc Plan: 1. NPO 2. IVF 3. IV abx 4. monitor drain output and maintain drain to accordian suction 5. follow up abscess cultures 6. continue NGT to LIWS 7. prn pain and nausea control 8. am labs 9. If NGT output minimal tomorrow, will consider clamping tube and starting CLD. Will follow. Thank you, please call with questions. Subjective Date of service: 01/20/20 Narrative: Pt seen and examined. Feels ok. No f/c, cp, sob, n/v, abd pain. NGT placed yesterday evening. +BM overnight Objective Vital Signs - 12hr 01/20/20 01/20/20 01/20/20 07:23 11:14 15:21 Temperature 98.5 F 98.4 F 98.9 F Pulse Rate 102 H 97 H 97 H Respiratory 18 22 20 Rate Blood Pressure 145/100 157/95 153/94 O2 Sat by Pulse 96 99 97 Oximetry - General physical appearance Narrative Exam: Gen: AAOx3. NAD ENT: NGT in place with brown gastric drainage CV: S1, S2+ Resp: even and unlabored Abd: soft, NT, ND. RUQ drain - purulent Ext: no c/c/e - Labs 01/20/20 08:19 01/20/20 08:19 Diabetes panel 01/20/20 Range/Units 08:19 Sodium 156 H D (137-145) mmol/L Potassium 3.6 (3.6-5.0) mmol/L Chloride 106.6 (98-107) mmol/L Carbon Dioxide 24 (22-30) mmol/L BUN 36 H (9-20) mg/dL Creatinine 2.2 H (0.8-1.3) mg/dL Glucose 121 H (75-100) mg/dL Calcium 8.6 (8.4-10.2) mg/dL Calcium panel 01/20/20 Range/Units 08:19 Calcium 8.6 (8.4-10.2) mg/dL Pituitary panel 01/20/20 Range/Units 08:19 Sodium 156 H D (137-145) mmol/L Potassium 3.6 (3.6-5.0) mmol/L Chloride 106.6 (98-107) mmol/L Carbon Dioxide 24 (22-30) mmol/L BUN 36 H (9-20) mg/dL Creatinine 2.2 H (0.8-1.3) mg/dL Glucose 121 H (75-100) mg/dL Calcium 8.6 (8.4-10.2) mg/dL Adrenal panel 01/20/20 Range/Units 08:19 Sodium 156 H D (137-145) mmol/L Potassium 3.6 (3.6-5.0) mmol/L Chloride 106.6 (98-107) mmol/L Carbon Dioxide 24 (22-30) mmol/L BUN 36 H (9-20) mg/dL Creatinine 2.2 H (0.8-1.3) mg/dL Glucose 121 H (75-100) mg/dL Calcium 8.6 (8.4-10.2) mg/dL
[2020-01-20 20:58] LABS: Creatinine,Urine 72.7 mg/dL (0.1-20.0); Protein/Creatinine Ratio,Urine 0.52
[2020-01-20] MEDS: HEPARIN 5,000 UNIT/1 ML VIAL SUB-Q SCH (22:17)
[2020-01-20] MEDS: LANSOPRAZOLE 30 MG SOLUTAB FEEDTUBE SCH (22:17)
[2020-01-20] MEDS: METOPROLOL TARTRATE 50 MG TAB FEEDTUBE SCH (22:20)
[2020-01-20] MEDS: hydrALAZINE 25 MG TAB FEEDTUBE SCH (22:21)
[2020-01-21] MEDS: PIPERACIL-TAZO 2.25 GM/50 ML 2.25 GM/50 ML BAG IV SCH ×2 (00:12→05:18)
[2020-01-21] MEDS: hydrALAZINE 25 MG TAB FEEDTUBE SCH ×3 (05:19→22:52)
[2020-01-21 06:09] LABS: Calcium 8.4 mg/dL (8.4-10.2)
[2020-01-21] MEDS: DEXTROSE 5% IN WATER 1,000 ML IV SCH ×2 (09:27→22:42)
[2020-01-21] MEDS: POTASSIUM CHLORIDE 10 MEQ 10 MEQ/100 ML BAG IV SCH ×4 (09:27→17:09)
[2020-01-21] MEDS: METOPROLOL TARTRATE 50 MG TAB FEEDTUBE SCH ×2 (09:28→22:53)
[2020-01-21] MEDS: LANSOPRAZOLE 30 MG SOLUTAB FEEDTUBE SCH ×2 (09:28→22:49)
[2020-01-21] MEDS: INSULIN LISPRO 100 UNIT/ML VIAL 3 mL SUB-Q SCH ×4 (09:30→23:08)
[2020-01-21] MEDS: HEPARIN 5,000 UNIT/1 ML VIAL SUB-Q SCH ×2 (09:31→22:50)
--- NOTE | 2020-01-21 09:44 | Progress Note ---
<LOUISE ROWAN VenkatSunday - Last Filed: 01/21/20 15:41> Assessment and Plan - Patient Problems (1) Sepsis Status: Acute Plan to address problem: - On admit he did leukocytosis, tachycardia, lactic acidosis and worsening renal function - Possible source is gallbladder - On IV antibiotics - Monitor CBC - LA has normalized (2) Cholecystitis Status: Acute Plan to address problem: - 01/17 CT abd/pelvis shows faint multifocal diffuse pulmonary changes right more severe effected than left without evidence of consolidation, [id number] esophagus is present, markedly abnormal appearance in the region of the gallbladder-gallbladder fossa with a complex fluid collection with multiple pockets of air-gas with surrounding reticulation of fat acute-chronic cholecystitis is a concern and marked gastric distention is present with significant thickening of the second third portion of the duodenum - 01/18 abd US shows complex gallbladder containing air, small amount of free fluid, and distended stomach. - 01/18 CT guided placement of drain to right upper quadrant and there was a colle ction in the RUQ which corresponds to the location of the gallbladder, however it is unclear if this represents a combination of perforation, cholecystitis, or [id number] secondary to cholecystitis or PUD per Dr. Granado. - 01/18 HIDA scan shows no gallbladder filling at 60 minutes, suggestive of cystic duct obstruction and cholecystitis - Continue IV antibiotics - General surgery consult - NGT to LIS with brown drainage, 01/18 1800 ml, 01/19 1100 ml output - Patient is experiencing low grade fevers (3) Acute on chronic renal insufficiency Status: Acute Plan to address problem: - IVF, D5W @ 75ml/hr - Trend BMP - Cr is trending down - 01/18 renal US shows no significant sonographic abnormality of the kidneys. - Avoid nephrotoxic agent - Daily weights (4) Hypokalemia Status: Acute Plan to address problem: - 01/19 K 3.4, repleted with IV KCL - 01/20 K 3.0, IV KCL - Trend BMP - Maybe related to NGT to LIS (5) Hypernatremia Status: Acute Plan to address problem: - IVF changed to D5W at 75 per nephrology - Trend BMP - Admit Na 144, 01/19 is was 156 but today it is 147 - Possibly secondary to IVF with NS (6) Essential (primary) hypertension Status: Chronic Plan to address problem: - Blood pressure monitor per protocol - Restarted hydralazine, Lopressor PO - Hydralazine IV as needed (7) Hyperlipidemia Status: Chronic Qualifiers: Hyperlipidemia type: mixed hyperlipidemia Qualified Code(s): E78.2 - Mixed hyperlipidemia Plan to address problem: - Restarted home Lipitor (8) 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 He has also had some mild abdominal discomfort. Upon arrival in the emergency room patient was found to be tachycardic and work-up reveals leukocytosis of 16, elevated lactic acid, acute kidney injury and CT abdomen reveals possible cholecystitis with abscess formation and perforation. He is s/p CT guided of drains into the right upper quadrant on 01/18. He is currently NPO with a NGT to LIS and does not have abd discomfort. States he is feeling better today but complains of cough. 01/18: CT of the abdomen shows cholescystitis. HIDA scan to showed no gallbladder filling at 60 minutes, suggestive of cystic duct obstruction and cholecystitis. Placement of CT guided drains to RUQ. 01/19: hypernatremia, started on D5W, hypokalemia (repleted) Hospitalist Physical - Constitutional Vitals: Temp Pulse Resp BP Pulse Ox 99.3 F 95 H 18 132/85 92 01/21/20 07:44 01/21/20 09:28 01/21/20 07:44 01/21/20 09:28 01/21/20 07:44 General appearance: Present: no acute distress - EENT Eyes: Present: PERRL ENT: hearing intact - Neck Neck: Present: normal ROM - Respiratory Respiratory effort: normal Respiratory: bilateral: CTA - Cardiovascular Rhythm: regular Heart Sounds: Present: S1 & S2. Absent: systolic murmur, diastolic murmur - Extremities Extremities: no ischemia, pulses intact, pulses symmetrical, No edema, normal temperature, normal color Peripheral Pulses: within normal limits - Abdominal General gastrointestinal: soft, non-tender, non-distended, normal bowel sounds - Integumentary Integumentary: Present: warm, dry - Psychiatric Psychiatric: cooperative - Neurologic Neurologic: moves all extremities (B BKA) Results - Labs CBC & Chem 7: 01/20/20 08:19 01/21/20 03:06 Labs: Laboratory Last Values WBC 7.3 K/mm3 (4.5-11.0) 01/20/20 08:19 RBC 2.99 M/mm3 (3.65-5.03) L 01/20/20 08:19 Hgb 8.4 gm/dl (11.8-15.2) L 01/20/20 08:19 Hct 25.7 % (35.5-45.6) L 01/20/20 08:19 MCV 86 fl (84-94) 01/20/20 08:19 MCH 28 pg (28-32) 01/20/20 08:19 MCHC 33 % (32-34) 01/20/20 08:19 RDW 14.6 % (13.2-15.2) 01/20/20 08:19 Plt Count 507 K/mm3 (140-440) H 01/20/20 08:19 Lymph % (Auto) 8.9 % (13.4-35.0) L 01/20/20 08:19 Amelia % (Auto) 6.9 % (0.0-7.3) 01/20/20 08:19 Eos % (Auto) 1.4 % (0.0-4.3) 01/20/20 08:19 Baso % (Auto) 0.3 % (0.0-1.8) 01/20/20 08:19 Lymph # 0.6 K/mm3 (1.2-5.4) L 01/20/20 08:19 Amelia # 0.5 K/mm3 (0.0-0.8) 01/20/20 08:19 Eos # 0.1 K/mm3 (0.0-0.4) 01/20/20 08:19 Baso # 0.0 K/mm3 (0.0-0.1) 01/20/20 08:19 Add Manual Diff Complete 01/18/20 20:17 Total Counted 100 08/31/20 20:17 Seg Neutrophils % 82.5 % (40.0-70.0) H 01/20/20 08:19 Seg Neuts % (Manual) 54.0 % (40.0-70.0) 01/18/20 20:17 Band Neutrophils % 40.0 % 01/18/20 20:17 Lymphocytes % (Manual) 5.0 % (13.4-35.0) L 01/18/20 20:17 Reactive Lymphs % (Man) 0 % 01/18/20 20:17 Monocytes % (Manual) 1.0 % (0.0-7.3) 01/18/20 20:17 Eosinophils % (Manual) 0 % (0.0-4.3) 01/18/20 20:17 Basophils % (Manual) 0 % (0.0-1.8) 01/18/20 20:17 Metamyelocytes % 0 % 01/18/20 20:17 Myelocytes % 0 % 01/18/20 20:17 Promyelocytes % 0 % 01/18/20 20:17 Blast Cells % 0 % 01/18/20 20:17 Nucleated RBC % Not Reportable 01/18/20 20:17 Seg Neutrophils # 6.0 K/mm3 (1.8-7.7) 01/20/20 08:19 Seg Neutrophils # Man 8.3 K/mm3 (1.8-7.7) H 01/18/20 20:17 Band Neutrophils # 6.1 K/mm3 01/18/20 20:17 Lymphocytes # (Manual) 0.8 K/mm3 (1.2-5.4) L 01/18/20 20:17 Abs React Lymphs (Man) 0.0 K/mm3 01/18/20 20:17 Monocytes # (Manual) 0.2 K/mm3 (0.0-0.8) 01/18/20 20:17 Eosinophils # (Manual) 0.0 K/mm3 (0.0-0.4) 01/18/20 20:17 Basophils # (Manual) 0.0 K/mm3 (0.0-0.1) 01/18/20 20:17 Metamyelocytes # 0.0 K/mm3 01/18/20 20:17 Myelocytes # 0.0 K/mm3 01/18/20 20:17 Promyelocytes # 0.0 K/mm3 01/18/20 20:17 Blast Cells # 0.0 K/mm3 01/18/20 20:17 WBC Morphology Not Reportable 01/18/20 20:17 Hypersegmented Neuts Not Reportable 01/18/20 20:17 Hyposegmented Neuts Not Reportable 01/18/20 20:17 Hypogranular Neuts Not Reportable 01/18/20 20:17 Smudge Cells Not Reportable 01/18/20 20:17 Toxic Granulation Not Reportable 01/18/20 20:17 Toxic Vacuolation Not Reportable 01/18/20 20:17 Dohle Bodies Not Reportable 01/18/20 20:17 Pelger-Huet Anomaly Not Reportable 01/18/20 20:17 Fadumo Rods Not Reportable 01/18/20 20:17 Platelet Estimate Consistent w auto 01/18/20 20:17 Clumped Platelets Not Reportable 01/18/20 20:17 Plt Clumps, EDTA Not Reportable 01/18/20 20:17 Large Platelets Not Reportable 01/18/20 20:17 Giant Platelets Not Reportable 01/18/20 20:17 Platelet Satelliting Not Reportable 01/18/20 20:17 Plt Morphology Comment Not Reportable 01/18/20 20:17 RBC Morphology Not Reportable 01/18/20 20:17 Dimorphic RBCs Not Reportable 01/18/20 20:17 Polychromasia Not Reportable 01/18/20 20:17 Hypochromasia Not Reportable 01/18/20 20:17 Poikilocytosis Not Reportable 01/18/20 20:17 Anisocytosis Not Reportable 01/18/20 20:17 Microcytosis Not Reportable 01/18/20 20:17 Macrocytosis Not Reportable 01/18/20 20:17 Spherocytes Not Reportable 01/18/20 20:17 Pappenheimer Bodies Not Reportable 01/18/20 20:17 Sickle Cells Not Reportable 01/18/20 20:17 Target Cells Not Reportable 01/18/20 20:17 Tear Drop Cells Not Reportable 01/18/20 20:17 Ovalocytes Not Reportable 01/18/20 20:17 Helmet Cells Not Reportable 01/18/20 20:17 [place] Bodies Not Reportable 01/18/20 20:17 [place] Rings Not Reportable 01/18/20 20:17 [place] Cells Not Reportable 01/18/20 20:17 Bite Cells Not Reportable 01/18/20 20:17 Crenated Cell Not Reportable 01/18/20 20:17 Elliptocytes Not Reportable 01/18/20 20:17 Acanthocytes (Spur) Not Reportable 01/18/20 20:17 Rouleaux Not Reportable 01/18/20 20:17 Hemoglobin C Crystals Not Reportable 01/18/20 20:17 Schistocytes Not Reportable 01/18/20 20:17 Malaria parasites Not Reportable 01/18/20 20:17 Eb Bodies Not Reportable 01/18/20 20:17 Hem Pathologist Commnt No 01/18/20 20:17 PT 14.9 Sec. (12.2-14.9) 01/19/20 13:16 INR 1.16 (0.87-1.13) H 01/19/20 13:16 Sodium 147 mmol/L (137-145) H D 01/21/20 03:06 Potassium 3.0 mmol/L (3.6-5.0) L 01/21/20 03:06 Chloride 98.7 mmol/L (98-107) 01/21/20 03:06 Carbon Dioxide 34 mmol/L (22-30) H D 01/21/20 03:06 Anion Gap 17 mmol/L 01/21/20 03:06 BUN 24 mg/dL (9-20) H 01/21/20 03:06 Creatinine 1.6 mg/dL (0.8-1.3) H 01/21/20 03:06 Estimated GFR 54 ml/min 01/21/20 03:06 BUN/Creatinine Ratio 15 % 01/21/20 03:06 Glucose 124 mg/dL (75-100) H 01/21/20 03:06 POC Glucose 164 (70-105) H 01/21/20 07:59 Hemoglobin A1c 5.8 % (4-6) 01/19/20 13:16 Lactic Acid 1.20 mmol/L (0.7-2.0) 01/19/20 19:32 Calcium 8.4 mg/dL (8.4-10.2) 01/21/20 03:06 Total Bilirubin 0.60 mg/dL (0.1-1.2) 01/18/20 20:17 AST 11 units/L (5-40) 01/18/20 20:17 ALT 7 units/L (7-56) 01/18/20 20:17 Alkaline Phosphatase 69 units/L (35-129) 01/18/20 20:17 Total Protein 5.7 g/dL (6.3-8.2) L 01/18/20 20:17 Albumin 3.0 g/dL (3.9-5) L 01/18/20 20:17 Albumin/Globulin Ratio 1.1 % 01/18/20 20:17 Lipase 17 units/L (13-60) 01/18/20 20:28 Urine Color Yellow (Yellow) 01/18/20 Unknown Urine Turbidity Slightly-cloudy (Clear) 01/18/20 Unknown Urine pH 6.0 (5.0-7.0) 01/18/20 Unknown Ur Specific [place] 1.011 (1.003-1.030) 01/18/20 Unknown Urine Protein <15 mg/dl mg/dL (Negative) 01/18/20 Unknown Urine Glucose (UA) 50 mg/dL (Negative) 01/18/20 Unknown Urine Ketones Tr mg/dL (Negative) 01/18/20 Unknown Urine Blood Sm (Negative) 01/18/20 Unknown Urine Nitrite Neg (Negative) 01/18/20 Unknown Urine Bilirubin Neg (Negative) 01/18/20 Unknown Urine Urobilinogen 2.0 mg/dL (<2.0) 01/18/20 Unknown Ur Leukocyte Esterase Neg (Negative) 01/18/20 Unknown Urine WBC (Auto) 4.0 /HPF (0.0-6.0) 01/18/20 Unknown Urine RBC (Auto) 2.0 /HPF (0.0-6.0) 01/18/20 Unknown U Epithel Cells (Auto) 4.0 /HPF (0-13.0) 01/18/20 Unknown Urine Bacteria (Auto) 1+ /HPF (Negative) 01/18/20 Unknown Urine Mucus Few /HPF 01/18/20 Unknown Urine Eosinophils None seen (None Seen) 01/20/20 20:28 Urine Creatinine 72.7 mg/dL (0.1-20.0) H 09/02/20 20:28 Protein/Creatinin Ratio 0.52 01/20/20 20:28 Urine Sodium 165 mmol/L 01/20/20 20:28 Urine Total Protein 38 mg/dL (5-11.8) H 01/20/20 20:28 Microbiology: Microbiology 01/18/20 21:39 Peripheral/Venous Blood Culture - Preliminary NO GROWTH AFTER 48 HOURS 01/18/20 21:32 Peripheral/Venous Blood Culture - Preliminary NO GROWTH AFTER 48 HOURS 01/19/20 Unknown Abdomen Surgical Culture - Preliminary Mcmullen/IV: Voiding Method Condom Catheter IV Catheter Type [Left Hand] Peripheral IV IV Catheter Type [Right INT / Saline Lock Antecubital] Active Medications - Current Medications Current Medications: Generic Name Dose Route Start Last Admin Trade Name Freq PRN Reason Stop Dose Admin Acetaminophen 650 mg 01/18/20 22:58 Tylenol PO Q4H PRN Pain MILD(1-3)/Fever >100.5/AQUINO Atorvastatin Calcium 40 mg 01/20/20 22:00 01/20/20 22:19 Lipitor FEEDTUBE 40 mg QHS JONO Administration Bisacodyl 10 mg 01/19/20 16:00 01/21/20 09:28 Dulcolax RI 10 mg QDAY JONO Administration Dextrose 50 ml 01/18/20 22:58 D50w (25gm) Syringe IV Q30MIN PRN Hypoglycemia Protocol Heparin Sodium (Porcine) 5,000 unit 01/20/20 22:00 01/21/20 09:31 Heparin SUB-Q 5,000 unit Q12HR JONO Administration Hydralazine HCl 10 mg 01/20/20 07:58 Apresoline IV Q4HR PRN Hypertension Hydralazine HCl 25 mg 01/20/20 22:00 01/21/20 05:19 Apresoline FEEDTUBE 25 mg Q8HR JONO Administration Piperacillin Sod/Tazobactam Sod 2.25 gm in 50 mls @ 100 mls/hr 01/19/20 18:00 01/21/20 05:18 Zosyn/Ns 2.25 Gm/50ml IV 100 mls/hr Q6HR JONO Administration Dextrose 1,000 mls @ 75 mls/hr 01/21/20 08:00 01/21/20 09:27 D5w IV 75 mls/hr DIRECT JONO Administration Potassium Chloride 10 meq in 100 mls @ 100 mls/hr 01/21/20 08:00 01/21/20 09:27 Kcl 10meq/100ml IV 01/21/20 11:59 100 mls/hr Q1H JONO Administration Insulin Human Lispro 0 unit 01/19/20 07:30 01/21/20 09:30 Humalog SUB-Q 2 unit ACHS JONO Administration Protocol Lansoprazole 30 mg 01/20/20 22:00 01/21/20 09:28 Prevacid Solutab FEEDTUBE 30 mg BID JONO Administration Metoprolol Tartrate 50 mg 01/20/20 22:00 01/21/20 09:28 Metoprolol FEEDTUBE 50 mg BID JONO Administration Morphine Sulfate 2 mg 01/18/20 22:58 Morphine IV Q4H PRN Pain, Moderate (4-6) Ondansetron HCl 4 mg 01/18/20 22:58 01/19/20 14:15 Zofran IV 4 mg Q8H PRN Administration Nausea And Vomiting Sodium Chloride 10 ml 01/19/20 10:00 01/20/20 22:19 Sodium Chloride Flush Syringe 10 Ml IV 10 ml BID JONO Administration Sodium Chloride 10 ml 01/18/20 22:58 Sodium Chloride Flush Syringe 10 Ml IV PRN PRN LINE FLUSH <ELSA SINGH - Last Filed: 01/24/20 07:17> Assessment and Plan Assessment and plan: I saw and evaluated the patient. I agree with the findings and the plan of care as documented in the Nurse Practitioner's~note, with the following corrections and additions. Hospitalist Physical - Constitutional Vitals: Temp Pulse Resp BP Pulse Ox 97 F L 97 H 20 117/71 100 01/22/20 17:00 01/22/20 17:00 01/22/20 17:00 01/22/20 17:00 01/22/20 17:00 Results - Labs CBC & Chem 7: 01/22/20 06:49 01/22/20 18:44 Labs: Laboratory Last Values WBC 7.5 K/mm3 (4.5-11.0) 01/22/20 06:49 RBC 2.62 M/mm3 (3.65-5.03) L 01/22/20 06:49 Hgb 7.5 gm/dl (11.8-15.2) L 01/22/20 06:49 Hct 22.4 % (35.5-45.6) L 01/22/20 06:49 MCV 86 fl (84-94) 01/22/20 06:49 MCH 29 pg (28-32) 01/22/20 06:49 MCHC 33 % (32-34) 01/22/20 06:49 RDW 14.5 % (13.2-15.2) 01/22/20 06:49 Plt Count 355 K/mm3 (140-440) 01/22/20 06:49 Lymph % (Auto) 8.9 % (13.4-35.0) L 01/20/20 08:19 Amelia % (Auto) 6.9 % (0.0-7.3) 01/20/20 08:19 Eos % (Auto) 1.4 % (0.0-4.3) 01/20/20 08:19 Baso % (Auto) 0.3 % (0.0-1.8) 01/20/20 08:19 Lymph # 0.6 K/mm3 (1.2-5.4) L 01/20/20 08:19 Amelia # 0.5 K/mm3 (0.0-0.8) 01/20/20 08:19 Eos # 0.1 K/mm3 (0.0-0.4) 01/20/20 08:19 Baso # 0.0 K/mm3 (0.0-0.1) 01/20/20 08:19 Add Manual Diff Complete 01/18/20 20:17 Total Counted 100 01/18/20 20:17 Seg Neutrophils % 82.5 % (40.0-70.0) H 01/20/20 08:19 Seg Neuts % (Manual) 54.0 % (40.0-70.0) 01/18/20 20:17 Band Neutrophils % 40.0 % 01/18/20 20:17 Lymphocytes % (Manual) 5.0 % (13.4-35.0) L 01/18/20 20:17 Reactive Lymphs % (Man) 0 % 01/18/20 20:17 Monocytes % (Manual) 1.0 % (0.0-7.3) 01/18/20 20:17 Eosinophils % (Manual) 0 % (0.0-4.3) 01/18/20 20:17 Basophils % (Manual) 0 % (0.0-1.8) 01/18/20 20:17 Metamyelocytes % 0 % 01/18/20 20:17 Myelocytes % 0 % 01/18/20 20:17 Promyelocytes % 0 % 01/18/20 20:17 Blast Cells % 0 % 01/18/20 20:17 Nucleated RBC % Not Reportable 01/18/20 20:17 Seg Neutrophils # 6.0 K/mm3 (1.8-7.7) 01/20/20 08:19 Seg Neutrophils # Man 8.3 K/mm3 (1.8-7.7) H 01/18/20 20:17 Band Neutrophils # 6.1 K/mm3 01/18/20 20:17 Lymphocytes # (Manual) 0.8 K/mm3 (1.2-5.4) L 01/18/20 20:17 Abs React Lymphs (Man) 0.0 K/mm3 01/18/20 20:17 Monocytes # (Manual) 0.2 K/mm3 (0.0-0.8) 01/18/20 20:17 Eosinophils # (Manual) 0.0 K/mm3 (0.0-0.4) 01/18/20 20:17 Basophils # (Manual) 0.0 K/mm3 (0.0-0.1) 01/18/20 20:17 Metamyelocytes # 0.0 K/mm3 01/18/20 20:17 Myelocytes # 0.0 K/mm3 01/18/20 20:17 Promyelocytes # 0.0 K/mm3 01/18/20 20:17 Blast Cells # 0.0 K/mm3 01/18/20 20:17 WBC Morphology Not Reportable 01/18/20 20:17 Hypersegmented Neuts Not Reportable 01/18/20 20:17 Hyposegmented Neuts Not Reportable 01/18/20 20:17 Hypogranular Neuts Not Reportable 01/18/20 20:17 Smudge Cells Not Reportable 01/18/20 20:17 Toxic Granulation Not Reportable 01/18/20 20:17 Toxic Vacuolation Not Reportable 01/18/20 20:17 Dohle Bodies Not Reportable 01/18/20 20:17 Pelger-Huet Anomaly Not Reportable 01/18/20 20:17 Fadumo Rods Not Reportable 01/18/20 20:17 Platelet Estimate Consistent w auto 01/18/20 20:17 Clumped Platelets Not Reportable 01/18/20 20:17 Plt Clumps, EDTA Not Reportable 01/18/20 20:17 Large Platelets Not Reportable 01/18/20 20:17 Giant Platelets Not Reportable 01/18/20 20:17 Platelet Satelliting Not Reportable 01/18/20 20:17 Plt Morphology Comment Not Reportable 01/18/20 20:17 RBC Morphology Not Reportable 01/18/20 20:17 Dimorphic RBCs Not Reportable 01/18/20 20:17 Polychromasia Not Reportable 01/18/20 20:17 Hypochromasia Not Reportable 01/18/20 20:17 Poikilocytosis Not Reportable 01/18/20 20:17 Anisocytosis Not Reportable 01/18/20 20:17 Microcytosis Not Reportable 01/18/20 20:17 Macrocytosis Not Reportable 01/18/20 20:17 Spherocytes Not Reportable 01/18/20 20:17 Pappenheimer Bodies Not Reportable 01/18/20 20:17 Sickle Cells Not Reportable 01/18/20 20:17 Target Cells Not Reportable 01/18/20 20:17 Tear Drop Cells Not Reportable 01/18/20 20:17 Ovalocytes Not Reportable 01/18/20 20:17 Helmet Cells Not Reportable 01/18/20 20:17 Muhammad[place] Bodies Not Reportable 01/18/20 20:17 [place] Rings Not Reportable 01/18/20 20:17 [place] Cells Not Reportable 01/18/20 20:17 Bite Cells Not Reportable 01/18/20 20:17 Crenated Cell Not Reportable 01/18/20 20:17 Elliptocytes Not Reportable 01/18/20 20:17 Acanthocytes (Spur) Not Reportable 01/18/20 20:17 Rouleaux Not Reportable 01/18/20 20:17 Hemoglobin C Crystals Not Reportable 01/18/20 20:17 Schistocytes Not Reportable 01/18/20 20:17 Malaria parasites Not Reportable 08/31/20 20:17 Eb Bodies Not Reportable 01/18/20 20:17 Hem Pathologist Commnt No 01/18/20 20:17 PT 14.9 Sec. (12.2-14.9) 01/19/20 13:16 INR 1.16 (0.87-1.13) H 01/19/20 13:16 Sodium 135 mmol/L (137-145) L 01/22/20 18:44 Potassium 3.1 mmol/L (3.6-5.0) L 01/22/20 18:44 Chloride 89.3 mmol/L (98-107) L 01/22/20 18:44 Carbon Dioxide 30 mmol/L (22-30) 01/22/20 18:44 Anion Gap 19 mmol/L 01/22/20 18:44 BUN 18 mg/dL (9-20) 01/22/20 18:44 Creatinine 1.7 mg/dL (0.8-1.3) H 01/22/20 18:44 Estimated GFR 51 ml/min 01/22/20 18:44 BUN/Creatinine Ratio 11 % 01/22/20 18:44 Glucose 225 mg/dL (75-100) H 01/22/20 18:44 POC Glucose 197 (70-105) H 01/22/20 16:20 Hemoglobin A1c 5.8 % (4-6) 01/19/20 13:16 Lactic Acid 1.20 mmol/L (0.7-2.0) 01/19/20 19:32 Calcium 7.9 mg/dL (8.4-10.2) L 01/22/20 18:44 Total Bilirubin 0.80 mg/dL (0.1-1.2) 01/22/20 08:41 AST 9 units/L (5-40) 01/22/20 08:41 ALT < 5 units/L (7-56) L 01/22/20 08:41 Alkaline Phosphatase 52 units/L (35-129) 01/22/20 08:41 Total Protein 5.6 g/dL (6.3-8.2) L 01/22/20 08:41 Albumin 2.7 g/dL (3.9-5) L 01/22/20 08:41 Albumin/Globulin Ratio 0.9 % 01/22/20 08:41 Lipase 17 units/L (13-60) 01/18/20 20:28 Urine Color Yellow (Yellow) 01/18/20 Unknown Urine Turbidity Slightly-cloudy (Clear) 01/18/20 Unknown Urine pH 6.0 (5.0-7.0) 01/18/20 Unknown Ur Specific [place] 1.011 (1.003-1.030) 01/18/20 Unknown Urine Protein <15 mg/dl mg/dL (Negative) 01/18/20 Unknown Urine Glucose (UA) 50 mg/dL (Negative) 01/18/20 Unknown Urine Ketones Tr mg/dL (Negative) 01/18/20 Unknown Urine Blood Sm (Negative) 01/18/20 Unknown Urine Nitrite Neg (Negative) 01/18/20 Unknown Urine Bilirubin Neg (Negative) 01/18/20 Unknown Urine Urobilinogen 2.0 mg/dL (<2.0) 01/18/20 Unknown Ur Leukocyte Esterase Neg (Negative) 01/18/20 Unknown Urine WBC (Auto) 4.0 /HPF (0.0-6.0) 01/18/20 Unknown Urine RBC (Auto) 2.0 /HPF (0.0-6.0) 01/18/20 Unknown U Epithel Cells (Auto) 4.0 /HPF (0-13.0) 01/18/20 Unknown Urine Bacteria (Auto) 1+ /HPF (Negative) 01/18/20 Unknown Urine Mucus Few /HPF 01/18/20 Unknown Urine Eosinophils None seen (None Seen) 01/20/20 20:28 Urine Creatinine 72.7 mg/dL (0.1-20.0) H 01/20/20 20:28 Protein/Creatinin Ratio 0.52 01/20/20 20:28 Urine Sodium 165 mmol/L 01/20/20 20:28 Urine Total Protein 38 mg/dL (5-11.8) H 01/20/20 20:28 Microbiology: Microbiology 01/18/20 21:32 Peripheral/Venous Blood Culture - Final NO GROWTH AFTER 5 DAYS 01/19/20 Unknown Abdomen Surgical Culture - Final 01/18/20 21:39 Peripheral/Venous Blood Culture - Preliminary Streptococcus Anginosus Mcmullen/IV: Voiding Method Diaper IV Catheter Type [Left Hand] Peripheral IV IV Catheter Type [Right INT / Saline Lock Antecubital]
--- NOTE | 2020-01-21 10:10 | XRay Report ---
ABDOMEN 1 VIEW(S) INDICATION / CLINICAL INFORMATION: partial gastric outlet obstruction. COMPARISON: [facility] abdomen 06/15/2018. CT abdomen pelvis 01/18/2020 FINDINGS: TUBES / LINES: A nasogastric tube terminates in the mid stomach. Percutaneous cholecystostomy tube hernandez s been placed in the right upper quadrant. BOWEL GAS PATTERN: No significant abnormality. The stomach is only partially visualized but appears d ecompressed since the previous CT. No evidence for GI obstruction on today's exam. FREE AIR / EXTRALUMINAL GAS: None seen. ADDITIONAL FINDINGS: No significant additional findings. IMPRESSION: No significant abnormality. Signer Name: Aidan Aparicio Jr, MD Signed: 01/21/2020 10:06 AM Workstation Name: [id number]
[2020-01-21] MEDS: PIPERACIL/TAZOBACTA 4.5/NS 100 4.5 GM/100 ML VIAL IV SCH ×2 (13:35→22:50)
--- NOTE | 2020-01-21 14:02 | Progress Note ---
Assessment and Plan Assessment: Acute Renal failure secondary to Prerenal Etiology Cholecystitis with Abscess Sepsis Diabetes Mellitus Hypertension Hypernatremia, Improving Hypokalemia Plan: -Renal labs reviewed. Serum creatinine trend down to 1.6 today, yesterday was 2.2, has good UOP -Baseline serum creatinine 1.2-1.4 -CT of Abd/Pelvis and Renal US-no acute renal findings -On D5W to 75 ml/hr -Sodium level 147 today from 156 yesterday, improving -Replete potassium- KCL 10 meq x 1 -Obtain daily weights -Monitor I/O's -Avoid nephrotoxic agents -Continue to monitor Subjective Date of service: 01/21/20 Principal diagnosis: Abdominal Pain, Nausea and vomiting Interval history: Patient resting in bed. Objective - Vital Signs Vital signs: Vital Signs - 12hr 01/21/20 01/21/20 01/21/20 04:37 05:19 07:44 Temperature 99.2 F 99.3 F Pulse Rate 95 H 95 H 95 H Respiratory 18 18 Rate Blood Pressure 143/92 143/92 132/85 O2 Sat by Pulse 96 92 Oximetry 01/21/20 01/21/20 09:28 12:12 Temperature 98.5 F Pulse Rate 95 H 97 H Respiratory 18 Rate Blood Pressure 132/85 131/89 O2 Sat by Pulse 97 Oximetry - General Appearance General appearance: cachectic EENT: ATNC, PERRL Neck: no JVD, supple Respiratory: Present: Decreased Breath Sounds Cardiology: S1S2 Gastrointestinal: other (NG tube to LIS) Integumentary: warm and dry Neurologic: other (Awake and alert) Musculoskeletal: other (No edema) - Lab 01/20/20 08:19 01/21/20 03:06 Most recent lab results Calcium 8.4 mg/dL (8.4-10.2) 01/21/20 03:06 Urine Creatinine 72.7 mg/dL (0.1-20.0) H 01/20/20 20:28 Urine Sodium 165 mmol/L 01/20/20 20:28 Urine Total Protein 38 mg/dL (5-11.8) H 01/20/20 20:28 Medications & Allergies - Medications Allergies/Adverse Reactions: Allergies No Known Allergies Allergy (Unverified 08/03/15 12:32) Home Medications: Home Medications Medication Instructions Recorded Confirmed Last Taken Type Acetaminophen [Acetaminophen 650 mg CO Q4H PRN #10 supp.rect 06/30/18 01/19/20 Unknown Rx SUPPOS] Aspirin [Aspirin BABY CHEW TAB] 81 mg FEEDTUBE QDAY #30 tab.chew 06/30/18 01/19/20 Unknown Rx AtorvaSTATin [Lipitor] 40 mg FEEDTUBE QHS #30 tablet 06/30/18 01/19/20 Unknown Rx Clopidogrel [Plavix] 75 mg FEEDTUBE QDAY #30 tablet 06/30/18 01/19/20 Unknown Rx Docusate Sodium [Colace ORAL LIQ] 100 mg FEEDTUBE BID 30 Days 06/30/18 01/19/20 Unknown Rx oral.liqd Epoetin Abhijeet 10,000 Unit [Procrit] 10,000 unit SUB-Q Webb #4 vial 06/30/18 01/19/20 Unknown Rx Insulin Glargine [Lantus VIAL] 20 units SUB-Q QHS 30 Days units 06/30/18 01/19/20 Unknown Rx Lansoprazole Solutab [Prevacid 30 mg FEEDTUBE BID #30 tab.rapdis 06/30/18 01/19/20 Unknown Rx Solutab] Lipase/Protease/Amylase [Pancreaze 1 each FEEDTUBE PRN PRN #10 capsule 06/30/18 01/19/20 Unknown Rx 10,500 Unit] Lispro Insulin [HumaLOG] 0 unit SUB-Q Q6HR 30 Days units 06/30/18 01/19/20 Unknown Rx Metoprolol [Lopressor TAB] 50 mg FEEDTUBE BID #60 tablet 06/30/18 01/19/20 Unknown Rx hydrALAZINE [Apresoline TAB] 25 mg FEEDTUBE Q8HR #90 tablet 06/30/18 01/19/20 Unknown Rx polyethylene glycoL 3350 [Miralax 17 gm FEEDTUBE QDAY #30 powd.pack 06/30/18 01/19/20 Unknown Rx 3350] Promethazine [Phenergan] 25 mg PO Q6HR PRN #20 tab 01/13/20 01/19/20 Unknown Rx Active Medications: Generic Name Dose Route Start Last Admin Trade Name Freq PRN Reason Stop Dose Admin Acetaminophen 650 mg 01/18/20 22:58 Tylenol PO Q4H PRN Pain MILD(1-3)/Fever >100.5/AQUINO Atorvastatin Calcium 40 mg 01/20/20 22:00 01/20/20 22:19 Lipitor FEEDTUBE 40 mg QHS JONO Administration Bisacodyl 10 mg 01/19/20 16:00 01/21/20 09:28 Dulcolax CO 10 mg QDAY JONO Administration Dextrose 50 ml 01/18/20 22:58 D50w (25gm) Syringe IV Q30MIN PRN Hypoglycemia Protocol Heparin Sodium (Porcine) 5,000 unit 01/20/20 22:00 01/21/20 09:31 Heparin SUB-Q 5,000 unit Q12HR JONO Administration Hydralazine HCl 10 mg 01/20/20 07:58 Apresoline IV Q4HR PRN Hypertension Hydralazine HCl 25 mg 01/20/20 22:00 01/21/20 13:35 Apresoline FEEDTUBE 25 mg Q8HR JONO Administration Dextrose 1,000 mls @ 75 mls/hr 01/21/20 08:00 01/21/20 09:27 D5w IV 75 mls/hr DIRECT JONO Administration Piperacillin Sod/Tazobactam Sod 4.5 gm in 100 mls @ 200 mls/hr 01/21/20 14:00 01/21/20 13:35 Zosyn/Ns 4.5gm/100ml IV 200 mls/hr Q8HR JONO Administration Protocol Insulin Human Lispro 0 unit 01/19/20 07:30 01/21/20 12:14 Humalog SUB-Q 3 unit ACHS JONO Administration Protocol Lansoprazole 30 mg 01/20/20 22:00 01/21/20 09:28 Prevacid Solutab FEEDTUBE 30 mg BID JONO Administration Metoprolol Tartrate 50 mg 01/20/20 22:00 01/21/20 09:28 Metoprolol FEEDTUBE 50 mg BID JONO Administration Morphine Sulfate 2 mg 01/18/20 22:58 Morphine IV Q4H PRN Pain, Moderate (4-6) Ondansetron HCl 4 mg 01/18/20 22:58 01/19/20 14:15 Zofran IV 4 mg Q8H PRN Administration Nausea And Vomiting Sodium Chloride 10 ml 01/19/20 10:00 01/21/20 12:15 Sodium Chloride Flush Syringe 10 Ml IV Not Given BID JONO Sodium Chloride 10 ml 01/18/20 22:58 Sodium Chloride Flush Syringe 10 Ml IV PRN PRN LINE FLUSH
--- NOTE | 2020-01-21 14:28 | Progress Note ---
Assessment and Plan 54-year-old male with 1. right upper quadrant abscess, likely consistent with perforated gallbladder s/p CT guided drain placement 2. partial gastric outlet obstruction 2/2 #1 RUQ u/s - complex GB with air HIDA - nonvisualization of GB Pt stable. NGT output 1100cc/24h. IR drain - 145cc/24hr Plan: 1. clamp NGT, start sips of clears. Patient must be sitting up >45 degrees while NGT is clamped - discussed with RN and pt 2. IVF 3. IV abx 4. monitor drain output and maintain drain to accordian suction 5. follow up abscess cultures 6. prn pain and nausea control 7. repeat am labs, replace K Will follow. Thank you, please call with questions. Subjective Date of service: 01/21/20 Narrative: Pt seen and examined. No complaints. No f/c, cp, sob, n/v, abd pain. +BM Objective Vital Signs - 12hr 01/21/20 01/21/20 01/21/20 04:37 05:19 07:44 Temperature 99.2 F 99.3 F Pulse Rate 95 H 95 H 95 H Respiratory 18 18 Rate Blood Pressure 143/92 143/92 132/85 O2 Sat by Pulse 96 92 Oximetry 01/21/20 01/21/20 09:28 12:12 Temperature 98.5 F Pulse Rate 95 H 97 H Respiratory 18 Rate Blood Pressure 132/85 131/89 O2 Sat by Pulse 97 Oximetry - General physical appearance Narrative Exam: Gen: AAOx3. NAD ENT: NGT with brown gastric drainage CV: S1, S2+ resp: even and unlabored Abd: soft, NT, ND. RUQ drain purulent. Ext: no c/c/e - Labs 01/20/20 08:19 01/21/20 03:06 Diabetes panel 01/21/20 Range/Units 03:06 Sodium 147 H D (137-145) mmol/L Potassium 3.0 L (3.6-5.0) mmol/L Chloride 98.7 (98-107) mmol/L Carbon Dioxide 34 H D (22-30) mmol/L BUN 24 H (9-20) mg/dL Creatinine 1.6 H (0.8-1.3) mg/dL Glucose 124 H (75-100) mg/dL Calcium 8.4 (8.4-10.2) mg/dL Calcium panel 01/21/20 Range/Units 03:06 Calcium 8.4 (8.4-10.2) mg/dL Pituitary panel 01/21/20 Range/Units 03:06 Sodium 147 H D (137-145) mmol/L Potassium 3.0 L (3.6-5.0) mmol/L Chloride 98.7 (98-107) mmol/L Carbon Dioxide 34 H D (22-30) mmol/L BUN 24 H (9-20) mg/dL Creatinine 1.6 H (0.8-1.3) mg/dL Glucose 124 H (75-100) mg/dL Calcium 8.4 (8.4-10.2) mg/dL Adrenal panel 01/21/20 Range/Units 03:06 Sodium 147 H D (137-145) mmol/L Potassium 3.0 L (3.6-5.0) mmol/L Chloride 98.7 (98-107) mmol/L Carbon Dioxide 34 H D (22-30) mmol/L BUN 24 H (9-20) mg/dL Creatinine 1.6 H (0.8-1.3) mg/dL Glucose 124 H (75-100) mg/dL Calcium 8.4 (8.4-10.2) mg/dL
[2020-01-21] MEDS ORDERED: POTASSIUM CHLORIDE ER 10 MEQ TAB PO ONE (15:03)
[2020-01-21 16:50] LABS: Calcium 8.4 mg/dL (8.4-10.2)
[2020-01-22] MEDS: PIPERACIL/TAZOBACTA 4.5/NS 100 4.5 GM/100 ML VIAL IV SCH ×2 (05:51→15:29)
[2020-01-22] MEDS: hydrALAZINE 25 MG TAB FEEDTUBE SCH (06:05)
[2020-01-22 07:27] LABS: Hematocrit 22.4 % (35.5-45.6); Hemoglobin 7.5 gm/dl (11.8-15.2); Mean Corpuscular HGB Conc 33 % (32-34); Mean Corpuscular Volume 86 fl (84-94); Platelet Count 355 K/mm3 (140-440); Red Blood Count 2.62 M/mm3 (3.65-5.03); Red Cell Distribution Width 14.5 % (13.2-15.2)
[2020-01-22 07:38] LABS: BUN/Creatinine Ratio 14; Blood Urea Nitrogen 15 mg/dL (9-20); Hemolysis Index 0
[2020-01-22] MEDS ORDERED: hydrALAZINE 25 MG TAB FEEDTUBE SCH (08:00)
[2020-01-22 08:14] LABS: Calcium 5.9 mg/dL (8.4-10.2)
[2020-01-22] MEDS: INSULIN LISPRO 100 UNIT/ML VIAL 3 mL SUB-Q SCH (08:28)
[2020-01-22] MEDS ORDERED: POTASSIUM CHLORIDE ER 20 MEQ TAB PO SCH ×2 (08:30→16:00)
[2020-01-22] MEDS ORDERED: hydrALAZINE 10 MG TAB FEEDTUBE SCH (09:00)
[2020-01-22 09:20] LABS: Albumin 2.7 g/dL (3.9-5); BUN/Creatinine Ratio 11; Blood Urea Nitrogen 18 mg/dL (9-20); Calcium 8.2 mg/dL (8.4-10.2); Hemolysis Index 2
[2020-01-22 09:22] LABS: Alanine Aminotransferase < 5 units/L (7-56)
[2020-01-22] MEDS: LANSOPRAZOLE 30 MG SOLUTAB FEEDTUBE SCH (10:32)
--- NOTE | 2020-01-22 11:09 | Progress Note ---
Assessment and Plan - Patient Problems (1) Abnormal CT scan, gallbladder Current Visit: Yes Status: Acute Plan to address problem: Pt stable. He appears much improved since the drain placement. He is now able to tolerate a diet without any nausea or vomiting. Recommend: 1. Advance to full liquid diet. Would discharge on full liquid diet and allow him to slowly advance at home 2. Will need follow-up in 2 to [address] imaging to determine when drain can be removed 3. Okay for discharge from surgery standpoint once patient is tolerating a diet Please call with any questions Time=10min Subjective Date of service: 01/22/20 Patient Reports: Positive: no new complaints, feels better, tolerating liquids well. Negative: nausea, vomiting Objective Vital Signs - 12hr 01/21/20 01/22/20 01/22/20 23:25 04:35 06:05 Temperature 97.6 F 97.7 F Pulse Rate 80 82 77 Respiratory 18 18 Rate Blood Pressure 113/79 111/71 104/65 Blood Pressure [Right] O2 Sat by Pulse 97 95 Oximetry 01/22/20 07:36 Temperature 98.7 F Pulse Rate 84 Respiratory 18 Rate Blood Pressure Blood Pressure 105/74 [Right] O2 Sat by Pulse 96 Oximetry - General physical appearance no distress, no pain, other (looks better) - Respiratory normal expansion, normal respiratory effort - Abdomen soft, not tender, other (drain with purulent drainage) - Integumentary no rash, no growths, no abnormal pigmentation - Labs 01/22/20 06:49 01/22/20 08:41 Diabetes panel 01/21/20 01/22/20 01/22/20 Range/Units 16:02 06:49 08:41 Sodium 144 160 H D 139 D (137-145) mmol/L Potassium 3.3 L 2.4 L* D 3.2 L D (3.6-5.0) mmol/L Chloride 96.0 L 101.9 93.6 L (98-107) mmol/L Carbon Dioxide 35 H 26 D 34 H D (22-30) mmol/L BUN 21 H 15 18 (9-20) mg/dL Creatinine 1.5 H 1.1 1.6 H (0.8-1.3) mg/dL Glucose 118 H 109 H 133 H (75-100) mg/dL Calcium 8.4 5.9 L* D 8.2 L D (8.4-10.2) mg/dL AST 9 (5-40) units/L ALT < 5 L (7-56) units/L Alkaline Phosphatase 52 (35-129) units/L Total Protein 5.6 L (6.3-8.2) g/dL Albumin 2.7 L (3.9-5) g/dL Calcium panel 01/21/20 01/22/20 01/22/20 Range/Units 16:02 06:49 08:41 Calcium 8.4 5.9 L* D 8.2 L D (8.4-10.2) mg/dL Albumin 2.7 L (3.9-5) g/dL Pituitary panel 01/21/20 01/22/20 01/22/20 Range/Units 16:02 06:49 08:41 Sodium 144 160 H D 139 D (137-145) mmol/L Potassium 3.3 L 2.4 L* D 3.2 L D (3.6-5.0) mmol/L Chloride 96.0 L 101.9 93.6 L (98-107) mmol/L Carbon Dioxide 35 H 26 D 34 H D (22-30) mmol/L BUN 21 H 15 18 (9-20) mg/dL Creatinine 1.5 H 1.1 1.6 H (0.8-1.3) mg/dL Glucose 118 H 109 H 133 H (75-100) mg/dL Calcium 8.4 5.9 L* D 8.2 L D (8.4-10.2) mg/dL Adrenal panel 01/21/20 01/22/20 01/22/20 Range/Units 16:02 06:49 08:41 Sodium 144 160 H D 139 D (137-145) mmol/L Potassium 3.3 L 2.4 L* D 3.2 L D (3.6-5.0) mmol/L Chloride 96.0 L 101.9 93.6 L (98-107) mmol/L Carbon Dioxide 35 H 26 D 34 H D (22-30) mmol/L BUN 21 H 15 18 (9-20) mg/dL Creatinine 1.5 H 1.1 1.6 H (0.8-1.3) mg/dL Glucose 118 H 109 H 133 H (75-100) mg/dL Calcium 8.4 5.9 L* D 8.2 L D (8.4-10.2) mg/dL Total Bilirubin 0.80 (0.1-1.2) mg/dL AST 9 (5-40) units/L ALT < 5 L (7-56) units/L Alkaline Phosphatase 52 (35-129) units/L Total Protein 5.6 L (6.3-8.2) g/dL Albumin 2.7 L (3.9-5) g/dL
[2020-01-22] MEDS ORDERED: METOCLOPRAMIDE 10 MG/2 ML INJ IV SCH (11:30)
--- NOTE | 2020-01-22 14:19 | Discharge Summary ---
<HARPALTAVARESLOUISE VenkatSunday - Last Filed: 01/22/20 17:16> Providers - Providers Date of Admission: 01/18/20 22:54 Attending physician: DALLAS ELDER 01/18/20 22:24 Consult to Physician [CONS] Routine Comment: Dr. John spoke with Dr. Chilel @ [phone] Consulting Provider: TUAN CHILEL Physician Instructions: Reason For Exam: cholecysitis 01/19/20 10:04 Consult to Interventional Radiology [CONS] Routine Consulting Provider: GELY PUENTE Reason For Exam: abscess gallbladder fossa, please eval Notified:: dr. puente 01/20/20 08:20 Consult to Physician [CONS] Routine Comment: Consulting Provider: KIKI FERGUSON Physician Instructions: Reason For Exam: al Primary care physician: AEROSPACE ENGINEER Hospitalization Reason for admission: Sepsis secondary to cholecystitis Condition: Fair Pertinent studies: 01/17 CT abd/pelvis shows faint multifocal diffuse pulmonary changes right more severe effected than left without evidence of consolidation, [id number] esophagus is present, markedly abnormal appearance in the region of the gallbladder-gallbladder fossa with a complex fluid collection wi th multiple pockets of air-gas with surrounding reticulation of fat acute- chronic cholecystitis is a concern and marked gastric distention is present with significant thickening of the second third portion of the duodenum - 01/18 abd US shows complex gallbladder containing air, small amount of free fluid, and distended stomach. - 01/18 HIDA scan shows no gallbladder filling at 60 minutes, suggestive of cystic duct obstruction and cholecystitis Procedures: - 01/18 CT guided placement of drain to right upper quadrant and there was a collection in the RUQ which corresponds to the location of the gallbladder, however it is unclear if this represents a combination of perforation, cholecystitis, or [id number] secondary to cholecystitis or PUD per Dr. Granado. Hospital course: 54-year-old -[place] male with hypertension, diabetes mellitus, hyperlipidemia and also history of right BKA presenting to the emergency room on 01/17 complaining of nausea and vomiting which has been ongoing for about 1 month. He has also had some mild abdominal discomfort. Upon arrival in the emergency room patient was found to be tachycardic and work-up reveals leukocytosis of 16, elevated lactic acid, acute kidney injury and CT abdomen reveals possible cholecystitis with abscess formation and perforation. HIDA scan performed on 01/18 showed no gallbladder filling at 60 minutes, suggestive of cystic duct obstruction and cholecystitis. He is s/p CT guided of drains into the right upper quadrant on 01/18. He is currently NPO with a NGT to LIS and does not have abd discomfort. States he is feeling better today but complains of cough. During the course of his stay he had electrolyte derangements which have been corrected. She will be discharged with an accordion drain to his right upper quadrant. His sister is to assume care for the drain who is an HAND [employer]. Patient will need to follow-up with his primary care physician within 1 to 2 weeks of discharge. Patient will follow-up with Dr. Chilel in his office within 1 to 2 weeks of discharge. Will be discharged on p.o. antibiotics until 01/31. (1) Sepsis Current Visit: Yes Status: Resolved Plan to address problem: - On admit he did leukocytosis, tachycardia, lactic acidosis and worsening renal function - Possible source is gallbladder - On IV antibiotics and will be discharged with p.o. antibiotic (2) Cholecystitis Current Visit: Yes Status: Acute Plan to address problem: - 01/17 CT abd/pelvis shows faint multifocal diffuse pulmonary changes right more severe effected than left without evidence of consolidation, zvnrg-vzyorq-vezuckdeb esophagus is present, markedly abnormal appearance in the region of the gallbladder-gallbladder fossa with a complex fluid collection with multiple pockets of air-gas with surrounding reticulation of fat acute- chronic cholecystitis is a concern and marked gastric distention is present with significant thickening of the second third portion of the duodenum - 01/18 abd US shows complex gallbladder containing air, small amount of free fluid, and distended stomach. - 01/18 CT guided placement of drain to right upper quadrant and there was a collection in the RUQ which corresponds to the location of the gallbladder, however it is unclear if this represents a combination of perforation, cholecystitis, or [id number] secondary to cholecystitis or PUD per Dr. Granado. - 01/18 HIDA scan shows no gallbladder filling at 60 minutes, suggestive of cystic duct obstruction and cholecystitis - Initiated on IV antibiotics but will be discharged with p.o. antibiotics for 10 more days until 01/31 - We will need to follow-up with general surgery outpatient within 1 to 2 weeks of discharge -Continue clear liquid diet and advance as tolerated (3) Acute on chronic renal insufficiency Current Visit: No Status: Chronic Plan to address problem: - Cr is trending down - 01/18 renal US shows no significant sonographic abnormality of the kidneys. - Follow-up with your primary care doctor within 1 to 2 weeks of discharge (4) Hypokalemia Current Visit: Yes Status: Resolved Plan to address problem: - Potassium repleted (5) Hypernatremia Current Visit: Yes Status: Resolved Plan to address problem: -Resolved (6) Essential (primary) hypertension Current Visit: No Status: Chronic Plan to address problem: - Blood pressure monitor per PCP instruction - Continue hydralazine and Lopressor PO (7) Hyperlipidemia Current Visit: No Status: Chronic Qualifiers: Hyperlipidemia type: mixed hyperlipidemia Qualified Code(s): E78.2 - Mixed hyperlipidemia Plan to address problem: - Continue Lipitor (8) Type 2 diabetes mellitus with complications Current Visit: No Status: Chronic Plan to address problem: - Accu-Cheks per primary care physician instructions - 01/18 Hbg A1C 5.8 - Resume antidiabetic therapy Disposition: DC-01 TO HOME OR SELFCARE Time spent for discharge: 40 Core Measure Documentation - Palliative Care Palliative Care/ Comfort Measures: Not Applicable - Core Measures Any of the following diagnoses?: none Exam - Constitutional Vitals: Temp Pulse Resp BP Pulse Ox 98.7 F 84 18 105/74 96 01/22/20 07:36 01/22/20 07:36 01/22/20 07:36 01/22/20 07:36 01/22/20 07:36 General appearance: Present: no acute distress - EENT Eyes: Present: PERRL, EOM intact ENT: hearing intact, poor dentition - Neck Neck: Present: supple, normal ROM - Respiratory Respiratory effort: normal Respiratory: bilateral: CTA - Cardiovascular Rhythm: regular Heart Sounds: Present: S1 & S2. Absent: systolic murmur, diastolic murmur - Extremities Extremities: no ischemia, pulses intact, pulses symmetrical, No edema, normal temperature, normal color, abnormal (Right BKA, left foot toes amputated) Peripheral Pulses: within normal limits - Abdominal General gastrointestinal: Present: soft, non-tender, non-distended, normal bowel sounds - Integumentary Integumentary: Present: clear (Right upper quadrant with dressing), warm, dry - Musculoskeletal Musculoskeletal: right sided weakness - Psychiatric Psychiatric: cooperative - Neurologic Neurologic: CNII-XII intact, focal deficits (Right hemiparesis, right facial droop), no moves all extremities (Right hemiparesis) - Allied Health Allied health notes reviewed: nursing, social work, case management Plan Activity: advance as tolerated Diet: diabetic Wound: per your surgeon's advice Special Instructions: record daily BP diary, record blood sugar diary, home health RN (for drain care) Additional Instructions: Please report to your nearest emergency department or contact your primary care physician if you experience worsening symptoms. Please follow-up with Dr. Chilel in his office. Please follow-up with your primary care physician within 1 to 2 weeks of discharge. He will be discharged with a drain to the right upper quadrant. Your sister has been instructed on maintenance of this drain. You will be discharged on Ciprofloxacin and Flagyl for 10 days. Follow up with: PRIMARY MD VINCENZO [Primary Care Provider] - 3-5 Days TUAN CHILEL MD [Staff Physician] - 7 Days Prescriptions: AtorvaSTATin [Lipitor] 40 mg PO QHS #30 tablet hydrALAZINE [Apresoline TAB] 10 mg PO Q8HR #90 tablet Ciprofloxacin [Ciprofloxacin ORAL LIQ] 500 mg PO Q12H 10 Days #20 brii.mc.rec metroNIDAZOLE [Flagyl] 500 mg PO Q8HR 10 Days #30 tablet Metoprolol [Lopressor TAB] 50 mg PO BID #60 tablet Lansoprazole Solutab [Prevacid Solutab] 30 mg PO BID #30 tab.rapdis traMADoL [Ultram 50 MG tab] 50 mg PO Q6HR PRN #15 tablet PRN Reason: Pain <DALLAS ELDER - Last Filed: 01/25/20 07:41> Providers - Providers Date of Admission: 01/18/20 22:54 Attending physician: DALLAS ELDER 01/18/20 22:24 Consult to Physician [CONS] Routine Comment: Dr. John spoke with Dr. Chilel @ [phone] Consulting Provider: TUAN CHILEL Physician Instructions: Reason For Exam: cholecysitis 01/19/20 10:04 Consult to Interventional Radiology [CONS] Routine Consulting Provider: GELY PUENTE Reason For Exam: abscess gallbladder fossa, please eval Notified:: dr. puente 01/20/20 08:20 Consult to Physician [CONS] Routine Comment: Consulting Provider: KIKI FERGUSON Physician Instructions: Reason For Exam: al Primary care physician: AEROSPACE ENGINEER Hospitalization - Discharge Diagnoses (1) Cholecystitis Status: Acute (2) Sepsis Status: Acute (3) Essential (primary) hypertension Status: Chronic Exam - Constitutional Vitals: Temp Pulse Resp BP Pulse Ox 97 F L 97 H 20 117/71 100 01/22/20 17:00 01/22/20 17:00 01/22/20 17:00 01/22/20 17:00 01/22/20 17:00
--- NOTE | 2020-01-22 14:25 | Progress Note ---
Assessment and Plan Assessment: Acute kidney injury secondary to Prerenal Etiology Cholecystitis with Abscess Sepsis Diabetes Mellitus type 2 on insulin Hypertension Hypernatremia Hypokalemia Plan: -Labs reviewed. Serum creatinine was 1.6 today, yesterday was 1.5 -Baseline serum creatinine 1.2-1.4 -CT of Abd/Pelvis w/o contrast and Renal US showed no acute renal findings -Replete potassium -On D5W infusion at 75 ml/hr -Serum Na level stable at 139 today -Monitor I/O's -Intake= 2623 ml Output= 740 ml (Net= 1883 ml) -Renal plan d/w Dr Park Subjective Principal diagnosis: Abdominal Pain, Nausea and vomiting Interval history: Pt seen in bed, awake, no acute distress Objective - Vital Signs Vital signs: Vital Signs - 12hr 01/22/20 01/22/20 01/22/20 04:35 06:05 07:36 Temperature 97.7 F 98.7 F Pulse Rate 82 77 84 Respiratory 18 18 Rate Blood Pressure 111/71 104/65 Blood Pressure 105/74 [Right] O2 Sat by Pulse 95 96 Oximetry - General Appearance General appearance: other EENT: ATNC Neck: no JVD Respiratory: Present: Decreased Breath Sounds Cardiology: regular, S1S2 Gastrointestinal: normoactive bowel sounds, other (RUQ drain noted) Neurologic: other (awake, oriented to person, place, and date, pt has some expressive aphasia s/p hx of CVA) Musculoskeletal: other (Right BKA noted; no edema to LLE) Psychiatric: cooperative - Lab 01/22/20 06:49 01/22/20 08:41 Most recent lab results Calcium 8.2 mg/dL (8.4-10.2) L D 01/22/20 08:41 Urine Creatinine 72.7 mg/dL (0.1-20.0) H 01/20/20 20:28 Urine Sodium 165 mmol/L 01/20/20 20:28 Urine Total Protein 38 mg/dL (5-11.8) H 01/20/20 20:28 Medications & Allergies - Medications Allergies/Adverse Reactions: Allergies No Known Allergies Allergy (Unverified 08/03/15 12:32) Home Medications: Home Medications Medication Instructions Recorded Confirmed Last Taken Type Acetaminophen [Acetaminophen 650 mg PA Q4H PRN #10 supp.rect 06/30/18 01/19/20 Unknown Rx SUPPOS] Aspirin [Aspirin BABY CHEW TAB] 81 mg FEEDTUBE QDAY #30 tab.chew 06/30/18 01/19/20 Unknown Rx Clopidogrel [Plavix] 75 mg FEEDTUBE QDAY #30 tablet 06/30/18 01/19/20 Unknown Rx Docusate Sodium [Colace ORAL LIQ] 100 mg FEEDTUBE BID 30 Days 06/30/18 01/19/20 Unknown Rx oral.liqd Epoetin Abhijeet 10,000 Unit [Procrit] 10,000 unit SUB-Q Webb #4 vial 06/30/18 01/19/20 Unknown Rx Insulin Glargine [Lantus VIAL] 20 units SUB-Q QHS 30 Days units 06/30/18 01/19/20 Unknown Rx polyethylene glycoL 3350 [Miralax 17 gm FEEDTUBE QDAY #30 powd.pack 06/30/18 01/19/20 Unknown Rx 3350] Promethazine [Phenergan] 25 mg PO Q6HR PRN #20 tab 01/13/20 01/19/20 Unknown Rx Acetaminophen [Acetaminophen TAB] 650 mg PO Q4H PRN tablet 01/22/20 Unknown Rx AtorvaSTATin [Lipitor] 40 mg PO QHS #30 tablet 01/22/20 Unknown Rx Insulin Lispro [Humalog] 0 unit SUB-Q ACHS vial 01/22/20 Unknown Rx Lansoprazole Solutab [Prevacid 30 mg PO BID #30 tab.rapdis 01/22/20 Unknown Rx Solutab] Lispro Insulin [HumaLOG] 0 unit SUB-Q ACHS 30 Days units 01/22/20 01/19/20 Unknown Rx Metoprolol [Lopressor TAB] 50 mg PO BID #60 tablet 01/22/20 Unknown Rx hydrALAZINE [Apresoline TAB] 10 mg PO Q8HR #90 tablet 01/22/20 Unknown Rx Active Medications: Generic Name Dose Route Start Last Admin Trade Name Freq PRN Reason Stop Dose Admin Acetaminophen 650 mg 01/18/20 22:58 Tylenol PO Q4H PRN Pain MILD(1-3)/Fever >100.5/AQUINO Atorvastatin Calcium 40 mg 01/20/20 22:00 01/21/20 22:49 Lipitor FEEDTUBE 40 mg QHS JONO Administration Bisacodyl 10 mg 01/19/20 16:00 01/21/20 09:28 Dulcolax PA 10 mg QDAY JONO Administration Dextrose 50 ml 01/18/20 22:58 D50w (25gm) Syringe IV Q30MIN PRN Hypoglycemia Protocol Heparin Sodium (Porcine) 5,000 unit 01/20/20 22:00 01/21/20 22:50 Heparin SUB-Q 5,000 unit Q12HR JONO Administration Hydralazine HCl 10 mg 01/20/20 07:58 Apresoline IV Q4HR PRN Hypertension Hydralazine HCl 10 mg 01/22/20 09:00 Apresoline FEEDTUBE Q8HR JONO Dextrose 1,000 mls @ 75 mls/hr 01/21/20 08:00 01/21/20 22:42 D5w IV 75 mls/hr DIRECT JONO Administration Piperacillin Sod/Tazobactam Sod 4.5 gm in 100 mls @ 200 mls/hr 01/21/20 14:00 01/22/20 05:51 Zosyn/Ns 4.5gm/100ml IV 200 mls/hr Q8HR JONO Administration Protocol Insulin Human Lispro 0 unit 01/19/20 07:30 01/21/20 23:08 Humalog SUB-Q 3 unit ACHS JONO Administration Protocol Lansoprazole 30 mg 01/20/20 22:00 01/21/20 22:49 Prevacid Solutab FEEDTUBE 30 mg BID JONO Administration Metoclopramide HCl 5 mg 01/22/20 11:30 Reglan IV ACHS JONO Metoprolol Tartrate 50 mg 01/20/20 22:00 01/21/20 22:53 Metoprolol FEEDTUBE 50 mg BID JONO Administration Morphine Sulfate 2 mg 01/18/20 22:58 Morphine IV Q4H PRN Pain, Moderate (4-6) Ondansetron HCl 4 mg 01/18/20 22:58 01/19/20 14:15 Zofran IV 4 mg Q8H PRN Administration Nausea And Vomiting Sodium Chloride 10 ml 01/19/20 10:00 01/21/20 22:49 Sodium Chloride Flush Syringe 10 Ml IV Not Given BID JONO Sodium Chloride 10 ml 01/18/20 22:58 Sodium Chloride Flush Syringe 10 Ml IV PRN PRN LINE FLUSH
[2020-01-22] MEDS: METOPROLOL TARTRATE 50 MG TAB FEEDTUBE SCH (15:32)
[2020-01-22 17:32] VITALS: BP 117/71
[2020-01-22 19:30] LABS: Calcium 7.9 mg/dL (8.4-10.2)
== END 2020-01-22 20:30 | disposition home health service (06) | DRG 872 ==
LOC: ED 19:57 → 3B-SURG 22:54
PROVIDERS: ADMIT Internal Medicine Geriatric Medicine; ATTEND Internal Medicine
PROC: 0W9F30Z Drainage of Abdominal Wall with Drainage Device, Percutaneous Approach (ICD-10-PCS; principal; 2020-01-19)
DX: A41.9 Sepsis, unspecified organism (principal); K81.0 Acute cholecystitis; N17.9 Acute kidney failure, unspecified; E87.0 Hyperosmolality and hypernatremia; K31.1 Adult hypertrophic pyloric stenosis; E87.6 Hypokalemia; N18.9 Chronic kidney disease, unspecified; I12.9 Hypertensive chronic kidney disease with stage 1 through stage 4 chronic kidney disease, or unspecified chronic kidney disease; E11.22 Type 2 diabetes mellitus with diabetic chronic kidney disease; E78.2 Mixed hyperlipidemia; Z79.4 Long term (current) use of insulin; Z79.899 Other long term (current) drug therapy; Z79.82 Long term (current) use of aspirin; Z89.511 Acquired absence of right leg below knee
CPT/HCPCS: 10160; 36415; 74018; 74176; 76705; 76770; 77012; 78226; 80048; 80053; 81001; 82140; 82570; 82962; 83036; 83690; 84156; 84300; 85007; 85025; 85027; 85610; 87040; 87116; 89050; 93005; 96372; 96374; 96375; G0378; A9270-GY; A9537; C1769; J1644; J2405; J2543; J2765; J3480; J7030; J7040; J7070

== ENCOUNTER 2020-03-07 10:30 | Outpatient (CLI) | payer OTHER ==
[2020-03-07 11:29] LABS: Blood Urea Nitrogen 20 mg/dL (9-20)
--- NOTE | 2020-03-07 13:41 | Cat Scan Report ---
CT ABDOMEN AND PELVIS WITH CONTRAST HISTORY: Abnormal findings on diagnostic imaging of liver and biliary tract. COMPARISON: 01/18/2020 TECHNIQUE: Helical CT images of the abdomen and pelvis were obtained following administration of intr avenous contrast. Sagittal and coronal reformatted images were reviewed. All CT scans at this [facility] are performed using CT dose reduction for ALARA by means of automated exposure control. CONTRAST: 100 ml of intravenous contrast administered. FINDINGS: Abdomen/pelvis: Percutaneous cholecystostomy tube has been inserted. The distended gallbladder has s ignificantly decreased in size from 12 x 7 cm to 6 x 2 cm. There appears to be a tiny 2 mm stone in t he distal common bile duct on axial image 63. The common bile duct is stable in caliber measuring 7 m m. The liver is normal size and contour. 1.5 cm cavernous hemangioma in the right hepatic lobe is noted. The pancreas, spleen, kidneys and adrenal glands are unremarkable. No evidence for bowel obstruction or focal inflammation. Normal appendix. No free fluid or free air. The aorta and vascular structures are widely patent and unremarkable. No adenopathy is appreciated. T he bladder and distal ureters are unremarkable. Lungs/bones: The lung bases are clear. Mild thoracolumbar spondylosis is stable. No fracture or susp icious bony lesion. IMPRESSION: No new acute process is appreciated. Percutaneous cholecystostomy tube is in position. Decreased gall bladder size as described. There does appear to be a small stone in the distal common bile duct on to day's exam. See above. Signer Name: Aidan Aparicio Jr, MD Signed: 03/07/2020 1:37 PM Workstation Name: [id number]
== END 2020-03-07 10:31 | disposition home or self-care (01) ==
LOC: CT 10:30
PROVIDERS: ATTEND Surgery
DX: K82.8 Other specified diseases of gallbladder (principal); Z90.49 Acquired absence of other specified parts of digestive tract
CPT/HCPCS: 36415; 74177; 82565; 84520; Q9967

== ENCOUNTER 2021-02-07 11:35 | Outpatient (CLI) | payer MEDICARE ==
[2021-02-07 12:20] LABS: Basophils % (Auto) 0.9 % (0.0-1.8); Eosinophils # (Auto) 0.1 K/mm3 (0.0-0.4); Eosinophils % (Auto) 2.4 % (0.0-4.3); Hematocrit 38.2 % (35.5-45.6); Hemoglobin 12.8 gm/dl (11.8-15.2); Lymphocytes # (Auto) 1.5 K/mm3 (1.2-5.4); Mean Corpuscular HGB Conc 34 % (32-34); Mean Corpuscular Volume 90 fl (84-94); Monocytes # (Auto) 0.3 K/mm3 (0.0-0.8); Monocytes % (Auto) 5.6 % (0.0-7.3); Platelet Count 267 K/mm3 (140-440); Red Blood Count 4.27 M/mm3 (3.65-5.03); Red Cell Distribution Width 13.4 % (13.2-15.2)
[2021-02-07 12:28] LABS: Bilirubin,Urine NEG (Negative); Blood,Urine MOD (Negative); Color,Urine Yellow (Yellow)
[2021-02-07 12:39] LABS: Alanine Aminotransferase 16 units/L (7-56); Albumin 4.4 g/dL (3.9-5); BUN/Creatinine Ratio 18; Blood Urea Nitrogen 20 mg/dL (9-20); Calcium 9.4 mg/dL (8.4-10.2); Chol/HDL Ratio 2.75 %; HDL Cholesterol 66 mg/dL (40-59); Hemolysis Index 11; LDL Cholesterol,Direct 99 mg/dL (50-130)
[2021-02-10 13:13] LABS: Vitamin D, 25-OH, D2 <4 ng/mL
== END 2021-02-07 11:36 | disposition home or self-care (01) ==
LOC: LAB 11:35
PROVIDERS: ATTEND Internal Medicine
DX: Z13.29 Encounter for screening for other suspected endocrine disorder (principal); Z00.00 Encounter for general adult medical examination without abnormal findings; E11.65 Type 2 diabetes mellitus with hyperglycemia; E78.5 Hyperlipidemia, unspecified; E55.9 Vitamin D deficiency, unspecified; R39.11 Hesitancy of micturition
CPT/HCPCS: 36415; 80053; 80061; 81001; 82306; 83036; 84153; 84443; 85025; 87086

== ENCOUNTER 2021-06-16 11:06 | Outpatient (CLI) | payer MEDICARE ==
[2021-06-16 12:03] LABS: Chol/HDL Ratio 2.16 %
== END 2021-06-16 11:07 | disposition home or self-care (01) ==
LOC: LAB 11:06
PROVIDERS: ATTEND Internal Medicine
DX: E11.65 Type 2 diabetes mellitus with hyperglycemia (principal); E78.5 Hyperlipidemia, unspecified
CPT/HCPCS: 36415; 80061; 83036

== ENCOUNTER 2021-11-27 10:34 | Outpatient (CLI) | payer MEDICARE | END 2021-11-27 10:35 | disposition home or self-care (01) | LOC: LAB 10:34 | PROVIDERS: ATTEND Internal Medicine | DX: E11.65 Type 2 diabetes mellitus with hyperglycemia (principal); E78.5 Hyperlipidemia, unspecified | CPT/HCPCS: 36415; 80061; 83036 ==